=== PATIENT | female | born 1960 | race Caucasian/White ===

== ENCOUNTER 2017-12-04 10:17 | Outpatient (CLI) | payer OTHER, SELFPAY ==
[2017-12-04 11:52] LABS: ALT 18 U/L (12-78); AST 12 U/L (15-37); Albumin 3.6 g/dL (3.4-5.0); Alkaline Phosphatase 105 U/L (46-116); Anion Gap 4.7 mmol/L (3-11); BUN 9 mg/dL (7-18); Bilirubin, Total 0.3 mg/dL (0.2-1.0); CO2 34.3 mmol/L (21.0-32.0); CREATININE 0.69 mg/dL (0.55-1.02); Calcium 9.6 mg/dL (8.5-10.1); Chloride 101 mmol/L (98-107); Cholesterol 220 mg/dL (50-200); Glucose 85 mg/dL (70-100); HDL Cholesterol 53 mg/dL (40-60); LDL CHOLESTEROL 140 mg/dL (<100); Potassium 4.3 mmol/L (3.5-5.1); Sodium 140 mmol/L (136-145); Total Protein 7.1 g/dL (6.4-8.2); Triglyceride 212 mg/dL (30-150)
== END 2017-12-04 10:37 ==
PROVIDERS: PCP Family Medicine; Visit Provider Family Medicine
DX: E78.5 Hyperlipidemia, unspecified (principal)
CPT/HCPCS: 36415; 80053; 80061; 83721

== ENCOUNTER 2018-04-01 15:58 | Outpatient (CLI) | payer OTHER, SELFPAY ==
--- NOTE | 2018-04-01 15:00 | DI.RAD_ITS ---
SYMPTOMS/DIAGNOSIS: ACUTE MID BACK PAIN, H/O COMPRESSION FRACTURE, M54.9, DORSALGIA DORSAL SPINE: The patient is status post T7 vertebroplasty. There is a very mild old superior endplate compression of T10. There is no evidence of an acute abnormality. The vertebral bodies, posterior elements and paravertebral soft tissues are well maintained. As visualized, the neural canal appears patent throughout. SUMMARY: No evidence of an acute fracture or subluxation. A T7 vertebroplasty is identified and an old mild superior endplate compression fracture of T10 is evident with no interval change.
== END 2018-04-01 16:18 ==
PROVIDERS: PCP Family Medicine; Visit Provider Nurse Practitioner Family
DX: M54.6 Pain in thoracic spine (principal); Z98.890 Other specified postprocedural states
CPT/HCPCS: 72072

== ENCOUNTER 2018-04-19 00:18 | Outpatient (CLI) | payer OTHER, SELFPAY ==
--- NOTE | 2018-04-19 08:35 | DI.MAMMO_ITS ---
SYMPTOMS/DIAGNOSIS: SCREENING, Z12.31 MAMMOGRAM: Mammograms were interpreted according to the usual protocol including computer analysis with CAD system, tomosynthesis and C view imaging. Comparison is made with exams from 2010 through 2018. The breasts are composed of fatty density tissue, breast density Category A. No suspicious masses or suspicious microcalcifications are seen. There has been no significant change. IMPRESSION: Category I, negative mammogram. Yearly screening mammography is recommended. [facility] ASSESSMENT OF FINDINGS: Negative. Category 1. Patient will receive a letter notifying them of these results. BI-RAD category A. The breasts are almost entirely fatty.
== END 2018-04-19 00:38 ==
PROVIDERS: PCP Family Medicine; Visit Provider Family Medicine
DX: Z12.31 Encounter for screening mammogram for malignant neoplasm of breast (principal)
CPT/HCPCS: 77063; 77067

== ENCOUNTER 2018-12-13 14:23 | Outpatient (REF) | payer OTHER, SELFPAY ==
--- NOTE | 2018-12-13 12:00 | PAPFT_PTH ---
PATIENT: Monique Barahona LOC: [facility] U#:[id number] AGE/SX: 58/F ROOM: RE12/13/[address]: Nimisha Benson MD : 1960 BED: DIS: 12/13/2018 SPEC #: [id number] RECD: 12/13/18 18:24 STATUS: IZZY REBrandon #: [id number] JEVON: 12/13/18 12:[address]: Nimisha Benson DEPT: [facility] Cytology RECD BY: Mariola Layton Tissues: 1 - CX/ENDOCX FOR PAP SMEARS Procedures: PAP THIN PREP/UVM Screening HPV DNA PROBE Comments: [id number]
== END 2018-12-13 14:43 ==
LOC: LBN 14:23
PROVIDERS: PCP Family Medicine; Visit Provider Family Medicine
DX: Z12.4 Encounter for screening for malignant neoplasm of cervix (principal)
CPT/HCPCS: 88142; 87624

== ENCOUNTER 2018-12-15 02:30 | Outpatient (CLI) | payer OTHER, SELFPAY ==
[2018-12-15 11:32] LABS: ALT 20 U/L (14-59); AST 12 U/L (15-37); Albumin 3.6 g/dL (3.4-5.0); Alkaline Phosphatase 90 U/L (46-116); Anion Gap 8.4 mmol/L (3-11); BUN 10 mg/dL (7-18); Bilirubin, Total 0.3 mg/dL (0.2-1.0); CO2 30.6 mmol/L (21.0-32.0); CREATININE 0.69 mg/dL (0.55-1.02); Calcium 9.1 mg/dL (8.5-10.1); Calculated LDL 125 mg/dL; Chloride 105 mmol/L (98-107); Cholesterol 211 mg/dL (50-200); Glucose 80 mg/dL (70-100); HDL Cholesterol 51 mg/dL (40-60); Potassium 4.1 mmol/L (3.5-5.1); Sodium 144 mmol/L (136-145); Triglyceride 177 mg/dL (30-150)
== END 2018-12-15 02:50 ==
PROVIDERS: PCP Family Medicine; Visit Provider Family Medicine
DX: E83.42 Hypomagnesemia (principal); E78.5 Hyperlipidemia, unspecified
CPT/HCPCS: 36415; 80053; 80061; 83735

== ENCOUNTER 2019-12-20 09:08 | Emergency (ER) | payer OTHER, SELFPAY ==
[2019-12-20 09:14] VITALS: BP 164/80; PULSE 102; RESP 16; TEMP 36.5; O2SAT 98
--- NOTE | 2019-12-20 09:24 | ED.GENADUL_ITS ---
Discharge Plan Disposition Patient Disposition: HOME Condition: Improving Discharge Details Clinical Impression: Moderate left ankle sprain Primary Care Provider: Nimisha Benson ED Provider: Daniel Ramírez Home Meds and New Rx's Prescriptions: Continued ibandronate 150 mg tablet 150 mg PO monthly Qty: 12 RF: 0 Chantix Starting Month Box 0.5 mg (11)- 1 mg (42) tablets,dose pack See Rx Instructions PO PER PKG DIR Qty: 53 RF: 0 albuterol sulfate [ProAir HFA] 90 mcg/actuation HFA aerosol inhaler 1 - 2 puff IH QID PRN (Reason: shortness of breath or wheezing) Qty: 8.5 RF: 2 acetaminophen [Tylenol Extra Strength] 500 MG tablet 1,000 mg PO Q4HR PRN RF: 0 calcium phosphate-vitamin D3 1 EACH tablet,chewable 2 ea PO DAILY RF: 0 mometasone 17 GM spray,non-aerosol 2 spry NS DAILY Qty: 1 RF: 5 fexofenadine 180 mg tablet 180 mg PO DAILY Qty: 90 RF: 4 pravastatin 10 mg tablet 10 mg PO DAILY Qty: 90 RF: 4 omeprazole 40 mg capsule,delayed release(DR/EC) 40 mg PO DAILY Qty: 90 RF: 4 Discharge Instructions Instructions: Ankle Sprain (ED) Additional Instructions: May remove walking boot will at rest or lying in bed, and for bathing. Rest, ice, elevate above the level of the heart to reduce pain and swelling. Anticipate you will wear the walking boot approximately 5 to 7 days time until you can walk without pain, then may remove. If pain persist beyond 7 to 10 days, please follow-up with regular doctor for reevaluation. Return for any acute concerns. Medical Decision Making 59-year-old female who slipped and fell with wet boots on her kitchen floor. She felt her ankle deviate and crack. Now with anterior left ankle pain and swelling. Differential diagnosis includes bony versus soft tissue injury. Ice placed, patient declined analgesia, patient referred for x-ray. Radiograph showed evidence of bony fracture. Patient with some pain but able to weight-bear. Placed in a walking boot. She understands she may remove approxi- 1 week. She will follow up with pain persist beyond that time. HPI General Mode of arrival: ambulatory . Date/Time Provider Initiated Documentation: 12/20/19 09:09 . Limitations to Documentation: no limitations . Information obtained by: patient . History of Present Illness 59 year old F presents to the emergency department with the chief complaint of Left ankle pain after fall at home, described as moderate, Quality is described as dull, and is localized to the left and lower extremity. Patient reports no radiation. Patient started experiencing this minute(s) and it has been constant. Rest improves symptom(s), Movement worsens symptoms . Patient notes no other symptoms.; denies chest pain, headaches, shortness of breath and syncope. Patient did receive the following treatments prior to arrival, none Related Data Home Medications Medication Instructions Recorded Confirmed acetaminophen [Tylenol Extra 1,000 mg PO Q4HR PRN tab-cap 01/31/13 12/20/19 Strength] calcium phosphate-vitamin D3 2 ea PO DAILY tab.chew 10/02/16 12/20/19 mometasone 2 spry NS DAILY #1 bottle 03/16/17 12/20/19 albuterol sulfate 90 mcg/actuation 1 - 2 puff IH QID PRN #8.5 gm 06/07/18 12/20/19 aerosol inhaler ibandronate 150 mg tablet 150 mg PO monthly #12 tab-cap 12/13/18 12/20/19 varenicline 0.5 mg (11)-1 mg (42) See Rx Instructions PO PER PKG DIR 12/13/18 10/12/19 tablets in a dose pack #53 dose pk fexofenadine 180 mg tablet 180 mg PO DAILY #90 tab 12/21/18 12/20/19 pravastatin 10 mg tablet 10 mg PO DAILY #90 tab-cap 08/31/19 12/20/19 omeprazole 40 mg capsule,delayed 40 mg PO DAILY #90 tab-cap 12/01/19 12/20/19 release Previous Rx's Medication Instructions Recorded mometasone 2 spry NS DAILY #1 bottle 03/16/17 albuterol sulfate 90 mcg/actuation 1 - 2 puff IH QID PRN #8.5 gm 06/07/18 aerosol inhaler ibandronate 150 mg tablet 150 mg PO monthly #12 tab-cap 12/13/18 varenicline 0.5 mg (11)-1 mg (42) See Rx Instructions PO PER PKG DIR 12/13/18 tablets in a dose pack #53 dose pk fexofenadine 180 mg tablet 180 mg PO DAILY #90 tab 12/21/18 pravastatin 10 mg tablet 10 mg PO DAILY #90 tab-cap 08/31/19 omeprazole 40 mg capsule,delayed 40 mg PO DAILY #90 tab-cap 12/01/19 release Allergies Allergy/AdvReac Type Severity Reaction Status Date / Time No Known Allergies Allergy Verified 12/20/19 09:18 Dog dander Allergy Intermediate Uncoded 12/20/19 09:18 General Stated Complaint: Orthopedic FREDDY: 4 Review of Systems Narrative: Denies to me head/neck/back injury. Chronic back pain that is unchanged. No loss of consciousness. Sick systems reviewed and otherwise negative [facility] Medical History BPPV (benign paroxysmal positional vertigo) Surgical History Appendectomy Arthroscopy, Shoulder Cholecystectomy (~08/2010) Family History Mother , AGE 65 No problems noted. Father Prostate cancer Sister No problems noted. Son No problems noted. Son No problems noted. Maternal Grandfather , age 85 No problems noted. Paternal Grandfather , age 85 No problems noted. Maternal Grandmother , age 80 No problems noted. Paternal Grandmother , 104 No problems noted. 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 Pets and animals: Yes Pets and animals: dog(s) Sexually active: No What is your relationship status?: How often do you talk on the phone with friends or family?: three or more times per week How often do you get together with friends or relatives?: twice per week How often do you attend adventism or taoism services?: decline to answer Do you belong to any clubs or organized social groups?: no Panel score (0-1 are the most socially isolated patients): 1 What type of physical activity do you participate in: walking Duration: 30-45 minutes/day Frequency: 5-6 times per week Ara/Mandaen: [employer] Special ara needs: No Seatbelt use: always Helmet use: No Drive intox or ride w/intox catshovel driver: No Do you feel safe at home: Yes Do you feel safe in your relationship?: Yes Exam Narrative Exam Narrative: GEN: awake, alert, oriented 3. Pleasant, well groomed, interactive. HEAD: Normocephalic, atraumatic ENT: Mucous membranes moist, External ear exam unremarkable EYES: PERRL, EOMI NECK: Full ROM, no DORIS, no menigismus, nontender CHEST/RESP: Nontender, clear to auscultation bilateral, no wheeze/rhonchi/rales CARDIOVASCULAR: RRR, no murmur, rub cindy. 2+ Rad pulse bilateral ABDOMEN: Nontender, soft, nontender, no mass. +Bowel sounds. Back nontender without step-off or deformity. EXT: Full ROM, left anterior ankle with swelling and tenderness. 2+ DP bilaterally. Sensation intact throughout. Motor intact. Neuro: Grossly normal neurologic exam, conversant, interactive. Psych: Speech fluent, thoughts congruent, affect normal Course Vital Signs Vital signs: Vital Signs Temperature 36.5 C 12/20/19 09:14 Pulse 102 H 12/20/19 09:14 Respiratory Rate 16 12/20/19 09:14 Blood Pressure 164/80 H 12/20/19 09:14 Pulse Oximetry 98 12/20/19 09:14 Temperature 36.5 C 12/20/19 09:14 Temperature Source Skin 12/20/19 09:14 Pulse 102 H 12/20/19 09:14 Respiratory Rate 16 12/20/19 09:14 Respiratory Effort Non-Labored 12/20/19 09:17 Blood Pressure 164/80 H 12/20/19 09:14 Blood Pressure Position Sitting 12/20/19 09:14 Pulse Oximetry 98 12/20/19 09:14 Oxygen Delivery Method Room Air 12/20/19 09:14 Oxygen Flow Rate 0 12/20/19 09:14 Pain Level 7 12/20/19 09:14
--- NOTE | 2019-12-20 09:38 | DI.RAD_ITS ---
EXAM: XR ANKLE LT COMPLETE CLINICAL HISTORY: anterior anle swelling, pain p fall TECHNIQUE: 2D digital imaging was performed. COMPARISON: No exams were available for comparison FINDINGS: BONES: No acute fracture is present. No bony destructive lesion is seen. JOINTS:The ankle mortise is normally aligned. Joint effusion is present. SOFT TISSUE: Normal. IMPRESSION: No acute fracture or dislocation. Small joint effusion. DATA REPOSITORY: RADIATION DOSE DELIVERED:
== END 2019-12-20 10:10 | disposition home or self-care (01) ==
LOC: ER 10:04
PROVIDERS: Emergency Provider Emergency Medicine; PCP Family Medicine
DX: S93.492A Sprain of other ligament of left ankle, initial encounter (principal); W01.0XXA Fall on same level from slipping, tripping and stumbling without subsequent striking against object, initial encounter; X50.9XXA Other and unspecified overexertion or strenuous movements or postures, initial encounter
CPT/HCPCS: 29515; 99283; 73610; L4361

== ENCOUNTER 2019-12-23 04:23 | Outpatient (CLI) | payer OTHER, SELFPAY ==
--- NOTE | 2019-12-23 06:31 | DI.MAMMO_ITS ---
EXAM: MG MAMMO SCREENING CLINICAL HISTORY: screening,Z12.39 TECHNIQUE: Bilateral full field digital CC and MLO mammographic images were obtained with 3D tomosyn thesis and utilizing computer aided detection (CAD). COMPARISON: Available for comparison. FINDINGS: Masses/Architectural Distortion: None seen. Microcalcifications: No suspicious pleomorphic-type are seen. Skin Thickening/Nipple Retraction: None. IMPRESSION: 1. No significant interval change with no specific features of malignancy noted. 2. Unless there is more urgent need, screening mammography is recommended, as per [employer] guidelines. BI-RADS Category 1 - Negative Breast Density - Category A - Almost entirely fatty A negative radiographic report should not delay biopsy if a dominant or clinically suspicious mass is present. Up to ten percent of cancers are not identified on mammography. A negative report may reinforce clinical impression. Adenosis and dense breasts may obscure an underlying neoplasm. False positive reports average 6 to 10%. Patient will receive a letter notifying them of these results.
== END 2019-12-23 04:43 ==
PROVIDERS: PCP Family Medicine; Visit Provider Nurse Practitioner Family
DX: Z12.31 Encounter for screening mammogram for malignant neoplasm of breast (principal)
CPT/HCPCS: 77063; 77067

== ENCOUNTER 2020-01-17 01:02 | Outpatient (CLI) | payer OTHER, SELFPAY ==
--- NOTE | 2020-01-17 08:45 | DI.DEXA_ITS ---
EXAM: XR DEXA BONE DENSITY W/WO JAUN CLINICAL HISTORY: Reassess bone density, last dexa in 2017,OSTEOPOROSIS, M81.0 TECHNIQUE: [employer] C densitometer COMPARISON: CR THORACIC SPINE from 01/01/2015 CR LUMBAR SPINE COMPLETE from 01/11/2016 DX DEXA BONE DENSITY WITH JAUN from 03/25/2016 FINDINGS: JAUN image: High-density material in the T7 vertebral body related to vertebroplasty. Mild compressio n fracture T 10 appears stable. There is also mild compression fracture of T12. Lumbar spine: Bone mineral density measurements of the lumbar spine correspond to a total T-score of -2.1, consistent with osteopenia. This represents a 5.2 percent increase when compared with 2017. Left hip: The bone mineral density measurements of the left hip correspond to a total T-score of -3.1 and a femoral neck T-score of -2.2, consistent with osteoporosis. The overall bone mineral density of the left hip has decreased 20.4 percent when compared with 2017. Right forearm: The left forearm was analyzed on the previous exam. The total T-score is -1.6, in the osteopenic range. IMPRESSION: Prior history of thoracic compression fractures. Osteopenia of the lumbar spine. Osteoporosis of th e left hip with significant decrease when compared with 2017. Osteopenia of right forearm.
== END 2020-01-17 01:22 ==
PROVIDERS: PCP Family Medicine; Visit Provider Nurse Practitioner Family
DX: M85.88 Other specified disorders of bone density and structure, other site (principal); M16.12 Unilateral primary osteoarthritis, left hip
CPT/HCPCS: 77080

== ENCOUNTER → 2020-02-24 21:20 | Outpatient (REF) | payer OTHER, SELFPAY ==
[2020-02-24 21:52] LABS: Abs Immature Grans 0.01 10^3/uL (0.0-0.06); Absolute Basophil Count 0.03 10^3/uL (0.0-0.2); Absolute Eosinophil Count 0.09 10^3/uL (0.0-0.7); Absolute Monocyte Count 0.37 10^3/uL (0.1-0.8); Absolute Neutrophil Count 3.97 10^3/uL (1.2-6.7); Basophils % 0.5; Eosinophils % 1.6; HGB 14.5 g/dL (11.2-15.7); Immature Grans % 0.2; Lymphocytes % 18.3; MCH 32.7 pg (27.0-33.0); MCV 99.3 fL (80-95); MPV 10.3 fL (8.0-11.0); Monocytes % 6.8; Neutrophils % 72.6; Nucleated RBC 0 %; Platelet Count 257 10^3/uL (130-400); RBC 4.43 10^6/uL (3.93-5.22); RDW 12.4 % (11.7-14.6); RDW-SD 45.8 fL; WBC 5.47 10^3/uL (4.4-10.8)
[2020-02-24 22:07] LABS: Albumin 3.9 g/dL (3.4-5.0); Alkaline Phosphatase 257 U/L (46-116); Amylase 115 U/L (25-115); Anion Gap 7.3 mmol/L (3-11); BUN 10 mg/dL (7-18); Bilirubin, Total 1.7 mg/dL (0.2-1.0); CO2 30.7 mmol/L (21.0-32.0); CREATININE 0.78 mg/dL (0.55-1.02); Calcium 9.4 mg/dL (8.5-10.1); Chloride 103 mmol/L (98-107); Glucose 115 mg/dL (74-106); Lipase 395 U/L (73-393); Potassium 4.2 mmol/L (3.5-5.1); Sodium 141 mmol/L (136-145); Total Protein 7.2 g/dL (6.4-8.2)
[2020-02-24 22:39] LABS: ALT 1073 U/L (14-59); AST 1162 U/L (15-37)
== END ==
LOC: LBN 21:20
PROVIDERS: PCP Family Medicine; Visit Provider Nurse Practitioner Family
DX: R10.9 Unspecified abdominal pain (principal)
CPT/HCPCS: 80053; 83690; 82150; 85025

== ENCOUNTER 2020-02-25 07:17 | Inpatient (IN) | payer OTHER, SELFPAY ==
[2020-02-25] VITALS (54 sets, daily range): BP systolic 123–154; BP diastolic 50–83; PULSE 67–107; RESP 12–23; TEMP 36.4–37; O2SAT 83–97
--- NOTE | 2020-02-25 07:15 | DI.CT_ITS ---
EXAM: CT ABDOMEN PELVIS W CLINICAL HISTORY: abdominal pain with elevated LFT/lipase. TECHNIQUE: Imaging Protocol: Axial computed tomography images with coronal and sagittal reformatted images were created and reviewed CONTRAST MATERIAL: Intravenous: Omnipaque 350 Contrast volume: 100 Oral: no COMPARISON: No exams were available for comparison FINDINGS: ABDOMEN: Lung Bases: Normal where visualized. Liver: Normal density. No measurable mass. Gallbladder and biliary tract: Status post cholecystectomy. Pancreas: Mildly enlarged, edematous pancreatic head with some surrounding inflammation, consistent w ith pancreatitis. Spleen: Normal. Kidneys: Normal size, contour and axis. No radiodense stones or obstructive uropathy. No masses seen. Adrenal glands: No masses seen. Abdominal Aorta: Abdominal portion non-dilated. PELVIS: Bladder: Symmetric distention, no gross wall thickening. Bowel: No obstruction . Status post appendectomy. Mild inflammation of the duodenum, adjacent to the pancreatic head. Peritoneal cavity: No ascites, collection or mesenteric inflammatory response. Bones: Within normal limits. Reproductive organs: Within normal limits. Lymph nodes: Unremarkable. Impression: Findings consistent with pancreatitis involving the head and body. Adjacent secondary inflammation o f the duodenum. RADIATION DOSE DELIVERED: 993.45mGy.cm Total DLP DATA REPOSITORY: All CT scans at this facility are submitted to the National Radiology Data Registry (NRDR) Dose Index Registry (DIR) with the [employer] (ACR). RADIATION OPTIMIZATION: All CT scans at this facility use at least one of these dose optimization te chniques: automated exposure control; mA and/or kV adjustment per patient size (includes targeted exa ms where dose is matched to clinical indication); or iterative reconstruction.
--- NOTE | 2020-02-25 07:31 | ED.GENADUL_ITS ---
Discharge Plan Disposition Patient Disposition: [facility] INPATIENT Condition: Improving Discharge Details Clinical Impression: Acute pancreatitis Admit Date/Time: 02/25/20 12:15 Admit Provider: Maruice Finn Attending Provider: Maurice Finn Primary Care Provider: Nimisha Benson ED Provider: Daniel Ramírez Medical Decision Making <Rock Garcia MD - Last Filed: 02/25/20 07:40> Patient presenting with upper abdominal pain with associated nausea/vomiting and history of pancreatitis. Status post cholecystectomy remotely. She is not a drinker. Feels better after medications. Laboratory studies yesterday showed normal white count but markedly elevated AST/ALT in the 1000 range. Lipase slightly elevated though not markedly. IV in place. Will start fluids. Repeat laboratory studies and obtain CT scan of abdomen pelvis. Patient be signed over to oncoming physician, Dr. Ramírez. Medical Records Medical records reviewed: Yes I reviewed the patient's medical records. Lab Data Lab results reviewed: Yes I reviewed the patient's lab results. Lab results narrative: Yesterday labs with elevated LFTs <Daniel Ramírez MD - Last Filed: 02/25/20 14:00> I received signout on the patient from Dr. Garcia. Please see his note regarding details of initial presentation, exam, plan of care. Patient with evidence of pancreatitis with lipase greater than 15,000. Her w josé miguel count is 11, hematocrit 43, platelets 261. AST 19, ALT 1304, alk phos 337, total bili 3.8. CT obtained with evidence of pancreatitis, no evidence of ductal dilatation. Ultrasound obtained which shows a normal common bile duct and pancreatic duct of 3 mm without evidence of stones or obstruction. HPI <Rock Garcia MD - Last Filed: 02/25/20 07:40> General Mode of arrival: EMS . Date/Time Provider Initiated Documentation: 02/25/20 07:21 . Limitations to Documentation: no limitations . Information obtained by: patient, RN notes reviewed and old records reviewed . HPI Narrative: Patient presents to ED by ambulance with abdominal pain. Patient reports pain started 2 days ago and radiates into the back. Reminds her of when she had prio r pancreatitis. She had vomiting yesterday. Dry heaves only today. She was seen by primary care yesterday and had laboratory studies done. She reports that she was supposed to get a phone call from them in the afternoon with the results of the labs and whether CT scan would be ordered or not. Patient denies fever, cough, shortness of breath, chest pain. She is status post cholecystectomy and appendectomy. She points to the epigastric region as to where she has pain. She received fentanyl and Zofran in route and feels much better. Related Data Home Medications Medication Instructions Recorded Confirmed acetaminophen [Tylenol Extra 1,000 mg PO Q4HR PRN tab-cap 01/31/13 02/25/20 Strength] calcium phosphate-vitamin D3 2 ea PO DAILY tab.chew 10/02/16 02/25/20 mometasone 2 spry NS DAILY #1 bottle 03/16/17 02/25/20 albuterol sulfate 90 mcg/actuation 1 - 2 puff IH QID PRN #8.5 gm 06/07/18 02/25/20 aerosol inhaler varenicline 0.5 mg (11)-1 mg (42) See Rx Instructions PO PER PKG DIR 12/13/18 02/25/20 tablets in a dose pack #53 dose pk fexofenadine 180 mg tablet 180 mg PO DAILY #90 tab 12/21/18 02/25/20 pravastatin 10 mg tablet 10 mg PO DAILY #90 tab-cap 08/31/19 02/25/20 omeprazole 40 mg capsule,delayed 40 mg PO DAILY #90 tab-cap 12/01/19 02/25/20 release ibandronate 150 mg tablet 150 mg PO monthly #3 tab-cap 01/30/20 02/25/20 Previous Rx's Medication Instructions Recorded mometasone 2 spry NS DAILY #1 bottle 03/16/17 albuterol sulfate 90 mcg/actuation 1 - 2 puff IH QID PRN #8.5 gm 06/07/18 aerosol inhaler varenicline 0.5 mg (11)-1 mg (42) See Rx Instructions PO PER PKG DIR 12/13/18 tablets in a dose pack #53 dose pk fexofenadine 180 mg tablet 180 mg PO DAILY #90 tab 12/21/18 pravastatin 10 mg tablet 10 mg PO DAILY #90 tab-cap 08/31/19 omeprazole 40 mg capsule,delayed 40 mg PO DAILY #90 tab-cap 12/01/19 release ibandronate 150 mg tablet 150 mg PO monthly #3 tab-cap 01/30/20 Allergies Allergy/AdvReac Type Severity Reaction Status Date / Time Dog dander Allergy Intermediate Uncoded 02/25/20 07:37 General FREDDY: 4 Review of Systems <Rock Garcia MD - Last Filed: 02/25/20 07:40> Narrative: 11/29 Review of Systems completed and is negative except as stated above in HPI (Systems reviewed: Const, Eyes, ENT, Resp, CV, GI, , MSK, Skin, Neuro) PFSH <Rock Garcia MD - Last Filed: 02/25/20 07:40> Medical History BPPV (benign paroxysmal positional vertigo) GERD (gastroesophageal reflux disease) Guillain-Gruver syndrome Hyperlipidemia global risk of CAD: 9% (smoking and age) 2017/ [place] of [place]08/06/14[place] [facility] [place]frequency [place] of left renal mass/pt asymptomatic Osteoporosis (04/09/16) Dexa scan 2017 Pancreatitis (04/26/13) Surgical History Appendectomy Arthroscopy, Shoulder Cholecystectomy (~08/2010) Family History Mother , AGE 65 No problems noted. Father Prostate cancer Sister No problems noted. Son No problems noted. Son No problems noted. Maternal Grandfather , age 85 No problems noted. Paternal Grandfather , age 85 No problems noted. Maternal Grandmother , age 80 No problems noted. Paternal Grandmother , 104 No problems noted. 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 Pets and animals: Yes Pets and animals: dog(s) Sexually active: No What is your relationship status?: How often do you talk on the phone with friends or family?: three or more times per week How often do you get together with friends or relatives?: twice per week How often do you attend synagogue or cheondoism services?: decline to answer Do you belong to any clubs or organized social groups?: no Panel score (0-1 are the most socially isolated patients): 1 What type of physical activity do you participate in: walking Duration: 30-45 minutes/day Frequency: 5-6 times per week Ara/Mandaeism: Adventism Special ara needs: No Seatbelt use: always Helmet use: No Drive intox or ride w/intox driver/sales workers: No Do you feel safe at home: Yes Do you feel safe in your relationship?: Yes Exam <Rock Garcia MD - Last Filed: 02/25/20 07:40> Narrative Exam Narrative: Const: WDWN female in NAD. HEENT: NC/AT. Normal facial exam. Eyes: Normal conjunctiva and sclera. Neck: Supple. Trachea midline. Lungs: Normal respiratory effort. Cor: RRR. Good radial pulses. GI: Soft. NT/ND. No guarding or rebound. Neuro: A+O x 3. Normal speech, mentation. Cranial nerves II - XII grossly intact. No gross motor or sensory deficit. Ext: No C/C/E. Skin: Warm and dry. Sign Out <Rock Garcia MD - Last Filed: 02/25/20 07:40> Sign Out Data: Sign Out Comment: pending labs and CT scan Last updated by Rock Garcia MD at 02/25/20 07:40
[2020-02-25] MEDS: Lactated Ringers 1,000 ML 125 ML IV (07:40)
[2020-02-25 07:49] LABS: Abs Immature Grans 0.04 10^3/uL (0.0-0.06); Absolute Basophil Count 0.06 10^3/uL (0.0-0.2); Absolute Eosinophil Count 0.13 10^3/uL (0.0-0.7); Absolute Lymphocyte Count 1.21 10^3/uL (1.2-3.4); Absolute Neutrophil Count 9.09 10^3/uL (1.2-6.7); Basophils % 0.5; Eosinophils % 1.2; HGB 14.5 g/dL (11.2-15.7); Immature Grans % 0.4; MCH 33.3 pg (27.0-33.0); MCHC 33.7 % (32.0-36.0); MCV 98.9 fL (80-95); MPV 9.6 fL (8.0-11.0); Monocytes % 4.4; Neutrophils % 82.5; Nucleated RBC 0 %; Platelet Count 261 10^3/uL (130-400); RBC 4.35 10^6/uL (3.93-5.22); RDW 12.5 % (11.7-14.6); RDW-SD 45.8 fL; WBC 11.02 10^3/uL (4.4-10.8)
[2020-02-25 07:50] LABS: Absolute Monocyte Count 0.48 10^3/uL (0.1-0.8)
[2020-02-25 08:06] LABS: Albumin 3.6 g/dL (3.4-5.0); Alkaline Phosphatase 337 U/L (46-116); Anion Gap 11.4 mmol/L (3-11); BUN 11 mg/dL (7-18); Bilirubin, Total 3.8 mg/dL (0.2-1.0); CO2 27.6 mmol/L (21.0-32.0); CREATININE 0.88 mg/dL (0.55-1.02); Calcium 9.1 mg/dL (8.5-10.1); Chloride 101 mmol/L (98-107); Glucose 175 mg/dL (74-106); Potassium 3.5 mmol/L (3.5-5.1); Sodium 140 mmol/L (136-145); Total Protein 7.3 g/dL (6.4-8.2)
[2020-02-25 08:14] LABS: AST 910 U/L (15-37)
[2020-02-25 08:15] LABS: ALT 1304 U/L (14-59); Lipase > 15000 U/L (73-393)
[2020-02-25 08:27] LABS: Acetaminophen < 2 ug/mL (10-30)
[2020-02-25] MEDS: Omnipaque 350 MG/ML 100 ML BTL IJ (08:41)
[2020-02-25] MEDS: Normal Saline - Diluent 50 ML VIAL IV (08:42)
[2020-02-25] MEDS: Normal Saline Flush 10 ML SYR IVP (08:42)
--- NOTE | 2020-02-25 08:45 | DI.VRAD_ITS ---
PROCEDURE INFORMATION: Exam: CT Abdomen And Pelvis With Contrast Exam date and time: 02/25/2020 7:31 AM Age: 60 years old Clinical indication: Other: Abdominal pain with elevated lft/lipase; Prior surgery; Surgery date: 6+ months; Additional info: S/P pancreatitis, cholecystectomy, appendectomy and renal cell carcinoma in 2014 TECHNIQUE: Imaging protocol: Computed tomography of the abdomen and pelvis with intravenous contrast. Radiation optimization: All CT scans at this facility use at least one of these dose optimization techniques: automated exposure control; mA and/or kV adjustment per patient size (includes targeted exams where dose is matched to clinical indication); or iterative reconstruction. Contrast material: OMNIPAQUE 350; Contrast volume: 100 ml; Contrast route: INTRAVENOUS (IV); COMPARISON: CT UPPER ABD W/WO CONTRAST(P) 12/09/2013 9:04 AM FINDINGS: Liver: Normal. No mass. Gallbladder and bile ducts: Cholecystectomy Pancreas: Inflammatory changes around head and body of the pancreas. The pancreatic head is edematous. Findings consistent with pancreatitis. There may be secondary inflammation of the duodenum. . Spleen: Normal. No splenomegaly. Adrenal glands: Normal. No mass. Kidneys and ureters: Subcentimeter cyst lower pole left kidney No hydronephrosis. Stomach and bowel: Secondary inflammation of the duodenum from adjacent pancreatitis Appendix: Appendectomy Intraperitoneal space: Unremarkable. No free air. No significant fluid collection. Vasculature: Unremarkable. No abdominal aortic aneurysm. Lymph nodes: Unremarkable. No enlarged lymph nodes. Urinary bladder: Unremarkable as visualized. Reproductive: Unremarkable as visualized. Bones/joints: Unremarkable. No acute fracture. Soft tissues: Unremarkable. IMPRESSION: Inflammatory changes around head and body of the pancreas. The pancreatic head is edematous. Findings consistent with pancreatitis. There may be secondary inflammation of the duodenum. . Dictated and Authenticated by: Makayla Rivas MD. Ordering:RALPH Wilkerson MD
--- NOTE | 2020-02-25 09:00 | DI.US_ITS ---
EXAM: US ABDOMEN CLINICAL HISTORY: epigastric pain, pancreaitis, elev bili TECHNIQUE: Ultrasound abdomen performed using standard protocol. COMPARISON: CT CT ABDOMEN PELVIS W from 02/25/2020 FINDINGS: LIVER: Normal size, mildly increased echogenicity.. No focal liver lesions are seen.. GALLBLADDER: Status post cholecystectomy. BILIARY SYSTEM: Mild intrahepatic and extrahepatic biliary ductal dilation. No common duct stones ar e visible. KIDNEYS: Kidneys are symmetric in size. No evidence of renal calculi. No evidence of hydronephrosis. No renal mass or cyst identified. PANCREAS: Mildly prominent pancreatic head. Mild dilatation of the pancreatic duct to 3 millimeters. No stones are identified. SPLEEN: Not enlarged. ABDOMINAL AORTA AND IVC: Visualized portions normal caliber. ASCITES: None seen. IMPRESSION: Mildly prominent pancreatic head could indicate focal pancreatitis. There is mild dilatation of the pancreatic duct. No stones are visible.. DATA REPOSITORY:
[2020-02-25] MEDS: HYDROmorphone 2 MG/ML VIAL 0.5 MG IVP (09:42)
[2020-02-25] MEDS: Lactated Ringers 1,000 ML 200 ML IV ×3 (10:00→19:31)
[2020-02-25] MEDS: Ondansetron 4 MG/2 ML VIAL IVP (10:48)
--- NOTE | 2020-02-25 12:01 | DI.VRAD_ITS ---
PROCEDURE INFORMATION: Exam: US Abdomen Complete Exam date and time: 02/25/2020 9:01 AM Age: 60 years old Clinical indication: Other: Mid abdominal pain. ; Prior surgery; Surgery date: 6+ months; Surgery type: S/P cholecystectomy; Patient HX: Abdominal pain since after a fatty meal - PT has limited food intake since then due to her HX of pancreatitis. TECHNIQUE: Imaging protocol: Real-time ultrasound of the abdomen with image documentation. COMPARISON: CT ABDOMEN PELVIS W 02/25/2020 8:22 AM FINDINGS: Liver: Liver measures 14.8 cm. The liver is mildly echogenic. This may represent mild fatty infiltration Gallbladder: Cholecystectomy Common bile duct: Common bile duct measures 4.8 -5 mm Pancreas: Pancreatic duct 2 mm Prominent pancreatic head consistent with the CT findings pancreatitis. Right kidney: Right kidney measures 9.4 cm. No hydronephrosis. Left kidney: Left kidney measures 8.8 cm. No hydronephrosis Spleen: Spleen measures 9.7 cm Aorta: Proximal aorta 2.35 cm. Mid aorta 2 cm distal aorta 2 cm Inferior vena cava: Normal. Portal venous: Antegrade flow in the portal vein IMPRESSION: Prominent pancreatic head consistent with the CT findings pancreatitis. Dictated and Authenticated by: Makayla Rivas MD. Ordering:YONI Sanchez MD
[2020-02-25 12:46] LABS: Calculated LDL 142 mg/dL (<100); Cholesterol 223 mg/dL (<200); HDL Cholesterol 60 mg/dL (40-60); Triglyceride 109 mg/dL (<150)
--- NOTE | 2020-02-25 13:08 | HPE_ITS ---
Date of service: 02/25/20 Time of Service: 13:16 Assessment and Plan Assessment and plan (1) Acute pancreatitis: Start date: 02/25/20 Start time: 14:17 Status: Acute Assessment and plan: Lipase of 15,000, elevated Liver enzymes and Alk phos Found by imaging, cholsysectomy in 2010, denies alcohol use, changed diet to no- low carb recently with a burger night, there could be an increase in fat in diet contributing to pancreatitis. Though patient does not believe there is. Should follow up with GI referral at [facility] for recurrent pancreatitis with no known etiology on discharge Will give IVF aggressively Antiemetics Analgesics, at this time she states pain is a 2 NPO She would like to be discharged by Thursday. Will trial PO in am if pain is still low. Qualifiers: Acute pancreatitis complication: unspecified Pancreatitis type: idiopathic Qualified Code(s): K85.00 - Idiopathic acute pancreatitis without necrosis or infection (2) GERD (gastroesophageal reflux disease): Start date: 02/25/20 Start time: 14:41 Status: Chronic Assessment and plan: continue omeprazole Qualifiers: Esophagitis presence: esophagitis presence not specified Qualified Code(s): K21.9 - Gastro-esophageal reflux disease without esophagitis (3) Hyperlipidemia: Start date: 02/25/20 Start time: 14:42 Status: Chronic Assessment and plan: Continue pravastatin Triglyceride levels normal Qualifiers: Hyperlipidemia type: unspecified Qualified Code(s): E78.5 - Hyperlipid emia, unspecified (4) Asthma: Start date: 02/25/20 Start time: 14:43 Status: Chronic Assessment and plan: Current everyday smoker, not interested in cessation She does have a slight dry cough at this time, from smoking. Not exacerbated. 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 Finn who is in agreement. History of Present Illness History of Present Illness Chief Complaint: Pancreatitis Narrative: 60 y.o female with PMH of Tobacco abuse, malignant tumor of kideny, BPPV, asthma, HLD, GERD, osteoprosis, presents to [facility] ED after several days of abdominal pain from eating a burger night. She was seen by her PCP 02/23, labs were done, remarkable for elevated total bili, AST ALT Alk phos and lipase; she presented today for worsening pain and was found to have a bili level of 3.8, AST 910, ALT 1304, Alk phos 337, total cholesterol 223 LDL 142 with lipase greater than 15,000. Abd ultrasound Prominent pancreatic head consistent with the CT findings pancreatitis. CT in ED: IMPRESSION: Inflammatory changes around head and body of the pancreas. The pancreatic head is edematous. Findings consistent with pancreatitis. There may be secondary inflammation of the duodenum. She has been asked to be admitted for further management of her pancreatitis. Will hydrate with IVF, NPO, bowel rest, analgesics for pain, antiemetics and monitor. Review of Systems All systems reviewed & are unremarkable except as noted in HPI and below PFSH Medical History BPPV (benign paroxysmal positional vertigo) GERD (gastroesophageal reflux disease) Guillain-Maricao syndrome Hyperlipidemia global risk of CAD: 9% (smoking and age) 2017/ Malignant tumor of kidney (08/06/14) [facility] -2014: CT-guided radiofrequency ablation of left renal mass/pt asymptomatic Osteoporosis (04/09/16) Dexa scan 2017 Pancreatitis (04/26/13) Surgical History Appendectomy Arthroscopy, Shoulder Cholecystectomy (~08/2010) Family History Mother , AGE 65 No problems noted. Father Prostate cancer Sister No problems noted. Son No problems noted. Son No problems noted. Maternal Grandfather , age 85 No problems noted. Paternal Grandfather , age 85 No problems noted. Maternal Grandmother , age 80 No problems noted. Paternal Grandmother , 104 No problems noted. 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 Pets and animals: Yes Pets and animals: dog(s) Sexually active: No What is your relationship status?: How often do you talk on the phone with friends or family?: three or more times per week How often do you get together with friends or relatives?: twice per week How often do you attend latter-day or christianity services?: decline to answer Do you belong to any clubs or organized social groups?: no Panel score (0-1 are the most socially isolated patients): 1 What type of physical activity do you participate in: walking Duration: 30-45 minutes/day Frequency: 5-6 times per week Ara/Muslim: Confucianism Special ara needs: No Seatbelt use: always Helmet use: No Drive intox or ride w/intox truck driver 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: No Do you feel safe at home: Yes Do you feel safe in your relationship?: Yes Meds Home Medications and Allergies Home Medications Medication Instructions Recorded Confirmed Type acetaminophen [Tylenol Extra 1,000 mg PO Q4HR PRN tab-cap 01/31/13 02/25/20 History Strength] calcium phosphate-vitamin D3 2 ea PO DAILY tab.chew 10/02/16 02/25/20 History mometasone 2 spry NS DAILY #1 bottle 03/16/17 02/25/20 Rx albuterol sulfate 90 mcg/actuation 1 - 2 puff IH QID PRN #8.5 gm 06/07/18 02/25/20 Rx aerosol inhaler varenicline 0.5 mg (11)-1 mg (42) See Rx Instructions PO PER PKG DIR 12/13/18 02/25/20 Rx tablets in a dose pack #53 dose pk fexofenadine 180 mg tablet 180 mg PO DAILY #90 tab 12/21/18 02/25/20 Rx pravastatin 10 mg tablet 10 mg PO DAILY #90 tab-cap 08/31/19 02/25/20 Rx omeprazole 40 mg capsule,delayed 40 mg PO DAILY #90 tab-cap 12/01/19 02/25/20 Rx release ibandronate 150 mg tablet 150 mg PO monthly #3 tab-cap 01/30/20 02/25/20 Rx Allergies Allergy/AdvReac Type Severity Reaction Status Date / Time Dog dander Allergy Intermediate Uncoded 02/25/20 07:37 Exam Const General: cooperative, healthy appearing, comfortable, no acute distress and well groomed Nutritional Appearance: overweight Orientation: alert, awake and oriented x3 HENMT Head: normal to inspection, no palpable skull fracture, normocephalic and atraumatic Ears: hearing grossly normal bilaterally Mouth: oral mucosae normal Eyes General: appearance normal, both eyes and all related structures Cornea: corneas normal Pupils: PERRL EOM: EOM intact bilaterally Neck Neck: normal visual inspection, full ROM and no JVD Thyroid: thyroid normal Lymphatic: no lymphadenopathy noted Chest Chest: normal inspection of the chest Resp Effort & Inspection: normal respiratory effort and able to speak in complete sentences Auscultation: clear to auscultation bilaterally Cardio Jugular venous pressure: no JVD Rate: regular rate Rhythm: regular rhythm Heart Sounds: S1 normal and S2 normal GI Inspection: normal to inspection Palpation: soft and no hepatosplenomegaly Auscultation: normal bowel sounds Other: minimal pain to LUQ with palpation Skin General skin exam: no rashes or lesions noted Neuro General: patient alert, patient awake and patient oriented x3 Cognition: normal cognition Speech: speech normal Extrem General: normal to inspection, full ROM and no clubbing, cyanosis or edema Psych Appearance: grossly normal and well kempt Speech and Movement: speech and movement normal Results Labs Result diagrams: 02/25/20 07:30 02/25/20 07:30 Labs: Laboratory Results - last 24 hr 02/25/20 02/25/20 02/25/20 07:30 07:30 07:30 WBC 11.02 H D RBC 4.35 Hgb 14.5 Hct 43.0 MCV 98.9 H MCH 33.3 H MCHC 33.7 RDW 12.5 Plt Count 261 MPV 9.6 Immature Gran % 0.4 Neutrophils % 82.5 Lymphocytes % 11.0 Monocytes % 4.4 Eosinophils % 1.2 Basophils % 0.5 Nucleated RBC % 0 Absolute Neutrophils 9.09 H Absolute Lymphocytes 1.21 Absolute Monocytes 0.48 Absolute Eosinophils 0.13 Absolute Basophils 0.06 Sodium 140 Potassium 3.5 Chloride 101 Carbon Dioxide 27.6 Anion Gap 11.4 H BUN 11 Creatinine 0.88 Estimated GFR/1.73 m2 >= 60.00 Glucose 175 H Calcium 9.1 Total Bilirubin 3.8 H AST 910 H ALT 1304 H Alkaline Phosphatase 337 H Total Protein 7.3 Albumin 3.6 Triglycerides Total Cholesterol LDL Cholesterol, Calc HDL Cholesterol Lipase > 18528 H Acetaminophen < 2 02/25/20 07:30 WBC RBC Hgb Hct MCV MCH MCHC RDW Plt Count MPV Immature Gran % Neutrophils % Lymphocytes % Monocytes % Eosinophils % Basophils % Nucleated RBC % Absolute Neutrophils Absolute Lymphocytes Absolute Monocytes Absolute Eosinophils Absolute Basophils Sodium Potassium Chloride Carbon Dioxide Anion Gap BUN Creatinine Estimated GFR/1.73 m2 Glucose Calcium Total Bilirubin AST ALT Alkaline Phosphatase Total Protein Albumin Triglycerides 109 Total Cholesterol 223 H LDL Cholesterol, Calc 142 H HDL Cholesterol 60 Lipase Acetaminophen Last Vital Signs Temp 36.4 C L 02/25/20 08:30 Pulse 78 02/25/20 12:11 Resp 16 02/25/20 12:11 BP 134/72 02/25/20 12:11 Pulse Ox 95 02/25/20 12:11 COVID-19 Screening Have you, or household traveled for leisure in last 14 days?: No Had IN PERSON contact w/suspected or confirmed C-19 person: No
[2020-02-25] MEDS: Enoxaparin 40 MG/0.4 ML SYR SC (14:15)
--- NOTE | 2020-02-25 15:06 | PDOC.CMIN ---
- If Service Date Differs Date of service: 02/25/20 Time of Service: 15:10 Care Management Initial Assess REASON FOR HOSPITALIZATION:: Pancreatitis. PAST MEDICAL HISTORY/PAST SURGICAL HISTORY:: Medical History: BPPV (benign paroxysmal positional vertigo), GERD (gastroesophageal reflux disease), Guillain-Penryn syndrome, Hyperlipidemia - global risk of CAD: 9% (smoking and age) 2017,. Malignant tumor of kidney (08/06/14) - [facility] : CT-guided radiofrequency ablation of left renal mass/pt asymptomatic,. Osteoporosis (04/09/16) - Dexa scan 2017, and Pancreatitis (04/26/13). Surgical History: Appendectomy, Arthroscopy - Shoulder, and Cholecystectomy (~08/2010). PREVIOUS FUNCTIONAL STATUS/SOCIAL/FAMILY SUPPORTS:: Monique lives with her son Francsico in [place]. Her other son, Isrrael, lives in [place], [place]. Both of her sons are supportive. 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 Monique drives and is independent in the community. She reports she used to visit her son in [place] a couple of times a month, but with Covid she has become a homebody and no longer travels out of the area. CURRENT FUNCTIONAL STATUS:: Monique is sitting on the side of the bed when CM comes to meet with her. She is pleasant and interactive. Monique states she is feeling much better today and is looking forward to returning home. ADVANCE DIRECTIVES:: None on file; CM offered form and patient declined. Has patient been provided with info about the portal/API?: Yes Did the patient sign up for the portal?: No (Not interested) CODE STATUS:: Full Code INSURANCE COVERAGE / FINANCIAL ISSUES:: [employer] CURRENT HOME/COMMUNITY SERVICES/EQUIPMENT:: None. Monique is independent at baseline. PRIMARY CARE PHYSICIAN:: Nimisha Benson MD. POTENTIAL DISCHARGE NEEDS:: Follow up appointments with PCP and [facility] software technical lead. PATIENT/FAMILY EDUCATION NEEDS:: Discharge instructions, limitations, follow up plan of care, including Ask Me Three and self management. ANTICIPATED BARRIERS TO DISCHARGE:: None. TRANSPORTATION:: Via private vehicle with family. PLAN:: Anticipate Monique will be discharged home when medically cleared by provider. She will follow up with her PCP, [facility] software technical lead, and discharge plan of care as directed. She will be driven home by family via private vehicle when ready. CM will continue to follow.
[2020-02-25] MEDS: Pravastatin 20 MG TAB 10 MG PO (19:31)
[2020-02-26] MEDS: Lactated Ringers 1,000 ML 200 ML IV ×2 (00:24→10:39)
[2020-02-26 01:49] LABS: COVID-19 RT-PCR UVMMC Result Negative (Negative)
[2020-02-26 07:10] LABS: Abs Immature Grans 0.02 10^3/uL (0.0-0.06); Absolute Basophil Count 0.04 10^3/uL (0.0-0.2); Absolute Lymphocyte Count 1.29 10^3/uL (1.2-3.4); Absolute Monocyte Count 0.54 10^3/uL (0.1-0.8); Basophils % 0.5; Eosinophils % 1.2; HCT 37.5 % (36.0-46.0); HGB 12.1 g/dL (11.2-15.7); Immature Grans % 0.2; Lymphocytes % 15.9; MCH 32.4 pg (27.0-33.0); MCHC 32.3 % (32.0-36.0); MCV 100.5 fL (80-95); MPV 9.9 fL (8.0-11.0); Monocytes % 6.7; Neutrophils % 75.5; Nucleated RBC 0 %; Platelet Count 205 10^3/uL (130-400); RBC 3.73 10^6/uL (3.93-5.22); RDW-SD 48.6 fL; WBC 8.09 10^3/uL (4.4-10.8)
[2020-02-26 07:18] LABS: Bilirubin, Direct 0.46 mg/dL (0.00-0.20)
[2020-02-26 07:24] LABS: ALT 804 U/L (14-59); AST 332 U/L (15-37); Albumin 2.8 g/dL (3.4-5.0); Alkaline Phosphatase 333 U/L (46-116); BUN 6 mg/dL (7-18); Bilirubin, Total 1.1 mg/dL (0.2-1.0); CREATININE 0.58 mg/dL (0.55-1.02); Calcium 8.6 mg/dL (8.5-10.1); Chloride 106 mmol/L (98-107); Glucose 77 mg/dL (74-106); Magnesium 1.9 mg/dL (1.8-2.4); Potassium 3.6 mmol/L (3.5-5.1); Sodium 141 mmol/L (136-145); Total Protein 6.1 g/dL (6.4-8.2)
[2020-02-26 07:32] LABS: Lipase 1887 U/L (73-393)
[2020-02-26 07:38] VITALS: BP 160/78; PULSE 82; RESP 17; TEMP 37; O2SAT 96
[2020-02-26] MEDS: Omeprazole 20 MG CAPCR 40 MG PO (07:41)
[2020-02-26] MEDS: Enoxaparin 40 MG/0.4 ML SYR SC (13:32)
--- NOTE | 2020-02-26 13:34 | W.PM.DS.N ---
Date of service: 02/26/20 Time of Service: 13:35 DS: Diagnosis Discharge Diagnosis (1) Acute pancreatitis: Start date: 02/26/20 Start time: 13:35 Status: Acute Asessment and Plan: Improving symptoms. Unknown etiology, she did have a cheeseburger on , lipase on admission greater than 15,000 today lipase is 1887. She was able to tolerate soft non fat foods without pain today, she is adamant about going home she feels well therefore she is being discharged home with nucyenta, zofran, soft foods advance as tolerated. Referral to [facility] [place] [place] [facility] for further management of Idiopathic pancreatitis. (2) GERD (gastroesophageal reflux disease): Start date: 02/26/20 Start time: 14:35 Status: Chronic Asessment and Plan: continue omeprazole (3) Hyperlipidemia: Start date: 02/26/20 Start time: 14:36 Status: Chronic Asessment and Plan: continue pravastatin (4) Asthma: Start date: 02/26/20 Start time: 14:36 Status: Chronic Asessment and Plan: not exacerbated at this time. (5) Smoking addiction: Start date: 02/26/20 Start time: 14:36 Status: Chronic Asessment and Plan: She was not craving nicotine on admission above case discussed with Dr. Finn who is in agreement. Discharge Plan Disposition Patient Disposition: HOME Condition: Improving Discharge Details Reason For Visit: PANCREATITIS Admit Date/Time: 02/25/20 12:15 Admit Provider: Maurice Finn Attending Provider: Maurice Finn Primary Care Provider: [facility] Hospital Course: 60 y.o female with PMH of Tobacco abuse, malignant tumor of kideny, BPPV, asthma, HLD, GERD, osteoprosis, presents to [facility] ED after several days of abdominal pain from eating a burger night. She was seen by her PCP 02/23, labs were done, remarkable for elevated total bili, AST ALT Alk phos and lipase; she presented today for worsening pain and was found to have a bili level of 3.8, AST 910, ALT 1304, Alk phos 337, total cholesterol 223 LDL 142 with lipase greater than 15,000. Abd ultrasound Prominent pancreatic head consistent with the CT findings pancreatitis. CT in ED: IMPRESSION: Inflammatory changes around head and body of the pancreas. The pancreatic head is edematous. Findings consistent with pancreatitis. There may be secondary inflammation of the duodenum. She has been asked to be admitted for further management of her pancreatitis. She was hydrated with aggressive IVF overnight, lipase at 1887 today, she was able to tolerate a soft diet without pain or nausea and vomiting. She would like to be discharged home, she has to work in the morning. She is agreeable to a low fat soft diet. She denies CP, SOB, N/V/D. Total time discharging greater than 30 mins Home Meds and New Rx's Prescriptions: New Nucynta 50 mg tablet 50 mg PO Q6H PRNQty: 10 RF: 0 ondansetron HCl [Zofran] 4 mg tablet 4 mg PO Q8H PRNQty: 10 RF: 0 Continued Chantix Starting Month Box 0.5 mg (11)- 1 mg (42) tablets,dose pack See Rx Instructions PO PER PKG DIR Qty: 53 RF: 0 albuterol sulfate [ProAir HFA] 90 mcg/actuation HFA aerosol inhaler 1 - 2 puff IH QID PRN (Reason: shortness of breath or wheezing) Qty: 8.5 RF: 2 acetaminophen [Tylenol Extra Strength] 500 MG tablet 1,000 mg PO Q4HR PRN RF: 0 calcium phosphate-vitamin D3 1 EACH tablet,chewable 2 ea PO DAILY RF: 0 mometasone 17 GM spray,non-aerosol 2 spry NS DAILY Qty: 1 RF: 5 pravastatin 10 mg tablet 10 mg PO DAILY Qty: 90 RF: 4 omeprazole 40 mg capsule,delayed release(DR/EC) 40 mg PO DAILY Qty: 90 RF: 4 ibandronate 150 mg tablet 150 mg PO monthly Qty: 3 RF: 4 No Action fexofenadine 180 mg tablet 180 mg PO DAILY Qty: 90 RF: 4 Discharge Instructions Instructions: Pancreatitis (GEN) Additional Instructions: Follow low fat soft diet, drink plenty of fluids take pain medicine as needed and nausea medication as needed Follow up with [facility] [place] [place] [facility] we will send referral If low fat soft diet bothers you reduce diet to clears. Activity:: Activity as Tolerated Equipment/Supplies:: No Equipment Needed Diet:: As Tolerated Discharge Orders Discharge Orders: Discharge Order (Routine); Ordered 02/26/20 Ordered By: Velma Jones DS: Summary Status at Discharge Functional status at discharge: independent ambulation Overall status at discharge: patient is back to baseline Mental Status: mental status grossly normal Speech and Movement: speech and movement normal Mood: congruent mood Affect: normal affect Exam Const General: cooperative, healthy appearing, comfortable, no acute distress and well groomed Nutritional Appearance: overweight Orientation: alert, awake and oriented x3 HENMT Head: normal to inspection, no palpable skull fracture, normocephalic and atraumatic Ears: hearing grossly normal bilaterally Mouth: oral mucosae normal Eyes General: appearance normal, both eyes and all related structures Cornea: corneas normal Pupils: PERRL EOM: EOM intact bilaterally Neck Neck: normal visual inspection, full ROM and no JVD Thyroid: thyroid normal Lymphatic: no lymphadenopathy noted Chest Chest: normal inspection of the chest Resp Effort & Inspection: normal respiratory effort and able to speak in complete sentences Auscultation: clear to auscultation bilaterally Cardio Jugular venous pressure: no JVD Rate: regular rate Rhythm: regular rhythm Heart Sounds: S1 normal and S2 normal GI Inspection: normal to inspection Palpation: soft and no hepatosplenomegaly Auscultation: normal bowel sounds Skin General skin exam: no rashes or lesions noted Neuro General: patient alert, patient awake and patient oriented x3 Cognition: normal cognition Speech: speech normal Extrem General: normal to inspection, full ROM and no clubbing, cyanosis or edema Psych Appearance: grossly normal and well kempt Mental Status: mental status grossly normal Speech and Movement: speech and movement normal Mood: congruent mood Affect: normal affect DS: Data Vitals/I&O Vitals and I&O: Vital Signs Temperature 37.0 C 02/26/20 07:38 Temperature Source Temporal Artery Scan 02/26/20 07:38 Pulse 82 02/26/20 07:38 Pulse Rhythm Regular 02/26/20 09:15 Pulse Strength Normal 02/25/20 08:30 Pulse 70 02/25/20 13:01 Respiratory Rate 17 02/26/20 07:38 Respiratory Effort Non-Labored 02/26/20 09:15 Respiratory Depth Normal 02/26/20 09:15 Respiratory Pattern Normal 02/26/20 09:15 Blood Pressure 160/78 H 02/26/20 07:38 Blood Pressure Mean 73 02/25/20 13:01 Blood Pressure Position Supine 02/25/20 08:30 Pulse Oximetry 96 02/26/20 07:38 Oxygen Delivery Method Room Air 02/26/20 07:38 Oxygen Flow Rate 0 02/26/20 07:38 Pain Level 0 02/26/20 07:38 Comment 02/25/20 15:52 Intake & Output 02/25/20 02/26/20 02/26/20 23:59 11:59 23:59 Intake Total 2622.084 / 2903.334 Output Total 1050 / 1050 1850 / 2650 800 / 2650 Balance 1572.084 / 1853.334 126.667 / -673.333 -800 / -673.333 Weight 71.4 kg 73.4 kg Intake: IV 2622.084 / 2903.334 Output: Urine 1050 / 1050 1850 / 2650 800 / 2650 Other: Urine Color Yellow Straw Yellow Urine Appearance Clear Clear Clear Urine Odor Normal Normal Normal Voiding Methods Toilet Toilet Toilet Data Completed and Pending Completed studies during hospitalization [Text1]: EXAM: US ABDOMEN CLINICAL HISTORY: epigastric pain, pancreaitis, elev bili TECHNIQUE: Ultrasound abdomen performed using standard protocol. COMPARISON: CT CT ABDOMEN PELVIS W from 02/25/2020 FINDINGS: LIVER: Normal size, mildly increased echogenicity.. No focal liver lesions are seen.. GALLBLADDER: Status post cholecystectomy. BILIARY SYSTEM: Mild intrahepatic and extrahepatic biliary ductal dilation. No common duct stones are visible. KIDNEYS: Kidneys are symmetric in size. No evidence of renal calculi. No evidence of hydronephrosis. No renal mass or cyst identified. PANCREAS: Mildly prominent pancreatic head. Mild dilatation of the pancreatic duct to 3 millimeters. No stones are identified. SPLEEN: Not enlarged. ABDOMINAL AORTA AND IVC: Visualized portions normal caliber. ASCITES: None seen. IMPRESSION: Mildly prominent pancreatic head could indicate focal pancreatitis. There is mild dilatation of the pancreatic duct. No stones are visible.. Labs on day of discharge: Labs from last 24 hours 02/26/20 02/26/20 02/26/20 06:08 06:08 06:08 WBC 8.09 RBC 3.73 L Hgb 12.1 D Hct 37.5 MCV 100.5 H MCH 32.4 MCHC 32.3 RDW 13.0 Plt Count 205 MPV 9.9 Immature Gran % 0.2 Neutrophils % 75.5 Lymphocytes % 15.9 Monocytes % 6.7 Eosinophils % 1.2 Basophils % 0.5 Nucleated RBC % 0 Absolute Neutrophils 6.10 Absolute Lymphocytes 1.29 Absolute Monocytes 0.54 Absolute Eosinophils 0.10 Absolute Basophils 0.04 Sodium 141 Potassium 3.6 Chloride 106 Carbon Dioxide 30.0 Anion Gap 5.0 BUN 6 L Creatinine 0.58 D Estimated GFR/1.73 m2 >= 60.00 Glucose 77 D Calcium 8.6 Magnesium 1.9 Total Bilirubin 1.1 H Conjugated Bilirubin 0.46 H AST 332 H ALT 804 H Alkaline Phosphatase 333 H Total Protein 6.1 L Albumin 2.8 L Lipase 1887 H SARS-CoV-2 (PCR) Nasopharyn COVID-19 PCR Ref Test Perform Site 02/25/20 12:25 WBC RBC Hgb Hct MCV MCH MCHC RDW Plt Count MPV Immature Gran % Neutrophils % Lymphocytes % Monocytes % Eosinophils % Basophils % Nucleated RBC % Absolute Neutrophils Absolute Lymphocytes Absolute Monocytes Absolute Eosinophils Absolute Basophils Sodium Potassium Chloride Carbon Dioxide Anion Gap BUN Creatinine Estimated GFR/1.73 m2 Glucose Calcium Magnesium Total Bilirubin Conjugated Bilirubin AST ALT Alkaline Phosphatase Total Protein Albumin Lipase SARS-CoV-2 (PCR) Negative Nasopharyn COVID-19 PCR Not Applicable Ref Test Perform Site [facility] lab [facility] Medical History BPPV (benign paroxysmal positional vertigo) GERD (gastroesophageal reflux disease) Guillain-[place] syndrome Hyperlipidemia global risk of CAD: 9% (smoking and age) 2017/ Malignant tumor of kidney (08/06/14) [facility] [place] [place] -2014: CT-guided radiofrequency ablation of left renal mass/pt asymptomatic Osteoporosis (04/09/16) Dexa scan 2017 Pancreatitis (04/26/13) Surgical History Appendectomy Arthroscopy, Shoulder Cholecystectomy (~08/2010) Family History Mother , AGE 65 No problems noted. Father Prostate cancer Sister No problems noted. Son No problems noted. Son No problems noted. Maternal Grandfather , age 85 No problems noted. Paternal Grandfather , age 85 No problems noted. Maternal Grandmother , age 80 No problems noted. Paternal Grandmother , 104 No problems noted. 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 Pets and animals: Yes Pets and animals: dog(s) Sexually active: No What is your relationship status?: How often do you talk on the phone with friends or family?: three or more times per week How often do you get together with friends or relatives?: twice per week How often do you attend protestant or temple services?: decline to answer Do you belong to any clubs or organized social groups?: no Panel score (0-1 are the most socially isolated patients): 1 What type of physical activity do you participate in: walking Duration: 30-45 minutes/day Frequency: 5-6 times per week Ara/Sabianism: Baptist Special ara needs: No Seatbelt use: always Helmet use: No Drive intox or ride w/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
--- NOTE | 2020-02-26 15:04 | CMDISCH_ITS ---
- If Service Date Differs Date of service: 02/26/20 Time of Service: 15:04 LACE Index Scoring Tool - Questions: Length of Stay (in days): 1 Acuity (Admit via E.D.?): Yes Comorbidities: Any Tumor E.D. Visits: 2 - Answers: Total Score: 8 Risk of Readmission: Low Risk Care Management Discharge Reason for Hospitalization: Pancreatitis. Discharge Plan: Monique is discharged home with no new services. She will follow up with her PCP, [facility] dry primer powder blender, and discharge plan of care as directed. Her sister is driving her home via private vehicle. Patient/Family Education Needs: Discharge instructions, limitations, follow up plan of care including Ask Me Three and self management.
== END 2020-02-26 16:06 | disposition home or self-care (01) | DRG 440 ==
LOC: ER 12:56 → MS 13:23
PROVIDERS: Emergency Medicine; Admitting Provider Internal Medicine; Emergency Provider Emergency Medicine; PCP Family Medicine; Visit Provider Internal Medicine
DX: K85.00 Idiopathic acute pancreatitis without necrosis or infection (principal); K21.9 Gastro-esophageal reflux disease without esophagitis; E78.5 Hyperlipidemia, unspecified; J45.909 Unspecified asthma, uncomplicated; F17.210 Nicotine dependence, cigarettes, uncomplicated; M81.0 Age-related osteoporosis without current pathological fracture; H81.10 Benign paroxysmal vertigo, unspecified ear; Z85.528 Personal history of other malignant neoplasm of kidney
CPT/HCPCS: 36415; 80053; 80061; 83690; 96361; 96374; 96375; 99217; 99223; 99285; J1650; U0003; 74177; 76700; 80329; 82248; 83735; 85025; 99238; J2405; J3490

== ENCOUNTER → 2020-03-05 03:22 | Outpatient (CLI) | payer OTHER, SELFPAY ==
[2020-03-05 14:18] LABS: ALT 82 U/L (14-59); AST 20 U/L (15-37); Albumin 3.5 g/dL (3.4-5.0); Alkaline Phosphatase 138 U/L (46-116); BUN 10 mg/dL (7-18); Bilirubin, Total 0.3 mg/dL (0.2-1.0); CREATININE 0.71 mg/dL (0.55-1.02); Calcium 8.8 mg/dL (8.5-10.1); Chloride 102 mmol/L (98-107); Glucose 89 mg/dL (74-106); Lipase 512 U/L (73-393); Potassium 3.8 mmol/L (3.5-5.1); Sodium 141 mmol/L (136-145); Total Protein 6.7 g/dL (6.4-8.2)
== END ==
PROVIDERS: PCP Family Medicine; Visit Provider Family Medicine
DX: K85.00 Idiopathic acute pancreatitis without necrosis or infection (principal)
CPT/HCPCS: 36415; 80053; 83690

== ENCOUNTER 2020-04-24 03:28 | Outpatient (CLI) | payer OTHER, SELFPAY ==
[2020-04-24 15:50] LABS: HCT 40.5 % (36.0-46.0); HGB 13.4 g/dL (11.2-15.7); MCH 33.4 pg (27.0-33.0); MCHC 33.1 % (32.0-36.0); MPV 9.8 fL (8.0-11.0); Platelet Count 248 10^3/uL (130-400); RBC 4.01 10^6/uL (3.93-5.22); RDW 12.6 % (11.7-14.6); RDW-SD 47.6 fL; WBC 7.42 10^3/uL (4.4-10.8)
[2020-04-24 16:06] LABS: Bilirubin Negative (Negative); Blood Negative (Negative); Clarity Clear (Clear); Glucose Negative (Negative); Ketones Negative (Negative); Leukocyte Esterase Negative (Negative); Nitrite Negative (Negative); Specific Gravity >= 1.030 (1.005-1.025); Urobilinogen 0.2 EU/dL (Up TO 0.2)
[2020-04-24 16:58] LABS: ALT 23 U/L (14-59); AST 15 U/L (15-37); Albumin 3.6 g/dL (3.4-5.0); Alkaline Phosphatase 80 U/L (46-116); Anion Gap 6.8 mmol/L (3-11); BUN 13 mg/dL (7-18); Bilirubin, Total 0.3 mg/dL (0.2-1.0); CO2 31.2 mmol/L (21.0-32.0); CREATININE 0.9 mg/dL (0.55-1.02); Calcium 8.9 mg/dL (8.5-10.1); Chloride 103 mmol/L (98-107); Glucose 106 mg/dL (74-106); Lipase 113 U/L (73-393); Potassium 3.5 mmol/L (3.5-5.1); Sodium 141 mmol/L (136-145); Total Protein 6.9 g/dL (6.4-8.2)
[2020-04-25 09:25] LABS: ESR 19 mm/hr (<or=30)
== END 2020-04-24 03:29 | disposition home or self-care (01) ==
LOC: LBO 03:29
PROVIDERS: PCP Family Medicine; Visit Provider Family Medicine
DX: C64.9 Malignant neoplasm of unspecified kidney, except renal pelvis (principal); K85.90 Acute pancreatitis without necrosis or infection, unspecified
CPT/HCPCS: 36415; 80053; 83690; 85027; 85652; 81003

== ENCOUNTER 2020-08-06 03:04 | Outpatient (CLI) | payer OTHER, SELFPAY ==
[2020-08-06 12:58] LABS: Folate 4.3 ng/mL (8.6-20.0); Vitamin B12 312 pg/mL (193-986)
[2020-08-06 15:12] LABS: Calculated LDL 125 mg/dL (<100); Cholesterol 202 mg/dL (<200); HDL Cholesterol 54 mg/dL (40-60); Triglyceride 116 mg/dL (<150)
== END 2020-08-06 03:05 | disposition home or self-care (01) ==
LOC: LOS 03:05
PROVIDERS: Nurse Practitioner Family; PCP Family Medicine; Visit Provider Family Medicine
DX: E78.5 Hyperlipidemia, unspecified (principal); D75.89 Other specified diseases of blood and blood-forming organs
CPT/HCPCS: 36415; 80061; 82607; 82746

== ENCOUNTER 2020-11-20 04:02 | Outpatient (CLI) | payer OTHER, SELFPAY ==
[2020-11-20 11:50] LABS: Abs Immature Grans 0.03 10^3/uL (0.0-0.06); Absolute Basophil Count 0.08 10^3/uL (0.0-0.2); Absolute Eosinophil Count 0.35 10^3/uL (0.0-0.7); Absolute Lymphocyte Count 2.83 10^3/uL (1.2-3.4); Absolute Monocyte Count 0.48 10^3/uL (0.1-0.8); Absolute Neutrophil Count 4.01 10^3/uL (1.2-6.7); Eosinophils % 4.5; HCT 41.1 % (36.0-46.0); HGB 13.3 g/dL (11.2-15.7); Immature Grans % 0.4; Lymphocytes % 36.4; MCH 33.3 pg (27.0-33.0); MCHC 32.4 % (32.0-36.0); MPV 9.3 fL (8.0-11.0); Monocytes % 6.2; Neutrophils % 51.5; Nucleated RBC 0 %; Platelet Count 230 10^3/uL (130-400); RBC 3.99 10^6/uL (3.93-5.22); RDW 12.1 % (11.7-14.6); RDW-SD 45.8 fL; WBC 7.78 10^3/uL (4.4-10.8)
[2020-11-20 11:53] LABS: Bilirubin Negative (Negative); Blood Negative (Negative); Clarity Clear (Clear); Glucose Negative (Negative); Ketones Negative (Negative); Leukocyte Esterase Negative (Negative); Nitrite Negative (Negative); Urobilinogen 0.2 EU/dL (Up TO 0.2)
[2020-11-20 13:32] LABS: ALT 22 U/L (14-59); AST 14 U/L (15-37); Albumin 3.7 g/dL (3.4-5.0); Alkaline Phosphatase 80 U/L (46-116); Anion Gap 5.7 mmol/L (3-11); BUN 9 mg/dL (7-18); Bilirubin, Total 0.2 mg/dL (0.2-1.0); CO2 33.3 mmol/L (21.0-32.0); CREATININE 0.7 mg/dL (0.55-1.02); Chloride 103 mmol/L (98-107); Glucose 76 mg/dL (74-106); Potassium 3.5 mmol/L (3.5-5.1); Sodium 142 mmol/L (136-145); Total Protein 6.9 g/dL (6.4-8.2); Vitamin B12 319 pg/mL (193-986)
[2020-11-20 13:34] LABS: Folate > 20.0 ng/mL (8.6-20.0)
== END 2020-11-20 04:03 | disposition home or self-care (01) ==
LOC: LBO 04:04
PROVIDERS: PCP Family Medicine; Visit Provider Family Medicine
DX: E53.8 Deficiency of other specified B group vitamins; R63.4 Abnormal weight loss; Z85.528 Personal history of other malignant neoplasm of kidney
CPT/HCPCS: 36415; 80053; 81003; 82607; 82746; 85025

== ENCOUNTER 2020-12-24 00:08 | Outpatient (CLI) | payer OTHER, SELFPAY ==
--- NOTE | 2020-12-24 15:20 | DI.MAMMO_ITS ---
Exam(s) MAMMO SCREENING EXAM: MAMMO SCREENING CLINICAL HISTORY: screening,z12.39 TECHNIQUE: Bilateral full field digital CC and MLO mammographic images were obtained with 3D tomosyn thesis and utilizing computer aided detection (CAD). COMPARISON: Available for comparison. FINDINGS: Masses/Architectural Distortion: There is a nodule in the upper outer retroareolar region of the righ t breast which has shown slight interval increase in size. It currently measures 5 mm. Microcalcifications: No suspicious pleomorphic-type are seen. Skin Thickening/Nipple Retraction: None. IMPRESSION: 1. Interval increase in size of a retroareolar right breast nodule. 2. Additional views of the right breast and right breast ultrasound are recommended for further evalu ation. BI-RADS Category 0 - Assessment Incomplete: Need additional imaging evaluation Breast Density - Category A - Almost entirely fatty Breast density category C or D implies that the patient has dense breast tissue. Dense breast tissue is very common and is not abnormal but dense breast tissue can make it harder to find cancer on a ma mmogram. Also, dense breast tissue may increase their breast cancer risk. This information about the result of the mammogram report was provided to the patient to raise their awareness. Use this report when you speak with the patient about their risks for breast cancer, which includes their family hist ory. At that time, you may recommend for more screening tests (Ultrasound or MRI) as they might be us eful based on their risk. A negative radiographic report should not delay biopsy if a dominant or clinically suspicious mass is present. Up to ten percent of cancers are not identified on mammography. A negative report may reinforce clinical impression. Adenosis and dense breasts may obscure an underlying neoplasm. False positive reports average 6 to 10%. Patient will receive a letter notifying them of these results.
== END 2020-12-24 00:28 ==
PROVIDERS: PCP Family Medicine; Visit Provider Family Medicine
DX: Z12.31 Encounter for screening mammogram for malignant neoplasm of breast (principal); R92.8 Other abnormal and inconclusive findings on diagnostic imaging of breast
CPT/HCPCS: 77063; 77067

== ENCOUNTER 2020-12-28 01:03 | Outpatient (CLI) | payer OTHER, SELFPAY ==
--- NOTE | 2020-12-28 | DI.US_ITS ---
Exam(s) MG MAMMO SCREEN CALL BACK UNI US BREAST RT LIMITED EXAM: US BREAST RT LIMITED CLINICAL HISTORY: F/U MAMMO, INCREASE IN SIZE RT BREAST NODULE TECHNIQUE: Ultrasound performed using standard protocol. COMPARISON: US US ABDOMEN from 02/25/2020 FINDINGS: Additional mammographic views of the right breast and right breast ultrasound are interpreted in conj unction. These examinations were obtained to evaluate questionable increase in size of a small retro areolar nodule seen on prior mammograms. On today's examination, spot compression views confirm the nodule is well circumscribed with no suspicious features. Breast ultrasound shows a 5 x 3 x 6 millim eter in diameter septated cyst corresponding in location to the small retroareolar nodule in the uppe r outer quadrant of the breast. No solid mass identified. IMPRESSION: No specific evidence of malignancy at this time. I would suggest that a follow-up mammogram be obtai angelique in 12 months with routine screening of the contralateral breast performed at that time as well. BI-RADS Cat 2 - Benign Findings Breast Density - Category B - Scattered areas of fibroglandular density DATA REPOSITORY:
== END 2020-12-28 01:23 ==
PROVIDERS: PCP Family Medicine; Visit Provider Family Medicine
DX: R92.8 Other abnormal and inconclusive findings on diagnostic imaging of breast (principal)
CPT/HCPCS: 76642; 77063; 77067

== ENCOUNTER 2021-01-09 01:45 | Outpatient (CLI) | payer OTHER, SELFPAY ==
--- NOTE | 2021-01-09 07:45 | DI.CT_ITS ---
Exam(s) CT CHEST W EXAM: CT CHEST W CLINICAL HISTORY: weight loss in smoker/hx of renal cancer,r63.4 TECHNIQUE: CT examination of the chest was performed with intravenous infusion of 70 cc of Omnipaque 350. COMPARISON: No exams were available for comparison FINDINGS: The lungs are clear moderate changes centrilobular pulmonary emphysema. Calcified nodules are noted in the left lung. Findings are consistent with healed granulomatous disease. There is no evidence of pleural effusion. There is no evidence of pulmonary embolic disease. There is unremarkable appearance of the thoracic aorta and major branches with no evidence of aneurysm or dissection. Note is made of coronary artery calcification. There is no mediastinal or hilar adenopathy. Tracheobronchial tree appears intact. No axillary or supraclavicular adenopathy. Visualized portions of the liver, spleen, adrenals, and kidneys are unremarkable. No abnormality seen involving the bony thorax. IMPRESSION: No evidence of acute process. No evidence of metastatic disease.. RADIATION DOSE DELIVERED: 375.39mGy.cm Total DLP 375.39mGy.cm Total DLP 10.04mGy CTDIvol
[2021-01-09 13:34] LABS: CREATININE 0.6 mg/dL (0.55-1.02)
[2021-01-09] MEDS: Normal Saline Flush 10 ML SYR IVP (14:12)
[2021-01-09] MEDS: Omnipaque 350 MG/ML 100 ML BTL IJ (14:12)
== END 2021-01-09 02:05 ==
PROVIDERS: PCP Family Medicine; Visit Provider Family Medicine
DX: R63.4 Abnormal weight loss (principal)
CPT/HCPCS: 71260; 82565; J3490

== ENCOUNTER 2021-05-24 02:36 | Outpatient (CLI) | payer OTHER, SELFPAY ==
[2021-05-24 12:09] LABS: HCT 39.7 % (36.0-46.0); HGB 13.2 g/dL (11.2-15.7); MCH 33.2 pg (27.0-33.0); MCHC 33.2 % (32.0-36.0); MPV 9.1 fL (8.0-11.0); Platelet Count 237 10^3/uL (130-400); RBC 3.97 10^6/uL (3.93-5.22); RDW 11.7 % (11.7-14.6); RDW-SD 43.3 fL; WBC 7.77 10^3/uL (4.4-10.8)
[2021-05-24 13:20] LABS: ALT 19 U/L (14-59); AST 13 U/L (15-37); Albumin 3.7 g/dL (3.4-5.0); Alkaline Phosphatase 76 U/L (46-116); Anion Gap 7.9 mmol/L (3-11); BUN 14 mg/dL (7-18); Bilirubin, Total 0.3 mg/dL (0.2-1.0); CO2 31.1 mmol/L (21.0-32.0); CREATININE 0.6 mg/dL (0.55-1.02); Calculated LDL 106 mg/dL (<100); Chloride 105 mmol/L (98-107); Cholesterol 192 mg/dL (<200); Glucose 99 mg/dL (74-106); HDL Cholesterol 64 mg/dL (40-60); Sodium 144 mmol/L (136-145); Total Protein 6.7 g/dL (6.4-8.2); Triglyceride 111 mg/dL (<150)
[2021-05-24 13:27] LABS: Lipase 75 U/L (73-393)
== END 2021-05-24 02:37 | disposition home or self-care (01) ==
LOC: LBO 02:36
PROVIDERS: PCP Family Medicine; Visit Provider Family Medicine
DX: I10 Essential (primary) hypertension (principal); E78.5 Hyperlipidemia, unspecified; R63.4 Abnormal weight loss; K85.90 Acute pancreatitis without necrosis or infection, unspecified
CPT/HCPCS: 36415; 80053; 80061; 83690; 85027

== ENCOUNTER → 2022-01-21 02:22 | Outpatient (CLI) | payer OTHER, SELFPAY ==
--- NOTE | 2022-01-21 07:45 | DI.MAMMO_ITS ---
Exam(s) MAMMO SCREENING EXAM: MAMMO SCREENING CLINICAL HISTORY: screening,Z12.39 TECHNIQUE: Bilateral full field digital CC and MLO mammographic images were obtained with 3D tomosyn thesis and utilizing computer aided detection (CAD). COMPARISON: Available for comparison. FINDINGS: Masses/Architectural Distortion: None seen. Microcalcifications: No suspicious pleomorphic-type are seen. Skin Thickening/Nipple Retraction: None. IMPRESSION: 1. No significant interval change with no specific features of malignancy noted. 2. Unless there is more urgent need, screening mammography is recommended, as per [employer] guidelines. BI-RADS Category 1 - Negative Breast Density - Category B - Scattered areas of fibroglandular density Breast density category C or D implies that the patient has dense breast tissue. Dense breast tissue is very common and is not abnormal but dense breast tissue can make it harder to find cancer on a ma mmogram. Also, dense breast tissue may increase their breast cancer risk. This information about the result of the mammogram report was provided to the patient to raise their awareness. Use this report when you speak with the patient about their risks for breast cancer, which includes their family hist ory. At that time, you may recommend for more screening tests (Ultrasound or MRI) as they might be us eful based on their risk. A negative radiographic report should not delay biopsy if a dominant or clinically suspicious mass is present. Up to ten percent of cancers are not identified on mammography. A negative report may reinforce clinical impression. Adenosis and dense breasts may obscure an underlying neoplasm. False positive reports average 6 to 10%. Patient will receive a letter notifying them of these results.
== END ==
PROVIDERS: PCP Family Medicine; Visit Provider Family Medicine
DX: Z12.31 Encounter for screening mammogram for malignant neoplasm of breast (principal)
CPT/HCPCS: 77063; 77067

== ENCOUNTER 2022-03-03 12:53 | Outpatient (REF) | payer OTHER, SELFPAY ==
--- NOTE | 2022-03-03 12:30 | PAPNONF_PTH ---
PATIENT: Monique Barahona LOC: [facility] U#:[id number] AGE/SX: 62/F ROOM: RE03/03/[address]: Randolph Estrada MD : [id number] BED: DIS: 03/03/2022 SPEC #: [id number] RECD: 03/03/22 17:24 STATUS: IZZY REBrandon #: [id number] JEVON: 03/03/22 12:[address]: Randolph Estrada DEPT: [facility] Cytology RECD BY: Mariola Layton ENTERED: 03/03/22 17:25 SP TYPE: DONNA TEJADA DR: Modesta Cook MD, DC Tissues: 1 - BODY FLUID CYTO(NOT S/U/N/EM)[facility] Procedures: BODY FLUID CYTO(NOT SPU/UR/NIP/ENDOM)[facility] Comments: [id number] (REFRIGERATED)
== END 2022-03-03 12:54 | disposition home or self-care (01) ==
LOC: LBN 12:53
PROVIDERS: PCP Family Medicine; Visit Provider Otolaryngology
DX: L02.11 Cutaneous abscess of neck (principal)
CPT/HCPCS: 87070; 87205; 88104

== ENCOUNTER 2022-04-17 03:30 | Outpatient (CLI) | payer OTHER, SELFPAY ==
[2022-04-17 16:36] LABS: CREATININE 0.8 mg/dL (0.55-1.02); Estimated GFR 82.23 (mL/min/1.73m2)
== END 2022-04-17 03:31 | disposition home or self-care (01) ==
LOC: LBO 03:30
PROVIDERS: PCP Family Medicine; Visit Provider Physician Assistant
DX: R22.1 Localized swelling, mass and lump, neck (principal)
CPT/HCPCS: 36415; 82565

== ENCOUNTER 2022-07-31 01:32 | Outpatient (CLI) | payer OTHER, SELFPAY ==
[2022-07-31 13:42] LABS: ALT 21 U/L (14-59); AST 15 U/L (15-37); Albumin 3.6 g/dL (3.4-5.0); Alkaline Phosphatase 74 U/L (46-116); Anion Gap 6.1 mmol/L (3-11); BUN 9 mg/dL (7-18); Bilirubin, Total 0.3 mg/dL (0.2-1.0); CO2 31.9 mmol/L (21.0-32.0); CREATININE 0.7 mg/dL (0.55-1.02); Calcium 9.5 mg/dL (8.5-10.1); Chloride 104 mmol/L (98-107); Estimated GFR 96.52 (mL/min/1.73m2); Folate 4.8 ng/mL (8.6-20.0); Glucose 78 mg/dL (74-106); Potassium 3.7 mmol/L (3.5-5.1); Sodium 142 mmol/L (136-145); Total Protein 7.2 g/dL (6.4-8.2); Vitamin B12 281 pg/mL (193-986)
== END 2022-07-31 01:33 | disposition home or self-care (01) ==
LOC: LOS 01:32
PROVIDERS: PCP Family Medicine; Visit Provider Family Medicine
DX: K29.60 Other gastritis without bleeding (principal); D52.9 Folate deficiency anemia, unspecified
CPT/HCPCS: 36415; 80053; 82607; 82746

== ENCOUNTER 2022-12-04 04:47 | Outpatient (CLI) | payer OTHER, SELFPAY ==
[2022-12-04 12:53] LABS: Folate > 20.0 ng/mL (8.6-20.0)
== END 2022-12-04 04:48 | disposition home or self-care (01) ==
LOC: LOS 04:48
PROVIDERS: PCP Family Medicine; Visit Provider Family Medicine
DX: E53.8 Deficiency of other specified B group vitamins (principal)
CPT/HCPCS: 36415; 82746

== ENCOUNTER → 2023-01-27 00:50 | Outpatient (CLI) | payer OTHER, SELFPAY ==
--- NOTE | 2023-01-27 08:30 | DI.MAMMO_ITS ---
Exam(s) MAMMO SCREENING EXAM: MAMMO SCREENING CLINICAL HISTORY: screening,Z12.39 TECHNIQUE: Bilateral full field digital CC and MLO mammographic images were obtained with 3D tomosyn thesis and utilizing computer aided detection (CAD). COMPARISON: Available for comparison. FINDINGS: Masses/Architectural Distortion: There is a 5.1 mm retroareolar nodule seen on the MLO view of the le ft breast. There are no areas of architectural distortion. Microcalcifications: No suspicious pleomorphic-type are seen. Skin Thickening/Nipple Retraction: None. IMPRESSION: 1. New 5 mm retroareolar nodule in the left breast. 2. Spot compression views requested for further evaluation. Ultrasound may be indicated at that time . BI-RADS Category 0 - Assessment Incomplete: Need additional imaging evaluation Breast Density - Category B - Scattered areas of fibroglandular density Breast density category C or D implies that the patient has dense breast tissue. Dense breast tissue is very common and is not abnormal but dense breast tissue can make it harder to find cancer on a ma mmogram. Also, dense breast tissue may increase their breast cancer risk. This information about the result of the mammogram report was provided to the patient to raise their awareness. Use this report when you speak with the patient about their risks for breast cancer, which includes their family hist ory. At that time, you may recommend for more screening tests (Ultrasound or MRI) as they might be us eful based on their risk. A negative radiographic report should not delay biopsy if a dominant or clinically suspicious mass is present. Up to ten percent of cancers are not identified on mammography. A negative report may reinforce clinical impression. Adenosis and dense breasts may obscure an underlying neoplasm. False positive reports average 6 to 10%. Patient will receive a letter notifying them of these results.
== END ==
PROVIDERS: PCP Family Medicine; Visit Provider Family Medicine
DX: Z12.31 Encounter for screening mammogram for malignant neoplasm of breast (principal)
CPT/HCPCS: 77063; 77067

== ENCOUNTER → 2023-01-29 00:35 | Outpatient (CLI) | payer OTHER, SELFPAY ==
--- NOTE | 2023-01-29 | DI.MAMMO_ITS ---
Exam(s) MG MAMMO SCREEN CALL BACK UNI US BREAST LT LIMITED EXAM: MG MAMMO SCREEN CALL BACK UNI and U/S breast LT limited CLINICAL HISTORY: F/U MAMMO, NEW 5 MM RETROAREOLAR NODULE LT BREAST. TECHNIQUE: Craniocaudal and mediolateral oblique Full Field Digital Mammography views of the left br east with Computer Aided Diagnosis followed by Tomosynthesis and left breast ultrasound. COMPARISON: Comparison is made with prior examinations. FINDINGS: Mammography/Tomosynthesis: Masses/Architectural Distortion: The area of concern dissipates on the additional views. No suspicio us mass or areas of architectural distortion is identified. Microcalcifictions: No suspicious pleomorphic-type are seen. Skin Thickening/Nipple Retraction: None. Limited left breast US: Echotexture: Normal appearance of the glandular tissue. Shadowing: No suspicious foci. Cyst: None. Solid lesions: None seen. Ductal dilation: There are collection of ducts seen in the retroareolar region at the 11 o'clock posi tion. No suspicious masses are seen. IMPRESSION: 1. No evidence of malignancy is noted. 2. Unless there is more urgent need, follow-up screening mammography is recommended, as per [place] [employer] guidelines. 3. The findings were discussed with the patient on the date of the examination. BI-RADS Category 1 - Negative Breast Density - Category B - Scattered areas of fibroglandular density Breast density Category C or D implies that the patient has dense breast tissue. Dense breast tissue can make it harder to find cancer on a mammogram. Dense breast tissue is also associated with an incr eased risk of breast cancer. This information about the result of the mammogram report was provided to the patient to raise their awareness. Use this report when you speak with the patient about their risks for breast cancer, which includes their family history. At that time, you may recommend additional screening tests (Ultrasoun d or MRI) as these tests may add significant information. A negative radiographic report should not delay biopsy if a dominant or clinically suspicious mass is present. Up to ten percent of cancers are not identified on mammography. A negative report may reinforce clinical impression. Adenosis and dense breasts may obscure an underlying neoplasm. False positive reports average 6 to 10%. Patient will receive a letter notifying them of these results.
== END ==
PROVIDERS: PCP Family Medicine; Visit Provider Family Medicine
DX: Z12.31 Encounter for screening mammogram for malignant neoplasm of breast (principal); N63.22 Unspecified lump in the left breast, upper inner quadrant
CPT/HCPCS: 76642; 77063; 77067

== ENCOUNTER 2023-07-16 12:31 | Outpatient (REF) | payer OTHER, SELFPAY ==
--- NOTE | 2023-07-16 10:00 | PAPFT_PTH ---
PATIENT: Monique Barahona LOC: [facility]#:[id number] AGE/SX: 63/F ROOM: RE07/16/[address]: Modesta Cook MD, DC : 1960 BED: DIS: 07/16/2023 SPEC #: [id number] RECD: 07/16/23 12:59 STATUS: IZZY REQ #: [id number] JEVON: 07/16/23 10:[address]: Modesta Cook DEPT: [facility] Cytology RECD BY: Mariola Layton Tissues: 1 - CX/ENDOCX FOR PAP SMEARS Procedures: PAP THIN PREP/UVM Screening HPV DNA PROBE Comments: [id number]
== END 2023-07-16 12:32 | disposition home or self-care (01) ==
LOC: LBN 12:31
PROVIDERS: PCP Family Medicine; Visit Provider Family Medicine
DX: Z00.00 Encounter for general adult medical examination without abnormal findings (principal); K21.9 Gastro-esophageal reflux disease without esophagitis; C64.9 Malignant neoplasm of unspecified kidney, except renal pelvis; I10 Essential (primary) hypertension; Z12.11 Encounter for screening for malignant neoplasm of colon
CPT/HCPCS: 88142; 87624

== ENCOUNTER 2023-07-21 05:02 | Outpatient (CLI) | payer OTHER, SELFPAY ==
[2023-07-21 13:13] LABS: ALT 19 U/L (14-59); AST 13 U/L (15-37); Albumin 3.6 g/dL (3.4-5.0); Alkaline Phosphatase 69 U/L (46-116); BUN 11 mg/dL (7-18); Bilirubin, Total 0.4 mg/dL (0.2-1.0); CREATININE 0.9 mg/dL (0.55-1.02); Calcium 9.3 mg/dL (8.5-10.1); Calculated LDL 117 mg/dL (<100); Chloride 104 mmol/L (98-107); Cholesterol 213 mg/dL (<200); Estimated GFR 70.95 (mL/min/1.73m2); Glucose 83 mg/dL (74-106); HDL Cholesterol 70 mg/dL (40-60); Potassium 3.7 mmol/L (3.5-5.1); Sodium 144 mmol/L (136-145); Total Protein 7.2 g/dL (6.4-8.2); Triglyceride 132 mg/dL (<150); Vitamin B12 238 pg/mL (193-986)
== END 2023-07-21 05:03 | disposition home or self-care (01) ==
LOC: LOS 05:02
PROVIDERS: PCP Family Medicine; Visit Provider Family Medicine
DX: K21.9 Gastro-esophageal reflux disease without esophagitis (principal); C64.9 Malignant neoplasm of unspecified kidney, except renal pelvis; I10 Essential (primary) hypertension
CPT/HCPCS: 36415; 80053; 80061; 82607

== ENCOUNTER 2023-12-10 14:18 | Outpatient (REF) | payer OTHER, SELFPAY ==
[2023-12-10 21:31] LABS: HCT 39.7 % (36.0-46.0); HGB 13.1 g/dL (11.2-15.7); MCH 33.5 pg (27.0-33.0); MCV 102 fL (80-95); MPV 9.5 fL (8.0-11.0); Platelet Count 248 10^3/uL (130-400); RBC 3.91 10^6/uL (3.93-5.22); RDW 12.1 % (11.7-14.6)
[2023-12-10 21:33] LABS: ESR 21 mm/hr (0-30)
[2023-12-10 21:46] LABS: C-Reactive Protein < 0.50 mg/dL (<or=0.5)
== END 2023-12-10 14:19 | disposition home or self-care (01) ==
LOC: LBN 14:18
PROVIDERS: PCP Family Medicine; Visit Provider Nurse Practitioner Family
DX: Z23 Encounter for immunization; M25.559 Pain in unspecified hip
CPT/HCPCS: 85027; 85652; 86140

== ENCOUNTER 2023-12-14 15:41 | Outpatient (CLI) | payer OTHER, SELFPAY ==
--- NOTE | 2023-12-14 14:45 | DI.RAD_ITS ---
Exam(s) XR RIBS LT W PA LAT CHEST Exam: XR RIBS LT W PA LAT CHEST CLINICAL HISTORY: worsening lt rib pain over 1 week, R07.81; cough, R05.9; pleurodynia TECHNIQUE: 2D digital imaging was performed. PA and lateral chest. Four views left ribs. COMPARISON: CT CT CHEST LUNG CANCER SCREEN from 01/28/2022 FINDINGS: MEDIASTINUM: Normal. HEART: Normal. PULMONARY VASCULATURE: Normal. LUNGS: Clear. Suture material in lingula. PLEURAL SPACE: No pleural effusion or pneumothorax. SPINE:Dense material within T7 vertebral consistent with prior vertebroplasty. Mild T12 compression fracture LEFT RIBS: Normal. OTHER FINDINGS:Normal. IMPRESSION: 1. No acute pulmonary findings. 2. Unremarkable left ribs. DATA REPOSITORY: RADIATION DOSE DELIVERED:
--- OUTSIDE RECORDS SUMMARY | 2023-12-14 15:43 | XMS_ITS | Encounter Summary ---
[place] [address] Care Team Providers Care Oyster Shipper Name Role Phone Modesta Cook MD Primary Care Provider [phone] Encounter Details Date Type Department Care Team (Late st Contact Info) Description 09/14/[address] [place] [id number] Nicole Perez Social History Tobacco Use Types Packs/Day Years Used Date Smoking Tobacco: Every Day Cigarettes Smokeless Tobacco: Never Comments:eight cigs a day Alcohol Use Standard Drinks/Week Comments No 0 (1 standard drink = 0.6 oz pur e alcohol) [facility] Inpatient Questions Answer Date Recorded Does Anyone Try to Keep You From Having Contact with Others or Doing Things Outside Your Home? no 06/03/2022 Feels Threatened by Someone no 05/17 Feels Unsafe at Home or Work/School no 06/03/2022 Physical Signs of Abuse Present no 06/03/2022 Sex and Gender Information Value Date Recorded Sex Assigned at Not on file Gender Identity Not on file Sexual Orientation Not on file documented as of this encounter Plan of Treatment Not on file documented as of this encounter Visit Diagnoses Not on filedocumented in this encounter Care Teams Oyster Shipper Relationship Specialty Start Date End Date Modesta Cook MD [address] [place], [place] [id number] PCP - General Family Medicine 04/29/22 documented as of this encounter
--- OUTSIDE RECORDS SUMMARY | 2023-12-14 15:43 | XMS_ITS | Encounter Summary ---
Author Organization [facility] Address [facility] [place] [address] Care Team Providers Care Csr Name Role Phone Modesta Cook MD Primary Care Provider [phone] Encounter Details Date Type Department Care Team (Latest Contact Info) Description 11/02/2023 10:15 AM EDT - 11/02/2023 11:09 AM EDT Hospital Encounter XRay at [address] [place] [address] Fabrizio Crowley MD [facility] [place] [address] Renal cancer, unspecified laterality Discharge Disposition: Home Social History Tobacco Use Types Packs/Day Years Used Date Smoking Tobacco: Every Day Cigarettes Smokeless Tobacco: Never Comments:eight cigs a day Alcohol Use Standard Drinks/Week Comments No 0 (1 standard drink = 0.6 oz pur e alcohol) [facility] Inpatient Questions Answer Date Recorded Does Anyone [...] on file documented as of this encounter Medications at Time of Discharge Medication Sig Dispensed Refills Start Date End Date folic acid (Vitamin B9) 1 mg tablet Take 1,000 mcg by mouth 2 times daily. 08/01/2022 ergocalciferol, vitamin D2, (VITAMIN D ORAL) Take by mouth. calcium carbonate (CALCIUM 300 ORAL) Take by mouth. pravastatin (PRAVACHOL) 10 mg Tablet TAKE ONE TABLET BY MOUTH EVERY DAY 4 12/07/2018 omeprazole (PRILOSEC) 40 mg Capsule, Delayed Release(E.C.)Indicati ons:gastroesophageal reflux disease Take 40 mg by mouth daily. Indications: Gastroesophageal Reflux documented as of this encounter Plan of Treatment Not on file documented as of this encounter Procedures Procedure Name Priority Date/Time Associated Diagnosis Comments XR CHEST PA AND LATERAL Routine 11/02/2023 10:31 AM EDT Renal cancer, unspecified laterality documented in this encounter Results * XR Chest PA & Lateral (Generic) (11/02/2023 10:31 AM EDT) WORKSTATION ID [id number] RAD Anatomical Region Laterality Modality Chest N/A Digital Radiogra phy Impressions 11/02/2023 4:46 PM EDT No lung nodules given limits of radiographic technique I have personally reviewed the image(s) and the resident's interpretation and agree with the findings, Álvaro Craft MD at 11/02/2023 4:46 PM Thank you for letting us participate in the care of this patient. ??If you are a health care provider and have any questions regarding this report, please contact the number below. ??For patients who have questions please contact the health pet care worker that requested your imaging first. ? Narrative 11/02/2023 4:46 PM EDT EXAMINATION: XR CHEST PA AND LATERAL (GENERIC) CLINICAL HISTORY: Hx of renal cancer ? new lung nodules C64.9, Malignant neoplasm of unspecified kidney, except renal pelvis TECHNIQUE: PA and lateral radiographs of the chest COMPARISON: Chest radiographs 10/28/2021, 12/12/2019. CT chest 01/28/2022, 01/09/2021. FINDINGS: The cardiomediastinal silhouette is within normal limits. There is embolized vertebroplasty cement in the lingula. No pleural effusion or pneumothorax. Cholecystectomy. Stable appearance of T7 vertebroplasty. Procedure Note Álvaro Craft MD - 11/02/2023 EXAMINATION: XR CHEST PA AND LATERAL (GENERIC) CLINICAL HISTORY: Hx of renal cancer ? new lung nodules C64.9, Malignant neoplasm of unspecified kidney, except renal pelvis TECHNIQUE: PA and lateral radiographs of the chest COMPARISON: Chest radiographs 10/28/2021, 12/12/2019. CT chest 01/28/2022,01/09/2021. FINDINGS: The cardiomediastinal silhouette is within normal limits. There is embolized vertebroplasty cement in the lingula. No pleural effusion or pneumothorax. Cholecystectomy. Stable appearance of T7 vertebroplasty. IMPRESSION No lung nodules given limits of radiographic technique I have personally reviewed the image(s) and the resident's interpretationand agree with the findings, Álvaro Craft MD at 11/02/2023 4:46 PM Thank you for letting us participate in the care of this patient. If youare a health care provider and have any questions regarding this report,please contact the number below. For patients who have questions please contactthe health pet care worker that requested your imaging first. Fabrizio Crowley MD IMG DX ORDERABLES documented in this encounter Visit Diagnoses Diagnosis Renal cancer, unspecified laterality documented in this encounter Care Teams Csr Relationship Specialty Start Date End Date Modesta Cook MD [address] [place] [id number] PCP - General Family Medicine 04/29/22 documented as of this encounter
--- OUTSIDE RECORDS SUMMARY | 2023-12-14 15:43 | XMS_ITS | Encounter Summary ---
Author Organization [facility] Address [place] [id number] Care Team Providers Care Commercial Real Estate Broker Name Role Phone Modesta Cook MD Primary Care Provider [phone] Reason for Referral * Diagnostic Test (Routine) - Closed Specialty Diagnoses / Procedures Referred By Contac t Referred To Contact Radiology Diagnoses Renal cancer, unspecified laterality Procedures CT Abdomen wwo Contrast Fabrizio Crowley MD [facility] [place] [address] [facility] [place] [address] Referral ID Status Reason Start Date Expiration Date V isits Requested Visits Authorized [id number] Closed Specialty Service Requested 09/02/2023 03/04/2025 1 1 Reason for Visit * Diagnostic Test (Routine) - Closed Specialty Diagnoses / Procedures Referred By Contac t Referred To Contact Radiology Diagnoses Renal cancer, unspecified laterality Procedures CT Abdomen wwo Contrast Fabrizio Crowley MD [facility] [place] [address] [facility] [place] [address] Referral ID Status Reason Start Date Expiration Date V isits Requested Visits Authorized [id number] Closed Specialty Service Requested 09/02/2023 03/04/2025 1 1 Encounter Details Date Type Department Care Team (Latest Contact Info) Description 11/02/2023 11:10 AM EDT - 11/02/2023 11:59 PM EDT Hospital Encounter CT Scan at [facility] [place] [address] Fabrizio Crowley MD [facility] [place] [place] [address] Renal cancer, unspecified laterality Discharge Disposition: Home Social History Tobacco Use Types Packs/Day Years Used Date Smoking Tobacco: Every Day Cigarettes Smokeless Tobacco: Never Comments:eight cigs a day Alcohol Use Standard Drinks/Week Comments No 0 (1 standard drink = 0.6 oz pur e alcohol) [facility] Inpatient Questions Answer Date Recorded Does Anyone [...] Procedure Name Priority Date/Time Associated Diagnosis Comments CT ABDOMEN WWO CONTRAST Routine 11/02/2023 11:31 AM EDT Renal cancer, unspecified laterality documented in this encounter Results * CT Abdomen wwo Contrast (11/02/2023 11:31 AM EDT) WORKSTATION ID [id number] RAD Anatomical Region Laterality Modality Abdomen Computed Tomogra phy Impressions 11/04/2023 1:03 AM EDT No locally recurrent disease status post left lower pole renal ablation. No metastatic disease in the abdomen. Thank you for letting us participate in the care of this patient. ??If you are a health care provider and have any questions regarding this report, please contact the number below. ??For patients who have questions please contact the health urgent care physician assistant that requested your imaging first. ? Narrative 11/04/2023 1:03 AM EDT EXAMINATION: CT ABDOMEN WWO CONTRAST CLINICAL HISTORY: Renal cancer sp RFA ? local or systemic recurrence C64.9, Malignant neoplasm of unspecified kidney, except renal pelvis TECHNIQUE: Helical CT of the abdomen prior to and following the intravenous administration of contrast. Administered 75.0 ml of OMNIPAQUE 350.00 mg/ml. No oral contrast used. ??Multiplanar reformatted images were reviewed. COMPARISON: October 28, 2021 FINDINGS: Right Kidney: No nephrolithiasis. No collecting system dilation. No enhancing mass. No central collecting system filling defect. Left Kidney: Stable morphology status post ablation left lower pole. No new soft tissue or nodularity. No nephrolithiasis. No collecting system dilation. No enhancing mass. No central collecting system filling defect. Lower chest: No nodule Liver: Normal. Stable tiny hypodense left liver lobe lesion too small to further characterize unlikely to be clinically significant. Bile ducts: Nondilated. Gallbladder: Absent Pancreas: Normal attenuation without ductal dilatation. Spleen: Normal. Adrenals: Normal. Vasculature: Patent renal veins. Patent portal and hepatic veins. Lymph Nodes: No enlarged lymph nodes. Bowel: Nondilated, no wall thickening. ?? Peritoneum and retroperitoneum: No free fluid or loculated fluid collection. No pneumoperitoneum. No mesenteric inflammation. Abdominal wall: Normal. Osseous structures: Stable chronic T12 compression deformity without suspicious lesion Procedure Note Stella Davis MD - 11/04/2023 EXAMINATION: CT ABDOMEN WWO CONTRAST CLINICAL HISTORY: Renal cancer sp RFA ? local or systemic recurrence C64.9, Malignant neoplasm of unspecified kidney, except renal pelvis TECHNIQUE: Helical CT of the abdomen prior to and following theintravenous administration of contrast. Administered 75.0 ml of OMNIPAQUE 350.00mg/ml. No oral contrast used. Multiplanar reformatted images were reviewed. COMPARISON: October 28, 2021 FINDINGS: Right Kidney: No nephrolithiasis. No collecting system dilation. Noenhancing mass. No central collecting system filling defect. Left Kidney: Stable morphology status post ablation left lower pole. Nonew soft tissue or nodularity. No nephrolithiasis. No collecting system dilation.No enhancing mass. No central collecting system filling defect. Lower chest: No nodule Liver: Normal. Stable tiny hypodense left liver lobe lesion too small tofurther characterize unlikely to be clinically significant. Bile ducts: Nondilated. Gallbladder: Absent Pancreas: Normal attenuation without ductal dilatation. Spleen: Normal. Adrenals: Normal. Vasculature: Patent renal veins. Patent portal and hepatic veins. Lymph Nodes: No enlarged lymph nodes. Bowel: Nondilated, no wall thickening. Peritoneum and retroperitoneum: No free fluid or loculated fluidcollection. No pneumoperitoneum. No mesenteric inflammation. Abdominal wall: Normal. Osseous structures: Stable chronic T12 compression deformity withoutsuspicious lesion IMPRESSION No locally recurrent disease status post left lower pole renal ablation. No metastatic disease in the abdomen. Thank you for letting us participate in the care of this patient. If youare a health care provider and have any questions regarding this report,please contact the number below. For patients who have questions please contactthe health urgent care physician assistant that requested your imaging first. Fabrizio Crowley MD IMG CT ORDERABLES documented in this encounter Visit Diagnoses Diagnosis Renal cancer, unspecified laterality documented in this encounter Administered Medications Inactive Administered Medications - up to 3 most recent administrations Medication Order MAR Action Action Date Dose Rate Site iohexoL (Omnipaque) (350 mg/mL) solution 0-200 mL 0-200 mL, Intravenous, ONCE PRN, 1 dose, Starting on Thu11/02/23 at 1120, Until Thu11/02/23 at 1132, Per Protocol, Warning Vesicant/Irritant Medication , Radiology Contrast, Routine Given 11/02/2023 11:32 AM EDT 75 mLs documented in this encounter Care Teams Commercial Real Estate Broker Relationship Specialty Start Date End Date Modesta Cook MD [address] [facility] [address] [place] [address] PCP - General Family Medicine 04/29/22 documented as of this encounter
--- OUTSIDE RECORDS SUMMARY | 2023-12-14 15:43 | XMS_ITS | Encounter Summary ---
Author Organization [facility] [place] [address] Care Team Providers Care Energy Projects Lead Name Role Phone Modesta Cook MD Primary Care Provider [phone] Encounter Details Date Type Department Care Team (Latest Contact Info) Description 12/11/2023 9:20 AM EDT TH Visit (TeleHealth) [place] [address] Zhanna Crowley MD [facility] [place] [address] Renal cancer, right Social History Tobacco Use Types Packs/Day Years Used Date Smoking Tobacco: Every Day Cigarettes Smokeless Tobacco: Never Comments:eight cigs a day Alcohol Use Standard Drinks/Week Comments No 0 (1 standard drink = 0.6 oz pur e alcohol) [facility] Inpatient Questions Answer Date Recorded Does Anyone [...] on file documented as of this encounter Progress Notes * Zhanna Crowley MD - 12/11/2023 9:20 AM EDT Patient Name: Monique Barahona Date of Service: 12/11/2023 Primary Care Provider: Modesta Cook MD Reason for Visit: Monique Barahona is a 63 y.o. female here for follow up of a LEFT renal mass s/p RFA. History of Present Illness: The patient had a CT and was found to have an incidental right renal mass in 04/2013. She was on active surveillance. Biopsy 07/17/2014 [facility] Provider: ZHANNA CROWLEY Pt. Name: MONIQUE BARAHONA Acc #: [id number] Pt. Col Date: 07/17/2014 SURGICAL PATHOLOGY ---Pathologic Diagnosis--- A - Left renal mass, Minute fragment of renal cell carcinoma, clear cell type admixed with abundant normal renal parenchyma. Josué nuclear grade: 2 of 4 Note: The nuclear grade may vary within different areas of a renal cell carcinoma. The possibility that the needle aspirates/core biopsies are not operations support representative of the highest nuclear grade within the tumor cannot be excluded. 08/28/2014: image guided RFA. CT 11/214 showed: IMPRESSION: Low-attenuation posttreatment changes seen in lower pole left kidney. No evidence of complication. No evidence of local tumor recurrence. No change since last visit. She is doing well. No pain or hematuria. She has been dx of pancreatitis last year. She changed herdiet this year. Weight loss with changing diet s/p pancreatitis. She is drinking a lot of water andfatty foods. No issues with voiding. No hematuria. Still working on quitting smoking 12 cigs per day. Appetite good Past Medical History: Asthma Patient Active Problem List Diagnosis Code Left renal mass N28.89 Wedge compression fracture of T7 vertebra S22.060A Renal cancer C64.9 Past Surgical History: ~ 2011 Cholecystectomy ~ 2007 Appendectomy Family History:There is no family history of renal cancer. No diseases run in the family. 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 The patient is singles and lives with her 30 year old son. The patient drinks no ETOH Tobacco:Trying to quit, but has not quit yet. Systems review: She walks but no regular exercise. No significant limitations, she does normal activities despite her back Physical Exam: Vital signs are reviewed The the patient appears healthy and in no distress. Abd: deferred Musculoskeletal/neurologic: grossly normal Labs: 12/11/14: cre 0.66, LFTs normal except for ALT of 38 08/2015: cre 0.7, LFTs normal except alk phos of 108 (normal up to 104), GFR >60 02/2016: cre 0.71, LFTs normal other than alk phos of 136. GFR > 60 10/2016: cre 0.70, LFTs nl and GFR > 60 11/2017: cre 0.68. LFTs normal other than Alk Phos which was 106 11/2018: Cr 0.67, eGFR 96, LFT's normal 11/2019: cre 0.7, LFTs normal and GFR 94 10/2021: cre 0.61, GFR 100 and LFTs pending 11/02/2023 Cr 0.68, eGFR97, LFT's normal X-rays 08/2015: CXR: neg 08/2015: CT abd: report pending, imaging reviewed. No obvious recurrence. 02/2016: CXR neg per report: imaging appears not concerning. 02/2016: CT: RFA site noted, no other concerning masses per my review with Dr. Crowley today. Final CT report: Impression 1. Further retraction of the left renal inferior pole ablation site. No evidence of recurrent or local metastatic disease. 2. Compression deformity of the superior endplate of T12, new since 09/03/2015, possibly acute. 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 10/2016: CXR: negative 10/2016: CT appears negative, report pending 11/2017: CXR: negative for metastatic disease 11/2017: ct abd: RFA site appears smaller, no other concerns. 11/2018: CXR negative 11/2018: Ct abd No recurrence. 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
--- OUTSIDE RECORDS SUMMARY | 2023-12-14 15:43 | XMS_ITS | Encounter Summary ---
Author Organization [facility] Address [facility] [place] [address] Care Team Providers Care Production Machine Operator Name Role Phone Modesta Cook MD Primary Care Provider [phone] Encounter Details Date Type Department Care Team (Late st Contact Info) Description 11/02/2023 2:00 PM EDT [place] [address] Zhanna Crowley MD [facility] [place] [address] Renal cancer, left (Primary Dx) Social History Tobacco Use Types Packs/Day Years [...] on file documented as of this encounter Last Filed Vital Signs Vital Sign Reading Time Taken Comments Blood Pressure 138/77 11/02/2023 1:52 PM EDT Pulse 91 11/02/2023 1:52 PM EDT Temperature - - Respiratory Rate - - Oxygen Saturation - - Inhaled Oxygen Concentration - - Weight - - Height - - Body Mass Index - - documented in this encounter Progress Notes * Zhanna Crowley MD - 11/02/2023 2:00 PM EDT Patient Name: Monique Barahona Date of Service: 11/02/2023 Primary Care Provider: Modesta Cook MD Reason for Visit: Monique Barahona is a 63 y.o. female here for follow up of a LEFT renal mass s/p RFA. History of Present Illness: The patient had a CT and was found to have an incidental right renal mass in 04/2013. She was on active surveillance. Biopsy 07/17/2014 [facility] Provider: ZHANNA CROWLEY Pt. Name: MONIQUE BARAHONA Acc #: [id number] Pt. Col Date: 07/17/2014 SURGICAL PATHOLOGY ---Pathologic Diagnosis--- A - Left renal mass, Minute fragment of renal cell carcinoma, clear cell type admixed with abundant normal renal parenchyma. Josué nuclear grade: 2 of 4 Note: The nuclear grade may vary within different areas of a renal cell carcinoma. The possibility that the needle aspirates/core biopsies are not senior outside sales representative of the highest nuclear grade within the tumor cannot be excluded. 08/28/2014: image guided RFA. CT 11/214 showed: IMPRESSION: Low-attenuation posttreatment changes seen in lower pole left kidney. No evidence of complication. No evidence of local tumor recurrence. She is doing well. No pain or [...] the family. 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 in 08/2014 #2: normal LFTs now #3: Minimal Comorbidity Plan: Renal U/S now and in 2 years documented in this encounter Plan of Treatment Scheduled Orders Name Type Priority Associated Diagnoses Orde r Schedule US Retroperitoneal Complete Imaging Routine Renal cancer, left Expected: 11/02/2023, Expires: 05/03/2024 documented as of this encounter Visit Diagnoses Diagnosis Renal cancer, left- Primary documented in this encounter Care Teams Production Machine Operator Relationship Specialty Start Date End Date Modesta Cook MD [address] [place] [address] PCP - General Family Medicine 04/29/22 documented as of this encounter
--- OUTSIDE RECORDS SUMMARY | 2023-12-14 15:43 | XMS_ITS | Encounter Summary ---
[place] [address] Care Team Providers Care Tuber Machine Cutter Name Role Phone Modesta Cook MD Primary Care Provider [phone] Encounter Details Date Type Department Care Team (Latest Contact Info) Description 11/02/2023 10:00 AM EDT Laboratory Appointment Lab [address] [place] [id number] Renal cancer, unspecified laterality Social History Tobacco Use Types Packs/Day Years Used Date Smoking Tobacco: Every Day Cigarettes Smokeless Tobacco: Never Comments:eight cigs a day Alcohol Use Standard Drinks/Week Comments No 0 (1 standard drink = 0.6 oz pur e alcohol) [facility] In[facility] Questions Answer Date Recorded Does Anyone [...] Procedure Name Priority Date/Time Associated Diagnosis Comments COMPREHENSIVE METABOLIC PANEL STAT 11/02/2023 10:49 AM EDT Renal cancer, unspecified laterality documented in this encounter Results * (ABNORMAL) Comprehensive metabolic panel (non-fasting) (11/02/2023 10:49 AM EDT) Glucose 91 65 - 199 mg/dL 11/02/2023 11:35 AM [facility] Comment:Glucose Concentratio n >=200 mg/dL plus symptoms is consistent with Diabetes Mellitus. Blood Urea Nitrogen 8 8 - 18 mg/dL 11/02/2023 11:35 AM [facility] Creatinine 0.68(L) 0.70 - 1.20 mg/dL 11/02/2023 11:35 AM [facility] Sodium 143 135 - 145 mMol/L 11/02/2023 11:35 AM [facility] Potassium 4.0 3.5 - 5.0 mMol/L 11/02/2023 11:35 AM [facility] Chloride 103 98 - 107 mMol/L 11/02/2023 11:35 AM [facility] Carbon Dioxide 29 22 - 31 mMol/L 11/02/2023 11:35 AM [facility] Anion Gap 11 5 - 15 mMol/L 11/02/2023 11:35 AM [facility] Calcium 9.6 8.5 - 10.5 mg/dL 11/02/2023 11:35 AM [facility] Protein, Total 6.9 6.1 - 8.0 g/dL 11/02/2023 11:35 AM [facility] Albumin 4.3 3.2 - 5.2 g/dL 11/02/2023 11:35 AM [facility] Aspartate Aminotransferase 14 <=30 unit/L 11/02/2023 11:35 AM [facility] Alanine Aminotransferase 9 0 - 30 unit/L 11/02/2023 11:35 AM [facility] Alkaline Phosphatase 75 35 - 105 unit/L 11/02/2023 11:35 AM [facility] Bilirubin, Total <0.2 <=1.3 mg/dL 11/02/2023 11:35 AM [facility] Est Glomerular Filtration Rate - Female 97 mL/min/1. 73 m?? 11/02/2023 11:35 AM EDT [facility] Comment: This patient's estimated GFR was calculated using the 2020 CKD-EPI equation. The estimated GFR can vary from the measured GFR by up to 30% in the absence of rapidly changing kidney function. Assessment of the estimated GFR is not appropriate when creatinine concentrations are rapidly changing. For clinical situations in which a more precise estimate of GFR is necessary, consider alternative methods of GFR estimation such as a 24-hour urine creatinine clearance. Assignment of CKD stage 1 - 5 for patients with an eGFR near the transition point between stages may be based on clinical assessment of muscle mass and symptoms in addition to eGFR. Link: eGFR Calculator [employer] Fasting Status No 11/02/2023 11:35 AM EDT [facility] Blood VENOUS BLOOD SPECIMEN / Unknown Venipuncture / Unknown 11/02/2023 10:49 AM EDT 11/02/2023 10:49 AM EDT Fabrizio Crowley MD CHEMISTRY ORDERABLES [facility] [place] [id number] documented in this encounter Visit Diagnoses Diagnosis Renal cancer, unspecified laterality documented in this encounter Care Teams Tuber Machine Cutter Relationship Specialty Start Date End Date Modesta Cook MD [address] [place] [address] PCP - General Family Medicine 04/29/22 documented as of this encounter
--- OUTSIDE RECORDS SUMMARY | 2023-12-14 15:43 | XMS_ITS | Encounter Summary ---
Author Organization [facility] [place] [address] Care Team Providers Care Front End Software Engineer Name Role Phone Modesta Cook MD Primary Care Provider [phone] Encounter Details Date Type Department Care Team (Latest Contact Info) Description 11/02/2023 Travel Social History Tobacco Use Types Packs/Day Years Used Date Smoking Tobacco: Every Day Cigarettes Smokeless Tobacco: Never Comments:eight cigs a day Alcohol Use Standard Drinks/Week Comments No 0 (1 standard drink = 0.6 oz pur e alcohol) [facility] Inpatient Questions Answer Date Recorded Does [...] on filedocumented in this encounter Care Teams Front End Software Engineer Relationship Specialty Start Date End Date Modesta Cook MD [address] [place] [address] PCP - General Family Medicine 04/29/22 documented as of this encounter
--- OUTSIDE RECORDS SUMMARY | 2023-12-14 15:43 | XMS_ITS ---
[place] [address] Care Team Providers Care Spa Assistant Manager Name Role Phone Modesta Cook MD Primary Care Provider [phone] Active Problems Problem Noted Date Diagnosed Date Renal cancer 09/03/2015 Wedge compression fracture of T7 vertebra 2014 Left renal mass 06/15/2014 Current Oncology Plans No current plan information found. Past Plans No past plan information found. Radiation Treatments * No radiation treatments are documented for this patient in [facility]. Treatments may have been administered in another system. Lifetime Dose Tracking * Chemical Lifetime Dose Automatic Entry Manual Entr y DLP (Dose Length Product) 650 mGy-cm 650 mGy-cm 0 mGy-cm CTDI (CT Dose Index) Min 6.96 mGy 6.96 mGy 0 m Gy CTDI (CT Dose Index) Max 6.96 mGy 6.96 mGy 0 m Gy
--- OUTSIDE RECORDS SUMMARY | 2023-12-14 15:43 | XMS_ITS | Clinical Summary ---
Author Organization [facility] Address [facility] [place] [address] Care Team Providers Care Splunk Architect Name Role Phone Modesta Cook MD Primary Care Provider [phone] Allergies No known active allergies Medications Medication Sig Dispensed Refills Start Date End Date Status omeprazole (PRILOSEC) 40 mg Capsule, Delayed Release(E.C.)Teresa cations:gastroeso phageal reflux disease Take 40 mg by mouth daily. Indications: Gastroesophageal Reflux Acti ve pravastatin (PRAVACHOL) 10 mg Tablet TAKE ONE TABLET BY MOUTH EVERY DAY 4 12/07/2018 Active ergocalciferol, vitamin D2, (VITAMIN D ORAL) Take by mouth. Acti ve calcium carbonate (CALCIUM 300 ORAL) Take by mouth. Active folic acid (Vitamin B9) 1 mg tablet Take 1,000 mcg by mouth 2 times daily. 08/01/2022 Active Active Problems Problem Noted Date Diagnosed Date Renal cancer 09/03/2015 Wedge compression fracture of T7 vertebra 2014 Left renal mass 06/15/2014 Encounters Date Type Department Care Team Description 12/11/2023 9:20 AM EDT TH Visit (TeleHealth) [facility] [place] [phone] Fabrizio Crowley MD Renal cancer, right 11/30/2023 11:20 AM EDT Ancillary Procedure Radiology Library at [facility] [place] [phone] Modesta Cook MD 11/02/2023 2:00 PM EDT Office [place] [address] Fabrizio Crowley MD Renal cancer, left (Primary Dx) 11/02/2023 11:10 AM EDT - 11/02/2023 11:59 PM EDT Hospital Encounter [place] [address] Fabrizio Crowley MD Renal cancer, unspecified laterality Discharge Disposition: Home 11/02/2023 10:20 AM EDT Laboratory Appointment Lab [address] [address] 11/02/2023 10:15 AM EDT - 11/02/2023 11:09 AM EDT Hospital Encounter XRay at [address] [place] [address] Fabrizio Crowley MD Renal cancer, unspecified laterality Discharge Disposition: Home 11/02/2023 10:00 AM EDT Laboratory Appointment Lab [address] [address] Renal cancer, unspecified laterality 11/02/2023 Travel 09/14/[address] [place] [address] Nicole Perez from Last 3 Months Family History Medical History Relation Comments Amblyopia Son Glaucoma Neg Hx Macular Degeneration Neg Hx Retinal Detachment Neg Hx Relation Status Comments Son Social History Tobacco Use Types Packs/Day Years Used Date Smoking Tobacco: Every Day Cigarettes Smokeless Tobacco: Never Tobacco Cessation:Ready to Q uit: Yes Comments:eight cigs a day Alcohol Use Standard Drinks/Week Comments No 0 (1 standard drink = 0.6 oz pur e alcohol) [facility] Inpatient Questions Answer Date Recorded [...] on file Sexual Orientation Not on file Last Filed Vital Signs Vital Sign Reading Time Taken Comments Blood Pressure 138/77 11/02/2023 1:52 PM EDT Pulse 91 11/02/2023 1:52 PM EDT Temperature 36.7 ??C (98.1 ??F) 06/03/2022 6:00 PM ED T Respiratory Rate 16 06/03/2022 6:30 PM EDT Oxygen Saturation 95% 06/03/2022 6:30 PM EDT Inhaled Oxygen Concentration - - Weight 55.6 kg (122 lb 9.6 oz) 08/05/2022 4:25 P M EDT Height 161.3 cm (5' 3.5) 08/05/2022 4:25 PM EDT Body Mass Index 21.38 08/05/2022 4:25 PM EDT Plan of Treatment Health Maintenance Due Date Last Done Comments CT Colonography 1958 Colonoscopy 1958 Colorectal Cancer Screening 1958 FIT DNA 1958 FIT 1958 Sigmoidoscopy (10 year) with FIT yearly 1958 Sigmoidoscopy 1958 Pneumoccocal Vaccine: 65+ (1 of 2 - PCV) 01/05/1964 HIV screen 01/05/1976 Hepatitis C Screening 01/05/1976 Tetanus/Diphtheria/Pertussis Vaccines (1 - Tdap) 1977 HPV test 01/05/1988 PAP Smear 01/05/1988 Breast Cancer Share Decision Needed 1998 Breast Cancer screening 1998 Zoster vaccine (1 of 2) 01/05/2008 Advance Directive 2013 Bone Density Scan 2023 Covid-19 Vaccine (1 - 2022-2 4 season) 2023 Influenza (Flu) vaccine (1 o f 1 - Influenza standard series) 10/18/2023 Diabetes Screening (HgbA1C o r Glucose) Discontinued 11/02/2023, 12/12/2019, 11/26/2018, Additional history exists Procedures Procedure Name Priority Date/Time Associated Diagnosis Comments FILM LIBRARY STORAGE ONLY ULTRASOUND STUDY Routine 11/30/2023 11:18 AM EDT DIAGNOSTIC RADIOLOGY SCAN 11/30/2023 12:[address] ABDOMEN WWO CONTRAST Routine 11/02/2023 11:31 AM EDT Renal cancer, unspecified laterality COMPREHENSIVE METABOLIC PANEL STAT 11/02/2023 10:49 AM EDT Renal cancer, unspecified laterality XR CHEST PA AND LATERAL Routine 11/02/2023 10:31 AM EDT Renal cancer, unspecified laterality from Last 3 Months Results * Film Library- Storage Only Ultrasound Study (11/30/2023 11:18 AM EDT) Narrative [facility] - 11/30/2023 11:18 AM EDT This exam is auto-finalizing. It's purpose is for storage only. Modesta Cook MD IM FILM LIBRARY ORD ERABLES [place], [place] * Scan Doc: Diagnostic Radiology (11/30/2023 12:00 AM EDT) Anatomical Region Laterality Modality Other Narrative 11/30/2023 12:00 AM EDT Ordered by an unspecified provider. Scanning Provider MEDIA MGR SCAN EXT O RDR/RSLT * CT Abdomen wwo Contrast (11/02/2023 11:31 AM EDT) WORKSTATION ID [id number] [facility] Anatomical Region Laterality Modality Abdomen Computed Tomogra [...] who have questions please contact the health vp care management that requested your imaging first. ? Electronically signed by: Stella Davis MD, [facility] ([phone]), at 11/04/2023 1:03 AM Narrative 11/04/2023 1:03 AM EDT EXAMINATION: CT [...] patients who have questions please contactthe health vp care management that requested your imaging first. Electronically signed by: Stella Davis MD, [facility]([phone]), at 11/04/2023 1:03 AM Fabrizio Crowley MD [place] [facility] ORDERABLES * (ABNORMAL) Comprehensive metabolic panel (non-fasting) (11/02/2023 10:49 AM EDT) Glucose 91 65 - 199 mg/dL 11/02/2023 11:35 AM EDT [facility] Comment:Glucose Concentratio n >=200 mg/dL plus symptoms is consistent with Diabetes Mellitus. Blood Urea Nitrogen 8 8 - 18 mg/dL 11/02/2023 11:35 AM EDT [facility] Creatinine 0.68(L) 0.70 - 1.20 mg/dL 11/02/2023 11:35 AM EDT [facility] Sodium 143 135 - 145 mMol/L 11/02/2023 11:35 AM [facility] Potassium 4.0 3.5 - 5.0 mMol/L 11/02/2023 11:35 AM [facility] Chloride 103 98 - 107 mMol/L 11/02/2023 11:35 AM [facility] Carbon Dioxide 29 22 - 31 mMol/L 11/02/2023 11:35 AM [facility] Anion Gap 11 5 - 15 mMol/L 11/02/2023 11:35 AM [facility] Calcium 9.6 8.5 - 10.5 mg/dL 11/02/2023 11:35 AM [facility] Protein, Total 6.9 6.1 - 8.0 g/dL 11/02/2023 11:35 AM [facility] Albumin 4.3 3.2 - 5.2 g/dL 11/02/2023 11:35 AM [facility] Aspartate Aminotransferase 14 <=30 unit/L 11/02/2023 11:35 AM [facility] Alanine Aminotransferase 9 0 - 30 unit/L 11/02/2023 11:35 AM [facility] Alkaline Phosphatase 75 35 - 105 unit/L 11/02/2023 11:35 AM [facility] Bilirubin, Total <0.2 <=1.3 mg/dL 11/02/2023 11:35 AM [facility] Est Glomerular Filtration Rate - Female 97 mL/min/1. 73 m?? 11/02/2023 11:35 AM [facility] Comment: This patient's estimated GFR [...] Fasting Status No 11/02/2023 11:35 AM EDT [facility] Blood VENOUS BLOOD SPECIMEN / Unknown Venipuncture / Unknown 11/02/2023 10:49 AM EDT 11/02/2023 10:49 AM EDT Fabrizio Crowley MD CHEMISTRY ORDERABLES [facility] [place] [address] * XR Chest PA & Lateral (Generic) (11/02/2023 10:31 AM EDT) [employer] WORKSTATION ID [id number] [facility] RAD Anatomical Region Laterality Modality Chest N/A [...] who have questions please contact the health vp care management that requested your imaging first. ? Narrative [...] patients who have questions please contactthe health vp care management that requested your imaging first. Electronically signed by: Álvaro Craft MD, [facility]([phone]), at 11/02/2023 4:46 PM Fabrizio Crowley MD IMG DX ORDERABLES from Last 3 Months Advance Directives * Full Code (Latest Code Status on File) Date Activated Date Inactivated Comments 11/17/2014 11:05 AM 11/17/2014 1:18 PM Question Answer Comments Does patient have capacity to make decision: Yes * Full Code Date Activated Date Inactivated Comments 09/15/2014 10:42 AM 09/16/2014 11:57 AM Question Answer Comments Does patient have capacity to make decision: Yes * Full Code Date Activated Date Inactivated Comments 09/15/2014 10:00 AM 09/15/2014 10:42 AM Question Answer Comments Does patient have capacity to make decision: Yes Care Teams Splunk Architect Relationship Specialty Start Date End Date Modesta Cook MD [address] [place] [address] PCP - General Family Medicine 04/29/22
--- OUTSIDE RECORDS SUMMARY | 2023-12-14 15:43 | XMS_ITS | Encounter Summary ---
[place] [address] Care Team Providers Care Bowling Ball Mold Assembler Name Role Phone Modesta Cook MD Primary Care Provider [phone] Encounter Details Date Type Department Care Team (Late st Contact Info) Description 11/02/2023 10:20 AM EDT Laboratory Appointment Lab [address] [place] [address] Social History Tobacco Use Types Packs/Day Years [...] on filedocumented in this encounter Care Teams Bowling Ball Mold Assembler Relationship Specialty Start Date End Date Modesta Cook MD [address] [place] [address] PCP - General Family Medicine 04/29/22 documented as of this encounter
--- OUTSIDE RECORDS SUMMARY | 2023-12-14 15:43 | XMS_ITS | Encounter Summary ---
Author Organization [facility] [place] [facility] [place] [address] Care Team Providers Care Brake Repair Mechanic Name Role Phone Modesta Cook MD Primary Care Provider [phone] Encounter Details Date Type Department Care Team (Late st Contact Info) Description 11/30/2023 11:20 AM EDT Ancillary Procedure Radiology Library at [facility] [place] [address] Modesta Cook MD [address] [place], [place] [id number] Social History Tobacco Use Types Packs/Day Years [...] ULTRASOUND STUDY Routine 11/30/2023 11:18 AM EDT documented in this encounter Results * Film Library- Storage Only Ultrasound Study (11/30/2023 11:18 AM EDT) Narrative [facility] - 11/30/2023 11:18 AM EDT This exam is auto-finalizing. It's purpose is for storage only. Modesta Cook MD IMG FILM LIBRARY ORD ERABLES Performing Organization Address City/State/[facility] Co de Phone Number [place], [place] documented in this encounter Visit Diagnoses Not on filedocumented in this encounter Care Teams Brake Repair Mechanic Relationship Specialty Start Date End Date Modesta Cook MD [address] [facility] [address] [place] [address] PCP - General Family Medicine 04/29/22 documented as of this encounter
--- OUTSIDE RECORDS SUMMARY | 2023-12-14 15:44 | XMS_ITS | Encounter Summary ---
Author Organization [facility] [place] [id number] Care Team Providers Care Cover Remover Name Role Phone None Primary Care Provider Unavailabl e Reason for Referral * Diagnostic Test (Routine) - Closed Specialty Diagnoses / Procedures Referred By Contac t Referred To Contact Radiology Diagnoses Renal cancer, unspecified laterality Procedures CT Abdomen wwo Contrast CT Abdomen & Pelvis wo Contrast Fabrizio Crowley MD [facility] [place] [address] [facility] [place] [address] Referral ID Status Reason Start Date Expiration Date V isits Requested Visits Authorized [id number] Closed Specialty Service Requested 10/25/2021 04/23/2022 1 1 Reason for Visit * Diagnostic Test (Routine) - Closed Specialty Diagnoses / Procedures Referred By Contac t Referred To Contact Radiology Diagnoses Renal cancer, unspecified laterality Procedures CT Abdomen wwo Contrast CT Abdomen & Pelvis wo Contrast Fabrizio Crowley MD [facility] [place] [address] [facility] [place] [address] Referral ID Status Reason Start Date Expiration Date V isits Requested Visits Authorized [id number] Closed Specialty Service Requested 10/25/2021 04/23/2022 1 1 Encounter Details Date Type Department Care Team (Latest Contact Info) Description 10/28/2021 12:04 PM EDT - 10/28/2021 2:28 PM EDT Hospital Encounter CT Scan at [facility] [place] [address] Fabrizio Crowley MD [facility] [place] [address] Renal cancer, unspecified laterality Discharge Disposition: Home Social History Tobacco Use Types Packs/Day Years Used Date Smoking Tobacco: Every Day Cigarettes Smokeless Tobacco: Never Comments:eight cigs a day Alcohol Use Standard Drinks/Week Comments No 0 (1 standard drink = 0.6 oz pur e alcohol) Sex and Gender Information Value Date Recorded Sex Assigned at Not on file Gender Identity Not on file Sexual Orientation Not on file documented as of this encounter Medications at Time of Discharge Medication Sig Dispensed Refills Start Date End Date pravastatin (PRAVACHOL) 10 mg Tablet TAKE ONE TABLET BY MOUTH EVERY DAY 4 12/07/2018 omeprazole (PRILOSEC) 40 mg Capsule, Delayed Release(E.C.)Indicati ons:gastroesophageal reflux disease Take 40 mg by mouth daily. Indications: Gastroesophageal Reflux documented as of this encounter Plan of Treatment Not on file documented as of this encounter Procedures Procedure Name Priority Date/Time Associated Diagnosis Comments CT ABDOMEN WWO CONTRAST Routine 10/28/2021 12:57 PM EDT Renal cancer, unspecified laterality documented in this encounter Results * CT Abdomen wwo Contrast (10/28/2021 12:57 PM EDT) Anatomical Region Laterality Modality Abdomen Computed Tomogra phy 10/28/2021 1:11 PM EDT Impressions 10/28/2021 3:02 PM EDT 1. ??No local recurrence. 2. ??New left hepatic lobe 3 mm hypoattenuating lesion is indeterminant, however, possibly a tiny cyst. Attention on follow-up. I have personally reviewed the image(s) and the resident's interpretation and agree with the findings, Omid Santana MD at 10/28/2021 3:02 PM Thank you for letting us participate in the care of this patient. ??If you are a health care provider and have any questions regarding this report, please contact the number below. ??For patients who have questions please contact the health animal care provider that requested your imaging first. ? Electronically signed by: Omid Santana MD, [facility] ([phone]), at 10/28/2021 3:02 PM Narrative 10/28/2021 3:02 PM EDT EXAMINATION: CT ABDOMEN WWO CONTRAST CLINICAL HISTORY: Renal cell cancer, monitoring - Include more detail below renal mass TECHNIQUE: Helical CT of the abdomen was performed before and after the intravenous administration of contrast. Administered 90.0 ml of OMNIPAQUE 350.00 mg/ml. Oral contrast was not administered. COMPARISON: CT abdomen 12/12/2019. FINDINGS: Lower chest: Normal. Liver: Normal size and attenuation. New 3 mm hypodense left hepatic lobe lesion (series 6 image 143). Bile ducts: Nondilated. Gallbladder: Surgically absent. Pancreas: Normal attenuation without ductal dilatation. Spleen: Normal. Adrenal: Normal. Kidneys: Normal right kidney. Left lower pole renal mass status post ablation with unchanged appearance of the procedural. No enlargement or enhancing tissue. Collecting systems are not dilated. No filling defects. No renal calculi. Vasculature: No abdominal aortic aneurysm. The portal vein is patent. Patent left renal vein. Lymph nodes: No enlarged lymph nodes. Bowel: Nondilated, no wall thickening. Peritoneum and mesentery: No ascites, free air, or loculated fluid collection. No mesenteric inflammation. Abdominal wall: Metallic clip inferior to the umbilicus. Osseous structures: No suspicious lesions. Unchanged compression deformity of T12. Procedure Note Omid Santana MD - 10/28/2021 EXAMINATION: CT ABDOMEN WWO CONTRAST CLINICAL HISTORY: Renal cell cancer, monitoring - Include more detailbelow renal mass TECHNIQUE: Helical CT of the abdomen was performed before and after the intravenous administration of contrast. Administered 90.0 ml of ACLKHVTVU508.00 mg/ml. Oral contrast was not administered. COMPARISON: CT abdomen 12/12/2019. FINDINGS: Lower chest: Normal. Liver: Normal size and attenuation. New 3 mm hypodense left hepatic lobelesion (series 6 image 143). Bile ducts: Nondilated. Gallbladder: Surgically absent. Pancreas: Normal attenuation without ductal dilatation. Spleen: Normal. Adrenal: Normal. Kidneys: Normal right kidney. Left lower pole renal mass status postablation with unchanged appearance of the procedural. No enlargement or enhancingtissue. Collecting systems are not dilated. No filling defects. No renalcalculi. Vasculature: No abdominal aortic aneurysm. The portal vein is patent.Patent left renal vein. Lymph nodes: No enlarged lymph nodes. Bowel: Nondilated, no wall thickening. Peritoneum and mesentery: No ascites, free air, or loculated fluidcollection. No mesenteric inflammation. Abdominal wall: Metallic clip inferior to the umbilicus. Osseous structures: No suspicious lesions. Unchanged compression deformityof T12. IMPRESSION 1. No local recurrence. 2. New left hepatic lobe 3 mm hypoattenuating lesion is indeterminant,however, possibly a tiny cyst. Attention on follow-up. I have personally reviewed the image(s) and the resident's interpretationand agree with the findings, Omid Santana MD at 10/28/2021 3:02 PM Thank you for letting us participate in the care of this patient. If youare a health care provider and have any questions regarding this report,please contact the number below. For patients who have questions please contactthe health animal care provider that requested your imaging first. Electronically signed by: Omid Santana MD, [facility]([phone]), at 10/28/2021 3:02 PM Fabrizio Crowley MD [facility] CT ORDERABLES documented in this encounter Visit Diagnoses Diagnosis Renal cancer, unspecified laterality documented in this encounter Administered Medications Inactive Administered Medications - up to 3 most recent administrations Medication Order MAR Action Action Date Dose Rate Site iohexoL (Omnipaque) (350 mg/mL) solution 0-200 mL 0-200 mL, Intravenous, ONCE PRN, 1 dose, Starting on Thu10/28/21 at 1252, Until Thu10/28/21 at 1252, Per Protocol, Warning Vesicant/Irritant Medication , Radiology Contrast, Routine Given 10/28/2021 12:52 PM EDT 90 mLs documented in this encounter Care Teams Cover Remover Relationship Specialty Start Date End Date None None PCP - General 10/28/21 04/28/22 documented as of this encounter
--- OUTSIDE RECORDS SUMMARY | 2023-12-14 15:44 | XMS_ITS | Encounter Summary ---
Author Organization [facility] [place] [address] Care Team Providers Care Crate Opener Name Role Phone None Primary Care Provider Unavailabl e Encounter Details Date Type Department Care Team (Late st Contact Info) Description 10/25/2021 Telephone Urology at [facility] [place] [id number] Fabrizio Crowley MD [facility] [place] [address] Social History Tobacco Use Types Packs/Day Years [...] on file documented as of this encounter Miscellaneous Notes * Telephone Encounter - Ej Gunderson - 10/25/2021 9:58 AM EDT Rahel calling from CT, patient needs a CRE order put in for CT on Thursday. documented in this encounter Plan of Treatment Not on file documented as of this encounter Visit Diagnoses Not on filedocumented in this encounter Care Teams Crate Opener Relationship Specialty Start Date End Date None None PCP - General 10/28/21 04/28/22 documented as of this encounter
--- OUTSIDE RECORDS SUMMARY | 2023-12-14 15:44 | XMS_ITS | Encounter Summary ---
[place] [address] Care Team Providers Care Instructor Ground Services Name Role Phone None Primary Care Provider Unavailabl e Encounter Details Date Type Department Care Team (Latest Contact Info) Description 04/18/2022 Travel Social History Tobacco Use Types Packs/Day [...] on filedocumented in this encounter Care Teams Instructor Ground Services Relationship Specialty Start Date End Date None None PCP - General 10/28/21 04/28/22 documented as of this encounter
--- OUTSIDE RECORDS SUMMARY | 2023-12-14 15:44 | XMS_ITS | Encounter Summary ---
Author Organization [facility] Address [facility] [place] [address] Care Team Providers Care Social Research Assistant Name Role Phone Nimisha Benson MD Primary Care Provider [phone] Encounter Details Date Type Department Care Team (Latest Contact Info) Description 12/12/2019 10:51 AM EDT - 12/12/2019 12:26 PM EDT Hospital Encounter XRay at [address] [place] [address] Fabrizio Crowley MD [facility] [place] [address] Renal cancer, unspecified laterality Discharge Disposition: Home [...] 12/07/2018 omeprazole (PRILOSEC) 40 mg Capsule, Delayed Release(E.C.)Indicat ions:gastroesophagea l reflux disease Take 40 mg by mouth daily. Indications: Gastroesophageal Reflux ibandronate (BONIVA) 150 mg Tablet TAKE 1 TABLET BY MOUTH MONTHLY 0 12/14/2018 10/28/2021 CHANTIX STARTING MONTH BOX 0.5 mg (11)- 1 mg (42) Tablets, Dose Pack TAKE ORALLY DIRECTED ON PACKAGE 0 12/13/2018 10/28/2021 fexofenadine-pseudoe phedrine (MICHELLE-D 24 HOUR) 180-240 mg Tablet Sustained Release 24 hr Take 1 tablet by mouth daily. 10/28/2021 documented as of this encounter Plan of Treatment Not on file documented as of this encounter Procedures Procedure Name Priority Date/Time Associated Diagnosis Comments XR CHEST PA AND LATERAL Routine 12/12/2019 10:58 AM EDT Renal cancer, unspecified laterality documented in this encounter Results * XR Chest PA & Lateral (Generic) (12/12/2019 10:58 AM EDT) Anatomical Region Laterality Modality Chest N/A Digital Radiogra phy Impressions 12/12/2019 11:13 AM EDT No new nodule or focal concerning lesion. Height loss of multiple thoracic vertebrae unchanged from prior exam. Thank you for letting us participate in the care of this patient. For questions regarding this report, please contact the number below. ? Narrative 12/12/2019 11:13 AM EDT EXAMINATION: XR CHEST PA AND LATERAL (GENERIC) CLINICAL HISTORY: Hx of RFA ? New lung nodules TECHNIQUE: PA and lateral views of the chest COMPARISON: 11/26/2018 FINDINGS: Lungs are normally inflated without air space consolidation or focal lesion. No pleural effusion. No new focal nodule. Cardiac and mediastinal contours are normal. Normal pulmonary vasculature. Again seen is vertebroplasty radiodense material at T7. Mild height loss present at several other lower thoracic levels unchanged from the prior comparison study. No focal aggressive lesion. Procedure Note Yahir Rueda MD - 12/12/2019 EXAMINATION: XR CHEST PA AND LATERAL (GENERIC) CLINICAL HISTORY: Hx of RFA ? New lung nodules TECHNIQUE: PA and lateral views of the chest COMPARISON: 11/26/2018 FINDINGS: Lungs are normally inflated without air space consolidation or focallesion. No pleural effusion. No new focal nodule. Cardiac and mediastinal contours are normal. Normal pulmonaryvasculature. Again seen is vertebroplasty radiodense material at T7. Mild height losspresent at several other lower thoracic levels unchanged from the priorcomparison study. No focal aggressive lesion. IMPRESSION No new nodule or focal concerning lesion. Height loss of multiplethoracic vertebrae unchanged from prior exam. Thank you for letting us participate in the care of this patient. Forquestions regarding this report, please contact the number below. Fabrizio Crowley MD IMG DX ORDERABLES documented in this encounter Visit Diagnoses Diagnosis Renal cancer, unspecified laterality documented in this encounter Care Teams Social Research Assistant Relationship Specialty Start Date End Date Nimisha Benson MD [address] [place] [address] PCP - General 06/15/14 10/27/21 documented as of this encounter
--- OUTSIDE RECORDS SUMMARY | 2023-12-14 15:44 | XMS_ITS | Encounter Summary ---
Author Organization [facility] [place] [address] Care Team Providers Care Weekend Anchor Name Role Phone Modesta Cook MD Primary Care Provider [phone] Encounter Details Date Type Department Care Team (Latest Contact Info) Description 08/05/2022 Travel Social History Tobacco Use Types Packs/Day [...] on filedocumented in this encounter Care Teams Weekend Anchor Relationship Specialty Start Date End Date Modesta Cook MD [address] [place] [address] PCP - General Family Medicine 04/29/22 documented as of this encounter
--- OUTSIDE RECORDS SUMMARY | 2023-12-14 15:44 | XMS_ITS | Encounter Summary ---
[place] [address] Care Team Providers Care Facilities Maintenance Technician Name Role Phone Nimisha Benson MD Primary Care Provider [phone] Encounter Details Date Type Department Care Team (Latest Contact Info) Description 11/26/2018 11:20 AM EDT Laboratory Appointment Lab [address] [place] [phone] History of renal cell cancer Social History Tobacco Use Types Packs/Day Years [...] Procedure Name Priority Date/Time Associated Diagnosis Comments HC VENIPUNCTURE Routine 11/26/2018 11:00 AM EDT History of renal cell cancer documented in this encounter Results * (ABNORMAL) Comprehensive metabolic panel (non-fasting) (11/26/2018 11:00 AM EDT) Glucose 109 65 - 199 mg/dL [facility] Comment:Diabetes: >=200 mg/d L plus symptoms Blood Urea Nitrogen 11 8 - 18 mg/dL [facility] Creatinine 0.67(L) 0.70 - 1.20 mg/dL [facility] Sodium 143 135 - 145 mmol/L [facility] Potassium 3.9 3.5 - 5.0 mmol/L [facility] Comment: Please note: ??Patients with WBC >100,000 may have falsely elevated Potassium levels. ??For accurate Potassium quantification in these patients send serum separator tube (gold top) for subsequent determinations. ??Contact the Clinical Chemistry Laboratory if there are any questions. Chloride 101 98 - 107 mmol/L [facility] Carbon Dioxide 31 22 - 31 mmol/L [facility] Anion Gap 11 5 - 15 mmol/L [facility] Calcium 9.9 8.5 - 10.5 mg/dL [facility] Protein, Total 7.7 6.1 - 8.0 gm/dL [facility] Albumin 4.4 3.2 - 5.2 gm/dL [facility] Aspartate Aminotransferase 13 0 - 30 unit/L [facility] Alanine Aminotransferase 10 0 - 30 unit/L [facility] Alkaline Phosphatase 88 35 - 105 unit/L [facility] Bilirubin, Total 0.3 0.2 - 1.3 mg/dL [facility] Est Glomerular Filtration Rate 96 >=60 mL/min/1. 73 m?? [facility] Comment: The eGFR was calculated using the CKD-EPI equation. As with all creatinine based estimates of kidney function, eGFR values calculated with the CKD-EPI equation are not accurate in patients with acute kidney failure, extremes of body mass or the acutely ill. [email or web address] eGFR 111 >=60 mL/min/1. 73 m?? [facility] Comment: The eGFR was calculated using the CKD-EPI equation. As with all creatinine based estimates of kidney function, eGFR values calculated with the CKD-EPI equation are not accurate in patients with acute kidney failure, extremes of body mass or the acutely ill. [email or web address] Blood specimen (specimen) 11/26/2018 11:00 AM EDT 11/26/2018 11:18 AM EDT Narrative Resulting Agency Comment Spec In Lab Fabrizio Crowley MD CHEMISTRY ORDERABLES [facility] [place] [address] documented in this encounter Visit Diagnoses Diagnosis History of renal cell cancer documented in this encounter Care Teams Facilities Maintenance Technician Relationship Specialty Start Date End Date Nimisha Benson MD [address] [place] [address] PCP - General 06/15/14 10/27/21 documented as of this encounter
--- OUTSIDE RECORDS SUMMARY | 2023-12-14 15:44 | XMS_ITS | Encounter Summary ---
Author Organization [facility] Address [facility] [place] [address] Care Team Providers Care Railroad Police Name Role Phone Modesta Cook MD Primary Care Provider [phone] Reason for Referral * Diagnostic Test (Routine) - Closed Specialty Diagnoses / Procedures Referred By Contbrian t Referred To Contact Radiology Diagnoses Renal cancer, unspecified laterality Procedures CT Abdomen wwo Contrast Fabrizio Crowley MD [facility] [place] [address] [facility] [place] [address] Referral ID Status Reason Start Date Expiration Date V isits Requested Visits Authorized [id number] Closed Specialty Service Requested 09/02/2023 03/04/2025 1 1 Encounter Details Date Type Department Care Team (Late st Contact Info) Description 09/02/2023 Telephone [place] [address] Nereyda Barroso, RN Social History Tobacco Use Types Packs/Day Years Used Date Smoking Tobacco: Every Day Cigarettes Smokeless Tobacco: Never Comments:eight cigs a day Alcohol Use Standard Drinks/Week Comments No 0 (1 standard drink = 0.6 oz pur e alcohol) [facility] Inpatient Questions Answer Date Recorded Does [...] encounter Miscellaneous Notes * Telephone Encounter - Nereyda Barroso RN - 09/02/2023 11:50 AM EDT Last office visit: 10/28/21 Plan: CMP/CXR/CT abd in 24 months. We will also do renal US in 2 years. We will compare renal US to CT in2 years and if we can see the RFA site, we will follow her with renal US. If not, we will do MRI kidney. All pt questions answered to her apparent satisfaction. This was reviewed with Dr. Crowley and he recommended renal US with CT in 2 years. * Telephone Encounter - Nereyda Barroso RN - 09/02/2023 11:50 AM EDT Copied from [facility] #[id number]. Topic: Specialty Dept CRMs - Orders >> Sep 02, 2023 9:31 AM Zoltan William wrote: Orders Request Specialist: Carline Relationship (if other than patient-full name): self Type of Request: [x] Input orders Type/Name of Order: Imaging If Labs and Imaging list name of specific test(s): Cat Scan and KATELIN Date of Lab/Imaging/Testing Appt: Date of Provider Appt: to be scheduled Appt Type with Provider: Patient Requesting to Have Orders Sent to Facility Outside of [facility]: No documented in this encounter Plan of Treatment Scheduled Orders Name Type Priority Associated Diagnoses Orde r Schedule US Retroperitoneal Complete Imaging Routine Renal cancer, unspecified laterality Expected: 09/02/2023, Expires: 09/01/2024 documented as of this encounter Results * CT Abdomen wwo Contrast (11/02/2023 11:31 AM EDT) WORKSTATION ID [id number] RAD Anatomical Region Laterality Modality Abdomen Computed [...] who have questions please contact the health home care manager that requested your imaging first. ? Narrative [...] patients who have questions please contactthe health home care manager that requested your imaging first. Fabrizio Crowley MD [facility] CT ORDERABLES * (ABNORMAL) Comprehensive metabolic panel (non-fasting) (11/02/2023 10:49 AM EDT) Glucose 91 65 - 199 mg/dL 11/02/2023 11:35 AM [facility] Comment:Glucose Concentratio n >=200 mg/dL plus symptoms is consistent with Diabetes Mellitus. Blood Urea Nitrogen 8 8 - 18 mg/dL 11/02/2023 11:35 AM [facility] Creatinine 0.68(L) 0.70 - 1.20 mg/dL 11/02/2023 11:35 AM [facility] Sodium 143 135 - 145 mMol/L 11/02/2023 11:35 AM [facility] Potassium 4.0 3.5 - 5.0 mMol/L 11/02/2023 11:35 AM [facility] Chloride 103 98 - 107 mMol/L 11/02/2023 11:35 AM [facility] Carbon Dioxide 29 22 - 31 mMol/L 11/02/2023 11:35 AM [facility] Anion Gap 11 5 - 15 mMol/L 11/02/2023 11:35 AM [facility] Calcium 9.6 8.5 - 10.5 mg/dL 11/02/2023 11:35 AM [facility] Protein, Total 6.9 6.1 - 8.0 g/dL 11/02/2023 11:35 AM [facility] Albumin 4.3 3.2 - 5.2 g/dL 11/02/2023 11:35 AM [facility] Aspartate Aminotransferase 14 <=30 unit/L 11/02/2023 11:35 AM [facility] Alanine Aminotransferase 9 0 - 30 unit/L 11/02/2023 11:35 AM [facility] Alkaline Phosphatase 75 35 - 105 unit/L 11/02/2023 11:35 AM EDT [facility] Bilirubin, Total <0.2 <=1.3 mg/dL 11/02/2023 11:35 AM EDT [facility] Est Glomerular Filtration Rate - Female 97 mL/min/1. 73 m?? 11/02/2023 11:35 AM EDT [facility] Comment: This patient's estimated GFR [...] Fasting Status No 11/02/2023 11:35 AM EDT [facility] Blood VENOUS BLOOD SPECIMEN / Unknown Venipuncture / Unknown 11/02/2023 10:49 AM EDT 11/02/2023 10:49 AM EDT Fabrizio Crowley MD CHEMISTRY ORDERABLES [facility] [place] [address] * XR Chest PA & Lateral (Generic) (11/02/2023 10:31 AM EDT) WORKSTATION ID [id number] DH RAD Anatomical Region Laterality Modality Chest [...] who have questions please contact the health home care manager that requested your imaging first. ? Narrative [...] patients who have questions please contactthe health home care manager that requested your imaging first. Fabrizio Crowley MD IMG DX ORDERABLES documented in this encounter Visit Diagnoses Diagnosis Renal cancer, unspecified laterality Renal cancer, unspecified laterality Renal cancer, unspecified laterality documented in this encounter Care Teams Railroad Police Relationship Specialty Start Date End Date Modesta Cook MD [address] [place] [address] PCP - General Family Medicine 04/29/22 documented as of this encounter
--- OUTSIDE RECORDS SUMMARY | 2023-12-14 15:44 | XMS_ITS | Encounter Summary ---
Author Organization [facility] [place] [address] Care Team Providers Care Fusing Machine Tender Name Role Phone None Primary Care Provider Unavailabl e Encounter Details Date Type Department Care Team (Late st Contact Info) Description 10/28/2021 2:00 PM EDT [place] [address] [facility] [place] [address] Renal cancer, unspecified laterality Social History Tobacco [...] Sign Reading Time Taken Comments Blood Pressure 120/74 10/28/2021 1:55 PM EDT Pulse 90 10/28/2021 1:55 PM EDT Temperature - - Respiratory Rate - - Oxygen Saturation - - Inhaled Oxygen Concentration - - Weight - - Height - - Body Mass Index - - documented in this encounter Progress Notes * Janine Goldberg, MARCEL - 10/28/2021 2:00 PM EDT Patient Name: Monique Barahona Date of Service: 10/28/2021 Primary Care Provider: None Reason for Visit: Monique Barahona is a 61 y.o. female here for follow up of a LEFT renal mass s/p RFA. History of Present Illness: The patient had a CT and was found to have an incidental right renal mass in 04/2013. She was on active surveillance. Biopsy 07/17/2014 [facility] Provider: ZHANNA CROWLEY Pt. Name: MONIQUE BARAHONA Acc #: [id number] Pt. Col Date: 07/17/2014 SURGICAL PATHOLOGY ---Pathologic Diagnosis--- A - Left renal mass, Minute fragment of renal cell carcinoma, clear cell type admixed with abundant normal renal parenchyma. Josué nuclear grade: 2 of 4 Note: The nuclear grade may vary within different areas of a renal cell carcinoma. The possibility that the needle aspirates/core biopsies are not credit representative of the highest nuclear grade within [...] Asthma Patient Active Problem List Diagnosis Code ??? Left renal mass N28.89 ??? Wedge compression fracture of T7 vertebra S22.060A ??? Renal cancer C64.9 Past Surgical History: ~ 2011 Cholecystectomy ~ 2007 Appendectomy Family History:There is no family history of renal cancer. No diseases run in the family. 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 The patient is [...] cre 0.61, GFR 100 and LFTs pending X-rays 08/2015: CXR: neg 08/2015: CT abd: report pending, imaging reviewed. No obvious recurrence. 02/2016: CXR neg per report: imaging appears not concerning. 02/2016: CT: RFA site noted, no other concerning masses per my review with Dr. Crowley today. Final CT report: Impression 1. ??Further retraction of the left renal inferior pole ablation site. No evidence of recurrent or local metastatic disease. 2. ??Compression deformity of the superior endplate of T12, new since 09/03/2015, possibly acute. Nounderlying lesion is identified and this is thought to be an osteoporotic vertebral body compression fracture. 10/2016: CXR: negative 10/2016: CT appears negative, report pending 11/2017: CXR: negative for metastatic disease 11/2017: ct abd: RFA site appears smaller, no other concerns. 11/2018: CXR negative 11/2018: Ct abd No recurrence. 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 We [...] renal US with CT in 2 years. Janine Fallon APRN documented in this encounter Plan of Treatment Not on file documented as of this encounter Results * XR Chest PA & Lateral (Generic) (10/28/2021 2:38 PM EDT) Anatomical Region Laterality Modality Chest N/A Digital Radiogra phy Impressions 10/28/2021 5:11 PM EDT No pulmonary metastasis identified. I have personally reviewed the image(s) and the resident's interpretation and agree with the findings, Stella Davis MD at 10/28/2021 5:11 PM Thank you for letting us participate in the care of this patient. ??If you are a health care provider and have any questions regarding this report, please contact the number below. ??For patients who have questions please contact the health adult caregiver that requested your imaging first. ? Narrative 10/28/2021 5:11 PM EDT EXAMINATION: XR CHEST PA AND LATERAL (GENERIC) CLINICAL HISTORY: renal cancer TECHNIQUE: PA and lateral views of the chest, 2 images COMPARISON: Chest radiograph 12/12/2019 FINDINGS: The cardiac, mediastinal, and hilar contours are normal. No focal airspace opacities, mass, or pulmonary nodules. No pleural effusion. No pneumothorax. No displaced rib fractures. Redemonstration of T7 with vertebroplasty. Procedure Note Stella Davis MD - 10/28/2021 EXAMINATION: XR CHEST PA AND LATERAL (GENERIC) CLINICAL HISTORY: renal cancer TECHNIQUE: PA and lateral views of the chest, 2 images COMPARISON: Chest radiograph 12/12/2019 FINDINGS: The cardiac, mediastinal, and hilar contours are normal. No focalairspace opacities, mass, or pulmonary nodules. No pleural effusion. Nopneumothorax. No displaced rib fractures. Redemonstration of T7 with vertebroplasty. IMPRESSION No pulmonary metastasis identified. I have personally reviewed the image(s) and the resident's interpretationand agree with the findings, Stella Davis MD at 10/28/2021 5:11 PM Thank you for letting us participate in the care of this patient. If youare a health care provider and have any questions regarding this report,please contact the number below. For patients who have questions please contactthe health adult caregiver that requested your imaging first. Janine Fallon STITCHER FEEDER IMG DX ORDERABL ES documented in this encounter Visit Diagnoses Diagnosis Renal cancer, unspecified laterality Renal cancer, unspecified laterality documented in this encounter Care Teams Fusing Machine Tender Relationship Specialty Start Date End Date None None PCP - General 10/28/21 04/28/22 documented as of this encounter
--- OUTSIDE RECORDS SUMMARY | 2023-12-14 15:44 | XMS_ITS | Encounter Summary ---
Author Organization [facility] [place] [address] Care Team Providers Care Lithographic Platemaker Name Role Phone Nimisha Benson MD Primary Care Provider [phone] Encounter Details Date Type Department Care Team (Late st Contact Info) Description 10/25/2021 Orders Only Urology at [facility] [place] [id number] Fabrizio Crowley MD [facility] [place] [place] [address] Renal cancer, unspecified laterality Social History Tobacco [...] documented as of this encounter Results * (ABNORMAL) Creatinine (10/28/2021 10:56 AM EDT) Creatinine 0.61(L) 0.70 - 1.20 mg/dL [facility] Est Glomerular Filtration Rate 100 >=60 mL/min/1. 73 m?? [facility] Comment: This patient's estimated GFR [...] urine creatinine clearance. Assignment of CKD stage 1-5 for patients with an eGFR near the transition point between stages may be based on clinical assessment of muscle mass and symptoms in addition to eGFR. Blood 10/28/2021 10:5 6 AM EDT 10/28/2021 11:03 AM EDT Narrative Resulting Agency Comment Spec In Lab Fabrizio Crowley MD CHEMISTRY ORDERABLES [facility] [place] [address] documented in this encounter Visit Diagnoses Diagnosis Renal cancer, unspecified laterality documented in this encounter Care Teams Lithographic Platemaker Relationship Specialty Start Date End Date Nimisha Benson MD [address] [place] [address] [address] [facility] [address] [place] [address] PCP - General 06/15/14 10/27/21 documented as of this encounter
--- OUTSIDE RECORDS SUMMARY | 2023-12-14 15:44 | XMS_ITS | Encounter Summary ---
[place] [address] Care Team Providers Care Vertical Lathe Operator Name Role Phone None Primary Care Provider Unavailabl e Reason for Referral * Diagnostic Test (Routine) - Closed Specialty Diagnoses / Procedures Referred By Contac t Referred To Contact Radiology Diagnoses Neck mass Procedures CT Neck Soft Tissue w Contrast (Generic) Marvin Wells PA [facility] [place] [address] [facility] [place] [address] Referral ID Status Reason Start Date Expiration Date V isits Requested Visits Authorized [id number] Closed Specialty Service Requested 04/10/2022 10/07/2022 1 1 Reason for Visit * Diagnostic Test (Routine) - Closed Specialty Diagnoses / Procedures Referred By Contac t Referred To Contact Radiology Diagnoses Neck mass Procedures CT Neck Soft Tissue w Contrast (Generic) Marvin Wells PA [facility] [place] [address] [facility] [place] [address] Referral ID Status Reason Start Date Expiration Date V isits Requested Visits Authorized [id number] Closed Specialty Service Requested 04/10/2022 10/07/2022 1 1 Encounter Details Date Type Department Care Team (Latest Contact Info) Description 04/18/2022 10:10 AM EST - 04/18/2022 11:59 PM EST Hospital Encounter CT Scan at [facility] [place] [address] Armando Schmidt MD [facility] [place] [address] Neck mass Discharge Disposition: Home Social History Tobacco Use [...] Sig Dispensed Refills Start Date End Date ergocalciferol, vitamin D2, (VITAMIN D ORAL) Take [...] Name Priority Date/Time Associated Diagnosis Comments CT NECK SOFT TISSUE W CONTRAST Routine 04/18/2022 10:21 AM EST Neck mass documented in this encounter Results * CT Neck Soft Tissue w Contrast (Generic) (04/18/2022 10:21 AM EST) Anatomical Region Laterality Modality Neck, Head Computed Tomogra phy Impressions 04/18/2022 2:39 PM EST 1. ??The cystic lesion in the left neck is suspicious for a cystic metastatic lymph node, particularly in this age group, but a branchial cleft cyst is also possible. 2. ??No primary mass lesion. 3. ??No evidence of regional distant metastases. Thank you for letting us participate in the care of this patient. ??If you are a health care provider and have any questions regarding this report, please contact the number below. ??For patients who have questions please contact the health wound care center consultant that requested your imaging first. ? Electronically signed by: Gurpreet Landa MD, [facility] ([phone]), at 04/18/2022 2:39 PM Narrative 04/18/2022 2:39 PM EST EXAMINATION: CT NECK SOFT TISSUE W CONTRAST (GENERIC) CLINICAL HISTORY: Neck mass, nonpulsatile Left neck mass, FNA non-diagnositic. Please assess for possible malignancy. TECHNIQUE: CT neck performed after the intravenous administration of contrast. Administered 110.0 ml of OMNIPAQUE 350.00 mg/ml. COMPARISON: Ultrasound of the neck 02/26/22 FINDINGS: No primary mass lesion throughout the neck. There is a cystic mass with a thin rim of soft tissue with well-defined borders and no surrounding inflammatory changes. This measures up to 3.1 x 2.2 cm in the axial plane by 4.3 cm in craniocaudad length. Elsewhere there is no lymphadenopathy. No pulmonary nodules the visualized portions of the lungs. Mild emphysematous changes. No focal osseous lesions to suggest metastatic disease. The visualized portions of the brain show no abnormal enhancement. Procedure Note Gurpreet Landa MD - 04/18/2022 EXAMINATION: CT NECK SOFT TISSUE W CONTRAST (GENERIC) CLINICAL HISTORY: Neck mass, nonpulsatile Left neck mass, FNA non-diagnositic. Please assess for possiblemalignancy. TECHNIQUE: CT neck performed after the intravenous administration of contrast.Administered 110.0 ml of OMNIPAQUE 350.00 mg/ml. COMPARISON: Ultrasound of the neck 02/26/22 FINDINGS: No primary mass lesion throughout the neck. There is a cystic mass with a thin rim of soft tissue with well-definedborders and no surrounding inflammatory changes. This measures up to 3.1 x 2.2 cmin the axial plane by 4.3 cm in craniocaudad length. Elsewhere there is no lymphadenopathy. No pulmonary nodules the visualized portions of the lungs. Mildemphysematous changes. No focal osseous lesions to suggest metastatic disease. Thevisualized portions of the brain show no abnormal enhancement. IMPRESSION 1. The cystic lesion in the left neck is suspicious for a cysticmetastatic lymph node, particularly in this age group, but a branchial cleft cyst isalso possible. 2. No primary mass lesion. 3. No evidence of regional distant metastases. Thank you for letting us participate in the care of this patient. If youare a health care provider and have any questions regarding this report,please contact the number below. For patients who have questions please contactthe health wound care center consultant that requested your imaging first. Armando Schmidt MD IMG CT ORDERABLES documented in this encounter Visit Diagnoses Diagnosis Neck mass Swelling, mass, or lump in head and neck documented in this encounter Administered Medications Inactive Administered Medications - up to 3 most recent administrations Medication Order MAR Action Action Date Dose Rate Site iohexoL (Omnipaque) (350 mg/mL) solution 0-200 mL 0-200 mL, Intravenous, ONCE PRN, 1 dose, Starting on Thu04/18/22 at 1021, Until Thu04/18/22 at 1021, Per Protocol, Warning Vesicant/Irritant Medication , Radiology Contrast, Routine Given 04/18/2022 10:21 AM EST 110 mLs documented in this encounter Care Teams Vertical Lathe Operator Relationship Specialty Start Date End Date None None PCP - General 10/28/21 04/28/22 documented as of this encounter
--- OUTSIDE RECORDS SUMMARY | 2023-12-14 15:44 | XMS_ITS | Encounter Summary ---
Author Organization [facility] [place] [address] Care Team Providers Care Power Shovel Operator Name Role Phone None Primary Care Provider Unavailabl e Encounter Details Date Type Department Care Team (Latest Contact Info) Description 04/07/2022 2:01 PM EST - 04/07/2022 11:59 PM EST Hospital En[place] [id number] Discharge Disposition: Home Social History Tobacco Use [...] Procedure Name Priority Date/Time Associated Diagnosis Comments NON-INSPECTOR LINE FINAL REPORT Routine 04/07/2022 2:02 PM EST documented in this encounter Results * Non-Fold Skiver Final Report (04/07/2022 2:02 PM EST) Non-Fold Skiver Final Report [id number] ? Location: [facility] The signing pathologist has (i) examined the relevant preparation(s) for the specimen(s) and (ii) rendered or confirmed the diagnosis(es). . ? Non-Fold Skiver Final DIAGNOSIS See Discussion Electronically signed by: ?Silas ANGELO, Catracho Howe Verified: ??04/12/2022 20:14 ??Cytopathologis t Performed at: ??-[facility] Dept. of Pathology, [place] [address] Personal Banking Advisor: Ezio Larsen MD, AP, ??CLIA Certificate: [id number] DISCUSSION Neck: left side (FNA) - Bartholomew nucleated squamous cells and more numerous anucleate squamous cells are present. The differential diagnosis would include benign lesions such as an epidermoid or branchial cleft cyst. Lymphoid cells are not evident, but if the material was derived from a lymph node, metastatic squamous carcinoma would be a diagnostic consideration. Clinical/radiolo gic correlation is warranted. CLINICAL INFORMATION CONSULTATION CASE Neck: left side (FNA) Clinical History: ? Left neck abscess J-D node; smoker; no cats; no cows; h/o fractured tooth; h/o Covid booster around time of onset ?? . Received 1 slide(s) labeled [id number] Received 0 block(s). Specimen collection date: ? 03/03/2022. For the full text of the [facility] report(s), please refer to [facility] Tracking #: ? [id number] . Report to: [facility] Cytopathology [address] [place] [address] [facility] 04/07/2022 2:02 PM EST Jenny Villanueva MD PATHOLOGY/CYTOLOGY O RDERABLES [facility] [place] [address] documented in this encounter Visit Diagnoses Not on filedocumented in this encounter Care Teams Power Shovel Operator Relationship Specialty Start Date End Date None None PCP - General 10/28/21 04/28/22 documented as of this encounter
--- OUTSIDE RECORDS SUMMARY | 2023-12-14 15:44 | XMS_ITS | Encounter Summary ---
[place] [address] Care Team Providers Care Flag Signaler Name Role Phone Nimisha Benson MD Primary Care Provider [phone] Reason for Referral * Diagnostic Test (Routine) - Closed Specialty Diagnoses / Procedures Referred By Contac t Referred To Contact Radiology Diagnoses History of renal cell cancer Procedures CT Abdomen wwo Contrast CT Abdomen & Pelvis wwo Contrast (Generic) Fabrizio Crowley MD [facility] [place] [address] [facility] [place] [address] Referral ID Status Reason Start Date Expiration Date V isits Requested Visits Authorized [id number] Closed Specialty Service Requested 11/22/2018 01/06/2019 1 1 Reason for Visit * Diagnostic Test (Routine) - Closed Specialty Diagnoses / Procedures Referred By Contac t Referred To Contact Radiology Diagnoses History of renal cell cancer Procedures CT Abdomen wwo Contrast CT Abdomen & Pelvis wwo Contrast (Generic) Fabrizio Crowley MD [facility] [place] [address] [facility] [place] [address] Referral ID Status Reason Start Date Expiration Date V isits Requested Visits Authorized [id number] Closed Specialty Service Requested 11/22/2018 01/06/2019 1 1 Encounter Details Date Type Department Care Team (Latest Contact Info) Description 11/26/2018 11:55 AM EDT - 11/26/2018 11:59 PM EDT Hospital Encounter CT Scan [facility] [place] [address] Fabrizio Crowley MD [facility] [place] [address] History of renal cell cancer Discharge Disposition: Home Social History Tobacco Use [...] Sig Dispensed Refills Start Date End Date omeprazole (PRILOSEC) 40 mg Capsule, Delayed Release(E.C.)Indicat ions:gastroesophagea l reflux disease Take 40 mg by mouth daily. Indications: Gastroesophageal Reflux fexofenadine-pseudoe phedrine (MICHELLE-D 24 HOUR) 180-240 mg Tablet Sustained Release 24 hr Take 1 tablet by mouth daily. 10/28/2021 documented as of this encounter Plan of Treatment Not on file documented as of this encounter Procedures Procedure Name Priority Date/Time Associated Diagnosis Comments CT ABDOMEN WWO CONTRAST Routine 11/26/2018 1:47 PM EDT History of renal cell cancer documented in this encounter Results * CT Abdomen wwo Contrast (11/26/2018 1:47 PM EDT) Anatomical Region Laterality Modality Abdomen Computed Tomogra phy Impressions 11/26/2018 4:34 PM EDT Postprocedural changes status post left lower pole radiofrequency ablation in 2014. Expected appearance of the ablation cavity. No CT findings to indicate local recurrence or new lesions. No abdominal metastasis. I have personally reviewed the image(s) and the residents interpretation and agree with the findings, Omid Santana at 11/26/2018 4:34 PM Thank you for letting us participate in the care of this patient. For questions regarding this report, please contact the number below. ? Electronically signed by: Omid Santana [facility] ([phone]), at 11/26/2018 4:34 PM Narrative 11/26/2018 4:34 PM EDT EXAMINATION: ??CT ABDOMEN WWO CONTRAST CLINICAL HISTORY: ??LEFT renal mass. Per chart review status post RFA 09/15/2014. Please obtained delayed phase imaging TECHNIQUE: Helical CT of the abdomen was performed before and after the intravenous administration of contrast. 110 mL of Omnipaque 350.. Oral contrast was not administered. COMPARISON: Abdominal CT dated 12/11/2014, 02/25/2016, 11/10/2016, and 11/16/2017. FINDINGS: Lower chest: Calcified nodule in the left lower lobe (series 5 image 5) is unchanged compared to 02/25/2016. Liver: Normal size and attenuation without lesions. Bile ducts: Nondilated. Gallbladder: Status post cholecystectomy with surgical clips in the gallbladder fossa. Pancreas: Normal attenuation without ductal dilatation. Spleen: Normal. Adrenal: Subcentimeter thickening of the left adrenal gland is unchanged from 2015 and represents a benign process. The right adrenal gland is normal. Kidneys: Right kidney: Normal in size, morphology, and position. On nonenhanced exam there is no renal calculi. On postcontrast nephrographic phase there is prompt symmetric enhancement throughout the kidney with no complex cystic or solid enhancing renal lesions. On postcontrast urographic phase images the collecting system/proximal ureter is well-opacified without filling defect. Left kidney: Left kidney is normal in size, morphology, and position. On the nonenhancing phase imaging no renal or proximal ureteral calculi are present. On postcontrast images there is prompt symmetric enhancement throughout the kidney with no complex cystic or solid enhancing renal lesions. An area of focal cortical thinning and scarring is present along the lower pole corresponding to site of prior ablation, unchanged. No evidence of recurrent disease. On postcontrast urographic phase images the collecting system and proximal ureter are well-opacified without without filling defects. Vasculature: No aneurysm. Lymph nodes: No enlarged lymph nodes. Bowel: Nondilated, no wall thickening. Peritoneum and mesentery: No ascites, free air, or loculated fluid collection. No mesenteric inflammation. Abdominal wall: Normal. Osseous structures: Chronic right superior endplate compression fracture at T12, unchanged. No retropulsed fragment. No suspicious lytic or sclerotic osseous lesion. Procedure Note Omid Santana MD - 11/26/2018 EXAMINATION: CT ABDOMEN WWO CONTRAST CLINICAL HISTORY: LEFT renal mass. Per chart review status post RFA09/15/2014. Please obtained delayed phase imaging TECHNIQUE: Helical CT of the abdomen was performed before and after the intravenous administration of contrast. 110 mL of Omnipaque 350.. Oralcontrast was not administered. COMPARISON: Abdominal CT dated 12/11/2014, 02/25/2016, 11/10/2016, and11/16/2017. FINDINGS: Lower chest: Calcified nodule in the left lower lobe (series 5 image 5)is unchanged compared to 02/25/2016. Liver: Normal size and attenuation without lesions. Bile ducts: Nondilated. Gallbladder: Status post cholecystectomy with surgical clips in thegallbladder fossa. Pancreas: Normal attenuation without ductal dilatation. Spleen: Normal. Adrenal: Subcentimeter thickening of the left adrenal gland is unchangedfrom 2014 and represents a benign process. The right adrenal gland is normal. Kidneys: Right kidney: Normal in size, morphology, and position. On nonenhanced exam there is norenal calculi. On postcontrast nephrographic phase there is prompt symmetric enhancement throughout the kidney with no complex cystic or solidenhancing renal lesions. On postcontrast urographic phase images the collecting system/proximal ureter is well-opacified without filling defect. Left kidney: Left kidney is normal in size, morphology, and position. On thenonenhancing phase imaging no renal or proximal ureteral calculi are present. Onpostcontrast images there is prompt symmetric enhancement throughout the kidney withno complex cystic or solid enhancing renal lesions. An area of focalcortical thinning and scarring is present along the lower pole corresponding tosite of prior ablation, unchanged. No evidence of recurrent disease. Onpostcontrast urographic phase images the collecting system and proximal ureter are well-opacified without without filling defects. Vasculature: No aneurysm. Lymph nodes: No enlarged lymph nodes. Bowel: Nondilated, no wall thickening. Peritoneum and mesentery: No ascites, free air, or loculated fluidcollection. No mesenteric inflammation. Abdominal wall: Normal. Osseous structures: Chronic right superior endplate compression fractureat T12, unchanged. No retropulsed fragment. No suspicious lytic or scleroticosseous lesion. IMPRESSION Postprocedural changes status post left lower pole radiofrequency ablationin 2014. Expected appearance of the ablation cavity. No CT findings toindicate local recurrence or new lesions. No abdominal metastasis. I have personally reviewed the image(s) and the residents interpretationand agree with the findings, Omid Santana at 11/26/2018 4:34 PM Thank you for letting us participate in the care of this patient. Forquestions regarding this report, please contact the number below. Fabrizio Crowley MD IMG CT ORDERABLES documented in this encounter Visit Diagnoses Diagnosis History of renal cell cancer documented in this encounter Administered Medications Inactive Administered Medications - up to 3 most recent administrations Medication Order MAR Action Action Date Dose Rate Site iohexol (OMNIPAQUE) 350 mg/mL solution 0-200 mL 0-200 mL, Intravenous, ONCE PRN, 1 dose, Starting on Thu11/26/18 at 1316, Until Thu11/26/18 at 1316, Per Protocol, Warning Vesicant/Irritant Medication , Radiology Contrast, Routine Given 11/26/2018 1:16 PM EDT 110 mLs documented in this encounter Care Teams Flag Signaler Relationship Specialty Start Date End Date Nimisha Benson MD [address] [place] [address] [address] [place] [address] PCP - General 06/15/14 10/27/21 documented as of this encounter
--- OUTSIDE RECORDS SUMMARY | 2023-12-14 15:44 | XMS_ITS | Encounter Summary ---
Author Organization [facility] [place] [address] Care Team Providers Care Egg Gatherer Name Role Phone Modesta Cook MD Primary Care Provider [phone] Reason for Visit * Auth/Cert (Routine) Specialty Diagnoses / Procedures Referred By Kizzy t Referred To Contact Diagnoses left neck cyst Procedures PRO LARYNGOSCOPY DIRECT OPERATIVE W/BIOPSY PRO EXCISION BRANC CLFT CYST, DEEP LARYNGOSCOPY, DIRECT, OPERATIVE, WITH BIOPSY (WRVU 3.16) EXCISION BRANCHIAL CLEFT CYST, VESTIGE OR FISTULA, DEEP (WRVU 7.31) Jenny Villanueva MD [facility] [place] [address] [facility] Referral ID Status Reason Start Date Expiration Date Visits Re quested Visits Authorized [id number] 1 1 Encounter Details Date Type Department Care Team (Late st Contact Info) Description 06/03/2022 2:47 PM EDT - 06/03/2022 6:17 PM EDT Surgery [place] [id number] Jenny Villanueva MD [facility] [place] [address] LARYNGOSCOPY, DIRECT, OPERATIVE, WITH BIOPSY (WRVU 3.16) Social History Tobacco Use Types Packs/Day Years [...] Sign Reading Time Taken Comments Blood Pressure 139/70 06/03/2022 6:15 PM EDT Pulse 95 06/03/2022 6:15 PM EDT Temperature 36.7 ??C (98.1 ??F) 06/03/2022 6:00 PM ED T Respiratory Rate 18 06/03/2022 6:15 PM EDT Oxygen Saturation 94% 06/03/2022 6:15 PM EDT Inhaled Oxygen Concentration - - Weight 56.7 kg (125 lb) 06/03/2022 1:59 PM EDT Height 158.8 cm (5' 2.52) 06/03/2022 1:59 PM ED T Body Mass Index 22.48 06/03/2022 1:59 PM EDT documented in this encounter Discharge Instructions * Patient Instructions* Jennifer Linares MD - 06/03/2022 2:57 PM EDT Images from the original note were not included. Instructions for Patient at Discharge: What to expect: You will have soreness which will improve over the next several days. The area around the incision may be numb. This should recover over the next few months. Laryngoscopy After a laryngoscopy, you may experience sore throat, some painful swallowing, and brief change in voice. You can use pain medications for sore throat in addition to over the counter agents such as Chloraseptic, Menthol cough drops/lozenges, honey, tea, and warm or cool drinks as tolerated for easethe sore throat. Medications: Pain Control - use acetaminophen (Tylenol) and/or ibuprofen (Motrin, Advil) as needed. You can take 500 mg to 650 mg of Tylenol every 4-6 hours as needed. Do not exceed 4g acetaminophen per day and do not drink alcohol while taking tylenol. You can also take 400 to 600 mg of Ibuprofen (Motrin,Advil) every 6 hours as needed. Incision Care: Your incision was closed with sutures/jessica. These will need to be removed in about 7-14 days, which will usually occur at your follow up appointment. Use diluted peroxide to clean the incision andapply Aquaphor/Vaseline twice daily. Keep the incision dry for the next two days. After that you may get the area wet and pat dry (it is okay to shower). Do not submerge the incision for at least 2 weeks. Activity: A good rule of thumb is if it hurts don't do it. Keep your head elevated when lying flat. No heavy lifting or straining for the next week. No smoking, this is important for wound healing. Diet: Resume baseline diet You should call your doctor if you develop: -Drainage from your incision -Increasing pain and redness -Increasing drainage from the wound -Fever > 38.5Celsius or 101 Fahrenheit -Bleeding Contact: -You can reach the ENT clinic at [phone] for appointment questions. -The ENT triage nurse is available at [phone] -For urgent issues during evenings (5 PM - 7 AM) and weekends the ENT resident radiology interventional physician can be reached through the main hospital mechanical shovel operator at [phone] Follow Up: You will need to follow up with Dr. Villanueva. This appointment has been requested. You will be notified once it is scheduled, if you do not already see it below. If you do not hear from us in a timely manner, please call to receive your date and time. Currently Scheduled Appointments: Future Appointments and Orders Future Appointments and Orders Future Appointments Provider Department Dept Phone 06/16/2022 10:20 AM Jenny Villanueva MD Otolaryngology at [facility] Arrive at: Base Draw Operator Area 4F [phone] [facility] DRAIN CARE INSTRUCTIONS How do I care for the drains at home? Pin your drains to your clothing by using a safety pin through the plastic loop on the top of the bulb. If the drain is not attached to your clothing, it may pull out from under your skin. Also, a drain usually feels more comfortable when it???s attached. To care for the drain at home, you will have to empty the drain, change the dressing if applicable. See the following pages for instructions onhow to do this. What problems may I have with my drain? The bulb is not compressed- The bulb may not be squeezed tightly enough, the plug may not be closedsecurely, or the tube has slipped out a bit and is leaking. Follow the instructions on how to emptythe drain. If the bulb remains expanded, then notify your doctor or nurse during business hours. The tube accidentally falls out- If this happens, place a dry gauze dressing over the drain site and notify your doctor or nurse during business hours. Increased redness, swelling, or heat around the tube insertion site- This may be a sign of infection. Take your temperature: if it is higher than 101F or 38.8C, call your doctor or nurse immediately.Otherwise, notify your doctor or nurse during business hours and keep the dressing clean and dry. Drain Care This device collects fluid, under suction, from your procedure area. The drain promotes healing andrecovery, and reduces the chance of infection. The drain will be in place until the drainage slows enough for your body to reabsorb fluid on its own. While you are hospitalized the nursing staff willcare for the drain and teach you to continue to do so at home. How to Empty Your Bulb Drain Note: Wash your hands thoroughly before emptying your drain(s). Have the plastic measuring cup from the hospital ready to collect and measure the drainage. Please measure the output at the same two times every 24 hours and record the amount. Unpin the drain from your clothing. Open the top of the drain. Turn the drain upside down and squeeze the contents of the bulb into themeasuring cup. Be sure to empty the bulb as completely as possible. Flush the contents in the toilet. Use the drain output log chart to record the amount of drainage twice a day or any time the bulb isfull. Record the total for 24 hours for each drain you have. If you have more than one drain, remember to record the drainage from each drain separately. To prevent infection, do not let the stopper or top of the bottle touch the measuring cup or any other surface. Use one hand to squeeze all of the air from the drain. With the drain still squeezed, use your other hand to replace the top. This creates the suction necessary to remove the fluids from your body. Pin the drain back on your clothing to avoid pulling it out accidently. Wash your hands again. Remember to wash your hands before and after the procedure to reduce the risk of infection. Removal of the Tube The tube may be removed once the output lessens Please call your MD if the output becomes thicker or has a bad odor. Call the Otolaryngology office at [phone] with any questions or concerns Drainage Record NAME: Date of Surgery: Date: Time: If more than one drain, which one: Drainage Amount (per drain) Total Amount (per drain; in 24 hours) documented in this encounter Medications at Time of Discharge [...] Gastroesophageal Reflux documented as of this encounter Progress Notes * Lali Ag RN - 06/03/2022 7:16 PM EDT Pt discharged to home,extensive teaching done regarding AVS instructions. And drain management Patient teaching was done and teach back and demonstration of jacey management and drain emptying was done.Patient and sister verbalized understanding of instructions. Questions answered. Pt released to care of sister. Tolerated po up to bathroom ambulated prior to discharge. Denies sob or pain. documented in this encounter H&P Notes * Jennifer Linares MD - 06/03/2022 1:53 PM EDT OTOLARYNGOLOGY - HEAD & NECK SURGERY INTERVAL H&P NOTE Name: Monique Barahona Age/Sex: 62 y.o. female Attending: Jenny Villanueva MD Hospital Day: 1 Day of Surgery Interval History Please see clinic/scanned H&P dated 04/18/22. In brief, Monique Barahona presents today for direct laryngoscopy and excision of LEFT neck cystic lesion. There have been no changes to her history. Patient denies symptoms of COVID, exposure to COVID or any known COVID contacts. Physical Exam No data found. Gen: No acute distress, alert and answers questions appropriately CV: Regular rate Pulm: Unlabored breathing Abd: Abdomen soft and non-tender Ext: No peripheral edema ASSESSMENT & PLAN Plan for OR as above. Consent signed, dated, placed in chart. We reviewed the risks, benefits and alternatives to the procedure at length and the patient expressed understanding and agreed to proceed. Ok to proceed with scheduled operation. Jennifer Linares MD, PGY2 06/03/22 1:53 PM ENT Team Pager: [phone] documented in this encounter Miscellaneous Notes * Op Note - Jennifer Linares MD - 06/03/2022 3:07 PM EDT [facility] Operative Note Patient Name: Monique Barahona : [id number] MR#: [id number] Case Date: 06/03/2022 Preop Diagnosis: LEFT neck cystic mass Postop Diagnosis: Same Procedure: 1. Direct Microlaryngoscopy 2. Excision of LEFT neck cystic mass Surgeon: MD Jennifer Jerez MD Anesthesia: General via oral endotracheal tube Estimated Blood Loss: 10cc HPI/Surgical Indications: Monique Barahona is a 62 y.o. female who presents with PMH Tobacco use,kidney cancer, and LEFT neck cystic mass. 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 Findings: 1. Grade 2a view of the vocal cords with Evelyne 2. Benign appearing laryngeal anatomy without mucosal ulceration or any abnormal masses. Post cricoid region with benign appearing redundant mucosa. 3. LEFT level 2 cystic neck mass without significant adhesions to surrounding structures. Specimens removed during surgery: Order Name Source Comment Collection Info Order Time SPECIMEN TO PATHOLOGY LEFT cystic neck mass left neck cyst LEFT cystic neck mass excision 06/03/2022 3:50 PM Time specimen removed from patient: 3:49 PM Number of tissue samples (in container) 1 Procedure Description: Patient was brought to the operating room and identified. Time out was performed. General anesthesia was introduced and the patient was intubated and then turned 180 degrees. After protecting the upper gums/teeth, a Evelyne laryngoscope was introduced into the oral cavity, positioned to allow for visualization of the larynx, and placed in suspension. A 0 degree Asif scope was then passed through the laryngoscope and the oropharynx, hypopharynx, and larynx were explored andvisualized on the screen monitor and tower for documentation with findings noted above. The telescope with camera were then used along with tower to inspect the supraglottis, glottis and subglottis. Piriforms and valleculae normal as well as esophageal inlet. Scant bleeding was found in the vallecula but without mass or other mucosal abnormalities and was suspected to be secondary to intubation trauma. The base of tongue was inspected on removal of the evelyne. The Evelyne was fully removed and the oral cavity and base of tongue were additionally inspected and palpated without identification of any mass like lesion. The patient was then prepped and draped in the usual sterile fashion. A marking pen was used to tru an incision in the LEFT neck two finger breadths below the mandible overlying the mass. A skin incision was made using a 10-blade through to platysma. The platysma was incised and subplatysmal flapswere elevated. Dissection was carried around the SCM which was retracted posteriorly to expose the cystic mass in level 2. A blunt dissection was used to circumscribe the mass and hemostasis was achieved with electrocautery. The mass was easily dissected from surrounding structures. The site was thoroughly irrigated and hemostasis was confirmed on valsalva. A JACEY drain was placed and secured with prolene suture. Surgicel was used to pack the SCM gutter. Vicryl was used to approximate the platysma and 4-0 prolene was used to close the skin in running fashion. Patient was turned back to anesthesia. All counts were correct. The patient was awakened, extubatedand brought to the recovery room in satisfactory condition having tolerated the procedure well withminimal blood loss. Jennifer Linares MD, PGY2 06/03/2022 4:34 PM Pager #[phone] Associated attestation - Jenny Villanueva MD - 06/09/2022 10:02 AM EDT Attestation: Case Date: 06/03/2022 I was present and I participated during the entire procedure (does not need to include opening and closing). Jenny Villanueva MD 06/09/2022 documented in this encounter Plan of Treatment Not on file documented as of this encounter Procedures Procedure Name Priority Date/Time Associated Diagnosis Comments SURGICAL PATHOLOGY REPORT Routine 06/03/2022 3:50 PM EDT SPECIMEN TO PATHOLOGY Routine 06/03/2022 3:50 PM EDT Excision Branc Clft Cyst, Deep ([id number]) 06/03/2022 2:46 PM EDT Neck mass Laryngoscopy Direct Operative W/Biopsy ([id number]) 06/03/2022 2:46 PM EDT Neck mass EXCISION BRANCHIAL CLEFT CYST,VESTIGE OR FISTULA,DEEP Routine 06/03/2022 11:06 AM EDT Neck mass LARYNGOSCOPY, DIRECT, OPERATIVE, WITH BIOPSY Routine 06/03/2022 11:06 AM EDT Neck mass documented in this encounter Results * Surgical Pathology Report (06/03/2022 3:50 PM EDT) Final Diagnosis [id number] ? Location: [facility]; [facility]; A The signing pathologist has (i) examined the relevant preparation(s) for the specimen(s) and (ii) rendered or confirmed the diagnosis(es). . ?Surgical Pathology DIAGNOSIS Soft tissue, left cystic neck mass, excision - [place] squamous lined cyst, favor benign branchial cleft-type cyst, ? (see Discussion.) One adjacent benign node (0/1). Electronically signed by: ?Kalpesh BENJAMIN Yuliana WilsonYosi Verified: ??06/24/2022 15:01 ??Pathologist Performed at: ??-[facility] Dept. of Pathology, [place] [address] Anesthesiologists' Assistant: Ezio Larsen MD, FCAP, ??CLIA Certificate: [id number] DISCUSSION The cyst is lined by a layer of squamous epithelium with maturation towards the surface with keratin flakes in the center of the cyst. ??IHC highlights the basal cell layer of the epithelium. ??No atypia or overtly malignant features are seen. The surrounding lymphoid stroma shows germinal centers, which can be seen in branchial type-cysts. Although cystic metastasis can be very difficult to discern from a cyst, the features favor a benign process. ??With the clinical exclusion of a primary tumor, the favored diagnosis is benign branchial cleft-type cyst. Drs. Wiggins and Hortensia have reviewed the case and concur. ADDITIONAL STUDIES Immunohistochemistry Studies: Formalin-fixed, paraffin-embedded tissue sections are studied using the polymer technique with appropriate positive and negative controls. ?These IHC studies provide the pathologist with adjunctive diagnostic information. Antibody specificity has been verified by testing antibodies on a series of in-house tissues with known immunohistochemical performance characteristics. The clinical interpretation of any antibody positive staining or its absence is evaluated within the context of clinical presentation, morphology, histopathological criteria and other diagnostic tests. Block ? Antibody ?Result (Positive/Negative) A1 ?P40 ?Positive in basal cells of epithelium A1 ?Ki67 ? Positive in basal cells of ?epithelium A1 ?P16 ? Negative (weak and focal) SPECIMEN(S) SUBMITTED A - Soft tissue, left cystic neck mass, excision CLINICAL INFORMATION Left neck cyst SPECIMEN PROCESSING A - Labeled/Fixative: Left cystic neck mass, fresh. Quantity/Size: ??Single, 5.0 x 3.4 x 12.3 cm. Resection Specimen: Not oriented Tissue Description: Intact, pink garcia circumscribed cystic lesion Inking: The specimen is inked black. Sectioning: The specimen is sectioned perpendicular to the long axis. Cut Surface: Circumscribed cyst with pinkish yellow creamy-like materials, no necrosis. Sections/Processing: . SPECIMEN PROCESSING [employer]acher [employer] sections in 4 cassettes as follows: ?A1-A3: ??Bleacher [employer] cross sections of the cyst ?A4: ??Single lymph node candidate cross section and entirely submitted with the ? cyst ??WM 06/24/2022 3:01 PM EDT [facility] SPECIMEN FROM CYST / Unknown 06/03/2022 3:50 PM EDT 06/03/2022 3:50 PM EDT Jenny Villanueva MD PATHOLOGY/CYTOLOGY O ABHIJEET Performing Organization Address City/[facility]/ZIP Co de Phone Number [facility] [place] [address] [facility] [place] [address] * Specimen to Pathology (06/03/2022 3:50 PM EDT) AP Specimen 06/03/2022 3:50 PM EDT 06/03/2022 3:50 PM EDT Narrative [facility] - 06/03/2022 3:50 PM EDT Specimen requisition ordered. ??Separate Pathology report to follow Jenny Villanueva MD PATHOLOGY/CYTOLOGY O ABHIEJET Performing Organization Address [facility]/ZIP Co de Phone Number [facility] [place] [address] documented in this encounter Visit Diagnoses Diagnosis Neck mass Swelling, mass, or lump in head and neck Neck mass Swelling, mass, or lump in head and neck documented in this encounter Administered Medications Inactive Administered Medications - up to 3 most recent administrations Medication Order MAR Action Action Date Dose Rate Site lidocaine-EPINEPHrine (pf) (1% - 1:200,000) injection ONCE PRN, Starting on Thu06/03/22 at 1518, Until Thu06/03/22 at 6, Intra-Operative (Intra-Procedure), Routine Given 06/03/2022 3:18 PM EDT 10 mLs 19- Surgical Site oxyCODONE (Roxicodone) tablet 5 mg 5 mg, Oral, ONCE PRN, 1 dose, Starting on Thu06/03/22 at 1634, Until Thu06/03/22 at 2115, Pain, Routine pantothenic Ac-Min Oil-Pet,Hyd (Aquaphor) 41 % ointment ONCE PRN, Starting on Thu06/03/22 at 1627, Until Thu06/03/22 at 2115, Intra-Operative (Intra-Procedure) Given 06/03/2022 4:27 PM EDT 1 each 19- Surgical Site documented in this encounter Active and Recently Administered Medications Times are shown in EDT. PRN Medication Order 06/01/2022 06/02/2022 06/03/2022 lidocaine-EPINEPHrine (pf) (1% - 1:200,000) injection (CANCELED) ONCE PRN, Starting on Thu06/03/22 at 1518, Until Thu06/03/22 at 2115, Intra-Operative (Intra-Procedure), Routine 151 (Given - Provid er: Jennifer Linares MD - Comment: neck) oxyCODONE (Roxicodone) tablet 5 mg 5 mg, Oral, ONCE PRN, 1 dose, Starting on Thu06/03/22 at 1634, Until Thu06/03/22 at 2115, Pain, Routine pantothenic Ac-Min Oil-Pet,Hyd (Aquaphor) 41 % ointment (CANCELED) ONCE PRN, Starting on Thu06/03/22 at 1627, Until Thu06/03/22 at 2115, Intra-Operative (Intra-Procedure) 162 (Given - Provid er: Jennifer Linares MD) documented in this encounter Care Teams Egg Gatherer Relationship Specialty Start Date End Date Modesta Cook MD [address] [place] [address] [address] [place] [address] PCP - General Family Medicine 04/29/22 documented as of this encounter
--- OUTSIDE RECORDS SUMMARY | 2023-12-14 15:44 | XMS_ITS | Encounter Summary ---
Author Organization [facility] [place] [address] Care Team Providers Care Floral Assistant Name Role Phone None Primary Care Provider Unavailabl e Encounter Details Date Type Department Care Team (Late st Contact Info) Description 04/07/2022 External [place] [id number] Provider, Scanning Social History Tobacco Use Types Packs/Day Years [...] Procedure Name Priority Date/Time Associated Diagnosis Comments CYTOLOGY SCAN Routine 04/07/2022 documented in this encounter Results * Scan Doc: Cytology (04/07/2022) Jenny Villanueva MD MEDIA MGR SCAN EXT O RDR/RSLT documented in this encounter Visit Diagnoses Not on filedocumented in this encounter Care Teams Floral Assistant Relationship Specialty Start Date End Date None None PCP - General 10/28/21 04/28/22 documented as of this encounter
--- OUTSIDE RECORDS SUMMARY | 2023-12-14 15:44 | XMS_ITS | Encounter Summary ---
Author Organization [facility] [place] [address] Care Team Providers Care Career Placement Specialist Name Role Phone Modesta Cook MD Primary Care Provider [phone] Encounter Details Date Type Department Care Team (Late st Contact Info) Description 06/23/2022 Telephone [place] [id number] Velma Ibarra Social History Tobacco Use Types Packs/Day Years [...] encounter Miscellaneous Notes * Telephone Encounter - Velma Ibarra - 06/23/2022 5:13 PM EDT LVM for pt requesting a return call to schedule. Return in about 6 weeks (around 07/23/2022). Check out comments: 6 weeks f/u with . documented in this encounter Plan of Treatment Not on file documented as of this encounter Visit Diagnoses Not on filedocumented in this encounter Care Teams Career Placement Specialist Relationship Specialty Start Date End Date Modesta Cook MD [address] [place] [address] PCP - General Family Medicine 04/29/22 documented as of this encounter
--- OUTSIDE RECORDS SUMMARY | 2023-12-14 15:44 | XMS_ITS | Encounter Summary ---
Author Organization [facility] Address [facility] [place] [address] Care Team Providers Care Chief Medical Officer Name Role Phone Nimisha Benson MD Primary Care Provider [phone] Encounter Details Date Type Department Care Team (Latest Contact Info) Description 11/26/2018 11:01 AM EDT - 11/26/2018 11:54 AM EDT Hospital Encounter XRay at [address] [place] [address] Fabrizio Crowley MD [facility] [address] History of renal cell cancer Discharge Disposition: [...] Comments XR CHEST PA AND LATERAL Routine 11/26/2018 11:17 AM EDT History of renal cell cancer documented in this encounter Results * XR Chest PA & Lateral (Generic) (11/26/2018 11:17 AM EDT) Anatomical Region Laterality Modality Chest N/A Digital Radiogra phy Impressions 11/26/2018 11:44 AM EDT No evidence of metastatic disease. I have personally reviewed the image(s) and the residents interpretation and agree with the findings, Jabari Bee at 11/26/2018 11:44 AM Thank you for letting us participate in the care of this patient. For questions regarding this report, please contact the number below. ? Electronically signed by: Jabari Bee [facility] ([phone]), at 11/26/2018 11:44 AM Narrative 11/26/2018 11:44 AM EDT EXAMINATION: XR CHEST PA AND LATERAL (GENERIC) CLINICAL HISTORY: LEFT renal mass TECHNIQUE: Frontal and lateral views of the chest COMPARISON: 11/16/2017 FINDINGS: No focal opacities. No pneumothorax or pleural effusions. Mediastinal silhouette, feroz, pulmonary vascular markings are unchanged from prior. Vertebroplasty material is again seen in the T7 vertebra. No acute osseous abnormality. Procedure Note Jabari Bee MD - 11/26/2018 EXAMINATION: XR CHEST PA AND LATERAL (GENERIC) CLINICAL HISTORY: LEFT renal mass TECHNIQUE: Frontal and lateral views of the chest COMPARISON: 11/16/2017 FINDINGS: No focal opacities. No pneumothorax or pleural effusions. Mediastinal silhouette, feroz, pulmonary vascular markings are unchanged from prior. Vertebroplasty material is again seen in the T7 vertebra. No acuteosseous abnormality. IMPRESSION No evidence of metastatic disease. I have personally reviewed the image(s) and the residents interpretationand agree with the findings, Jabari Bee at 11/26/2018 11:44 AM Thank you for letting us participate in the care of this patient. Forquestions regarding this report, please contact the number below. Electronically signed by: Jabari Bee [facility]([phone]), at 11/26/2018 11:44 AM Fabrizio Crowley MD IMG DX ORDERABLES documented in this encounter Visit Diagnoses Diagnosis History of renal cell cancer documented in this encounter Care Teams Chief Medical Officer Relationship Specialty Start Date End Date Nimisha Benson MD [address] [place] [address] PCP - General 06/15/14 10/27/21 documented as of this encounter
--- OUTSIDE RECORDS SUMMARY | 2023-12-14 15:44 | XMS_ITS | Encounter Summary ---
Author Organization [facility] [place] [address] Care Team Providers Care Recording Artist Name Role Phone Nimisha Benson MD Primary Care Provider [phone] Encounter Details Date Type Department Care Team (Late st Contact Info) Description 01/09/2021 Ancillary Procedure Radiology Library at [facility] [place] [id number] Fabrizio Crowley MD [facility] [place] [address] Social History Tobacco Use Types Packs/Day Years [...] Associated Diagnosis Comments FILM LIBRARY STORAGE ONLY CT CHEST Routine 01/09/2021 12:00 AM EST documented in this encounter Results * Film Library- Storage Only CT Chest (01/09/2021 12:00 AM EST) Narrative [facility] - 04/02/2022 4:48 PM EST This exam is auto-finalizing. It's purpose is for storage only. Fabrizio Crowley MD [facility] FILM LIBRARY ORD ERABLES [facility] RAD [place], [place] documented in this encounter Visit Diagnoses Not on filedocumented in this encounter Care Teams Recording Artist Relationship Specialty Start Date End Date Nimisha Benson MD [address] [place] [address] PCP - General 06/15/14 10/27/21 documented as of this encounter
--- OUTSIDE RECORDS SUMMARY | 2023-12-14 15:44 | XMS_ITS | Encounter Summary ---
Author Organization [facility] Address [facility] [place] [address] Care Team Providers Care Furnace Attendant Name Role Phone None Primary Care Provider Unavailabl e Reason for Referral * Diagnostic Test (Routine) - Closed Specialty Diagnoses / Procedures Referred By Contac t Referred To Contact Radiology Diagnoses Neck mass Procedures CT Neck Soft Tissue w Contrast (Generic) Marvin Wells PA [facility] [place] [address] [facility] [place] [address] Referral ID Status Reason Start Date Expiration Date V isits Requested Visits Authorized [id number] Closed Specialty Service Requested 04/10/2022 10/07/2022 1 1 Encounter Details Date Type Department Care Team (Late st Contact Info) Description 04/03/2022 Orders [place] [address] Marvin Wells PA [facility] [place] [address] Neck mass Social History Tobacco Use Types Packs/Day Years [...] as of this encounter Results * CT Neck Soft [...] questions please contact the health home care consultant that requested your imaging first. ? Narrative 04/18/2022 2:39 PM EST EXAMINATION: CT [...] have questions please contactthe health home care consultant that requested your imaging first. Armando Schmidt MD IM CT ORDERABLES * (ABNORMAL) Creatinine (04/18/2022 10:04 AM EST) Creatinine 0.66(L) 0.70 - 1.20 mg/dL [facility] Est Glomerular Filtration Rate 98 >=60 mL/min/1. 73 m?? [facility] Comment: This patient's estimated GFR [...] and symptoms in addition to eGFR. Blood 04/18/2022 10:0 4 AM EST 04/18/2022 10:07 AM EST Narrative Resulting Agency Comment Spec In Lab Armando Schmidt [place] [address] documented in this encounter Visit Diagnoses Diagnosis Neck mass Swelling, mass, or lump in head and neck Neck mass Swelling, mass, or lump in head and neck documented in this encounter Care Teams Furnace Attendant Relationship Specialty Start Date End Date None None PCP - General 10/28/21 04/28/22 documented as of this encounter
--- OUTSIDE RECORDS SUMMARY | 2023-12-14 15:44 | XMS_ITS | Encounter Summary ---
Author Organization [facility] Address [facility] [place] [address] Care Team Providers Care Hot Stamp Operator Name Role Phone Nimisha Benson MD Primary Care Provider [phone] Reason for Visit * Reason Comments Blurred Vision Eye Problem * Consultation (Routine) - Closed Specialty Diagnoses / Procedures Referred By Kizzy pickering Referred To Contact Ophthalmology Diagnoses I Radha Sevilla, OD [address] [place] [address] Parrish Gallo MD [facility] [place] [address] Referral ID Status Reason Start Date Expiration Date V isits Requested Visits Authorized [id number] Closed Consult, Test & Treat 11/12/2018 11/12/2019 1 1 Encounter Details Date Type Department Care Team (Late st Contact Info) Description 01/18/2019 12:00 PM EST Office [place] [address] Parrish Gallo MD [facility] [place] [address] Anatomical narrow angle glaucoma, bilateral; Age-related nuclear cataract of both eyes Social History Tobacco Use Types Packs/Day Years [...] as of this encounter Progress Notes * Parrish Gallo MD - 01/18/2019 12:00 PM EST Anatomical narrow angle glaucoma OU: Sent by Dr Sevilla for LPI consultation Currently not using any glaucoma drops of meds Baseline OCT WNL OU and normal HVF (100% OU) Anterior segment OCT shows low risk of angle closure IOP doing well in the mid-teens Discussed glaucoma and glaucoma treatment options which include beginning eye drops/medications vs laser procedures vs cataract surgery. Would likely benefit from LPI OU in the near future Cataracts OU Mild, monitor. Plan: R/B/A discussed with Monique Rodriguez Jun and she would like to proceed with LPI OU in the spring. Discussed option of LPI OU if Monique can have a fuel truck driver to and from [facility] as she lives [place] distance. Return to clinic: Spring 2019 for MSO only, LPI OU documented in this encounter Plan of Treatment Not on file documented as of this encounter Procedures Procedure Name Priority Date/Time Associated Diagnosis Comments OCT ANTERIOR SEGMENT - OU - BOTH EYES Routine 01/18/2019 2:46 PM EST Anatomical narrow angle glaucoma, bilateral OCT OPTIC NERVE - OU - BOTH EYES Routine 01/18/2019 2:28 PM EST Anatomical narrow angle glaucoma, bilateral PACHYMETRY - OU - BOTH EYES Routine 01/18/2019 1:27 PM EST Anatomical narrow angle glaucoma, bilateral AUTOMATED VISUAL FIELD - EXTENDED - OU- BOTH EYES Routine 01/18/2019 1:27 PM EST Anatomical narrow angle glaucoma, bilateral documented in this encounter Results * OCT Anterior Segment - OU - Both Eyes (01/18/2019 2:46 PM EST) Anatomical Region Laterality Modality Other Narrative 01/18/2019 2:46 PM EST Right Eye Quality was good. Left Eye Quality was good. Notes Shallow, open in 3 quadrants, possibly occludable Parrish Gallo MD OPHTHALMOLOGY [employer] ES ORDERABLES * Oct Optic Nerve - OU - Both Eyes (01/18/2019 2:28 PM EST) Anatomical Region Laterality Modality Other Narrative 01/18/2019 2:28 PM EST Right Eye Quality was good. Left Eye Quality was good. Notes Optic nerve report G = 94 OD G = 94 OS within normal limits OU Interpretation: WNL baseline scan Parrish Gallo MD OPHTHALMOLOGY [facility] ES ORDERABLES * Pachymetry - OU - Both Eyes (01/18/2019 1:27 PM EST) Anatomical Region Laterality Modality Other Narrative 01/18/2019 1:27 PM EST OD: 590 OS: 580 Parrish Gallo MD OPHTHALMOLOGY [employer] ES ORDERABLES * Automated Visual Field - Extended - OU - Both Eyes (01/18/2019 1:27 PM EST) Anatomical Region Laterality Modality Other Narrative 01/18/2019 1:27 PM EST Right Eye Threshold was 24-2. Strategy was ELO. Reliability was good. Left Eye Threshold was 24-2. Strategy was ELO. Reliability was good. Notes Visual Field Results Type of VF: ??HVF 24-2 Indication: ??Narrow ??Angle OU Reliability: ??good Glaucoma Hemifield Test (GHT) OD: within normal limits OS: within normal limits Visual Function Index (VFI) OD: 100 % OS: 100 % MD OD: 0.89 dB ? PSD OD: 1.60 dB MD OS: 0.78 dB ??PSD OS: 1.16 dB Interpretation: normal test Parrish Gallo MD OPHTHALMOLOGY [facility] ORDERABLES documented in this encounter Visit Diagnoses Diagnosis Anatomical narrow angle glaucoma, bilateral Age-related nuclear cataract of both eyes Senile nuclear sclerosis documented in this encounter Care Teams Hot Stamp Operator Relationship Specialty Start Date End Date Nimisha Benson MD [address] [place] [address] PCP - General 06/15/14 10/27/21 documented as of this encounter
--- OUTSIDE RECORDS SUMMARY | 2023-12-14 15:44 | XMS_ITS | Encounter Summary ---
Author Organization [facility] [place] [address] Care Team Providers Care Evp Business Development Name Role Phone Nimisha Benson MD Primary Care Provider [phone] Encounter Details Date Type Department Care Team (Late st Contact Info) Description 12/12/2019 [place] [id number] Fabrizio Crowley MD [facility] [place] [address] Renal cancer, unspecified laterality Social History Tobacco [...] as of this encounter Results * (ABNORMAL) Comprehensive metabolic panel (non-fasting) (12/12/2019 10:46 AM EDT) Glucose 117 65 - 199 mg/dL [facility] Comment:Diabetes: >=200 mg/d L plus symptoms Blood Urea Nitrogen 7(L) 8 - 18 mg/dL [facility] Creatinine 0.70 0.70 - 1.20 mg/dL [facility] Sodium 140 135 - 145 mmol/L [facility] Potassium 3.9 3.5 - 5.0 mmol/L [facility] Comment: Please note: ??Patients with WBC >100,000 may have falsely elevated Potassium levels. ??For accurate Potassium quantification in these patients send serum separator tube (gold top) for subsequent determinations. ??Contact the Clinical Chemistry Laboratory if there are any questions. Chloride 102 98 - 107 mmol/L [facility] Carbon Dioxide 26 22 - 31 mmol/L [facility] Anion Gap 12 5 - 15 mmol/L [facility] Calcium 9.9 8.5 - 10.5 mg/dL [facility] Protein, Total 7.2 6.1 - 8.0 gm/dL [facility] Albumin 4.3 3.2 - 5.2 gm/dL [facility] Aspartate Aminotransferase 16 0 - 30 unit/L [facility] Alanine Aminotransferase 11 0 - 30 unit/L [facility] Alkaline Phosphatase 92 35 - 105 unit/L [facility] Bilirubin, Total 0.3 0.2 - 1.3 mg/dL [facility] Est Glomerular Filtration Rate 94 >=60 mL/min/1. 73 m?? [facility] Comment: The eGFR was calculated using the CKD-EPI equation. As with all creatinine based estimates of kidney function, eGFR values calculated with the CKD-EPI equation are not accurate in patients with acute kidney failure, extremes of body mass or the acutely ill. [email or web address] eGFR 108 >=60 mL/min/1. 73 m?? [facility] Comment: The eGFR was calculated using the CKD-EPI equation. As with all creatinine based estimates of kidney function, eGFR values calculated with the CKD-EPI equation are not accurate in patients with acute kidney failure, extremes of body mass or the acutely ill. [email or web address] Blood specimen (specimen) 12/12/2019 10:46 AM EDT 12/12/2019 10:49 AM EDT Narrative Resulting Agency Comment Spec In Lab Fabrizio Crowley MD CHEMISTRY ORDERABLES [facility] [place] [address] documented in this encounter Visit Diagnoses Diagnosis Renal cancer, unspecified laterality documented in this encounter Care Teams Evp Business Development Relationship Specialty Start Date End Date Nimisha Benson MD [address] [place] [address] [address] [place] [address] PCP - General 06/15/14 10/27/21 documented as of this encounter
--- OUTSIDE RECORDS SUMMARY | 2023-12-14 15:44 | XMS_ITS | Encounter Summary ---
[place] [address] Care Team Providers Care Civil Attorney Name Role Phone Nimisha Benson MD Primary Care Provider [phone] Reason for Referral * Diagnostic Test (Routine) - Closed Specialty Diagnoses / Procedures Referred By Contbrian t Referred To Contact Radiology Diagnoses Renal cancer, unspecified laterality Procedures CT Abdomen wwo Contrast Zhanna Crowley MD [facility] [place] [address] [facility] [place] [address] Referral ID Status Reason Start Date Expiration Date V isits Requested Visits Authorized [id number] Closed Specialty Service Requested 12/07/2019 06/06/2020 1 1 Encounter Details Date Type Department Care Team (Late st Contact Info) Description 11/26/2018 2:00 PM EDT [place] [address] Zhanna Crowley MD [facility] [place] [address] Renal cancer, unspecified laterality (Primary Dx) Social History Tobacco Use Types [...] Sign Reading Time Taken Comments Blood Pressure 136/81 11/26/2018 1:55 PM EDT Pulse 83 11/26/2018 1:55 PM EDT Temperature - - Respiratory Rate - - Oxygen Saturation - - Inhaled Oxygen Concentration - - Weight - - Height - - Body Mass Index - - documented in this encounter Progress Notes * Zhanna Crowley MD - 11/26/2018 2:00 PM EDT Patient Name: Monique Barahona Date of Service: 11/25/2018 Primary Care Provider: Nimisha Benson MD Reason for Visit: Monique Barahona is a 58 y.o. female here for follow up of a LEFT renal mass s/p RFA. History of Present Illness: The patient had a CT and was found to have an incidental right renal mass in 04/2013. She was on active surveillance. Biopsy 07/17/2014 [facility] Provider: ZHANNA CROWLEY Pt. Name: MONIQUE BARAHONA Acc #: [id number] Pt. Col Date: 07/17/2014 SURGICAL PATHOLOGY ---Pathologic Diagnosis--- A - Left renal mass, Minute fragment of renal cell carcinoma, clear cell type admixed with abundant normal renal parenchyma. Josué nuclear grade: 2 of 4 Note: The nuclear grade may vary within different areas of a renal cell carcinoma. The possibility that the needle aspirates/core biopsies are not training representative of the highest nuclear grade within the tumor cannot be excluded. She underwent image guided ablation (RFA) on 09/15/2014. CT 11/214 showed: IMPRESSION: Low-attenuation posttreatment changes seen in lower pole left kidney. No evidence of complication. No evidence of local tumor recurrence. She is doing well. She has some low back pain, but this is stable. She is on reclast or another medfor osteoporosis. She then started having jaw pain and has had meniscal pain in her jaw, she has a new mouth guard, with jaw PT. Doing better. No issues with voiding. No hematuria. Still working on smoking 12 cigs per day. Will see her PCP about this soon. Appetite good, weight stable. Past Medical History: Asthma Patient Active Problem List Diagnosis Code ??? Left renal mass N28.89 ??? Wedge compression fracture of T7 vertebra S22.060A ??? Renal cancer C64.9 Past Surgical History: ~ 2011 Cholecystectomy ~ 2007 Appendectomy Medications: Reviewed see attached Allergies: Reviewed see attached Family History:There is no family history of renal cancer. No diseases run in the family. 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 The patient is singles and lives with her 30 year old son. The patient drinks no ETOH Tobacco:Trying to quit, but has not quit yet. Systems review: She walks but no regular exercise. No significant limitations Physical Exam: Vital signs are reviewed The [...] 11/2018: Cr 0.67, eGFR 96, LFT's normal X-rays 08/2015: CXR: neg 08/2015: [...] CXR negative 11/2018: Ct abd No recurrence. Impression: #1:[id number] renal cancer clear cell grade 2/4 s/p RFA in 08/2014 #2: normal LFTs now #3: Minimal Comorbidity Plan: CMP/CXR/CT abd in 12 months. She is content with the plan, she feels well. All pt questions answered to her apparent satisfaction documented in this encounter Plan of Treatment Not on file documented as of this encounter Results * CT Abdomen wwo Contrast (12/12/2019 1:05 PM EDT) Anatomical Region Laterality Modality Abdomen Computed Tomogra phy Impressions 12/12/2019 1:58 PM EDT Status post left lower pole renal ablation with no evidence of recurrent or metastatic disease. I have personally reviewed the image(s) and the resident's interpretation and agree with the findings, Saravanan Stevens DO at 12/12/2019 1:58 PM Thank you for letting us participate in the care of this patient. For questions regarding this report, please contact the number below. ? Electronically signed by: Saravanan Stevens DO, [facility] ([phone]), at 12/12/2019 1:58 PM Narrative 12/12/2019 1:58 PM EDT EXAMINATION: CT ABDOMEN WWO CONTRAST CLINICAL HISTORY: History of left lower pole renal carcinoma status post radiofrequency ablation. ??Follow-up. ??Evaluation for recurrence. ??Restaging. TECHNIQUE: Helical CT of the abdomen was performed prior to and following the intravenous administration of contrast. 86 cc Omnipaque 350. No oral contrast used. ??Multiplanar reformatted images were reviewed. COMPARISON: Comparison is made to multiple prior CT of the abdomen examinations, the most recent which is dated November 26, 2018. FINDINGS: Maintenance Representative Images: Noncontributory. Right Kidney: Normal. Left Kidney: Unchanged size and appearance of the ringlike post ablation cavity at the caudal margin of the left lower pole (series 604, image 63). Remainder of the left kidney is normal in morphology and attenuation. No collecting system dilatation or renal calculi. ??No new renal mass. Lower chest: Unchanged calcified lingular nodule consistent with a calcified granuloma. Liver: Normal. Bile ducts: Normal. Gallbladder: The gallbladder is surgically absent with surgical clips within the gallbladder fossa. Pancreas: Normal. Spleen: Normal. Adrenals: Unchanged thickening of the left adrenal gland, stable from 2016 and consistent with a benign etiology such as adrenal hyperplasia. ??The right adrenal gland images normally. Vasculature: The aorta is normal in course and caliber. ??There is moderate confluent atherosclerotic calcification of the infrarenal abdominal aorta and its branch vessels. ??The origin of the mesenteric and renal arteries are within normal limits. ??The inferior vena cava is normal in course and caliber. ??The superior mesenteric, splenic, and portal veins are patent. ??The hepatic veins are patent. Lymph Nodes: No pathologically enlarged lymph nodes. Bowel: The distal esophagus is unremarkable. ??The stomach is partially distended and is otherwise unremarkable. ??The duodenum is normal in course and caliber. Visualized aspects of the small bowel are unremarkable. ??Visualized aspects of the large bowel are unremarkable. Peritoneum and mesentery: No ascites, free air, or loculated fluid collection. No mesenteric inflammation. Abdominal wall: Normal. Osseous structures: No suspicious lesions. Unchanged superior endplate compression deformity at T12. Procedure Note Saravanan Stevens, DO - 12/12/2019 EXAMINATION: CT ABDOMEN WWO CONTRAST CLINICAL HISTORY: History of left lower pole renal carcinoma status post radiofrequency ablation. Follow-up. Evaluation for recurrence.Restaging. TECHNIQUE: Helical CT of the abdomen was performed prior to and followingthe intravenous administration of contrast. 86 cc Omnipaque 350. No oralcontrast used. Multiplanar reformatted images were reviewed. COMPARISON: Comparison is made to multiple prior CT of the abdomenexaminations, the most recent which is dated November 26, 2018. FINDINGS: Maintenance Representative Images: Noncontributory. Right Kidney: Normal. Left Kidney: Unchanged size and appearance of the ringlike post ablationcavity at the caudal margin of the left lower pole (series 604, image 63).Remainder of the left kidney is normal in morphology and attenuation. No collectingsystem dilatation or renal calculi. No new renal mass. Lower chest: Unchanged calcified lingular nodule consistent with acalcified granuloma. Liver: Normal. Bile ducts: Normal. Gallbladder: The gallbladder is surgically absent with surgical clipswithin the gallbladder fossa. Pancreas: Normal. Spleen: Normal. Adrenals: Unchanged thickening of the left adrenal gland, stable from 2016and consistent with a benign etiology such as adrenal hyperplasia. Theright adrenal gland images normally. Vasculature: The aorta is normal in course and caliber. There ismoderate confluent atherosclerotic calcification of the infrarenal abdominal aortaand its branch vessels. The origin of the mesenteric and renal arteries arewithin normal limits. The inferior vena cava is normal in course and caliber.The superior mesenteric, splenic, and portal veins are patent. The hepaticveins are patent. Lymph Nodes: No pathologically enlarged lymph nodes. Bowel: The distal esophagus is unremarkable. The stomach is partiallydistended and is otherwise unremarkable. The duodenum is normal in course andcaliber. Visualized aspects of the small bowel are unremarkable. Visualizedaspects of the large bowel are unremarkable. Peritoneum and mesentery: No ascites, free air, or loculated fluidcollection. No mesenteric inflammation. Abdominal wall: Normal. Osseous structures: No suspicious lesions. Unchanged superior endplate compression deformity at T12. IMPRESSION Status post left lower pole renal ablation with no evidence of recurrentor metastatic disease. I have personally reviewed the image(s) and the resident's interpretationand agree with the findings, Saravanan Stevens DO at 12/12/2019 1:58 PM Thank you for letting us participate in the care of this patient. Forquestions regarding this report, please contact the number below. Electronically signed by: Saravanan Stevens DO, [facility]([phone]), at 12/12/2019 1:58 PM Zhanna Crowley MD IMG CT ORDERABLES * XR Chest PA & Lateral (Generic) [...] the number below. ? Electronically signed by: Yahir Rueda MD, [facility] ([phone]), at 12/12/2019 11:13 AM Narrative 12/12/2019 11:13 AM EDT EXAMINATION: XR [...] contact the number below. Electronically signed by: Yahir Rueda MD, [facility]([phone]), at 12/12/2019 11:13 AM Zhanna Crowley MD IMG DX ORDERABLES documented in this encounter Visit Diagnoses Diagnosis Renal cancer, unspecified laterality- Primary Renal cancer, unspecified laterality Renal cancer, unspecified laterality documented in this encounter Care Teams Civil Attorney Relationship Specialty Start Date End Date Nimisha Benson MD [address] [place] [address] PCP - General 06/15/14 10/27/21 documented as of this encounter
--- OUTSIDE RECORDS SUMMARY | 2023-12-14 15:44 | XMS_ITS | Encounter Summary ---
Author Organization [facility] [place] [address] Care Team Providers Care Cnc Machinist Name Role Phone None Primary Care Provider Unavailabl e Encounter Details Date Type Department Care Team (Late st Contact Info) Description 02/26/2022 Ancillary Procedure Radiology [facility] [place] [address] Fabrizio Crowley MD [facility] [place] [address] Social History Tobacco Use Types Packs/Day Years [...] FILM LIBRARY STORAGE ONLY ULTRASOUND STUDY Routine 02/26/2022 12:00 AM EST documented in this encounter Results * Film Library- Storage Only Ultrasound Study (02/26/2022 12:00 AM EST) Narrative [facility] - 04/02/2022 4:52 PM EST This exam is auto-finalizing. It's purpose is for storage only. Fabrizio Crowley MD [facility] FILM LIBRARY ORD ERABLES [facility] [place] documented in this encounter Visit Diagnoses Not on filedocumented in this encounter Care Teams Cnc Machinist Relationship Specialty Start Date End Date None None PCP - General 10/28/21 04/28/22 documented as of this encounter
--- OUTSIDE RECORDS SUMMARY | 2023-12-14 15:44 | XMS_ITS | Encounter Summary ---
[facility] [place] [address] Care Team Providers Care Cad Programmer Name Role Phone Nimisha Benson MD Primary Care Provider [phone] Encounter Details Date Type Department Care Team (Latest Contact Info) Description 01/18/2019 2:15 PM EST Procedure [place] [address] Parrish Gallo MD [facility] [place] [address] PATIENT NOT SEEN Social History Tobacco Use Types Packs/Day Years [...] Notes * Parrish Gallo MD - 01/18/2019 2:15 PM EST This patient was not seen in this encounter. Laser merlene not needed documented in this encounter Plan of Treatment Not on file documented as of this encounter Visit Diagnoses Diagnosis DH PATIENT NOT SEEN documented in this encounter Care Teams Cad Programmer Relationship Specialty Start Date End Date Nimisha Benson MD [facility] [address] [place] [address] PCP - General 06/15/14 10/27/21 documented as of this encounter
--- OUTSIDE RECORDS SUMMARY | 2023-12-14 15:44 | XMS_ITS | Encounter Summary ---
[facility] Organization [facility] [place] [address] Care Team Providers Care Operator Helper Name Role Phone Modesta Cook MD Primary Care Provider [phone] Encounter Details Date Type Department Care Team (Late st Contact Info) Description 05/08/2022 Telephone [place] [id number] Nhi Genao RN Social History Tobacco Use Types Packs/Day [...] encounter Miscellaneous Notes * Telephone Encounter - Nhi Genao RN - 05/08/2022 4:18 PM EDT Monique left a voicemail asking if she should contact her insurance company to see if her upcoming surgery on 06/03 is covered. Returned Monique's call, advised to call her insurance with her questions. Call back number given. documented in this encounter Plan of Treatment Not on file documented as of this encounter Visit Diagnoses Not on filedocumented in this encounter Care Teams Operator Helper Relationship Specialty Start Date End Date Modesta Cook MD [address] [place] [address] PCP - General Family Medicine 04/29/22 documented as of this encounter
--- OUTSIDE RECORDS SUMMARY | 2023-12-14 15:44 | XMS_ITS | Encounter Summary ---
[facility] [place] [address] Care Team Providers Care Fender Mechanic Name Role Phone Modesta Cook MD Primary Care Provider [phone] Reason for Visit * Auth/Cert (Routine) Specialty Diagnoses / Procedures Referred By Kizzy t Referred To Contact Diagnoses left neck cyst Procedures PRO LARYNGOSCOPY DIRECT OPERATIVE W/BIOPSY PRO EXCISION BRANC CLFT CYST, DEEP LARYNGOSCOPY, DIRECT, OPERATIVE, WITH BIOPSY (WRVU 3.16) EXCISION BRANCHIAL CLEFT CYST, VESTIGE OR FISTULA, DEEP (WRVU 7.31) Jenny Villanueva MD [facility] [place] [address] [facility] Referral ID Status Reason Start Date Expiration Date Visits Re quested Visits Authorized [id number] 1 1 Encounter Details Date Type Department Care Team (Late st Contact Info) Description 06/03/2022 2:47 PM EDT Anesthesia Event [place] [address] Megan Moya MD [facility] [place] [address] Armando Reyez Anesthesia Record Procedure Summary Procedure Name Responsible Anesthesiologist Anesthesia Start Time Anesthesia Stop Time LARYNGOSCOPY, DIRECT, OPERATIVE, WITH BIOPSY (WRVU 3.16) (Mouth) Megan Moya MD 06/03/22 1447 06/03/22 1630 Events Date Time Event Comment 06/03/2022 1417 1447 AN Verify 1447 Start 1447 An Start Data 1454 An Induction 1457 An Intubation 1501 Anesthesia Ready 1501 Quick Note Pt positioned 1 80 1508 Procedure Start 1523 Skin Incision 1540 Break/Relief In I assumed ca re for Break Relief before which we: 1. Identified the patient 2. Identified the responsible provider(s) 3. Reviewed the pertinent medical history 4. Discussed the surgical plan and course 5. Reviewed intra-op anesthesia management and issues during anesthesia 6. Set expectations for the relief (and/or post-procedure) period 7. Allowed opportunity for questions and acknowledgement of understanding Armando Reyez 1600 Handoff Intra-procedure anesthesia care was transferred after review of the patient's history, current anesthetic/surgical status and procedural plan, anticipated issues and expected post-operative course (including disposition.) Megan Moya MD 1620 Extubation/LMA Out 1626 an stop data 1630 Recovery or ICU Handoff Anusha ent care was transferred to the destination unit staff after review of the patient's medical history, current anesthetic/surgical status and plan, according to the Provider Handoff Checklist. 1630 Stop Meds Name Total fentaNYL 100 mcg IV Lidocaine 70 mg Propofol 120 mg Rocuronium 30 mg PHENYLephrine 160 mcg ePHEDrine 15 mg Ondansetron 4 mg Dexamethasone 8 mg Sugammadex 200 mg Ampicillin-Sulbactam 6 g Propofol INF 98.66 mg PHENYLephrine INF 2,500 mcg ketorolac (Toradol) (30 mg/mL) injection 15 mg Lactated Ringers 500 mL * Agents Name O2 * Blood No blood administrations on file. Lines, Drains, and Airways Type Details Placement Removal Incision 06/03/22; 1520; Left ; neck; transverse 06/03/22 1520 by Isi aWgner RN Closed/Suction Drain 06/03/22; 1559; Lef t; Neck; Bulb; 10 Montenegrin 06/03/22 1559 by Elsa Merino RN (RETIRED) Peripheral IV Line - Single Lumen 06/03/22; 1415; basilic vein (medial side of arm), left; hezc-gcd-otkyst catheter system; 20 gauge, 1 in length; distraction, intradermal injection; 06/03/22; 190706/03/22 1415 by Alix Calixto RN 06/03/221907 by Lali Ag RN ETT Mask Ventilation: Ea sy (1); ETT Type: Cuffed; ETT Size: 7 mm; Mac Blade: 3; Notes: Asleep, Pre-O2, Stylette, Cricoid Pressure; Attempts: 1; Laryngoscopy Grade: 2; ETT Placement Verified By: Capnometry, Visual; Secured at Teeth: 20 cm; Inserted by: ROSARIO; Removal Date: 06/03/22; Removal Time: 161906/03/22 1457 by Armando Reyez 06/03/22 162 by Armando Reyez documented in this encounter Social History Tobacco Use Types Packs/Day Years [...] on file documented as of this encounter OR Notes * Anesthesia Postprocedure Evaluation - Megan Moya MD - 06/03/2022 5:34 PM EDT Department of Anesthesiology Post-procedure Note Patient: Monique Barahona Procedure Summary Date: 06/03/22 Room / Location: [facility] MAIN OR Anesthesia Start: 1447 Anesthesia Stop: 1630 Procedures: LARYNGOSCOPY, DIRECT, OPERATIVE, WITH BIOPSY (WRVU 3.16) (Mouth) EXCISION BRANCHIAL CLEFT CYST, VESTIGE OR FISTULA, DEEP (WRVU 7.31) (Left: Neck) Diagnosis: Neck mass (left neck cyst) Surgeons: Jenny Villanueva MD Responsible Provider: Megan Moya MD Anesthesia Type: general ASA Status: 2 All Anesthesia Providers: Anesthesiologist: Megan Moya MD; Romeo Barton MD Student Nurse Music Engineer: Armando Reyez Vitals Value Taken Time BP 125/70 06/03/22 1730 Temp 36.2 ??C (97.2 ??F) 06/03/22 1628 Pulse 82 06/03/22 1733 Resp 15 06/03/22 1733 SpO2 92 % 06/03/22 1733 Pain Level 0 06/03/22 1628 Vitals shown include unvalidated device data. Patient Location: PACU/[facility] Level of Consciousness: Awake and Alert Pain Management: Satisfactory Analgesia PONV: None Cardiovascular Status: At Baseline and Hemodynamically Stable Respiratory Status: At Baseline and Room Air Postoperative Fluid Status: Intravascular EUvolemia Possible Anesthetic Complications: NONE apparent at time of evaluation Final Primary Anesthesia Type: General (The anesthetic type performed was the same as planned.) Comments: Megan Moya MD * Anesthesia Preprocedure Evaluation - Romeo Barton MD - 06/03/2022 1:21 PM EDT Pre-Anesthesia Evaluation for: Monique Rodriguez Jun a 62 y.o. female. Procedure(s): LARYNGOSCOPY, DIRECT, OPERATIVE, WITH BIOPSY (WRVU 3.16) EXCISION BRANCHIAL CLEFT CYST, VESTIGE OR FISTULA, DEEP (WRVU 7.31) Patient Active Problem List Diagnosis Date Noted ??? Renal cancer 09/03/2015 ??? Wedge compression fracture of T7 vertebra 10/18/2014 ??? Left renal mass 06/15/2014 Past Medical History: Diagnosis Date ??? Cancer ??? Cataract ??? Chronic kidney disease ??? GERD (gastroesophageal reflux disease) ??? Hyperlipidemia No past surgical history on file. Social History Tobacco Use ??? Smoking status: Every Day Packs/day: 0.50 Types: Cigarettes ??? Smokeless tobacco: Never ??? Tobacco comments: eight cigs a day Substance Use Topics ??? Alcohol use: No Social History Substance and Sexual Activity Drug Use No No Known Allergies Medications: MAR and/or home medications have been reviewed. Physical Exam: Preprocedure Vitals Current as of 06/03/22 1322 No BP, pulse, respiration, SpO2, or temperature recorded. Height: 158.8 cm (5' 2.5) (04/18/22) Weight: 55.8 kg (123 lb) (04/18/22) BMI: 22.14 IBW: 51.3 kg (113 lb 1.4 oz) Airway Assessment: Mallampati: II TM distance: <3 FB Neck ROM: full Small mouth opening Cardiovascular Assessment: system normal Pulmonary Assessment: unlabored breathing Dental Assessment: Misc Assessment: IV access: Peripheral line Last Filed Perioperative Cognitive Screening None Anesthesia Plan: ASA 2 general, with a(n) intravenous induction 62yo 55kg (BMI 22) F s/f direct laryngoscopy and excision of branchial cleft cyst PMH significant for well controlled GERD, hx of renal ca w/ minimal residual CKD (eGFR 98), compression fracture of T7. Tolerated GA in the past w/o issue, g1v w/ Mac 4. Plan: GETA, PIV access, standard ASA monitors The patient was informed of the risks, benefits and alternatives of anesthesia. These risks included, but were not limited to, post-operative nausea and/or vomiting, pain, sore throat, dental/lip trauma, and other rare but serious complications such as major organ damage, awareness, severe allergicreactions, position-related nerve injuries, and need blood transfusions. All questions sought and answered. Consent was signed and placed in chart. Romeo Barton MD Bilingual Medical Receptionist Region - Other Informed Consent: Anesthetic plan and risks discussed with patient. Plan discussed with RESTAURANT BARTENDER. Anesthesia Screening documented in this encounter Plan of Treatment Not on file documented as of this encounter Visit Diagnoses Not on filedocumented in this encounter Administered Medications Inactive Administered Medications - up to 3 most recent administrations Medication Order MAR Action Action Date Dose Rate Site ampicillin-sulbactam (Unasyn) injection Intravenous, PRN, Starting on Thu06/03/22 at 1504, Until Thu06/03/22 at 1635, Anesthesia Intra-op, Routine Given 06/03/2022 3:07 PM EDT 3 g Given 06/03/2022 3:04 PM EDT 3 g dexAMETHasone (Decadron) injection Intravenous, PRN, Starting on Thu06/03/22 at 1507, Until Thu06/03/22 at 1635, Anesthesia Intra-op, Routine Given 06/03/2022 3:07 PM EDT 8 mg ePHEDrine sulfate (5 mg/mL) multi-dose injection Intravenous, PRN, Starting on Thu06/03/22 at 1505, Until Tu06/03/22 at 1635, Anesthesia Intra-op, Routine Given 06/03/2022 3:19 PM EDT 5 mg Given 06/03/2022 3:05 PM EDT 10 mg fentaNYL (pf) (50 mcg/mL) multi-dose injection Intravenous, PRN, Starting on Thu06/03/22 at 1450, Until Thu06/03/22 at 1635, Anesthesia Intra-op, Routine Given 06/03/2022 4:01 PM EDT 25 mcg Given 06/03/2022 3:10 PM EDT 25 mcg Given 06/03/2022 2:54 PM EDT 25 mcg ketorolac (Toradol) (30 mg/mL) injection Intravenous, PRN, Starting on Thu06/03/22 at 1601, Until Thu06/03/22 at 1635, Anesthesia Intra-op, Routine Given 06/03/2022 4:01 PM EDT 15 mg lactated ringers infusion Intravenous, CONTINUOUS PRN, Starting on Thu06/03/22 at 1447, Until Thu06/03/22 at 1635, Anesthesia Intra-op New Bag 06/03/2022 2:47 PM EDT lidocaine (pf) (Xylocaine) (20 mg/mL) 2% injection syringe Intravenous, PRN, Starting on Thu06/03/22 at 1454, Until Thu06/03/22 at 1635, Anesthesia Intra-op, Routine Given 06/03/2022 2:54 PM EDT 70 mg ondansetron (pf) (Zofran) (2 mg/mL) injection Intravenous, PRN, Starting on Thu06/03/22 at 1601, Until Thu06/03/22 at 1635, Anesthesia Intra-op, Routine Given 06/03/2022 4:01 PM EDT 4 mg PHENYLephrine (Ray-Synephrine) (80 mcg/mL) in sodium chloride 0.9% 250 mL infusion Intravenous, CONTINUOUS PRN, Starting on 06/03/22 at 1459, Until 06/03/22 at 1635, Anesthesia Intra-op, Routine Rate/Dose Change 06/03/2022 3:44 PM EDT 20 mcg/min 15 mL/hr Rate/Dose Change 06/03/2022 3:22 PM EDT 40 mcg/min 30 mL/h r New Bag 06/03/2022 2:59 PM EDT 60 mcg/min 45 mL/hr PHENYLephrine in NS (PF) (RAY-SYNEPHRINE) 0.8 mg/10 mL (80 mcg/mL) multi-dose injection Syrg Intravenous, PRN, Starting on e 06/03/22 at 1505, Until Tu06/03/22 at 1635, Anesthesia Intra-op, Routine Given 06/03/2022 3:08 PM EDT 40 mcg Given 06/03/2022 3:05 PM EDT 40 mcg Given 06/03/2022 2:59 PM EDT 80 mcg propofoL (Diprivan) (10 mg/mL) infusion Intravenous, CONTINUOUS PRN, Starting on e 06/03/22 at 1458, Until 06/03/22 at 1635, Anesthesia Intra-op, Routine New Bag 06/03/2022 2:58 PM EDT 30 mcg/kg/min 10.206 mL/hr propofoL (Diprivan) 10 mg/mL bolus injection (Anesthesia) Intravenous, PRN, Starting on 06/03/22 at 1454, Until 06/03/22 at 1635, Anesthesia Intra-op Given 06/03/2022 2:54 PM EDT 120 mg rocuronium (Zemuron) (10 mg/mL) multi-dose injection Intravenous, PRN, Starting on 06/03/22 at 1455, Until 06/03/22 at 1635, Anesthesia Intra-op, Routine Given 06/03/2022 2:55 PM EDT 30 mg sugammadex (Bridion) 100 mg/mL injection Intravenous, PRN, Starting on 06/03/22 at 1601, Until 06/03/22 at 1635, Anesthesia Intra-op, Routine Given 06/03/2022 4:01 PM EDT 200 mg documented in this encounter Care Teams Fender Mechanic Relationship Specialty Start Date End Date Modesta Cook MD [address] [place] [address] PCP - General Family Medicine 04/29/22 documented as of this encounter
--- OUTSIDE RECORDS SUMMARY | 2023-12-14 15:44 | XMS_ITS | Encounter Summary ---
Author Organization [facility] [place] [address] Care Team Providers Care Tourist Escort Name Role Phone None Primary Care Provider Unavailabl e Encounter Details Date Type Department Care Team (Late st Contact Info) Description 01/28/2022 Ancillary Procedure Radiology Library at [facility] [place] [address] Fabrizio Crowley MD [facility] [place] [address] Social History Tobacco Use Types Packs/Day Years [...] FILM LIBRARY STORAGE ONLY CT CHEST Routine 01/28/2022 12:00 AM EST documented in this encounter Results * Film Library- Storage Only CT Chest (01/28/2022 12:00 AM EST) Narrative [facility] - 04/02/2022 4:49 PM EST This exam is auto-finalizing. It's purpose is for storage only. Fabrizio Crowley MD [facility] [place]M LIBRARY ORD ERABLES [facility] documented in this encounter Visit Diagnoses Not on filedocumented in this encounter Care Teams Tourist Escort Relationship Specialty Start Date End Date None None PCP - General 10/28/21 04/28/22 documented as of this encounter
--- OUTSIDE RECORDS SUMMARY | 2023-12-14 15:44 | XMS_ITS | Encounter Summary ---
Author Organization [facility] [place] [address] Care Team Providers Care Cream Hauler Name Role Phone Modesta Cook MD Primary Care Provider Encounter Details Date Type Department Care Team (Latest Contact Info) Description 06/11/2022 Travel Social History Tobacco Use Types Packs/Day [...] on filedocumented in this encounter Care Teams Cream Hauler Relationship Specialty Start Date End Date Modesta Cook MD [address] [place] [address] PCP - General Family Medicine 04/29/22 documented as of this encounter
--- OUTSIDE RECORDS SUMMARY | 2023-12-14 15:44 | XMS_ITS | Encounter Summary ---
[facility] [place] [address] Care Team Providers Care Goodwill Representative Name Role Phone Nimisha Benson MD Primary Care Provider [phone] Reason for Visit * Reason Onset Date Comments Appointment 01/18/2019 Encounter Details Date Type Department Care Team (Late st Contact Info) Description 01/18/2019 Telephone [place] [address] Parrish Gallo MD [facility] [place] [address] Appointment Social History Tobacco Use Types Packs/Day Years [...] encounter Miscellaneous Notes * Telephone Encounter - Suad Ashley - 01/27/2019 9:33 AM EST Patient scheduled * Telephone Encounter - Rhona Strong - 01/26/2019 4:58 PM EST Left message for pt to call back to schedule appointment - please schedule in next available laser spot with HCK 1-4 weeks after Return in about 3 months for MSO only - LPI OU (spring 2019). And HCK 1-4 weeks after laser * Telephone Encounter - Marium Lee - 01/18/2019 2:49 PM EST Pls contact pt @ her work # to CONG w EAS: 3 months (around 04/19/2019) for MSO only - LPI OU (spring 2019). documented in this encounter Plan of Treatment Not on file documented as of this encounter Visit Diagnoses Not on filedocumented in this encounter Care Teams Goodwill Representative Relationship Specialty Start Date End Date Nimisha Benson MD [address] [place] [address] PCP - General 06/15/14 10/27/21 documented as of this encounter
--- OUTSIDE RECORDS SUMMARY | 2023-12-14 15:44 | XMS_ITS | Encounter Summary ---
[place] [address] Care Team Providers Care Account Analyst Name Role Phone None Primary Care Provider Unavailabl e Encounter Details Date Type Department Care Team (Latest Contact Info) Description 10/28/2021 10:50 AM EDT Laboratory Appointment Lab [address] [place] [id number] Renal cancer, unspecified laterality Social History Tobacco [...] Date/Time Associated Diagnosis Comments HC VENIPUNCTURE Routine 10/28/2021 10:56 AM EDT Renal cancer, unspecified laterality HEPATIC FUNCTION PANEL Routine 10/28/2021 10:56 AM EDT documented in this encounter Results * Hepatic Function Panel (10/28/2021 10:56 AM EDT) Protein, Total 6.9 6.1 - 8.0 g/dL [facility] Albumin 4.2 3.2 - 5.2 g/dL [facility] Aspartate Aminotransferase 21 0 - 30 unit/L [facility] Alanine Aminotransferase 11 0 - 30 unit/L [facility] Alkaline Phosphatase 64 35 - 105 unit/L [facility] Bilirubin, Total 0.2 0.2 - 1.3 mg/dL [facility] Bilirubin, Direct 0.1 0.0 - 0.3 mg/dL [facility] Blood Venous Draw / Unknown 10/28/2021 10:56 AM EDT 10/28/2021 11:10 AM EDT Narrative Resulting Agency Comment Spec In Lab Janine Fallon APRN CHEMISTRY ORDER BAUDILIO Performing Organization Address [facility]/ZIP Co de Phone Number [facility] [place] [address] * (ABNORMAL) Creatinine (10/28/2021 10:56 AM EDT) Creatinine 0.61(L) 0.70 - 1.20 mg/dL [facility] Est Glomerular Filtration Rate 100 >=60 mL/min/1. 73 m?? [facility] Comment: This patient's estimated GFR was [...] In Lab Fabrizio Crowley MD CHEMISTRY ORDERABLES Performing Organization Address City/[facility]/ZIP Co de Phone Number [facility] [place] [address] documented in this encounter Visit Diagnoses Diagnosis Renal cancer, unspecified laterality documented in this encounter Care Teams Account Analyst Relationship Specialty Start Date End Date None None PCP - General 10/28/21 04/28/22 documented as of this encounter
--- OUTSIDE RECORDS SUMMARY | 2023-12-14 15:44 | XMS_ITS | Encounter Summary ---
Author Organization [facility] [place] [address] Care Team Providers Care Software Packager Name Role Phone Nimisha Benson MD Primary Care Provider [phone] Encounter Details Date Type Department Care Team (Late st Contact Info) Description 12/15/2019 [place] [phone] Janine Goldberg APRN [facility] [address] Social History Tobacco Use Types Packs/Day Years [...] encounter Miscellaneous Notes * Telephone Encounter - Jenny Rdz - 12/15/2019 5:26 PM EDT Sent result letter from janine documented in this encounter Plan of Treatment Not on file documented as of this encounter Visit Diagnoses Not on filedocumented in this encounter Care Teams Software Packager Relationship Specialty Start Date End Date Nimisha Benson MD [address] [place] [address] PCP - General 06/15/14 10/27/21 documented as of this encounter
--- OUTSIDE RECORDS SUMMARY | 2023-12-14 15:44 | XMS_ITS | Encounter Summary ---
[place] [address] Care Team Providers Care Supervisor Car And Yard Name Role Phone Nimisha Benson MD Primary Care Provider [phone] Encounter Details Date Type Department Care Team (Latest Contact Info) Description 12/12/2019 11:00 AM EDT Laboratory Appointment Lab [address] [place] [address] Renal cancer, unspecified laterality Social History Tobacco [...] Priority Date/Time Associated Diagnosis Comments HC VENIPUNCTURE STAT 12/12/2019 10:46 AM EDT Renal cancer, unspecified laterality documented in this encounter Results * (ABNORMAL) Comprehensive metabolic panel (non-fasting) (12/12/2019 10:46 AM EDT) Glucose 117 65 - 199 mg/dL [facility] Comment:Diabetes: >=200 mg/d L plus symptoms Blood Urea Nitrogen 7(L) 8 - 18 mg/dL [facility] Creatinine 0.70 0.70 - 1.20 mg/dL [facility] Sodium 140 135 - 145 mmol/L [facility] Potassium 3.9 3.5 - 5.0 mmol/L [facility] Comment: Please note: ??Patients with WBC >100,000 may have falsely elevated Potassium levels. ??For accurate Potassium quantification in these patients send serum separator tube (gold top) for subsequent determinations. ??Contact the Clinical Chemistry Laboratory if there are any questions. Chloride 102 98 - 107 mmol/L [facility] Carbon Dioxide 26 22 - 31 mmol/L [facility] Anion Gap 12 5 - 15 mmol/L [facility] Calcium 9.9 8.5 - 10.5 mg/dL [facility] Protein, Total 7.2 6.1 - 8.0 gm/dL [facility] Albumin 4.3 3.2 - 5.2 gm/dL [facility] Aspartate Aminotransferase 16 0 - 30 unit/L [facility] Alanine Aminotransferase 11 0 - 30 unit/L [facility] Alkaline Phosphatase 92 35 - 105 unit/L [facility] Bilirubin, Total 0.3 0.2 - 1.3 mg/dL [facility] Est Glomerular Filtration Rate 94 >=60 mL/min/1. 73 m?? [facility] Comment: The eGFR was calculated using the CKD-EPI equation. As with all creatinine based estimates of kidney function, eGFR values calculated with the CKD-EPI equation are not accurate in patients with acute kidney failure, extremes of body mass or the acutely ill. http://[employer]/[facility] TULSAnkf eGFR 108 >=60 mL/min/1. 73 m?? [facility] Comment: The eGFR was calculated using the CKD-EPI equation. As with all creatinine based estimates of kidney function, eGFR values calculated with the CKD-EPI equation are not accurate in patients with acute kidney failure, extremes of body mass or the acutely ill. http://[employer]/[facility]ULS[facility]kf Blood specimen (specimen) 12/12/2019 10:46 AM EDT 12/12/2019 10:49 AM EDT Narrative Resulting Agency Comment Spec In Lab Fabrizio Crowley MD CHEMISTRY ORDERABLES [facility] [place] [address] documented in this encounter Visit Diagnoses Diagnosis Renal cancer, unspecified laterality documented in this encounter Care Teams Supervisor Car And Yard Relationship Specialty Start Date End Date Nimisha Benson MD [address] [place] [address] PCP - General 06/15/14 10/27/21 documented as of this encounter
--- OUTSIDE RECORDS SUMMARY | 2023-12-14 15:44 | XMS_ITS | Encounter Summary ---
Author Organization [facility] [place] [address] Care Team Providers Care Director Furniture Name Role Phone Modesta Cook MD Primary Care Provider [phone] Reason for Visit * Auth/Cert (Routine) Specialty Diagnoses / Procedures Referred By Contbrian t Referred To Contact Diagnoses left neck cyst Procedures PRO LARYNGOSCOPY DIRECT OPERATIVE W/BIOPSY PRO EXCISION BRANC CLFT CYST, DEEP LARYNGOSCOPY, DIRECT, OPERATIVE, WITH BIOPSY (WRVU 3.16) EXCISION BRANCHIAL CLEFT CYST, VESTIGE OR FISTULA, DEEP (WRVU 7.31) Jenny Villanueva MD [facility] [place] [address] [facility] Referral ID Status Reason Start Date Expiration Date Visits Re quested Visits Authorized [id number] 1 1 Encounter Details Date Type Department Care Team (Latest Contact Info) Description 06/03/2022 1:14 PM EDT - 06/03/2022 7:16 PM EDT Hospital Encounter [place] [address] Jenny Villanueva MD [facility] [place] [address] Neck mass Discharge Disposition: Home Social History [...] Sign Reading Time Taken Comments Blood Pressure 126/71 06/03/2022 6:30 PM EDT Pulse 83 06/03/2022 6:30 PM EDT Temperature 36.7 ??C (98.1 ??F) [...] -You can reach the ENT clinic at [phone] for appointment questions. -The ENT triage nurse is available at [phone] -For urgent issues during evenings (5 PM - 7 AM) and weekends the ENT resident consumer education specialist can be reached through the main hospital digital production operator at [phone] Follow Up: You will need to follow [...] 10:20 AM Jenny Villanueva MD [place] [facility] [place]rive at: [employer] Area 4F [phone] [facility] DRAIN CARE INSTRUCTIONS How do I care [...] bad odor. Call the Otolaryngology office at [phone] with any questions or concerns Drainage Record [...] PGY2 06/03/22 1:53 PM ENT Team Pager: [phone] documented in this encounter Miscellaneous Notes * Op Note - Jennifer Linares MD - 06/03/2022 3:07 PM EDT [facility] Operative Note Patient Name: Monique Barahona : [id number] MR#: [id number] Case Date: 06/03/2022 Preop Diagnosis: LEFT neck [...] Linares MD, PGY2 06/03/2022 4:34 PM Pager #[phone] Associated attestation - Jenny Villanueva MD - [...] PM EDT Excision Branc Clft Cyst, Deep ([id number]) 06/03/2022 2:46 PM EDT Neck mass Laryngoscopy Direct Operative W/Biopsy ([id number]) 06/03/2022 2:46 PM EDT Neck mass EXCISION BRANCHIAL CLEFT CYST,VESTIGE OR FISTULA,DEEP Routine 06/03/2022 11:06 AM EDT Neck mass LARYNGOSCOPY, DIRECT, OPERATIVE, WITH BIOPSY Routine 06/03/2022 11:06 AM EDT Neck mass documented in this encounter Results * Surgical Pathology Report (06/03/2022 3:50 PM EDT) Final Diagnosis [id number] ? Location: [facility]; [facility]; A The signing pathologist has (i) examined the relevant preparation(s) for the specimen(s) and (ii) rendered or confirmed the diagnosis(es). . ?Surgical Pathology DIAGNOSIS Soft tissue, left cystic neck mass, excision - [place] squamous lined cyst, favor benign branchial cleft-type cyst, ? (see Discussion.) One adjacent benign node (0/1). Electronically signed by: ?Rafita Posey DOice Josefina Verified: ??06/24/2022 15:01 ??Pathologist Performed at: ??-[facility] Dept. of [place]ology, [place] [address] Child And Adolescent Psychologist: Ezio Larsen MD, FCAP, ??CLIA Certificate: [id number] DISCUSSION The cyst is lined by a [...] materials, no necrosis. Sections/Processing: . SPECIMEN PROCESSING Cleaning Supervisor sections in 4 cassettes as follows: ?A1-A3: ??Cleaning Supervisor cross sections of the cyst ?A4: ??Single lymph node candidate cross section and entirely submitted with the ? cyst ??WM 06/24/2022 3:01 PM EDT [facility] SPECIMEN FROM CYST / Unknown 06/03/2022 3:50 PM EDT 06/03/2022 3:50 PM EDT Jenny Villanueva MD PATHOLOGY/CYTOLOGY O ABHIJEET Performing Organization Address City/[facility] Co de Phone Number [facility] [place] [address] [facility] [place] [address] * Specimen to Pathology (06/03/2022 3:50 PM EDT) AP Specimen 06/03/2022 3:50 PM EDT 06/03/2022 3:50 PM EDT Narrative [facility] - 06/03/2022 3:50 PM EDT Specimen requisition ordered. ??Separate Pathology report to follow Jenny Villanueva MD PATHOLOGY/CYTOLOGY O ABHIJEET Performing Organization Address [facility] Co de Phone Number [facility] [place] [address] documented in this encounter Visit Diagnoses Diagnosis Neck mass Swelling, mass, or lump in head and neck documented in this encounter Administered Medications Inactive Administered Medications - up to 3 most recent administrations Medication Order MAR Action Action Date Dose Rate Site oxyCODONE (Roxicodone) tablet 5 mg 5 mg, Oral, ONCE PRN, 1 dose, Starting on Thu06/03/22 at 1634, Until Thu06/03/22 at 2116, Pain, Routine documented in this encounter Active and Recently Administered Medications Times are shown in EDT. PRN Medication Order 06/01/2022 06/02/2022 06/03/2022 lidocaine-EPINEPHrine (pf) (1% - 1:200,000) injection (CANCELED) ONCE PRN, Starting on Thu06/03/22 at 1518, Until Thu06/03/22 at 6, Intra-Operative (Intra-Procedure), Routine 1518 (Given - Provid er: Jennifer Linares MD - Comment: neck) oxyCODONE (Roxicodone) tablet 5 mg 5 mg, Oral, ONCE PRN, 1 dose, Starting on Thu06/03/22 at 1634, Until Thu06/03/22 at 2115, Pain, Routine pantothenic Ac-Min Oil-Pet,Hyd (Aquaphor) 41 % ointment (CANCELED) ONCE PRN, Starting on Thu06/03/22 at 1627, Until Thu06/03/22 at 2115, Intra-Operative (Intra-Procedure) 1627 (Given - Provid er: Jennifer Linares MD) documented in this encounter Care Teams Director Furniture Relationship Specialty Start Date End Date Modesta Cook MD [address] [place] [address] [address] [place] [address] PCP - General Family Medicine 04/29/22 documented as of this encounter
--- OUTSIDE RECORDS SUMMARY | 2023-12-14 15:44 | XMS_ITS | Encounter Summary ---
Author Organization [facility] [place] [address] Care Team Providers Care Head Filter Tank Tender Helper Name Role Phone Modesta Cook MD Primary Care Provider [phone] Reason for Visit * Consultation (Urgent) - Closed Specialty Diagnoses / Procedures Referred By Kizzy pickering Referred To Contact Otolaryngology Diagnoses Mass of neck Localized swelling, mass and lump, neck Randolph Estrada MD [address] [place] [address] [place] [address] [facility] Otolaryngology [address] [place] [id number] Referral ID Status Reason Start Date Expiration Date V isits Requested Visits Authorized [id number] Closed Consult, Test & Treat 04/02/2022 04/02/2023 1 1 Encounter Details Date Type Department Care Team (Late st Contact Info) Description 04/18/2022 1:00 PM EST Office [place] [address] Jenny Villanueva MD [facility] [place] [address] Neck mass Social History Tobacco [...] Sign Reading Time Taken Comments Blood Pressure - - Pulse - - Temperature - - Respiratory Rate - - Oxygen Saturation - - Inhaled Oxygen Concentration - - Weight 55.8 kg (123 lb) 04/18/2022 12:59 PM EST Height 158.8 cm (5' 2.5) 04/18/2022 12:59 PM ES T Body Mass Index 22.14 04/18/2022 12:59 PM EST documented in this encounter Progress Notes * Jenny Villanueva MD - 04/18/2022 1:00 PM EST [facility] Otolaryngology - Head and Neck Surgery Jenny Villanueva MD 04/18/22 1:26 PM [place] [address] Office Patient Name: Monique Barahona Date of : 1960 PCP: None Chief Complaint/ History of Present Illness: Monique Barahona is a 62 y.o. year old who was seen today at the request of Randolph Estrada in consultation for cystic left neck mass. History was obtained from the patient as well as information fromchart review. Patient noted tenderness and swelling over the left neck earlier in 2022. She has a prior smoking history, antibiotics were minimally helpful. She has had swelling in this location in the past, was advised then to use lemon drops for presumed salivary gland blockage, this was not effective for this episode. She had this evaluated by Dr. Estrada who performed an FNA with the results as discussed below. No pain, no voice changes, no dysphagia or odynophagia. No weight changes. She states when the FNA was done there was mucous-like drainage. Otherwise doing ok. 10 point Review of Systems was normal except for pertinent positives and negatives included in the History of Present Illness. Past Medical and Surgical History Patient Active Problem List Diagnosis Code ??? Left renal mass N28.89 ??? Wedge compression fracture of T7 vertebra S22.060A ??? Renal cancer C64.9 Current Outpatient Medications on File Prior to Visit Medication Sig Dispense Refill ??? ergocalciferol, vitamin D2, (VITAMIN D ORAL) Take by mouth. ??? calcium carbonate (CALCIUM 300 ORAL) Take by mouth. ??? pravastatin (PRAVACHOL) 10 mg Tablet TAKE ONE TABLET BY MOUTH EVERY DAY 4 ??? omeprazole (PRILOSEC) 40 mg Capsule, Delayed Release(E.C.) Take 40 mg by mouth daily. Indications: Gastroesophageal Reflux Current Facility-Administered Medications on File Prior to Visit Medication Dose Route Frequency Provider Last Rate Last Admin ??? [COMPLETED] iohexoL (Omnipaque) (350 mg/mL) solution 0-200 mL 0-200 mL Intravenous Once PRN Jhonathan Reid MD 110 mL at 04/18/22 1021 Allergies: Patient has no known allergies. Surgical History: No past surgical history on file. Family and Social History Family History: Family History Problem Relation Age of Onset ??? Amblyopia Son ??? Glaucoma Neg Hx ??? Macular Degeneration Neg Hx ??? Retinal Detachment Neg Hx Social History: Lives in [facility] [id number] Social History Socioeconomic History ??? Marital status: Spouse name: Not on file ??? Number of children: Not on file ??? Years of education: Not on file ??? Highest education level: Not on file Occupational History ??? Not on file Tobacco Use ??? Smoking status: Every Day Packs/day: 0.50 Types: Cigarettes ??? Smokeless tobacco: Never ??? Tobacco comments: eight cigs a day Vaping Use ??? Vaping Use: Never used Substance and Sexual Activity ??? Alcohol use: No ??? Drug use: No ??? Sexual activity: Not on file Other Topics Concern ??? Not on file Social History Narrative ??? Not on file Social Determinants of Health Financial Resource Strain: Not on file Food Insecurity: Not on file Transportation Needs: Not on file Physical Activity: Not on file Housing Stability: Not on file Physical Exam Temperature: Heart Rate: Blood Pressure: Respiratory Rate: SpO2: General: Awake, alert, and oriented to person, place and time. No acute distress. Head and Face: Head is normocephalic, atraumatic. Facial resting tone symmetric. Eyes: Conjugate gaze, ocular motility intact bilaterally. PERRL. Neurologic: Cranial Nerves II-XII grossly intact and symmetric. Ears: External ear and ear canal are without deformity. Hearing is grossly normal. Nose: External nose is midline without deformity or lesion. Anterior rhinoscopy reveals a straight septum, healthy mucosa, turbinates normal in size. Oral: There are no visible or palpable buccal, gingival, lingual, or palatal lesions. The floor of mouth is soft and flat. Oropharynx: Symmetric without tonsillar pathology. No other concerning lesions or masses Larynx: No stridor, no hoarseness. External laryngeal structures normal to palpation. Face and sinuses are non tender. Salivary glands are soft, non tender, without palpable masses. No temporomandibular joint grinding or locking. Neck: There is a soft, somewhat mobile mass in the left neck in level 2, this measures about 3x4cm in size. No overlying induration is noted. No scars, palpable masses, or crepitus. Midline trachea. Thyroid normal in size, non tender, no palpable mass. Lymphatic: no palpable cervical lymphadenopathy. Pulmonary: Breathing comfortably. Symmetric chest expansion without use of accessory muscles or retraction. Skin: Good skin turgor, no pallor, no icterus. Extremities: No gross deformities, no peripheral edema. Labs and Imaging Significant lab values are as follows: ??Non-Boiler Tenders Supervisor Final DIAGNOSIS See Discussion Electronically signed by: ?Silas ANGELO, Catracho Howe Verified: ??04/12/2022 20:14 ??Cytopathologist Performed at: ??-[facility] [place] [place] Dept. of Pathology, [place] [address] Professor Of Literacy: Ezio Larsen MD, AP, ??CLIA Certificate: [id number] DISCUSSION Neck: left side (FNA) - [place] nucleated squamous cells and more numerous anucleate squamous cells are ??present. The differential diagnosis would include benign lesions such as an ??epidermoid or branchial cleft cyst. Lymphoid cells are not evident, but if the ??material was derived from a lymph node, metastatic squamous carcinoma would be a ??diagnostic consideration. Clinical/radiologic correlation is warranted. CLINICAL INFORMATION CONSULTATION CASE Neck: left side (FNA) Clinical History: ? Left neck abscess J-D node; smoker; no cats; no cows; h/o ??fractured tooth; h/o Covid booster around time of onset ?? . Received 1 slide(s) labeled [id number] Received 0 block(s). Specimen collection date: ? 03/03/2022. For the full text of the [facility] report(s), please refer ??to [facility]. [facility] [place] [place] Tracking #: ? [id number] . I reviewed the following imaging studies: EXAMINATION: CT NECK SOFT TISSUE W CONTRAST (GENERIC) ?? CLINICAL HISTORY: Neck mass, nonpulsatile Left neck mass, FNA non-diagnositic. Please assess for possible malignancy. ?? TECHNIQUE: CT neck performed after the intravenous administration of contrast. Administered 110.0 ml of OMNIPAQUE 350.00 mg/ml. ?? COMPARISON: Ultrasound of the neck 02/26/22 ?? FINDINGS: No primary mass lesion throughout the neck. ?? There is a cystic mass with a thin rim of soft tissue with well-defined borders and no surrounding inflammatory changes. This measures up to 3.1 x 2.2 cm in the axial plane by 4.3 cm in craniocaudad length. Elsewhere there is no lymphadenopathy. ?? No pulmonary nodules the visualized portions of the lungs. Mild emphysematous changes. No focal osseous lesions to suggest metastatic disease. The visualized portions of the brain show no abnormal enhancement. ? IMPRESSION 1. The cystic lesion in the left neck is suspicious for a cystic metastatic lymph node, particularly in this age group, but a branchial cleft cyst is also possible. 2. No primary mass lesion. 3. No evidence of regional distant metastases. ?? Thank you for letting us participate in the care of this patient. If you are a health care provider and have any questions regarding this report, please contact the number below. For patients who have questions please contact the health healthcare advisory services manager that requested your imaging first. Procedures Flexible laryngoscopy was performed. The nose was sprayed with topical lidocaine and decongestant. Nasopharynx was normal without lesions or masses. Base of tongue wnl, pharyngeal gomez wnl. Epiglottis and false cords were wnl. Piriform sinuses clear. True vocal cords were fully mobile without concerning lesions or masses noted. ASSESSMENT & RECOMMENDATIONS Monique Barahona is a 62 y.o. with cystic mass in the left neck. Recommendations: 1. Findings were reviewed with the patient. We discussed the possibility of a branchial cleft cyst,but indeed given her history and age group a metastatic lymph node needs to be ruled out. For this reason we recommended a direct laryngoscopy with possible biopsy, and excision of left neck mass/branchial cleft cyst. Risks and benefits were reviewed in detail. She understands and would like to proceed. Consent obtained, we will schedule this soon. Jenny Villanueva MD Otolaryngology - Head and Neck Surgery 04/18/22 1:26 PM documented in this encounter Plan of Treatment Not on file documented as of this encounter Visit Diagnoses Diagnosis Neck mass Swelling, mass, or lump in head and neck documented in this encounter Care Teams Head Filter Tank Tender Helper Relationship Specialty Start Date End Date Modesta Cook MD [address] [place] [address] PCP - General Family Medicine 04/29/22 documented as of this encounter
--- OUTSIDE RECORDS SUMMARY | 2023-12-14 15:44 | XMS_ITS | Encounter Summary ---
[place] [address] Care Team Providers Care Risk Engineer Name Role Phone Nimisha Benson MD Primary Care Provider [phone] Reason for Referral * Diagnostic Test (Routine) - Closed Specialty Diagnoses / Procedures Referred By Contac t Referred To Contact Radiology Diagnoses Renal cancer, unspecified laterality Procedures CT Abdomen wwo Contrast CT Abdomen & Pelvis wo Contrast Fabrizio Crowley MD [facility] [place] [address] [facility] [place] [address] Referral ID Status Reason Start Date Expiration Date V isits Requested Visits Authorized [id number] Closed Specialty Service Requested 10/25/2021 04/23/2022 1 1 Encounter Details Date Type Department Care Team (Late st Contact Info) Description 08/22/2020 [place] [address] Fabrizio Crowley MD [facility] [place] [address] Renal cancer, unspecified laterality Social History Tobacco [...] who have questions please contact the health care asst that requested your imaging first. ? Electronically signed by: Omid Santana MD, [facility] ([phone]), at 10/28/2021 3:02 PM Narrative 10/28/2021 3:02 [...] administration of contrast. Administered 90.0 ml of NDCUHFINI445.00 mg/ml. Oral contrast was not administered. COMPARISON: [...] patients who have questions please contactthe health care asst that requested your imaging first. Electronically signed by: Omid Santana MD, [facility]([phone]), at 10/28/2021 3:02 PM Fabrizio Crowley MD IMG CT ORDERABLES documented in this encounter Visit Diagnoses Diagnosis Renal cancer, unspecified laterality Renal cancer, unspecified laterality documented in this encounter Care Teams Risk Engineer Relationship Specialty Start Date End Date Nimisha Benson MD [address] [place] [address] PCP - General 06/15/14 10/27/21 documented as of this encounter
--- OUTSIDE RECORDS SUMMARY | 2023-12-14 15:44 | XMS_ITS | Encounter Summary ---
[place] [address] Care Team Providers Care Evidence Technician Name Role Phone None Primary Care Provider Unavailabl e Encounter Details Date Type Department Care Team (Late st Contact Info) Description 04/18/2022 9:35 AM EST Laboratory Appointment Lab [address] [place] [id number] Neck mass Social History Tobacco Use Types [...] Procedure Name Priority Date/Time Associated Diagnosis Comments CREATININE STAT 04/18/2022 10:04 AM EST Neck mass documented in this encounter Results * (ABNORMAL) Creatinine (04/18/2022 10:04 AM EST) Creatinine 0.66(L) 0.70 - 1.20 mg/dL [facility] Est Glomerular Filtration Rate 98 >=60 mL/min/1. 73 m?? [facility] Comment: This patient's estimated GFR was [...] Lab Armando Schmidt MD CHEMISTRY ORDERABL ES [facility] [address] documented in this encounter Visit Diagnoses Diagnosis Neck mass Swelling, mass, or lump in head and neck documented in this encounter Care Teams Evidence Technician Relationship Specialty Start Date End Date None None PCP - General 10/28/21 04/28/22 documented as of this encounter
--- OUTSIDE RECORDS SUMMARY | 2023-12-14 15:44 | XMS_ITS | Encounter Summary ---
Author Organization [facility] Address [facility] [place] [address] Care Team Providers Care Paste Mixing Supervisor Name Role Phone Modesta Cook MD Primary Care Provider [phone] Reason for Visit * Reason Comments Follow-up Doing well Encounter Details Date Type Department Care Team (Late st Contact Info) Description 08/05/2022 4:40 PM EDT Office [place] [address] Jenny Villanueva MD [facility] [place] [address] Branchial cleft cyst Social History Tobacco Use Types Packs/Day Years Used Date Smoking Tobacco: Every Day Cigarettes Smokeless Tobacco: Never Comments:eight cigs a day Alcohol Use Standard Drinks/Week Comments No 0 (1 standard drink = 0.6 oz pur e alcohol) [facility] Inpatient Questions Answer Date Recorded Does [...] - Inhaled Oxygen Concentration - - Weight 55.6 kg (122 lb 9.6 oz) 08/05/2022 4:25 P M EDT Height 161.3 cm (5' 3.5) 08/05/2022 4:25 PM EDT Body Mass Index 21.38 08/05/2022 4:25 PM EDT documented in this encounter Progress Notes * Jenny Villanueva MD - 08/05/2022 4:40 PM EDT [facility] Otolaryngology - Head and Neck Surgery Jenny Villanueva MD 08/05/22 4:33 PM [place] [address] Office Patient Name: Monique Barahona Date of : 1960 PCP: Modesta Cook MD Chief Complaint/History of Present Illness: Monique Barahona is a 62 y.o. year old seen in follow up. History was obtained from the patient as well as through chart review. She is 6 weeks s/p left cystic neck mass excision, pathology demonstrated a branchial cleft cyst. Overall she is doing well. No swelling, no swallowing difficulty, no voice changes, otherwise doing ok. 10 point Review of Systems was normal except for pertinent positives and negatives included in the History of Present Illness. Past Medical and Surgical History Patient Active Problem List Diagnosis Code Left renal mass N28.89 Wedge compression fracture of T7 vertebra S22.060A Renal cancer C64.9 Current Outpatient Medications on File Prior to Visit Medication Sig Dispense Refill folic acid (Vitamin B9) 1 mg tablet Take 1,000 mcg by mouth 2 times daily. ergocalciferol, vitamin D2, (VITAMIN D ORAL) Take by mouth. calcium carbonate (CALCIUM 300 ORAL) Take by mouth. pravastatin (PRAVACHOL) 10 mg Tablet TAKE ONE TABLET BY MOUTH EVERY DAY 4 omeprazole (PRILOSEC) 40 mg Capsule, Delayed Release(E.C.) Take 40 mg by mouth daily. Indications: Gastroesophageal Reflux No current facility-administered medications on file prior to visit. Allergies: Patient has no known allergies. Surgical History: Past Surgical History: Procedure Laterality Date PRO EXCISION BRANC CLFT CYST, DEEP Left 06/03/2022 EXCISION BRANCHIAL CLEFT CYST, VESTIGE OR FISTULA, DEEP (WRVU 7.31) performed by Jenny Villanueva MD at [facility] MAIN OR PRO LARYNGOSCOPY DIRECT OPERATIVE W/BIOPSY N/A 06/03/2022 LARYNGOSCOPY, DIRECT, OPERATIVE, WITH BIOPSY (WRVU 3.16) performed by Jenny Villanueva MD at [facility] Family and Social History Family History: Family History Problem Relation Age of Onset Amblyopia Son Glaucoma Neg Hx Macular Degeneration Neg Hx Retinal Detachment Neg Hx Social History: Lives [place] [address] Social History Socioeconomic History Marital status: Spouse name: Not on file Number of children: Not on file Years of education: Not on file Highest education level: Not on file Occupational History Not on file Tobacco Use Smoking status: Every Day Packs/day: 0.50 Types: Cigarettes Smokeless tobacco: Never Tobacco comments: eight cigs a day Vaping Use Vaping Use: Never used Substance and Sexual Activity Alcohol use: No Drug use: No Sexual activity: Not on file Other Topics Concern Not on file Social History Narrative Not on file Social Determinants of Health Financial Resource Strain: Not on file Food Insecurity: Not on file Transportation Needs: Not on file Physical Activity: Not on file Housing Stability: Not on file Physical Exam Temperature: Heart Rate: Blood Pressure: Respiratory Rate: SpO2: General: Awake, alert, and oriented to person, place and time. No acute distress Head and Face: Head is normocephalic, atraumatic. [...] pathology. No other concerning lesions or masses Larynx:No hoarseness or stridor. External laryngeal structures normal to palpation. Face and sinuses are non tender. Salivary glands are soft, non tender, without palpable masses. No temporomandibular joint grinding or locking. Neck: left neck incision has healed well, no underlying erythema or fluid collections. Lymphatic: no palpable cervical lymphadenopathy. Pulmonary: Breathing comfortably. Symmetric chest expansion without use of accessory muscles or retraction. Skin: Good skin turgor, no pallor, no icterus. Extremities: No gross deformities, no peripheral edema. Labs and Imaging Significant lab values are as follows: Surgical Pathology DIAGNOSIS Soft tissue, left cystic neck mass, excision - Coffey squamous lined cyst, favor benign branchial cleft-type cyst, (see Discussion.) One adjacent benign node (0/1). Electronically signed by: Yuliana Posey DO Verified: 06/24/2022 15:01 Pathologist Performed at: -[facility] Dept. of Pathology, [place] [address] Humid System Operator: Ezio Larsen MD, FCAP, CLIA Certificate: [id number] DISCUSSION The cyst is lined by a layer of squamous epithelium with maturation towards the surface with keratin flakes in the center of the cyst. IHC highlights the basal cell layer of the epithelium. No atypia or overtly malignant features are seen. The surrounding lymphoid stroma shows germinal centers, which can be seen in branchial type-cysts. Although cystic metastasis can be very difficult to discern from a cyst, the features favor a benign process. With the clinical exclusion of a primary tumor, the favored diagnosis is benign branchial cleft-type cyst. Drs. Wiggins and Hortensia have reviewed the case and concur. I reviewed the following imaging studies: Procedures ASSESSMENT & RECOMMENDATIONS Monique Barahona is a 62 y.o. s/p excision left branchial cleft cyst, doing well. Recommendations: Pathology was reviewed with the patient. She will resume full activity. Local wound care was reviewed with the patient. F/u with otolaryngology prn. 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
--- OUTSIDE RECORDS SUMMARY | 2023-12-14 15:44 | XMS_ITS | Encounter Summary ---
Author Organization [facility] Address [facility] [place] [address] Care Team Providers Care Bar Gauger And Lubricator Tender Name Role Phone Modesta Cook MD Primary Care Provider [phone] Reason for Visit * Reason Comments Post Op Doing well, ready fo r drain to come out Encounter Details Date Type Department Care Team (Latest Contact Info) Description 06/11/2022 9:30 AM EDT Office [place] [address] Stephanie Alvarez APRN [facility] [place] [address] Postoperative examination Social History Tobacco Use Types Packs/Day Years Used Date Smoking Tobacco: Every Day Cigarettes Smokeless Tobacco: Never Comments:eight cigs a day Alcohol Use Standard Drinks/Week Comments No 0 (1 standard drink = 0.6 oz pur e alcohol) [facility] Inpatient Questions Answer Date Recorded Does Anyone [...] - Inhaled Oxygen Concentration - - Weight 55.5 kg (122 lb 6.4 oz) 06/11/2022 9:08 A M EDT Height 160 cm (5' 3) 06/11/2022 9:08 AM EDT Body Mass Index 21.68 06/11/2022 9:08 AM EDT documented in this encounter Progress Notes * AntonioStephanie Radu, REGISTERED SAFETY ENGINEER - 06/11/2022 9:30 AM EDT Otolaryngology Surgical Follow Up Date of Visit: 06/11/2022 Location of Visit: Otolaryngology Clinic, [facility] Patient: Monique Barahona ([id number] ; 1960 Primary Care Provider: Modesta Cook MD Reason for Visit: Monique is a 62 y.o. female with a hx of left neck cystic mass s/p excision of neck mass with direct microlaryngoscopy performed on 06/03/2022 with . . Surgery: Case Date: 06/03/2022 ?? Preop Diagnosis: LEFT neck cystic mass ?? Postop Diagnosis: Same ?? Procedure: 1. Direct Microlaryngoscopy 2. Excision of LEFT neck cystic mass ?? Surgeon: MD Jennifer Jerez MD ?? Anesthesia: General via oral endotracheal tube Estimated Blood Loss: 10cc ?? HPI/Surgical Indications: Monique Barahona is a 62 y.o. female who presents with H Tobacco use,kidney cancer, and LEFT neck cystic mass. 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 ?? Findings: 1. Grade 2a view of the vocal cords with Evelyne 2. Benign appearing laryngeal anatomy without mucosal ulceration or any abnormal masses. Post cricoid region with benign appearing redundant mucosa. 3. LEFT level 2 cystic neck mass without significant adhesions to surrounding structures. New issues since surgery: Monique presents here for a postoperative exam. She is doing well but not sleeping well with the drain in. She denies any fevers. Eating and drinking wnl. She is getting verylittle out of the drain. Past Medical History: Past Medical History: Diagnosis Date ??? Cancer ??? Cataract ??? Chronic kidney disease ??? GERD (gastroesophageal reflux disease) ??? Hyperlipidemia Past Surgical History: Past Surgical History: Procedure Laterality Date ??? PRO EXCISION BRANC CLFT CYST, DEEP Left 06/03/2022 EXCISION BRANCHIAL CLEFT CYST, VESTIGE OR FISTULA, DEEP (WRVU 7.31) performed by Jenny Villanueva MD at [facility] MAIN OR ??? PRO LARYNGOSCOPY DIRECT OPERATIVE W/BIOPSY N/A 06/03/2022 LARYNGOSCOPY, DIRECT, OPERATIVE, WITH BIOPSY (WRVU 3.16) performed by Jenny Villanueva MD at [facility] Medications: Current Outpatient Medications on File Prior to [...] visit. Allergies: Patient has no known allergies. Social History: Monique Barahona lives in [place] [address], Family History: Family History Problem Relation Age of Onset ??? Amblyopia Son ??? Glaucoma Neg Hx ??? Macular Degeneration Neg Hx ??? Retinal Detachment Neg Hx Review of Systems: Pertinent positive findings discussed above. No other findings on review of constitutional, visual, cardiovascular, respiratory, gastrointestinal, genitourinary, musculoskeletal, dermatologic, neurological, psychiatric, endocrine, hematologic or immunologic systems. Physical Examination: Vitals: There were no vitals taken for this visit. General: A pleasant 62 y.o. In no acute distress. Face: Full and symmetric facial movement. No dysmorphic facial features. Ears: Auricles symmetric without lesions. External auditory canals clear. Right tympanic membrane clear. right middle ear aerated Left tympanic membrane clear. left middle ear aerated. Nose: Patent anteriorly with adequate airflow, healthy pink mucosa. Septum is midline without significant deviation. Inferior turbinates wnl Mouth: Lips and gingiva pink, moist, without lesions. Tongue and floor of mouth soft without lesions or masses. Hard palate without lesions. Pharynx: Soft palate without lesions. Uvula is intact without evidence of submucus cleft palate. Oropharynx symmetric. Neck: Soft, supple, without significant lymphadenopathy. There is a JACEY drain in on the left. Sutures are in place. The drain and the sutures were removed today and pt tolerated this well. Incision isc/d/i. Mild edema along the left neck area Trachea midline without deviation. Neurologic: Cranial nerves II-XII intact and symmetric. Impression: hx of left neck cystic mass s/p excision of neck mass with direct microlaryngoscopy performed on 06/03/2022 with .; JACEY drain removed and sutures removed. Doing well . Recommendations: Doing well. She has an appt scheduled for Thursday with that will be cancelled. She will monitor for any evidence of infection. will call her with the pathology results. F/u in 6 weeks for a recheck. Stephanie [place], [place] [address] Office documented in this encounter Plan of Treatment Not on file documented as of this encounter Visit Diagnoses Diagnosis Postoperative examination Follow-up examination, following unspecified surgery documented in this encounter Care Teams Bar Gauger And Lubricator Tender Relationship Specialty Start Date End Date Modesta Cook MD [address] [place] [address] PCP - General Family Medicine 04/29/22 documented as of this encounter
--- OUTSIDE RECORDS SUMMARY | 2023-12-14 15:44 | XMS_ITS | Encounter Summary ---
Author Organization [facility] [place] [address] Care Team Providers Care Bow Tacker Name Role Phone Nimisha Benson MD Primary Care Provider [phone] Reason for Visit * Reason Comments Narrow Angles Encounter Details Date Type Department Care Team (Late st Contact Info) Description 04/11/2019 1:00 PM EST Office Visit [place] [address] [place] Gallo MD [facility] [place] [address] Anatomical narrow angle glaucoma, bilateral Social History Tobacco Use Types Packs/Day Years [...] on file documented as of this encounter Patient Instructions * Patient Instructions* [place] Gallo MD - 04/11/2019 1:00 PM EST BEGIN: Prednisolone in BOTH eyes, FOUR times daily for FIVE days, then STOP documented in this encounter Progress Notes * [place] Gallo MD - 04/11/2019 1:00 PM EST Anatomical narrow angle glaucoma OU: S/p LPI OU done on 04/05/2019 Currently not using any glaucoma drops of meds IOP doing well Mild low-grade HAs since last Thursday (no response from Tylenol), very minor inflammation noted botheyes, likely allergy related Cataracts OU Mild, monitor. Plan: Begin: Prednisolone OU QID for 5 days Artificial Tears PRN for dry eyes Return to clinic: [address] Sevilla ([facility]) Back to me with any concerns documented in this encounter Plan of Treatment Not on file documented as of this encounter Visit Diagnoses Diagnosis Anatomical narrow angle glaucoma, bilateral documented in this encounter Care Teams Bow Tacker Relationship Specialty Start Date End Date Nimisha Benson MD [address] [place] [address] PCP - General 06/15/14 10/27/21 documented as of this encounter
--- OUTSIDE RECORDS SUMMARY | 2023-12-14 15:44 | XMS_ITS | Encounter Summary ---
[place] [address] Care Team Providers Care Manager Heavy Equipment Name Role Phone Modesta Cook MD Primary Care Provider [phone] Encounter Details Date Type Department Care Team (Late st Contact Info) Description 04/29/2022 Telephone [place] [address] Larisa Darnell Social History Tobacco Use Types Packs/Day Years [...] encounter Miscellaneous Notes * Telephone Encounter - Larisa Darnell - 04/29/2022 2:10 PM EDT Shubhammoses, Patient is scheduled to have surgery on 06/03/2022 . Follow up appointment is as follows: F/u appt 1-2 weeks postop, thanks!. Thank you!! documented in this encounter Plan of Treatment Not on file documented as of this encounter Visit Diagnoses Not on filedocumented in this encounter Care Teams Manager Heavy Equipment Relationship Specialty Start Date End Date Modesta Cook MD [address] [place] [address] [address] [place] [address] PCP - General Family Medicine 04/29/22 documented as of this encounter
--- OUTSIDE RECORDS SUMMARY | 2023-12-14 15:44 | XMS_ITS | Encounter Summary ---
Author Organization [id number] Care Team Providers Care Mechanical Inspector Name Role Phone Nimisha Benson MD Primary Care Provider [phone] Reason for Referral * Diagnostic Test (Routine) - Closed Specialty Diagnoses / Procedures Referred By Contac t Referred To Contact Radiology Diagnoses Renal cancer, unspecified laterality Procedures CT Abdomen wwo Contrast Fabrizio Crowley MD [facility] [place] [address] [facility] [place] [address] Referral ID Status Reason Start Date Expiration Date V isits Requested Visits Authorized [id number] Closed Specialty Service Requested 12/07/2019 06/06/2020 1 1 Reason for Visit * Diagnostic Test (Routine) - Closed Specialty Diagnoses / Procedures Referred By Contac t Referred To Contact Radiology Diagnoses Renal cancer, unspecified laterality Procedures CT Abdomen wwo Contrast Fabrizio Crowley MD [facility] [place] [address] [facility] [place] [address] Referral ID Status Reason Start Date Expiration Date V isits Requested Visits Authorized [id number] Closed Specialty Service Requested 12/07/2019 06/06/2020 1 1 Encounter Details Date Type Department Care Team (Latest Contact Info) Description 12/12/2019 12:27 PM EDT - 12/12/2019 11:59 PM EDT Hospital Encounter CT Scan at [facility] [place] [address] Fabrizio Crowley MD [facility] [place] [address] Renal cancer, unspecified laterality Discharge Disposition: Home [...] Diagnosis Comments CT ABDOMEN WWO CONTRAST Routine 12/12/2019 1:05 PM EDT Renal cancer, unspecified laterality documented [...] signed by: Saravanan Stevens DO, [facility] ([phone]), at 12/12/2019 1:58 PM Narrative 12/12/2019 1:58 [...] which is dated November 26, 2018. FINDINGS: Security Operations Specialist Images: Noncontributory. Right Kidney: Normal. Left Kidney: [...] which is dated November 26, 2018. FINDINGS: Security Operations Specialist Images: Noncontributory. Right Kidney: Normal. Left Kidney: [...] signed by: Saravanan Stevens DO, [facility]([phone]), at 12/12/2019 1:58 PM Fabrizio Crowley MD IMG CT ORDERABLES documented in this encounter Visit Diagnoses Diagnosis Renal cancer, unspecified laterality documented in this encounter Administered Medications Inactive Administered Medications - up to 3 most recent administrations Medication Order MAR Action Action Date Dose Rate Site iohexoL (Omnipaque) 350 mg/mL solution 0-200 mL 0-200 mL, Intravenous, ONCE PRN, 1 dose, Starting on Thu12/12/19 at 1306, Until Thu12/12/19 at 1306, Per Protocol, Warning Vesicant/Irritant Medication , Radiology Contrast, Routine Given 12/12/2019 1:06 PM EDT 86 mLs documented in this encounter Care Teams Mechanical Inspector Relationship Specialty Start Date End Date Nimisha Benson MD [address] [place] [address] PCP - General 06/15/14 10/27/21 documented as of this encounter
--- OUTSIDE RECORDS SUMMARY | 2023-12-14 15:44 | XMS_ITS | Encounter Summary ---
Author Organization [facility] [place] [address] Care Team Providers Care Stubber Name Role Phone Nimisha Benson MD Primary Care Provider [phone] Encounter Details Date Type Department Care Team (Late st Contact Info) Description 12/12/2019 1:40 PM EDT [place] [address] Zhanna Crowley MD [facility] [place] [address] [address] Malignant neoplasm of left kidney Social History Tobacco Use Types Packs/Day Years [...] as of this encounter Progress Notes * Janine Goldberg APRN - 12/12/2019 1:40 PM EDT Patient Name: Monique Barahona Date of Service: 12/12/2019 Primary Care Provider: Nimisha Benson MD Reason for Visit: Monique Barahona is a 59 y.o. female here for follow up of a LEFT renal mass s/p RFA. History of Present Illness: The patient had a CT and was found to have an incidental right renal mass in 04/2013. She was on active surveillance. Biopsy 07/17/2014 [facility] Provider: ZHANNA CROWLEY Pt. Name: MONIQUE BARAHONA [facility] #: [id number] Pt. Col Date: 07/17/2014 SURGICAL PATHOLOGY ---Pathologic Diagnosis--- A - Left renal mass, Minute fragment of renal cell carcinoma, clear cell type admixed with abundant normal renal parenchyma. Josué nuclear grade: 2 of 4 Note: The nuclear grade may vary within different areas of a renal cell carcinoma. The possibility that the needle aspirates/core biopsies are not education courses sales representative of the highest nuclear grade within the tumor cannot be excluded. 08/28/2014: image guided RFA. CT 11/214 showed: IMPRESSION: Low-attenuation posttreatment changes seen in lower pole left kidney. No evidence of complication. No evidence of local tumor recurrence. She is doing well. She has some low back pain, but this is stable. T7 issues still, T10 and T 11. She is still active. No meds for osteoporosis now. She had hip and jaw pain with these. She has not tried Boniva yet. Will have a bone density scan and mammo soon. No issues with voiding. No hematuria. Still working on quitting smoking 12 cigs per day. Appetite good, weight stable. Past Medical History: Asthma Patient Active Problem List Diagnosis Code ??? Left renal mass N28.89 ??? Wedge compression fracture of T7 vertebra S22.060A ??? Renal cancer C64.9 Past Surgical History: ~ 2011 Cholecystectomy ~ 2007 Appendectomy Family History:There is no family history of renal cancer. No diseases run in the family. 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 The patient is [...] cre 0.7, LFTs normal and GFR 94 X-rays 08/2015: CXR: neg 08/2015: CT abd: [...] negative for metastatic disease 11/2019: CT abd: report pending, imaging reviewed. Appears negative. 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 She is content with the plan, she feels well. She is at 5 years. She will let me know if she does not hear from me about her final CT report All pt questions answered to her apparent satisfaction Janine Fallon APRN documented in this encounter Plan of Treatment Not on file documented as of this encounter Visit Diagnoses Diagnosis Malignant neoplasm of left kidney documented in this encounter Care Teams Stubber Relationship Specialty Start Date End Date Nimisha Benson MD [address] [place] [address] PCP - General 06/15/14 10/27/21 documented as of this encounter
--- OUTSIDE RECORDS SUMMARY | 2023-12-14 15:44 | XMS_ITS | Encounter Summary ---
Author Organization [facility] Address [facility] [place] [address] Care Team Providers Care Gas Stove Servicer Helper Name Role Phone None Primary Care Provider Unavailabl e Encounter Details Date Type Department Care Team (Latest Contact Info) Description 10/28/2021 2:29 PM EDT - 10/28/2021 11:59 PM EDT Hospital Encounter XRay at [address] [place] [address] Janine Goldberg APRN [facility] [place] [address] Renal cancer, unspecified laterality Discharge Disposition: Home [...] Comments XR CHEST PA AND LATERAL Routine 10/28/2021 2:38 PM EDT Renal cancer, unspecified laterality documented [...] who have questions please contact the health acute care certified nursing assistant that requested your imaging first. ? Electronically signed by: Stella Davis MD, [facility] ([phone]), at 10/28/2021 5:11 PM Narrative 10/28/2021 5:11 PM EDT EXAMINATION: XR [...] patients who have questions please contactthe health acute care certified nursing assistant that requested your imaging first. Electronically signed by: Stella Davis MD, [facility]([phone]), at 10/28/2021 5:11 PM Janine Fallon APRN IMG DX ORDERABL ES documented in this encounter Visit Diagnoses Diagnosis Renal cancer, unspecified laterality documented in this encounter Care Teams Gas Stove Servicer Helper Relationship Specialty Start Date End Date None None PCP - General 10/28/21 04/28/22 documented as of this encounter
--- OUTSIDE RECORDS SUMMARY | 2023-12-14 15:44 | XMS_ITS | Encounter Summary ---
[place] [address] Care Team Providers Care Ocular Care Aide Name Role Phone None Primary Care Provider Unavailabl e Reason for Referral * Consultation (Urgent) - Closed Specialty Diagnoses / Procedures Referred By Contrbian t Referred To Contact Otolaryngology Diagnoses Mass of neck Localized swelling, mass and lump, neck Randolph Estrada MD [address] [place] [address] [place] [address] [facility] [address] [place] [id number] Referral ID Status Reason Start Date Expiration Date V isits Requested Visits Authorized [id number] Closed Consult, Test & Treat 04/02/2022 04/02/2023 1 1 Encounter Details Date Type Department Care Team (Late st Contact Info) Description 04/02/2022 Transcribe Orders eDH Incoming Referrals [phone] Randolph Estrada MD [address] [place] [address] [place], [place] [id number] Mass of neck; Localized swelling, mass and lump, neck Social History Tobacco Use Types Packs/Day Years [...] as of this encounter Plan of Treatment Scheduled Referrals Name Type Priority Associated Diagnoses Orde r Schedule Referral to ENT Outpatient Referral Urgent Mass of neck Localized swelling, mass and lump, neck Ordered: 04/02/2022 documented as of this encounter Visit Diagnoses Diagnosis Mass of neck Swelling, mass, or lump in head and neck Localized swelling, mass and lump, neck Swelling, mass, or lump in head and neck documented in this encounter Care Teams Ocular Care Aide Relationship Specialty Start Date End Date None None PCP - General 10/28/21 04/28/22 documented as of this encounter
--- OUTSIDE RECORDS SUMMARY | 2023-12-14 15:44 | XMS_ITS | Encounter Summary ---
[facility] [place] [address] Care Team Providers Care Travel Sales Consultant Name Role Phone Nimisha Benson MD Primary Care Provider [phone] Reason for Visit * Reason Comments Procedure Encounter Details Date Type Department Care Team (Latest Contact Info) Description 04/05/2019 1:30 PM EST Procedure [place] [address] Parrish Gallo MD [facility] [place] [address] Anatomical narrow angle glaucoma, bilateral Social History [...] Progress Notes * Parrish Gallo MD - 04/05/2019 1:30 PM EST MSO only - LPI OU today documented in this encounter Plan of Treatment Not on file documented as of this encounter Procedures Procedure Name Priority Date/Time Associated Diagnosis Comments IRIDOTOMY/IRIDECTOM Y BY LASER - OU - BOTH EYES Routine 04/05/2019 1:49 PM EST Anatomical narrow angle glaucoma, bilateral documented in this encounter Results * Iridotomy/Iridectomy By Laser - OU - Both Eyes (04/05/2019 1:49 PM EST) Anatomical Region Laterality Modality Other Narrative 04/05/2019 1:49 PM EST Pre-Op Right Eye Patient understands the risks and benefits of the treatment as outlined on the consent. Anesthesia Right Eye Topical anesthesia was used. Anesthesia medications included Pilocarpine 1%, Iopidine 0.5%, Proparacaine. Left Eye Topical anesthesia was used. Anesthesia medications included Pilocarpine 1%, Proparacaine. Laser Information Right Eye Total spots was 3. The energy was 23.0 mj. Left Eye Total spots was 2. The energy was 15.0 mj. Post-op Right Eye The patient tolerated the procedure well. There were no complications. Left Eye The patient tolerated the procedure well. There were no complications. Notes Procedure: Peripheral iridotomy BOTH eyes Diagnosis: Narrow occludedable angle Location of procedure: [facility] eye clinic Surgeon: Parrish Gallo Preprocedure drops: 1 drop of each alcaine, 0.5% iopidine, pilocarpine 1% Indication: The patient presents to clinic with a narrow ocludable angle in the Both ??eyes. ??We discussed the risks, benefits and alternatives to this treatment, answered Monique's questions and she signed the consent form. Procedure: ?? Right Eye: The patient was taken to the laser room. ??A YAG iridotomy was performed on the right eye. ??A good opening was obtained and a molina of fluid was noted. The patient tolerated the procedure well and there were no problems observed during the procedure. Spot number: 3 Total energy:23 millijoules Left Eye: A YAG iridotomy was performed on the Left eye. ??A good opening was obtained and a molina of fluid was noted. ??The patient tolerated the procedure well and there were no problems observed during the procedure. Spot number: 2 Total energy: 15 millijoules Post operative instructions: ??Continue all current eye drops. They are scheduled for follow up within 2 to 3 weeks, but are to call in with any problems, particularly flashes, floaters, pain, decreased vision or photophobia. Caution with driving Upon Return to Eye Clinic: IOP OU Parrish Gallo MD OPHTHALMOLOGY SERVIC ES ORDERABLES documented in this encounter Visit Diagnoses Diagnosis Anatomical narrow angle glaucoma, bilateral documented in this encounter Care Teams Travel Sales Consultant Relationship Specialty Start Date End Date Nimisha Benson MD [address] [place] [address] PCP - General 06/15/14 10/27/21 documented as of this encounter
--- OUTSIDE RECORDS SUMMARY | 2023-12-14 15:45 | XMS_ITS | Encounter Summary ---
[place] [address] Care Team Providers Care Digital Marketing Intern Name Role Phone Nimisha Benson MD Primary Care Provider [phone] Encounter Details Date Type Department Care Team (Latest Contact Info) Description 09/03/2015 1:30 PM EDT Laboratory Appointment Lab [address] [place] [address] Left renal mass Social History Tobacco Use Types Packs/Day Years Used Date Smoking Tobacco: Every Day Cigarettes Comments:eight cigs a day Alcohol Use Standard [...] Date/Time Associated Diagnosis Comments COMPREHENSIVE METABOLIC PANEL Routine 09/03/2015 1:30 PM EDT Left renal mass documented in this encounter Results * (ABNORMAL) Comprehensive metabolic panel (non-fasting) (09/03/2015 1:30 PM EDT) Glucose 111 65 - 199 mg/dL [facility] Comment:Diabetes: >=200 mg/d L plus symptoms Blood Urea Nitrogen 9 8 - 18 mg/dL [facility] Creatinine 0.75 0.70 - 1.20 mg/dL [facility] Comment: Please note that the pediatric reference intervals supplied above were not validated at [facility]. Results from pediatric patients should be interpreted in conjunction to the patient's age, height and muscle mass. Sodium 143 135 - 145 mmol/L [facility] Potassium 3.9 3.5 - 5.0 mmol/L [facility] Comment: Please note: ??Patients with WBC >100,000 may have falsely elevated Potassium levels. ??For accurate Potassium quantification in these patients send serum separator tube (gold top) for subsequent determinations. ??Contact the Clinical Chemistry Laboratory if there are any questions. Chloride 101 98 - 107 mmol/L [facility] Carbon Dioxide 28 22 - 31 mmol/L [facility] Anion Gap 14 5 - 15 mmol/L [facility] Calcium 9.2 8.5 - 10.5 mg/dL [facility] Protein, Total 7.2 6.1 - 8.0 gm/dL [facility] Albumin 4.1 3.2 - 5.2 gm/dL [facility] Aspartate Aminotransferase 18 0 - 30 unit/L [facility] Alanine Aminotransferase 23 0 - 30 unit/L [facility] Alkaline Phosphatase 108(H) 40 - 104 unit/L [facility] Bilirubin, Total 0.2 0.2 - 1.3 mg/dL [facility] Bilirubin, Direct <0.1 0.0 - 0.3 mg/dL [facility] Est Glomerular Filtration Rate >60 >=60 [facility] Comment: This estimated GFR (eGFR) value was calculated using the MDRD equation which has been validated on patients between the ages of 18 and 70. The MDRD should not be used to assess kidney function in patients < 18 years of age or in patients with extremes of body mass, or in patients with acute kidney failure. This value should be multiplied by 1.2 for patients. For further information please copy and paste the following links into your internet browser. [email or web address]/DHnkdep [email or web address] Blood specimen (specimen) 09/03/2015 1:30 PM EDT 09/03/2015 1:41 PM EDT Narrative Resulting Agency Comment Spec In Lab Fabrizio Crowley MD CHEMISTRY ORDERABLES [facility] [place] [address] documented in this encounter Visit Diagnoses Diagnosis Left renal mass Unspecified disorder of kidney and ureter documented in this encounter Care Teams Digital Marketing Intern Relationship Specialty Start Date End Date Nimisha Benson MD [address] [place] [address] PCP - General 06/15/14 10/27/21 documented as of this encounter
--- OUTSIDE RECORDS SUMMARY | 2023-12-14 15:45 | XMS_ITS | Encounter Summary ---
[facility] [place] [id number] Care Team Providers Care Business Operations Consultant Name Role Phone Nimisha Benson MD Primary Care Provider [phone] Reason for Referral * Diagnostic Test (Routine) - Closed Specialty Diagnoses / Procedures Referred By Contac t Referred To Contact Radiology Diagnoses Renal cancer, unspecified laterality Procedures CT Abdomen With/Wo Contrast Janine Goldberg APRN [facility] [place] [address] [facility] [place] [address] Referral ID Status Reason Start Date Expiration Date V isits Requested Visits Authorized [id number] Closed Specialty Service Requested 02/22/2016 04/21/2016 1 1 Reason for Visit * Diagnostic Test (Routine) - Closed Specialty Diagnoses / Procedures Referred By Contac t Referred To Contact Radiology Diagnoses Renal cancer, unspecified laterality Procedures CT Abdomen With/Wo Contrast Janine Goldberg APRN [facility] [place] [address] [facility] [place] [address] Referral ID Status Reason Start Date Expiration Date V isits Requested Visits Authorized [id number] Closed Specialty Service Requested 02/22/2016 04/21/2016 1 1 Encounter Details Date Type Department Care Team (Latest Contact Info) Description 02/25/2016 11:54 AM EST - 02/25/2016 11:59 PM EST Hospital Encounter CT Scan at [facility] [place] [address] Fabrizio Crowley MD [facility] [place] [address] Renal cancer, unspecified laterality Discharge Disposition: Home [...] Date omeprazole (PRILOSEC) 40 mg Capsule, Delayed Release(E.C.)Indicati ons:gastroesophageal reflux disease Take 40 mg by mouth daily. Indications: Gastroesophageal Reflux documented as of this encounter Plan of Treatment Not on file documented as of this encounter Procedures Procedure Name Priority Date/Time Associated Diagnosis Comments CT ABDOMEN WWO CONTRAST Routine 02/25/2016 12:41 PM EST Renal cancer, unspecified laterality documented in this encounter Results * CT Abdomen With/Wo Contrast (02/25/2016 12:41 PM EST) Anatomical Region Laterality Modality Abdomen Computed Tomogra phy Impressions 02/25/2016 5:10 PM EST 1. ??Further retraction of the left renal inferior pole ablation site. No evidence of recurrent or local metastatic disease. 2. ??Compression deformity of the superior endplate of T12, new since 09/03/2015, possibly acute. 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 I have personally reviewed the image(s) and the residents interpretation and agree with the findings, Omid Santana at 02/25/2016 5:10 PM Narrative 02/25/2016 5:10 PM EST EXAMINATION: ??CT ABDOMEN WWO CONTRAST CLINICAL HISTORY: ??History of renal cancer s/p RFA-? recurrence, rule out mets or recurrence TECHNIQUE: Helical CT of the abdomen was performed prior to and following the intravenous administration of contrast. ??110 cc of Omnipaque 350 was given. COMPARISON: ??CT abdomen 09/03/15 FINDINGS: There has been further interval retraction of the ablation site of the left lower kidney. No significant enhancement of the ablation site, if any. Stable and perinephric fat stranding inferior to the kidney. The right kidney is unremarkable. Liver: ??Normal. Bile ducts: ??Nondilated. Gallbladder: ??Removed Pancreas: ??Normal. Spleen: ??Normal. Adrenals: ??Mild nodularity of the left adrenal gland, stable since the oldest prior CT dated 12/09/2013. The right adrenal gland is normal. Bowel: Nondilated, no inflammatory changes. Lymph nodes: ??No enlarged lymph nodes. Peritoneum: ??No ascites or free air, no fluid collection. Vasculature: Minor atherosclerotic disease. Osseous structures: Hyperdense, partially visualized T7 vertebral body. This fracture was noted on thoracic spine MRI 10/18/2014. There is new central depression of the superior endplate of T12 with a faint sclerotic band through the vertebral body. There is vacuum disc phenomenon of T11-T12. Mineralization is diffusely decreased. No suspicious lesions. Procedure Note Omid Santana MD - 02/25/2016 EXAMINATION: CT ABDOMEN WWO CONTRAST CLINICAL HISTORY: History of renal cancer s/p RFA-? recurrence, rule outmets or recurrence TECHNIQUE: Helical CT of the abdomen was performed prior to and followingthe intravenous administration of contrast. 110 cc of Omnipaque 350 wasgiven. COMPARISON: CT abdomen 09/03/15 FINDINGS: There has been further interval retraction of the ablation siteof the left lower kidney. No significant enhancement of the ablation site, ifany. Stable and perinephric fat stranding inferior to the kidney. The rightkidney is unremarkable. Liver: Normal. Bile ducts: Nondilated. Gallbladder: Removed Pancreas: Normal. Spleen: Normal. Adrenals: Mild nodularity of the left adrenal gland, stable since theoldest prior CT dated 12/09/2013. The right adrenal gland is normal. Bowel: Nondilated, no inflammatory changes. Lymph nodes: No enlarged lymph nodes. Peritoneum: No ascites or free air, no fluid collection. Vasculature: Minor atherosclerotic disease. Osseous structures: Hyperdense, partially visualized T7 vertebral body.This fracture was noted on thoracic spine MRI 10/18/2014. There is new central depression of the superior endplate of T12 with a faint sclerotic bandthrough the vertebral body. There is vacuum disc phenomenon of T11-T12.Mineralization is diffusely decreased. No suspicious lesions. IMPRESSION 1. Further retraction of the left renal inferior pole ablation site. No evidence of recurrent or local metastatic disease. 2. Compression deformity of the superior endplate of T12, new since09/03/2015, possibly acute. No underlying lesion is identified and this is thought jhoana an osteoporotic vertebral body compression fracture. I have personally reviewed the image(s) and the residents interpretationand agree with the findings, Omid Santana at 02/25/2016 5:10 PM Fabrizio Crowley MD IMG CT ORDERABLES documented in this encounter Visit Diagnoses Diagnosis Renal cancer, unspecified laterality documented in this encounter Administered Medications Inactive Administered Medications - up to 3 most recent administrations Medication Order MAR Action Action Date Dose Rate Site iohexol (OMNIPAQUE) 350 mg/mL solution 38,500 mg 38,500 mg (110 mL), Intravenous, ONCE PRN, 1 dose, Starting on Thu02/25/16 at 1242, Until Thu02/25/16 at 1243, Per Protocol, Warning Vesicant/Irritant Medication , Routine Given 02/25/2016 12:43 PM EST 38,500 mg documented in this encounter Care Teams Business Operations Consultant Relationship Specialty Start Date End Date Nimisha Benson MD [address] [place] [address] [address] [facility] [address] [place] [address] PCP - General 06/15/14 10/27/21 documented as of this encounter
--- OUTSIDE RECORDS SUMMARY | 2023-12-14 15:45 | XMS_ITS | Encounter Summary ---
[place] [address] Care Team Providers Care Psychiatric Therapist Name Role Phone Nimisha Benson MD Primary Care Provider [phone] Encounter Details Date Type Department Care Team (Latest Contact Info) Description 02/25/2016 11:45 AM EST Laboratory Appointment Lab [address] [place] [address] Renal cancer, unspecified laterality Social History Tobacco [...] Associated Diagnosis Comments COMPREHENSIVE METABOLIC PANEL STAT 02/25/2016 11:29 AM EST Renal cancer, unspecified laterality documented in this encounter Results * (ABNORMAL) Comprehensive metabolic panel (non-fasting) (02/25/2016 11:29 AM EST) Glucose 109 65 - 199 mg/dL [facility] Comment:Diabetes: >=200 mg/d L plus symptoms Blood Urea Nitrogen 6(L) 8 - 18 mg/dL [facility] Creatinine 0.71 0.70 - 1.20 mg/dL [facility] Comment: Please note that the pediatric reference intervals supplied above were not validated at [facility]. Results from pediatric patients should be interpreted in conjunction to the patient's age, height and muscle mass. Sodium 142 135 - 145 mmol/L [facility] Potassium 4.0 3.5 - 5.0 mmol/L [facility] Comment: Please note: ??Patients with WBC >100,000 may have falsely elevated Potassium levels. ??For accurate Potassium quantification in these patients send serum separator tube (gold top) for subsequent determinations. ??Contact the Clinical Chemistry Laboratory if there are any questions. Chloride 99 98 - 107 mmol/L [facility] Carbon Dioxide 28 22 - 31 mmol/L [facility] Anion Gap 15 5 - 15 mmol/L [facility] Calcium 9.4 8.5 - 10.5 mg/dL [facility] Protein, Total 7.3 6.1 - 8.0 gm/dL [facility] Albumin 4.2 3.2 - 5.2 gm/dL [facility] Aspartate Aminotransferase 13 0 - 30 unit/L [facility] Alanine Aminotransferase 15 0 - 30 unit/L [facility] Alkaline Phosphatase 136(H) 40 - 104 unit/L [facility] Bilirubin, Total 0.2 0.2 - 1.3 mg/dL [facility] Bilirubin, Direct <0.1 0.0 - 0.3 mg/dL [facility] Est Glomerular Filtration Rate >60 >=60 [facility] Comment: This estimated GFR (eGFR) value [...] the following links into your internet browser. [email or web address] [email or web address] Blood specimen (specimen) 02/25/2016 11:29 AM EST 02/25/2016 11:35 AM EST Narrative Resulting Agency Comment Spec In Lab Fabrizio Crowley MD CHEMISTRY ORDERABLES [facility] [place] [address] documented in this encounter Visit Diagnoses Diagnosis Renal cancer, unspecified laterality documented in this encounter Care Teams Psychiatric Therapist Relationship Specialty Start Date End Date Nimisha Benson MD [address] [place] [address] PCP - General 06/15/14 10/27/21 documented as of this encounter
--- OUTSIDE RECORDS SUMMARY | 2023-12-14 15:45 | XMS_ITS | Encounter Summary ---
[place] [address] Care Team Providers Care Cage Clerk Name Role Phone Nimisha Benson MD Primary Care Provider [phone] Reason for Referral * Diagnostic Test (Routine) - Closed Specialty Diagnoses / Procedures Referred By Contac t Referred To Contact Radiology Diagnoses Left renal mass Procedures CT Abdomen wwo Contrast CT Abdomen & Pelvis wwo Contrast (Generic) Fabrizio Crowley MD [facility] [place] [address] [facility] [place] [address] Referral ID Status Reason Start Date Expiration Date V isits Requested Visits Authorized [id number] Closed Specialty Service Requested 08/11/2017 08/11/2018 1 1 Reason for Visit * Diagnostic Test (Routine) - Closed Specialty Diagnoses / Procedures Referred By Contac t Referred To Contact Radiology Diagnoses Left renal mass Procedures CT Abdomen wwo Contrast CT Abdomen & Pelvis wwo Contrast (Generic) Fabrizio Crowley MD [facility] [place] [address] [facility] [place] [address] Referral ID Status Reason Start Date Expiration Date V isits Requested Visits Authorized [id number] Closed Specialty Service Requested 08/11/2017 08/11/2018 1 1 Encounter Details Date Type Department Care Team (Latest Contact Info) Description 11/16/2017 2:22 PM EDT - 11/16/2017 11:59 PM EDT Hospital Encounter CT Scan at [facility] [place] [address] Fabrizio Crowley MD [facility] [place] [address] Left renal mass Discharge Disposition: Home Social History Tobacco [...] Diagnosis Comments CT ABDOMEN WWO CONTRAST Routine 11/16/2017 3:59 PM EDT Left renal mass documented in this encounter Results * CT Abdomen wwo Contrast (11/16/2017 3:59 PM EDT) Anatomical Region Laterality Modality Abdomen Computed Tomogra phy Impressions 11/16/2017 4:32 PM EDT Post renal ablation with no evidence of local recurrence or regional metastases. Narrative 11/16/2017 4:32 PM EDT EXAMINATION: CT ABDOMEN WWO CONTRAST CLINICAL HISTORY: left renal mass, status post CT-guided percutaneous radio frequency ablation of a LEFT lower pole renal mass on 09/15/2017 TECHNIQUE: Helical CT of the abdomen was performed prior to and following the IV administration of 79cc of Omnipaque 350. No oral contrast used. ??Multiplanar reformatted images were reviewed. COMPARISON: Most recently CT abdomen on 11/10/2016 with additional priors as reported. FINDINGS: Right Kidney: The RIGHT kidney is normal in size, morphology, and position. On the nonenhanced exam, there are no renal or proximal ureteral calculi present. On the postcontrast nephrographic phase image there is prompt symmetric enhancement throughout the kidney with no complex cystic or solid enhancing renal lesions are present. On postcontrast urographic phase images, the collecting system/proximal ureter are well opacified with contrast without filling defect. Left Kidney: LEFT kidney is normal in size, morphology, and position. On the nonenhanced phase imaging, no renal or proximal ureteral calculi are present. On the postcontrast images, there is prompt symmetric enhancement throughout the kidney with no complex cystic or solid enhancing renal lesions present. An area of focal cortical thinning and scarring are present along the lower pole corresponding to the site of prior no enhancing nodules or other evidence of recurrent or present at the site. No new renal lesions are present. On postcontrast urographic phase images, the collecting system and proximal ureter are well opacified with contrast and exhibit no intraluminal filling defects or abnormal wall thickening. Lower chest: A calcified nodule in the LEFT lower lobe (series 5 image 1) is stable compared to the 02/25/2016 CT. No new pulmonary nodules are present in the visualized lung bases. Liver: None Bile ducts: Nondilated. Gallbladder: Post cholecystectomy. Pancreas: Normal attenuation without ductal dilatation. Spleen: Normal. Adrenals: Normal. Vasculature: A subcentimeter Brandee artery in the central portion of the LEFT adrenal gland is stable dating back to a 2015 CT. The RIGHT adrenal gland is normal. Lymph Nodes: No enlarged lymph nodes. Bowel: Nondilated, no wall thickening. ?? Peritoneum and mesentery: No ascites, free air, or loculated fluid collection. No mesenteric inflammation. Abdominal wall: Normal. Osseous structures: Wedge compression deformity of the L1 vertebral body with less than 25% anterior vertebral body height loss is stable compared to the th 05/07/2016 CT but new compared to a 2015 CT. Procedure Note Rock Oliver MD - 11/16/2017 EXAMINATION: CT ABDOMEN WWO CONTRAST CLINICAL HISTORY: left renal mass, status post CT-guided percutaneousradio frequency ablation of a LEFT lower pole renal mass on 09/15/2017 TECHNIQUE: Helical CT of the abdomen was performed prior to and followingthe IV administration of 79cc of Omnipaque 350. No oral contrast used.Multiplanar reformatted images were reviewed. COMPARISON: Most recently CT abdomen on 11/10/2016 with additional priorsas reported. FINDINGS: Right Kidney: The RIGHT kidney is normal in size, morphology, andposition. On the nonenhanced exam, there are no renal or proximal ureteral calculipresent. On the postcontrast nephrographic phase image there is prompt symmetric enhancement throughout the kidney with no complex cystic or solidenhancing renal lesions are present. On postcontrast urographic phase images, the collecting system/proximal ureter are well opacified with contrastwithout filling defect. Left Kidney: LEFT kidney is normal in size, morphology, and position. Onthe nonenhanced phase imaging, no renal or proximal ureteral calculi arepresent. On the postcontrast images, there is prompt symmetric enhancement throughoutthe kidney with no complex cystic or solid enhancing renal lesions present. Anarea of focal cortical thinning and scarring are present along the lower pole corresponding to the site of prior no enhancing nodules or other evidenceof recurrent or present at the site. No new renal lesions are present. On postcontrast urographic phase images, the collecting system and proximalureter are well opacified with contrast and exhibit no intraluminal fillingdefects or abnormal wall thickening. Lower chest: A calcified nodule in the LEFT lower lobe (series 5 image 1)is stable compared to the 02/25/2016 CT. No new pulmonary nodules are presentin the visualized lung bases. Liver: None Bile ducts: Nondilated. Gallbladder: Post cholecystectomy. Pancreas: Normal attenuation without ductal dilatation. Spleen: Normal. Adrenals: Normal. Vasculature: A subcentimeter Brandee artery in the central portion of theLEFT adrenal gland is stable dating back to a 2014 CT. The RIGHT adrenal glandis normal. Lymph Nodes: No enlarged lymph nodes. Bowel: Nondilated, no wall thickening. Peritoneum and mesentery: No ascites, free air, or loculated fluidcollection. No mesenteric inflammation. Abdominal wall: Normal. Osseous structures: Wedge compression deformity of the L1 vertebral bodywith less than 25% anterior vertebral body height loss is stable compared tothe ninth 05/07/2016 CT but new compared to a 2015 CT. IMPRESSION Post renal ablation with no evidence of local recurrence or regionalmetastases. 4:32 PM Fabrizio Crowley MD IMG CT ORDERABLES documented in this encounter Visit Diagnoses Diagnosis Left renal mass Unspecified disorder of kidney and ureter documented in this encounter Administered Medications Inactive Administered Medications - up to 3 most recent administrations Medication Order MAR Action Action Date Dose Rate Site iohexol (OMNIPAQUE) 350 mg/mL solution 0-200 mL 0-200 mL, Intravenous, ONCE PRN, 1 dose, Starting on Thu11/16/17 at 1600, Until Thu11/16/17 at 1600, Per Protocol, Warning Vesicant/Irritant Medication , Radiology Contrast, Routine Given 11/16/2017 4:00 PM EDT 79 mLs documented in this encounter Care Teams Cage Clerk Relationship Specialty Start Date End Date Nimisha Benson MD [address] [place] [address] PCP - General 06/15/14 10/27/21 documented as of this encounter
--- OUTSIDE RECORDS SUMMARY | 2023-12-14 15:45 | XMS_ITS | Encounter Summary ---
Author Organization [facility] Address [facility] [place] [address] Care Team Providers Care Public Address System Installer Name Role Phone Nimisha Benson MD Primary Care Provider [phone] Encounter Details Date Type Department Care Team (Late st Contact Info) Description 11/10/2016 2:00 PM EDT [place] [address] Zhanna Crowley MD [facility] [place] [address] Renal cancer, unspecified laterality Social History Tobacco [...] Sign Reading Time Taken Comments Blood Pressure 122/84 11/10/2016 1:45 PM EDT Pulse 87 11/10/2016 1:45 PM EDT Temperature 36.7 ??C (98 ??F) 11/10/2016 1:45 PM EDT Respiratory Rate - - Oxygen Saturation 100% 11/10/2016 1:45 PM EDT Inhaled Oxygen Concentration - - Weight - - Height - - Body Mass Index - - documented in this encounter Progress Notes * Janine Goldberg, MARCEL - 11/10/2016 2:00 PM EDT Patient Name: Monique aBrahona Date of Service: 11/10/2016 Primary Care Provider: Nimisha Benson MD Reason for Visit: Monique Barahona is a 56 y.o. female here for follow up of a LEFT renal mass s/p RFA. History of Present Illness: The patient had a CT and was found to have an incidental right renal mass in 04/2013. She was on active surveillance. Biopsy on 07/17/2014 [facility] Provider: ZHANNA CROWLEY Pt. Name: MONIQUE BARAHONA Acc #: [id number] Pt. Col Date: 07/17/2014 SURGICAL PATHOLOGY ---Pathologic Diagnosis--- A - Left renal mass, Minute fragment of renal cell carcinoma, clear cell type admixed with abundant normal renal parenchyma. Josué nuclear grade: 2 of 4 Note: The nuclear grade may vary within different areas of a renal cell carcinoma. The possibility that the needle aspirates/core biopsies are not vendor representatives of the highest nuclear grade within the [...] is on reclast or another medfor osteoporosis. Considering quitting smoking. Working on losing weight and has lost 12 lbs! She is very excited. The patient remains asymptomatic. Specifically denies a history of flank pain, hematuria, dysuria or urgency. Urine flow is good and with nocturia x 0-1 times 3/7 nights. The patient empties the bladder completely. At times she double voids. She drinks a lot of fluids. Appetite good, Past Medical History: Asthma Patient Active Problem [...] the family. 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 The patient is singles and lives with her 30 year old son. The patient drinks no ETOH Tobacco:Trying to quit, but has not quit yet. Systems review: She walks but no regular exercise. No significant limitations Physical Exam: Vital signs are reviewed The the patient appears healthy and in no distress. Abdomen soft, nontender, no masses or CVA tenderness Musculoskeletal/neurologic: grossly normal Labs: 12/11/14: cre 0.66, LFTs normal except for ALT of 38 08/2015: cre 0.7, LFTs normal except alk phos of 108 (normal up to 104), GFR >60 02/2016: cre 0.71, LFTs normal other than alk phos of 136. 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 CMP/CXR/CT abd in 12 months. She is content with the plan, she feels well. All pt questions answered to her apparent satisfaction Addendum: no recurrence on CT, I will write pt IMPRESSION Postprocedural changes status post left lower pole radiofrequency ablation. Expected appearance of the ablation cavity. No CT findings to indicate local recurrence or new lesions. No metastases Janine Fallon aPRN documented in this encounter Plan of Treatment Not on file documented as of this encounter Visit Diagnoses Diagnosis Renal cancer, unspecified laterality documented in this encounter Care Teams Public Address System Installer Relationship Specialty Start Date End Date Nimisha Benson MD [address] [place] [address] PCP - General 06/15/14 10/27/21 documented as of this encounter
--- OUTSIDE RECORDS SUMMARY | 2023-12-14 15:45 | XMS_ITS | Encounter Summary ---
Author Organization [facility] Address [facility] [place] [address] Care Team Providers Care Security Professionals Name Role Phone Nimisha Benson MD Primary Care Provider [phone] Encounter Details Date Type Department Care Team (Late st Contact Info) Description 09/18/2014 Notes [place] [id number] Fabrizio Adam MD [facility] [place] [address] Social History Tobacco Use Types Packs/Day Years Used Date Smoking Tobacco: Every Day Comments:eight cigs a day Alcohol Use Standard Drinks/Week Comments No 0 (1 standard drink = 0.6 oz pur e alcohol) Sex and Gender Information Value Date Recorded Sex Assigned at Not on file Gender Identity Not on file Sexual Orientation Not on file documented as of this encounter Progress Notes * Fabrizio Adam MD - 09/18/2014 12:52 PM EDT Vascular and Interventional Radiology Phone Note Monique Barahona [phone] [facility] [address] : 1960 Age: 54 y.o. 09/18/2014 Chief Complaint: Back pain, left leg heaviness and left foot tingling. History of Present Illness: 54 yo who had renal ablation last week. Complained at the time of back pain which started 08/05/14. I called and spoke to Ms. Barahona. She had a bout of pancreatitis in April 2013 with pain similar to what she has now. Pain is mostly in her back but wraps around. Was seen by her PCP with labs but no evidence of pancreatitis. Reflux thought be a possibility and Barium swallow obtained August 23. Ms. Barahona understood the barium swallow did not show much and saw a Chiropractor, which did not help. Later found that the images obtained during the ba swallow showed aT7 compression fracture new from a CXR of 04/26/13. The back pain is worse with standing, particularly lifting. She obtains some relief with bending forward. After her renal ablation procedure she noted the sole of her left foot felt odd, prickly, when she walks. Patient Active Problem List Diagnosis Code ??? Left renal mass 593.9 Current Outpatient Prescriptions on File Prior to Visit Medication Sig Dispense Refill ??? oxyCODONE 10 mg Tablet Take 1 tablet by mouth every 4 hours as needed for Pain (Moderate pain (4-6)). 15 tablet 0 ??? omeprazole (PRILOSEC) 40 mg Capsule, Delayed Release(E.C.) Take 40 mg by mouth daily. Indications: Gastroesophageal Reflux No current facility-administered medications on file prior to visit. No Known Allergies Imaging Studies: Barium swallow from [facility] mild compression fracture of T7 which appears new. ...mild compression fracture of the superior end plate of T10...unchanged. Comparison was to a CXR of 04/26/13. Assessment/Discussion: I described to Ms. Barahona needle placement into vertebra with injection of bone cement. I noted the risk of nerve injury during placement of the needles. I also discussed the potential for cement extravasation either into veins or into the spinal canal. I noted that if she were to have extravasation posteriorly into the spinal canal she might have cord compression causing paralysis which would require emergent decompressive surgery. I told her that approximately 75% ofpeople derive benefit from Vertebroplasty, that being a benefit and not cure. I pointed out that com pression fractures do heal and allowing them to do so has less risk than vertebroplasty. Vertebroplasty is meant for those who cannot tolerate the time needed for healing. The left leg and foot sensations suggest she may have something such as a disc pressing on a nerve already. That would increase risk of nerve compression with cement injection if at same level. An MRmay be helpful. Partly to see if she has edema at the level that appears to be a new compression fracture and partly to look for an explanation of the left foot and leg symptoms. (Edema being a good p redictor of success) Another possibility for the left leg and foot symptoms would be nerve irritation due to positioning for the ablation. Plan: Ms. Barahona will try to contact Dr. Benson re next step but will contact me if not able to reach Dr. Benson. documented in this encounter Plan of Treatment Not on file documented as of this encounter Visit Diagnoses Not on filedocumented in this encounter Care Teams Security Professionals Relationship Specialty Start Date End Date Nimisha Benson MD [address] [place] [address] PCP - General 06/15/14 10/27/21 documented as of this encounter
--- OUTSIDE RECORDS SUMMARY | 2023-12-14 15:45 | XMS_ITS | Encounter Summary ---
Author Organization [facility] Address [facility] [place] [address] Care Team Providers Care Head Usher Name Role Phone Nimisha Benson MD Primary Care Provider [phone] Encounter Details Date Type Department Care Team (Late st Contact Info) Description 12/11/2014 1:30 PM EDT Office Visit [place] [phone] Richie Perdomo MD [facility] [place] [address] Renal cancer, left Social History Tobacco Use Types Packs/Day Years [...] Taken Comments Blood Pressure - - Pulse 95 12/11/2014 1:38 PM EDT regul ar Temperature - - Respiratory Rate - - Oxygen Saturation 99% 12/11/2014 1:38 PM EDT room air Inhaled Oxygen Concentration - - Weight 68.9 kg (152 lb) 12/11/2014 1:38 PM EDT Height 162.6 cm (5' 4) 12/11/2014 1:38 PM EDT Body Mass Index 26.09 12/11/2014 1:38 PM EDT documented in this encounter Progress Notes * Richie Perdomo MD - 12/11/2014 12:49 PM EDT Interventional Radiology Clinic Visit Referring MD: Fabrizio Crowley [place] Indication for visit: Follow-up left renal ablation HPI: 54 yr old F patient with an incidentally discovered left renal mass, first detected in 2013. CT guided biopsy in July 2014 revealed RCCa (clear cell histology, II/IV). She underwent image guidedablation (RFA) on 09/15/2014. She was discharged on PPD #1 after an uneventful night. Post-ablation,she did exteremly well. She experienced no flank pain or fevers. Of note during the process of evaluation and treatment of her renal mass, she was diagnosed with a thoracic vertebral compression fracture; this was further evaluated with MR on 10/18 and treated by percutaneous vertebroplasty on 11/17. She has experienced some pain relief following the procedure stating she has more better hours than bad during the day and is sleeping better at night. Her CT scan today demonstrated no areas of abnormal enhancement to suggest residual tumor. Past medical/surgical history: Left renal mass Asthma Lower thoracic vertebral body compression fx -s/p vertebroplasty on 11/17 Allergies: No Known Allergies Medications: oxyCODONE 10 mg Tablet; omeprazole (PRILOSEC) 40 mg Capsule, Delayed Release(E.C.) Imaging: CECT scan of the abdomen as above Lab Results Component Value Date CREATININE 0.66* 12/11/2014 CREATININE 0.66* 12/11/2014 Assessment: Ms. Barahona tolerated her image guided left renal ablation (RFA) well and baseline CTscan today shows no abnormal enhancement to suggest residual tumor. Plan: Follow-up with Dr. Crowley in 6 months Office visit duration: 15 minutes - 5 minutes (review of medical records, images) - -0 minutes (discussion with other physicians) - 10 minutes (direct counseling/education of the patient) documented in this encounter Plan of Treatment Not on file documented as of this encounter Visit Diagnoses Diagnosis Renal cancer, left documented in this encounter Care Teams Head Usher Relationship Specialty Start Date End Date Nimisha Benson MD [address] [place], [place] [id number] PCP - General 06/15/14 10/27/21 documented as of this encounter
--- OUTSIDE RECORDS SUMMARY | 2023-12-14 15:45 | XMS_ITS | Encounter Summary ---
[place] [address] Care Team Providers Care Cake Puller Name Role Phone Nimisha Benson MD Primary Care Provider [phone] Encounter Details Date Type Department Care Team (Latest Contact Info) Description 11/16/2017 2:00 PM EDT Laboratory Appointment Lab [address] [place] [address] Left renal mass; History of renal cell cancer Social History [...] Associated Diagnosis Comments COMPREHENSIVE METABOLIC PANEL Routine 11/16/2017 1:10 PM EDT Left renal mass documented in this encounter Results * (ABNORMAL) Comprehensive metabolic panel (non-fasting) (11/16/2017 1:10 PM EDT) Glucose 107 65 - 199 mg/dL [facility] Comment:Diabetes: >=200 mg/d L plus symptoms Blood Urea Nitrogen 6(L) 8 - 18 mg/dL [facility] Creatinine 0.68(L) 0.70 - 1.20 mg/dL [facility] Sodium 143 135 - 145 mmol/L [facility] Potassium 4.0 3.5 - 5.0 mmol/L [facility] Comment: Please note: ??Patients with WBC >100,000 may have falsely elevated Potassium levels. ??For accurate Potassium quantification in these patients send serum separator tube (gold top) for subsequent determinations. ??Contact the Clinical Chemistry Laboratory if there are any questions. Chloride 101 98 - 107 mmol/L [facility] Carbon Dioxide 29 22 - 31 mmol/L [facility] Anion Gap 13 5 - 15 mmol/L [facility] Calcium 9.5 8.5 - 10.5 mg/dL [facility] Protein, Total 7.5 6.1 - 8.0 gm/dL [facility] Albumin 4.1 3.2 - 5.2 gm/dL [facility] Aspartate Aminotransferase 12 0 - 30 unit/L [facility] Alanine Aminotransferase 11 0 - 30 unit/L [facility] Alkaline Phosphatase 106(H) 40 - 104 unit/L [facility] Bilirubin, Total <0.2(L) 0.2 - 1.3 mg/dL [facility] Est Glomerular Filtration Rate 96 >=60 mL/min/1. 73 m?? [facility] Comment: The eGFR was calculated using the CKD-EPI equation. As with all creatinine based estimates of kidney function, eGFR values calculated with the CKD-EPI equation are not accurate in patients with acute kidney failure, extremes of body mass or the acutely ill. http://[employer]/[facility] eGFR 111 >=60 mL/min/1. 73 m?? [facility] Comment: The eGFR was calculated using the CKD-EPI equation. As with all creatinine based estimates of kidney function, eGFR values calculated with the CKD-EPI equation are not accurate in patients with acute kidney failure, extremes of body mass or the acutely ill. http://[employer]/[facility] Blood specimen (specimen) 11/16/2017 1:10 PM EDT 11/16/2017 1:26 PM EDT Narrative Resulting Agency Comment Spec In Lab Fabrizio Crowley MD CHEMISTRY ORDERABLES [facility] [place] [address] documented in this encounter Visit Diagnoses Diagnosis Left renal mass Unspecified disorder of kidney and ureter History of renal cell cancer documented in this encounter Care Teams Cake Puller Relationship Specialty Start Date End Date Nimisha Benson MD [address] [place] [address] PCP - General 06/15/14 10/27/21 documented as of this encounter
--- OUTSIDE RECORDS SUMMARY | 2023-12-14 15:45 | XMS_ITS | Encounter Summary ---
Author Organization [facility] [place] [address] [place] [address] Care Team Providers Care Services Tech Name Role Phone Nimisha Benson MD Primary Care Provider +1- [phone] Encounter Details Date Type Department Care Team (Late st Contact Info) Description 06/11/2015 Orders [place] [address] Fabrizio Crowley MD [facility] [address] Social History Tobacco Use Types Packs/Day Years [...] on filedocumented in this encounter Care Teams Services Tech Relationship Specialty Start Date End Date Nimisha Benson MD [address] [place] [address] PCP - General 06/15/14 10/27/21 documented as of this encounter
--- OUTSIDE RECORDS SUMMARY | 2023-12-14 15:45 | XMS_ITS | Encounter Summary ---
Author Organization [facility] [address] Care Team Providers Care Yard Jockey Name Role Phone Nimisha Benson MD Primary Care Provider [phone]- [phone] Encounter Details Date Type Department Care Team (Late st Contact Info) Description 02/26/2016 [place] [id number] Janine Goldberg APRN [facility] [place] [address] Social History Tobacco Use Types Packs/Day Years [...] encounter Miscellaneous Notes * Telephone Encounter - Janine Goldberg APRN - 02/26/2016 8:37 AM EST Called Monique with her CT results: ?? Impression ? 1. ??Further retraction of the left renal inferior pole ablation site. No evidence of recurrent or local metastatic disease. 2. ??Compression deformity of the superior endplate of T12, new since 09/03/2015, possibly acute. 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 She is aware of the renal findings. I will cc to PCP regarding spinal findings. She had had back pain, like we discussed yesterday, andnow buttock pain. She will call Dr. Benson' office to address her compression fracture. I will cc afull copy of the report to her PCP. documented in this encounter Plan of Treatment Not on file documented as of this encounter Visit Diagnoses Not on filedocumented in this encounter Care Teams Yard Jockey Relationship Specialty Start Date End Date Nimisha Benson MD [address] [place] [address] PCP - General 06/15/14 10/27/21 documented as of this encounter
--- OUTSIDE RECORDS SUMMARY | 2023-12-14 15:45 | XMS_ITS | Encounter Summary ---
[place] [address] Care Team Providers Care Process Supervisor Name Role Phone Nimisha Benson MD Primary Care Provider [phone] Reason for Referral * Diagnostic Test (Routine) - Closed Specialty Diagnoses / Procedures Referred By Contbrian t Referred To Contact Radiology Diagnoses Renal cancer, unspecified laterality Procedures CT Abdomen wwo Contrast Janine Goldberg APRN [facility] [place] [address] [facility] [place] [address] Referral ID Status Reason Start Date Expiration Date V isits Requested Visits Authorized [id number] Closed Specialty Service Requested 02/25/2016 02/24/2017 1 1 Encounter Details Date Type Department Care Team (Late st Contact Info) Description 02/25/2016 2:00 PM EST Office [place] [address] Zhanna Crowley MD [facility] [place] [address] Renal cancer, unspecified laterality (Primary [...] Sign Reading Time Taken Comments Blood Pressure 139/79 02/25/2016 1:22 PM EST Pulse 88 02/25/2016 1:22 PM EST Temperature 36.7 ??C (98.1 ??F) 02/25/2016 1:22 PM ES T Respiratory Rate - - Oxygen Saturation 96% 02/25/2016 1:22 PM EST Inhaled Oxygen Concentration - - Weight - - Height - - Body Mass Index - - documented in this encounter Progress Notes * Janine Goldberg, DIGITAL MEASUREMENT ADVISOR - 02/25/2016 2:00 PM EST Patient Name: Monique Barahona Date of Service: 02/25/2016 Primary Care Provider: Nimisha Benson MD Reason for Visit: Monique Barahona is a 56 y.o. female here for follow up of a LEFT renal mass. History of Present Illness: The patient had a CT and was found to have an incidental right renal mass in 04/2013. She was on active surveillance. Biopsy on 07/17/2014 [facility] Provider: ZHANNA CROWLEY Pt. Name: MONIQUE BARAHONA Acc #: [id number] Pt. Col Date: 07/17/2014 SURGICAL PATHOLOGY ---Pathologic Diagnosis--- A - Left renal mass, Minute fragment of renal cell carcinoma, clear cell type admixed with abundant normal renal parenchyma. Josué nuclear grade: 2 of 4 Note: The nuclear grade may vary within different areas of a renal cell carcinoma. The possibility that the needle aspirates/core biopsies are not civil rights representative of the highest nuclear grade within the tumor cannot be excluded. She underwent image guided ablation (RFA) on 09/15/2014. CT 11/214 showed: IMPRESSION: Low-attenuation posttreatment changes seen in lower pole left kidney. No evidence of complication. No evidence of local tumor recurrence. She presents for follow up today. She has been having some low back pain, was given a muscle relaxant in the ED, then symptoms resolved somewhat. Wonders now if she has sciatica. Working to walk, managing with tylenol. pcp not aware,she will go to PT soon. 8-9 cigs per day, she has a referral locally for quitting. Has nicorette gum. Working on losing weight. The patient remains asymptomatic. Specifically denies a history of flank pain, hematuria, dysuria or urgency. Urine flow is good and with nocturia x 0-1 times 3/7 nights. The patient empties the bladder completely. At times she double voids. She drinks a lot of fluids. Mild MARITA, with coughing, tolerable. Appetite is good. She has back pain given compression fracture in 07/2014. She had vertebroplasty in11/[address] Adam. Her pain recently was very low back, now in buttock. Past Medical History: Asthma Patient Active Problem [...] the family. 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 The patient is [...] alk phos of 136. GFR > 60 X-rays 08/2015: CXR: neg 08/2015: CT abd: report pending, imaging reviewed. No obvious recurrence. 02/2016: CXR neg per report: imaging appears not concerning. 02/2016: CT: RFA site noted, no other concerning masses per my review with Dr. Crowley today. Final CT report pending Impression: #1:[id number] renal cancer clear cell grade 2/4 s/p RFA in 08/2014 #2: elevated alk phos and sciatic pain #3: Minimal Comorbidity Plan: Quit smoking Follow up with PCP and elevated Alk phos She will contact me if she does not hear from me about her final CT abd report today. CMP/CXR/CT abd in 6 months. She is content with the plan, she feels well. All pt questions answered to her apparent satisfaction Janine Fallon aPRN * Tesha Partida - 02/25/2016 2:00 PM EST Reminder entered documented in this encounter Plan of Treatment Not on file documented as of this encounter Results * CT Abdomen wwo Contrast (11/10/2016 1:37 PM EDT) Anatomical Region Laterality Modality Abdomen Computed Tomogra phy Impressions 11/10/2016 1:53 PM EDT Postprocedural changes status post left lower pole radiofrequency ablation. Expected appearance of the ablation cavity. No CT findings to indicate local recurrence or new lesions. No metastases. Narrative 11/10/2016 1:53 PM EDT EXAMINATION: ??CT ABDOMEN WWO CONTRAST CLINICAL HISTORY: ??hx renal cancer s/p RFA in 08/2014. ? recurrence. smoker TECHNIQUE: Helical CT of the abdomen was performed prior to and following the intravenous administration of contrast. ??79 cc of Omnipaque 350 was given. Oral contrast was not administered. COMPARISON: ??02/25/2016, 09/03/2015 FINDINGS: Kidneys: There has been progressive retraction of the ring like fatty RFA cavity extending from the caudal aspect of the left lower pole (best evaluated on coronal images) from 3 cm in 2016 to 1.3 cm currently. The margin of the ablation cavity with the kidney is well demarcated. Normal renal enhancement. No focal lesions. Morphologically normal appearance of the left renal collecting system. There is no urolithiasis. Neither collecting system is dilated. No right renal lesion or collecting system abnormality. Lower chest: A calcified ovoid lingular nodule Is stable since the most recent prior; this portion of the lung was not included in the [id number] of on earlier studies. No basilar pleural or pericardial effusion. Liver: Normal size and attenuation without lesions. Bile ducts: Nondilated. Gallbladder: Surgically absent Pancreas: Normal attenuation without ductal dilatation. Spleen: Normal. Adrenal: Nodularity in the central portion of the left adrenal gland has been stable since 07/17/2014 and is therefore of doubtful significance. Right adrenal gland normal. Vasculature: Moderate calcified atherosclerotic changes of the aortoiliac vasculature. No aneurysm. Lymph nodes: No enlarged lymph nodes. Bowel: No dilated small or large bowel or bowel wall thickening. Peritoneum and mesentery: No ascites, free air, or loculated fluid collection. No mesenteric inflammation. Abdominal wall: Normal. Osseous structures: A superior endplate compression fracture at T12 is unchanged. No retropulsed fragment. No suspicious lytic or sclerotic osseous lesion. Procedure Note Corazon Fraga MD - 11/10/2016 EXAMINATION: CT ABDOMEN WWO CONTRAST CLINICAL HISTORY: hx renal cancer s/p RFA in 08/2014. ? recurrence.smoker TECHNIQUE: Helical CT of the abdomen was performed prior to and followingthe intravenous administration of contrast. 79 cc of Omnipaque 350 was given.Oral contrast was not administered. COMPARISON: 02/25/2016, 09/03/2015 FINDINGS: Kidneys: There has been progressive retraction of the ring like fatty RFAcavity extending from the caudal aspect of the left lower pole (best evaluatedon coronal images) from 3 cm in 2016 to 1.3 cm currently. The margin of the ablation cavity with the kidney is well demarcated. Normal renalenhancement. No focal lesions. Morphologically normal appearance of the left renalcollecting system. There is no urolithiasis. Neither collecting system is dilated. Noright renal lesion or collecting system abnormality. Lower chest: A calcified ovoid lingular nodule Is stable since the mostrecent prior; this portion of the lung was not included in the qmuoj-he-saln ofon earlier studies. No basilar pleural or pericardial effusion. Liver: Normal size and attenuation without lesions. Bile ducts: Nondilated. Gallbladder: Surgically absent Pancreas: Normal attenuation without ductal dilatation. Spleen: Normal. Adrenal: Nodularity in the central portion of the left adrenal gland hasbeen stable since 07/17/2014 and is therefore of doubtful significance. Rightadrenal gland normal. Vasculature: Moderate calcified atherosclerotic changes of theaortoiliac vasculature. No aneurysm. Lymph nodes: No enlarged lymph nodes. Bowel: No dilated small or large bowel or bowel wall thickening. Peritoneum and mesentery: No ascites, free air, or loculated fluidcollection. No mesenteric inflammation. Abdominal wall: Normal. Osseous structures: A superior endplate compression fracture at T12 is unchanged. No retropulsed fragment. No suspicious lytic or scleroticosseous lesion. IMPRESSION Postprocedural changes status post left lower pole radiofrequencyablation. Expected appearance of the ablation cavity. No CT findings to indicatelocal recurrence or new lesions. No metastases. Zhanna Crowley MD IMG CT ORDERABLES * Comprehensive metabolic panel (non-fasting) (11/10/2016 11:13 AM EDT) Glucose 128 65 - 199 mg/dL [facility] Comment:Diabetes: >=200 mg/d L plus symptoms Blood Urea Nitrogen 8 8 - 18 mg/dL [facility] Creatinine 0.70 0.70 - 1.20 mg/dL [facility] Comment: Please note that the pediatric reference intervals supplied above were not validated at [facility]. Results from pediatric patients should be interpreted in conjunction to the patient's age, height and muscle mass. Sodium 142 135 - 145 mmol/L [facility] Potassium 3.9 3.5 - 5.0 mmol/L [facility] Comment: Please note: ??Patients with WBC >100,000 may have falsely elevated Potassium levels. ??For accurate Potassium quantification in these patients send serum separator tube (gold top) for subsequent determinations. ??Contact the Clinical Chemistry Laboratory if there are any questions. Chloride 101 98 - 107 mmol/L [facility] Carbon Dioxide 31 22 - 31 mmol/L [facility] Anion Gap 10 5 - 15 mmol/L [facility] Calcium 9.7 8.5 - 10.5 mg/dL [facility] Protein, Total 7.4 6.1 - 8.0 gm/dL [facility] Albumin 4.1 3.2 - 5.2 gm/dL [facility] Aspartate Aminotransferase 15 0 - 30 unit/L [facility] Alanine Aminotransferase 14 0 - 30 unit/L [facility] Alkaline Phosphatase 80 40 - 104 unit/L [facility] Bilirubin, Total 0.3 0.2 - 1.3 mg/dL [facility] Est Glomerular Filtration Rate >60 >=60 [facility] Comment: This estimated GFR (eGFR) [...] the following links into your internet browser. [email or web address] Blood specimen (specimen) 11/10/2016 11:13 AM EDT 11/10/2016 11:27 AM EDT Narrative Resulting Agency Comment Spec In Lab Zhanna Crowley MD CHEMISTRY ORDERABLES [facility] [place] [address] * XR Chest PA & Lateral (Generic) (11/10/2016 10:50 AM EDT) Anatomical Region Laterality Modality Chest N/A Digital Radiogra phy Impressions 11/10/2016 11:55 AM EDT No evidence of pulmonary metastasis. I have personally reviewed the image(s) and the residents interpretation and agree with the findings, Jerilyn Sanchez at 11/10/2016 11:55 AM Narrative 11/10/2016 11:55 AM EDT EXAMINATION: XR CHEST PA AND LATERAL (GENERIC) CLINICAL HISTORY: hx renal cancer s/p RFA-? mets TECHNIQUE: Standing PA and lateral chest radiograph COMPARISON: Chest radiograph 02/25/2016 FINDINGS: The lungs are clear. The cardiomediastinal silhouette, feroz, and pulmonary vascular markings are within normal limits. No pneumothorax or pleural effusion. Unchanged appearance from vertebroplasty of a midthoracic vertebral body. Procedure Note Jerilyn Muniz MD - 11/10/2016 EXAMINATION: XR CHEST PA AND LATERAL (GENERIC) CLINICAL HISTORY: hx renal cancer s/p RFA-? mets TECHNIQUE: Standing PA and lateral chest radiograph COMPARISON: Chest radiograph 02/25/2016 FINDINGS: The lungs are clear. The cardiomediastinal silhouette, feroz, andpulmonary vascular markings are within normal limits. No pneumothorax or pleuraleffusion. Unchanged appearance from vertebroplasty of a midthoracic vertebralbody. IMPRESSION No evidence of pulmonary metastasis. I have personally reviewed the image(s) and the residents interpretationand agree with the findings, Jerilyn Sanchez at 11/10/2016 11:55AM Zhanna Crowley MD IMG DX ORDERABLES documented in this encounter Visit Diagnoses Diagnosis Renal cancer, unspecified laterality- Primary Renal cancer, unspecified laterality Renal cancer, unspecified laterality Renal cancer, unspecified laterality documented in this encounter Care Teams Process Supervisor Relationship Specialty Start Date End Date Nimisha Benson MD [address] [place] [address] PCP - General 06/15/14 10/27/21 documented as of this encounter
--- OUTSIDE RECORDS SUMMARY | 2023-12-14 15:45 | XMS_ITS | Encounter Summary ---
Author Organization [facility] [place] [address] Care Team Providers Care Finisher Hand Name Role Phone Nimisha Benson MD Primary Care Provider [phone] [phone] Encounter Details Date Type Department Care Team (Late st Contact Info) Description 09/18/2014 Orders Only Vascular [place] [id number] Kacey Marcos APRN [facility] [place] [address] Renal cancer, left Social History Tobacco Use [...] of this encounter Results * (ABNORMAL) Creatinine (12/11/2014 11:50 AM EDT) Creatinine 0.66(L) 0.70 - 1.20 mg/dL [facility] Comment: Please note that the pediatric reference intervals supplied above were not validated at [facility]. Results from pediatric patients should be interpreted in conjunction to the patient's age, height and muscle mass. Est Glomerular Filtration Rate >60 >=60 [facility] Comment: This estimated GFR (eGFR) value was [...] the following links into your internet browser. [email or web address] Blood specimen (specimen) 12/11/2014 11:50 AM EDT 12/11/2014 12:15 PM EDT Narrative Resulting Agency Comment Spec In Lab Richie Perdomo MD CHEMISTRY ORDERABLES Performing Organization Address City/State/[facility] [place] Phone Number [facility] documented in this encounter Visit Diagnoses Diagnosis Renal cancer, left documented in this encounter Care Teams Finisher Hand Relationship Specialty Start Date End Date Nimisha Benson MD [address] [place] [address] [address] [facility] [address] [place] [address] PCP - General 06/15/14 10/27/21 documented as of this encounter
--- OUTSIDE RECORDS SUMMARY | 2023-12-14 15:45 | XMS_ITS | Encounter Summary ---
[place] [address] Care Team Providers Care Automobile Service Station Attendant Name Role Phone Nimisha Benson MD Primary Care Provider [phone] Reason for Visit * Reason Onset Date Comments Follow-up 09/18/2014 Encounter Details Date Type Department Care Team (Late st Contact Info) Description 09/18/2014 Telephone Vascular [place] [address] Kacey Marcos APRN [facility] [place] [address] Follow-up Social History Tobacco Use Types Packs/Day Years [...] encounter Miscellaneous Notes * Telephone Encounter - Kacey Marcos APRN - 09/18/2014 10:44 AM EDT Monique is a 54 yo woman with LEFT RCC who underwent RFA of lesion on 09/15/14. Her admission was uneventful and she was discharged home on PPD#1. Monique happily denies any flank pain, hematuria, clots, dysuria, urgency, frequency, nausea, vomiting, fevers, chills. She is eating well, and in fact is at work this morning. Of note, she has a newly diagnosed (end of August) T7 compression fracture, which occurred during heavy lifting in July. The pain locale has not changed, and remains quite manageable (no meds) but she now reports her left leg feeling heavy with associated tingling on the bottom of her foot. She noticed this over the weekend before leaving the hospital but thought it was related to her hospital slipper and did not report it. Monique feels like her leg strength is entirely normal and she has no difficulty walking. The symptoms have not changed in character, severity or locale. Monique was positioned prone for the procedure, and thus there may be exacerbation of fracture (edema) and/or new site of nerve impingement from a bulging disc. We have consulted Dr. Fabrizio Adam for discussion of possible vertebroplasty. He will contact her in the next day or two to discuss the proce dure and obtain an MRI. I cautioned Monique to call us immediately for any change in her leg symptoms. Followup for her RCC will occur in 2-3 months when she returns to see Drs. Crowley and Conor withwily CT scan. Monique is happy with our plan. documented in this encounter Plan of Treatment Not on file documented as of this encounter Visit Diagnoses Not on filedocumented in this encounter Care Teams Automobile Service Station Attendant Relationship Specialty Start Date End Date Nimisha Benson MD [address] [place] [address] PCP - General 06/15/14 10/27/21 documented as of this encounter
--- OUTSIDE RECORDS SUMMARY | 2023-12-14 15:45 | XMS_ITS | Encounter Summary ---
Author Organization [facility] [place] [address] Care Team Providers Care School Psychology Professor Name Role Phone Nimisha Benson MD Primary Care Provider [phone]- [phone] Encounter Details Date Type Department Care Team (Late st Contact Info) Description 10/15/2017 [place] [address] Fabrizio Crowley MD [facility] [place] [place] [address] History of renal cell cancer Social History [...] as of this encounter Visit Diagnoses Diagnosis History of renal cell cancer documented in this encounter Care Teams School Psychology Professor Relationship Specialty Start Date End Date Nimisha Benson MD [address] [place] [address] PCP - General 06/15/14 10/27/21 documented as of this encounter
--- OUTSIDE RECORDS SUMMARY | 2023-12-14 15:45 | XMS_ITS | Encounter Summary ---
Author Organization [facility] [place] [address] Care Team Providers Care Finance Analyst Name Role Phone Nimisha Benson MD Primary Care Provider [phone]- [phone] Encounter Details Date Type Department Care Team (Late st Contact Info) Description 06/14/2015 [place] [address] Fabrizio Crowley MD [facility] [place] [address] Renal mass Social History Tobacco Use Types Packs/Day [...] of this encounter Visit Diagnoses Diagnosis Renal mass Unspecified disorder of kidney and ureter documented in this encounter Care Teams Finance Analyst Relationship Specialty Start Date End Date Nimisha Benson MD [address] [place] [address] PCP - General 06/15/14 10/27/21 documented as of this encounter
--- OUTSIDE RECORDS SUMMARY | 2023-12-14 15:45 | XMS_ITS | Encounter Summary ---
Author Organization [facility] Address [facility] [place] [address] Care Team Providers Care Cork Cutter Name Role Phone Nimisha Benson MD Primary Care Provider [phone] Encounter Details Date Type Department Care Team (Latest Contact Info) Description 11/10/2016 10:41 AM EDT - 11/10/2016 11:24 AM EDT Hospital Encounter XRay at [address] [place] [address] Renal cancer, unspecified laterality Discharge Disposition: Home [...] Comments XR CHEST PA AND LATERAL Routine 11/10/2016 10:50 AM EDT Renal cancer, unspecified laterality documented [...] the findings, Jerilyn Sanchez at 11/10/2016 11:55AM Fabrizio Crowley MD IMG DX ORDERABLES documented in this encounter Visit Diagnoses Diagnosis Renal cancer, unspecified laterality Renal cancer, unspecified laterality documented in this encounter Care Teams Cork Cutter Relationship Specialty Start Date End Date Nimisha Benson MD [address] [place] [address] PCP - General 06/15/14 10/27/21 documented as of this encounter
--- OUTSIDE RECORDS SUMMARY | 2023-12-14 15:45 | XMS_ITS | Encounter Summary ---
[place] [address] Care Team Providers Care Air Conditioning Installer Supervisor Name Role Phone Nimisha Benson MD Primary Care Provider [phone] Reason for Referral * Diagnostic Test (Routine) - Closed Specialty Diagnoses / Procedures Referred By Contac t Referred To Contact Radiology Diagnoses Left renal mass Procedures CT Abdomen With/Wo Contrast Fabrizio Crowley MD [facility] [place] [address] [facility] [place] [address] Referral ID Status Reason Start Date Expiration Date V isits Requested Visits Authorized [id number] Closed Specialty Service Requested 08/30/2015 10/28/2015 1 1 Reason for Visit * Diagnostic Test (Routine) - Closed Specialty Diagnoses / Procedures Referred By Contac t Referred To Contact Radiology Diagnoses Left renal mass Procedures CT Abdomen With/Wo Contrast Fabrizio Crowley MD [facility] [place] [address] [facility] [place] [address] Referral ID Status Reason Start Date Expiration Date V isits Requested Visits Authorized [id number] Closed Specialty Service Requested 08/30/2015 10/28/2015 1 1 Encounter Details Date Type Department Care Team (Latest Contact Info) Description 09/03/2015 2:16 PM EDT - 09/03/2015 11:59 PM EDT Hospital Encounter CT Scan [place] [facility] [id number] Fabrizio Crowley MD [facility] [place] [address] Left renal mass Discharge Disposition: Home Social [...] Diagnosis Comments CT ABDOMEN WWO CONTRAST Routine 09/03/2015 3:21 PM EDT Left renal mass documented in this encounter Results * CT Abdomen With/Wo Contrast (09/03/2015 3:21 PM EDT) Anatomical Region Laterality Modality Abdomen Computed Tomogra phy Impressions 09/03/2015 4:08 PM EDT No evidence of left renal neoplasm recurrence. Decreased prominence of previously noted post treatment changes in the lower pole of the left kidney Narrative 09/03/2015 4:08 PM EDT EXAMINATION: ??CT ABDOMEN WITH/WO CONTRAST CLINICAL HISTORY: ??left renal mass TECHNIQUE: Helical CT of the abdomen was performed prior to and following the intravenous administration of contrast. ??110 cc of Omnipaque 350 was given. Oral contrast was administered. COMPARISON: ??December 11, 2014 FINDINGS: Liver: ??Normal, as visualized. Bile ducts: ??Nondilated. Gallbladder: ??Post cholecystectomy Pancreas: ??Normal. Spleen: ??Normal. Adrenal: ??Normal. Kidneys: ??No evidence of neoplasm recurrence. Decreased prominence of previously noted post treatment changes in the lower pole of the left kidney. The right kidney is normal. Bowel: Nondilated, no inflammatory changes, as visualized. Lymph nodes: ??No enlarged lymph nodes. Peritoneum: ??No ascites or free air, no fluid collection. Osseous structures: No suspicious lesions. Procedure Note Omid Santana MD - 09/03/2015 EXAMINATION: CT ABDOMEN WITH/WO CONTRAST CLINICAL HISTORY: left renal mass TECHNIQUE: Helical CT of the abdomen was performed prior to and followingthe intravenous administration of contrast. 110 cc of Omnipaque 350 wasgiven. Oral contrast was administered. COMPARISON: December 11, 2014 FINDINGS: Liver: Normal, as visualized. Bile ducts: Nondilated. Gallbladder: Post cholecystectomy Pancreas: Normal. Spleen: Normal. Adrenal: Normal. Kidneys: No evidence of neoplasm recurrence. Decreased prominence ofpreviously noted post treatment changes in the lower pole of the left kidney. Theright kidney is normal. Bowel: Nondilated, no inflammatory changes, as visualized. Lymph nodes: No enlarged lymph nodes. Peritoneum: No ascites or free air, no fluid collection. Osseous structures: No suspicious lesions. IMPRESSION No evidence of left renal neoplasm recurrence. Decreased prominence of previously noted post treatment changes in the lower pole of the leftkidney Fabrizio Crowley MD [facility] CT ORDERABLES documented in this encounter Visit Diagnoses Diagnosis Left renal mass Unspecified disorder of kidney and ureter documented in this encounter Administered Medications Inactive Administered Medications - up to 3 most recent administrations Medication Order MAR Action Action Date Dose Rate Site iohexol (OMNIPAQUE) 350 mg/mL solution 38,500 mg 38,500 mg (110 mL), Intravenous, ONCE PRN, 1 dose, Starting on 09/03/15 at 1523, Until Thu09/03/15 at 1525, Per Protocol, Warning Vesicant/Irritant Medication , Routine Given 09/03/2015 3:25 PM EDT 38,500 mg documented in this encounter Care Teams Air Conditioning Installer Supervisor Relationship Specialty Start Date End Date Nimisha Benson MD [address] [place] [address] [address] [facility] [address] [place] [address] PCP - General 06/15/14 10/27/21 documented as of this encounter
--- OUTSIDE RECORDS SUMMARY | 2023-12-14 15:45 | XMS_ITS | Encounter Summary ---
[place] [address] Care Team Providers Care Labor Relations Manager Name Role Phone Nimisha Benson MD Primary Care Provider [phone] Reason for Referral * Diagnostic Test (Routine) - Closed Specialty Diagnoses / Procedures Referred By Contbrian t Referred To Contact Radiology Diagnoses Left renal mass Procedures CT Abdomen wwo Contrast CT Abdomen & Pelvis wwo Contrast (Generic) Fabrizio Crowley MD [facility] [place] [address] [facility] [place] [address] Referral ID Status Reason Start Date Expiration Date V isits Requested Visits Authorized [id number] Closed Specialty Service Requested 08/11/2017 08/11/2018 1 1 Encounter Details Date Type Department Care Team (Late st Contact Info) Description 08/11/2017 [place] [address] Fabrizio Crowley MD [facility] [place] [address] Left renal mass Social History Tobacco Use [...] to a 2015 CT. The RIGHT adrenal glandis normal. Lymph [...] or regionalmetastases. 4:[address] PM [address]ley [address] [facility] CT ORDERABLES * XR Chest PA & Lateral (Generic) (11/16/2017 1:51 PM EDT) Anatomical Region Laterality Modality Chest N/A Digital Radiogra phy Impressions 11/16/2017 2:15 PM EDT No evidence of metastatic disease. Narrative 11/16/2017 2:15 PM EDT EXAMINATION: XR CHEST PA AND LATERAL (GENERIC) CLINICAL HISTORY: left renal mass TECHNIQUE: PA and lateral chest x-rays, 11/16/2017 COMPARISON: PA and lateral chest x-rays, 11/10/2016 FINDINGS: The cardiomediastinal slight is normal as is the pulmonary vascularity. The lungs are clear and the costophrenic angles are sharp. Vertebroplasty material is again seen in one is previously been designated as the T7 vertebra. Stable mild anterior wedging of the T10 and T12 vertebrae. No pneumothorax. Procedure Note Landa, Rihan N, MD - 11/16/2017 EXAMINATION: XR CHEST PA AND LATERAL (GENERIC) CLINICAL HISTORY: left renal mass TECHNIQUE: PA and lateral chest x-rays, 11/16/2017 COMPARISON: PA and lateral chest x-rays, 11/10/2016 FINDINGS: The cardiomediastinal slight is normal as is the pulmonary vascularity.The lungs are clear and the costophrenic angles are sharp. Vertebroplastymaterial is again seen in one is previously been designated as the T7 vertebra.Stable mild anterior wedging of the T10 and T12 vertebrae. No pneumothorax. IMPRESSION No evidence of metastatic disease. Fabrizio Crowley MD IMG DX ORDERABLES * (ABNORMAL) Comprehensive metabolic panel (non-fasting) (11/16/2017 1:10 PM EDT) Glucose 107 65 - 199 mg/dL [facility] Comment:Diabetes: >=200 mg/d L plus symptoms Blood Urea Nitrogen 6(L) 8 - 18 mg/dL [facility] Creatinine 0.68(L) 0.70 - 1.20 mg/dL [facility] Sodium 143 135 - 145 mmol/L [facility] Potassium 4.0 3.5 - 5.0 mmol/L [facility] Comment: Please note: ??Patients with WBC >100,000 may have falsely elevated Potassium levels. ??For accurate Potassium quantification in these patients send serum separator tube (gold top) for subsequent determinations. ??Contact the Clinical Chemistry Laboratory if there are any questions. Chloride 101 98 - 107 mmol/L [facility] Carbon Dioxide 29 22 - 31 mmol/L [facility] Anion Gap 13 5 - 15 mmol/L [facility] Calcium 9.5 8.5 - 10.5 mg/dL [facility] Protein, Total 7.5 6.1 - 8.0 gm/dL [facility] Albumin 4.1 3.2 - 5.2 gm/dL [facility] Aspartate Aminotransferase 12 0 - 30 unit/L [facility] Alanine Aminotransferase 11 0 - 30 unit/L [facility] Alkaline Phosphatase 106(H) 40 - 104 unit/L [facility] Bilirubin, Total <0.2(L) 0.2 - 1.3 mg/dL [facility] Est Glomerular Filtration Rate 96 >=60 mL/min/1. 73 m?? [facility] Comment: The eGFR was calculated using the CKD-EPI equation. As with all creatinine based estimates of kidney function, eGFR values calculated with the CKD-EPI equation are not accurate in patients with acute kidney failure, extremes of body mass or the acutely ill. [email or web address]/[facility] AD[facility]kf eGFR 111 >=60 mL/min/1. 73 m?? [facility] Comment: The eGFR was calculated using the CKD-EPI equation. As with all creatinine based estimates of kidney function, eGFR values calculated with the CKD-EPI equation are not accurate in patients with acute kidney failure, extremes of body mass or the acutely ill. [email or web address] Blood specimen (specimen) 11/16/2017 1:10 PM EDT 11/16/2017 1:26 PM EDT Narrative Resulting Agency Comment Spec In Lab Fabrizio Crowley MD CHEMISTRY ORDERABLES Performing Organization Address City/State/[facility] Co de Phone Number [facility] [place] [address] documented in this encounter Visit Diagnoses Diagnosis Left renal mass Unspecified disorder of kidney and ureter Left renal mass Unspecified disorder of kidney and ureter Left renal mass Unspecified disorder of kidney and ureter documented in this encounter Care Teams Labor Relations Manager Relationship Specialty Start Date End Date Nimisha Benson MD [address] [place] [address] PCP - General 06/15/14 10/27/21 documented as of this encounter
--- OUTSIDE RECORDS SUMMARY | 2023-12-14 15:45 | XMS_ITS | Encounter Summary ---
Author Organization [facility] [place] [address] Care Team Providers Care Tax Specialist Name Role Phone Nimisha Benson MD Primary Care Provider [phone] Reason for Referral * Diagnostic Test (Routine) - Closed Specialty Diagnoses / Procedures Referred By Kizzy pickering Referred To Contact Radiology Diagnoses Left renal mass Procedures CT Abdomen With/Wo Contrast Fabrizio Crowley MD [facility] [place] [address] [facility] [place] [address] Referral ID Status Reason Start Date Expiration Date V isits Requested Visits Authorized [id number] Closed Specialty Service Requested 08/30/2015 10/28/2015 1 1 Encounter Details Date Type Department Care Team (Late st Contact Info) Description 07/03/2015 [place] [address] Fabrizio Crowley MD [facility] [place] [address] Left renal mass Social History [...] of this encounter Results * CT Abdomen With/Wo [...] pole of the leftkidney Fabrizio Crowley MD IMG CT ORDERABLES * (ABNORMAL) Comprehensive metabolic panel (non-fasting) (09/03/2015 1:30 PM EDT) Glucose 111 65 - 199 mg/dL [facility] Comment:Diabetes: >=200 mg/d L plus symptoms Blood Urea Nitrogen 9 8 - 18 mg/dL [facility] Creatinine 0.75 0.70 - 1.20 mg/dL [facility] Comment: Please note that the pediatric reference intervals supplied above were not validated at [facility]. Results from pediatric patients should be interpreted in conjunction to the patient's age, height and muscle mass. Sodium 143 135 - 145 mmol/L [facility] [...] mmol/L [facility] Carbon Dioxide 28 22 - 31 mmol/L [facility] Anion Gap 14 5 - 15 mmol/L [facility] Calcium 9.2 8.5 - 10.5 mg/dL [facility] Protein, Total 7.2 6.1 - 8.0 gm/dL [facility] Albumin 4.1 3.2 - 5.2 gm/dL [facility] Aspartate Aminotransferase 18 0 - 30 unit/L [facility] Alanine Aminotransferase 23 0 - 30 unit/L [facility] Alkaline Phosphatase 108(H) 40 - 104 unit/L [facility] Bilirubin, Total 0.2 0.2 - 1.3 mg/dL [facility] Bilirubin, Direct <0.1 0.0 - 0.3 mg/dL [facility] Est Glomerular Filtration Rate >60 >=60 [facility] Comment: This estimated GFR (eGFR) [...] the following links into your internet browser. [email or web address] [email or web address]DHMCnkf Blood specimen (specimen) 09/03/2015 1:30 PM EDT 09/03/2015 1:41 PM EDT Narrative Resulting Agency Comment Spec In Lab Fabrizio Crowley MD CHEMISTRY ORDERABLES Performing Organization Address City/State/[facility] Co de Phone Number [facility] [place] [address] * XR Chest PA & Lateral (Generic) (09/03/2015 1:21 PM EDT) Anatomical Region Laterality Modality Chest N/A Digital Radiogra phy Impressions 09/03/2015 1:53 PM EDT No evidence of metastatic disease or other significant interval change. Narrative 09/03/2015 1:53 PM EDT EXAMINATION: XR CHEST ROUTINE PA AND LATERAL CLINICAL HISTORY: left renal mass TECHNIQUE: Hand and AP and lateral chest COMPARISON: 07/25/2014 FINDINGS: There are new vertebroplasty changes in T7. There is no other interval change. The lungs remain clear. Cardial mediastinal silhouette and feroz appear normal. No pleural effusion is seen. Procedure Note Rolando Posey MD - 09/03/2015 EXAMINATION: XR CHEST ROUTINE PA AND LATERAL CLINICAL HISTORY: left renal mass TECHNIQUE: Hand and AP and lateral chest COMPARISON: 07/25/2014 FINDINGS: There are new vertebroplasty changes in T7. There is no other intervalchange. The lungs remain clear. Cardial mediastinal silhouette and feroz appearnormal. No pleural effusion is seen. IMPRESSION No evidence of metastatic disease or other significant interval change. Fabrizio Crowley MD IMG DX ORDERABLES documented in this encounter Visit Diagnoses Diagnosis Left renal mass Unspecified disorder of kidney and ureter Left renal mass Unspecified disorder of kidney and ureter Left renal mass Unspecified disorder of kidney and ureter documented in this encounter Care Teams Tax Specialist Relationship Specialty Start Date End Date Nimisha Benson MD [address] [place] [address] [address] PCP - General 06/15/14 10/27/21 documented as of this encounter
--- OUTSIDE RECORDS SUMMARY | 2023-12-14 15:45 | XMS_ITS | Encounter Summary ---
Author Organization [facility] [place] [address] Care Team Providers Care Universal Winding Machine Operator Name Role Phone Nimisha Benson MD Primary Care Provider [phone] Encounter Details Date Type Department Care Team (Late st Contact Info) Description 07/16/2016 Orders [place] [address] Fabrizio Crowley MD [facility] [place] [address] Social History Tobacco Use Types Packs/Day Years [...] on filedocumented in this encounter Care Teams Universal Winding Machine Operator Relationship Specialty Start Date End Date Nimisha Benson MD [address] [place] [address] PCP - General 06/15/14 10/27/21 documented as of this encounter
--- OUTSIDE RECORDS SUMMARY | 2023-12-14 15:45 | XMS_ITS | Encounter Summary ---
Author Organization [facility] Address [facility] [place] [address] Care Team Providers Care Movie Editor Name Role Phone Nimisha Benson MD Primary Care Provider [phone] Encounter Details Date Type Department Care Team (Late st Contact Info) Description 10/18/2014 3:00 PM EDT Office Visit [place] [address] Fabrizio Adam MD [facility] [place] [address] Compression fracture Discharge Disposition: Home Social History Tobacco Use [...] Sign Reading Time Taken Comments Blood Pressure 124/76 10/18/2014 2:48 PM EDT Pulse 99 10/18/2014 2:48 PM EDT Temperature - - Respiratory Rate - - Oxygen Saturation 96% 10/18/2014 2:48 PM EDT Inhaled Oxygen Concentration - - Weight - - Height - - Body Mass Index - - documented in this encounter Progress Notes * Fabrizio Adam MD - 10/18/2014 4:54 PM EDT Vascular and Interventional Radiology Clinic Note Monique Barahona [id number] [facility] [address] : 1960 Age: 54 y.o. 10/18/2014 Chief Complaint: Back pain. History of Present Illness: I spoke to Ms. Barahona on the phone 09/18/14, 54 yo who had renal ablation last week. Complained at the time of back pain which started 08/05/14....She had a bout of pancreatitis in April 2013 with pain similar to what she has now. Pain is mostly in her back but wraps around. Was seen by her PCP with labs but no evidence of pancreatitis. Reflux thought be a possibility and Barium swallow obtained August 23. Ms. Barahona understood the bariumswallow did not show much and saw a Chiropractor, which did not help. Later found that the images obtained during the ba swallow showed a T7 compression fracture new from a CXR of 04/26/13. The back pain is worse with standing, particularly lifting. She obtains some relief with bending forward. After her renal ablation procedure she noted the sole of her left foot felt odd, prickly, when she walks. We discussed vertebroplasty with plan to obtain an MR and see if she had edema at T7. MR obtained today. Pain unchanged, cannot do her usual activities due to the pain. The prickly sensation in her foot has faded. Current Outpatient Prescriptions on File Prior to Visit Medication Sig Dispense Refill ??? omeprazole (PRILOSEC) 40 mg Capsule, Delayed Release(E.C.) Take 40 mg by mouth daily. Indications: Gastroesophageal Reflux ??? oxyCODONE 10 mg Tablet Take 1 tablet by mouth every 4 hours as needed for Pain (Moderate pain (4-6)). 15 tablet 0 Current Facility-Administered Medications on File Prior to Visit Medication Dose Route Frequency Provider Last Rate Last Dose ??? [COMPLETED] gadobutrol (GADAVIST) 1 mMol/mL injection 6 mL 6 mL Intravenous Once PRN Yahir Anna MD 6 mL at 10/18/14 1344 No Known Allergies Imaging Studies: 10/18/14 IMPRESSION: 1. Approximately 50% compression deformity involving the T7 vertebral body with mild associated superior endplate edema, reflecting an unhealed fracture. 2. Superior endplate deformity of T10. 3. No abnormal focus of enhancement. Assessment/Discussion: New T7 vertebral compression fracture with some edema. Pain does prevent herfrom doing her usual activities. Not able to tolerate pain medication. We went over vertebroplasty again, particularly the risks. I deb Ms. Barahona a rough sketch and described bipedicular needle placement to illustrate the risk of nerve injury during placement of the needles. I also discussed the potential for cement extravasation either into veins or into the spinal canal. I again noted that if she were to have extravasation posteriorly into the spinal canal she might have cord compression causing paralysis which would require emergent decompressive surgery. 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 She has some edema at T7. She may benefit from vertebroplasty but I am not sure how much. I noted that I caution patients that they should expect to wait several days before determining whether or not the procedure has in fact been helpful. The needle placements do cause some discomfort. Activity post procedure is limited only by discomfort, there not being any healing process or a post procedureinterval with limited activity. The cement would have hardened before she would have left the procedure table so her activity after would not change the location of the cement and it would be permanent. Ms. Barahona felt she understood the risks and uncertainty of outcome but would like to proceed with T7 vertebroplasty. Plan: T7 vertebroplasty 20 minutes of this 30 minute visit was spent in counseling and coordination of care. documented in this encounter Plan of Treatment Not on file documented as of this encounter Results * IR vertebroplasty (11/17/2014 1:29 PM EDT) Anatomical Region Laterality Modality Spine X-Ray Angiograph y Narrative 11/17/2014 4:24 PM EDT VIR PROCEDURE NOTE Procedure: T8 vertebroplasty Indication for Procedure: New T7 vertebral compression fracture with some edema on MR. Pain does prevent her from doing her usual activities. Not able to tolerate pain medication. Procedure events and findings: Following a discussion of the risks and benefits, informed written consent was obtained. The mid back was prepped and draped, maximum sterile barrier technique was used throughout. Due to the painful nature of the procedure, patient received split doses of intravenous fentanyl and versed from the IR nurse while pulse, pressure, and oxygen saturation were continuously monitored. Fluoro in AP and lateral projections showed the compressed thoracic vertebra to be T7 if counting from the last rib bearing vertebra but T8 if counting from sacrum. The left pedicle of T8 was localized with fluoroscopy. A small skin incision was made and 1% lidocaine was used for local anesthesia. Under fluoroscopic guidance, a 13-gauge needle was advanced across the pedicle into the anterior third of the vertebral body. This procedure was repeated on the right, placing a second 13-gauge needle into the vertebral body. Then during fluoroscopy, bone cement (PMMA) with barium was injected via the left needle. There was filling of the lower portion of the vertebral body ad then cement extended into a vein and injection was halted. After a minute wait, injection was resumed and the vein did not fill further. Injection was then switched to the right needle. After cement filled most of the vertebral body both ant-post and med-lateral, injection stopped. After allowing time for bone cement to stiffen, both needles were removed and post-procedure images obtained. Medications: Fentanyl 150 mcg IV, Versed 2mg IV, 1% Lidocaine <10ccs subcutaneous. Est Blood Loss: <5cc. Complications: No immediate Impression: 1. Fluoro in AP and lateral projections showed the compressed thoracic vertebra to be T7 if counting from the last rib bearing vertebra but T8 if counting from sacrum. (Has been identified as T7 on MR). 2. T8 vertebroplasty. Resident/Fellow: None. Attending: Dr. Kia Gavin performed this procedure. Fabrizio Adam MD [facility] ORDERABLES documented in this encounter Visit Diagnoses Diagnosis Compression fracture Closed fracture of unspecified bone Compression fracture Closed fracture of unspecified bone documented in this encounter Care Teams Movie Editor Relationship Specialty Start Date End Date Nimisha Benson MD [address] [place] [address] PCP - General 06/15/14 10/27/21 documented as of this encounter
--- OUTSIDE RECORDS SUMMARY | 2023-12-14 15:45 | XMS_ITS | Encounter Summary ---
[place] [address] Care Team Providers Care Salesperson Corsets Name Role Phone Nimisha Benson MD Primary Care Provider +1 [phone] Encounter Details Date Type Department Care Team (Latest Contact Info) Description 10/18/2014 12:23 PM EDT - 10/18/2014 11:59 PM EDT Hospital [place] [address] CLIN[address], DR YEUNG Compression fracture Social History Tobacco Use Types Packs/Day Years [...] Date omeprazole (PRILOSEC) 40 mg Capsule, Delayed Release(E.C.)Indica tions:gastroesophag eal reflux disease Take 40 mg by mouth daily. Indications: Gastroesophageal Reflux oxyCODONE 10 mg Tablet Take 1 tablet by mouth every 4 hours as needed for Pain (Moderate pain (4-6)). 15 tablet 0 09/16/2014 12/11/2014 documented as of this encounter Plan of Treatment Not on file documented as of this encounter Procedures Procedure Name Priority Date/Time Associated Diagnosis Comments MRI THORACIC SPINE WITH/WO CONTRAST Routine 10/18/2014 2:01 PM EDT Compression fracture documented in this encounter Results * MRI thoracic spine with/WO contrast (10/18/2014 2:01 PM EDT) Anatomical Region Laterality Modality T-spine Magnetic Resonan ce 10/18/2014 2:01 PM EDT Impressions 10/18/2014 6:20 PM EDT IMPRESSION: 1. ??Approximately 50% compression deformity involving the T7 vertebral body with mild associated superior endplate edema, reflecting an unhealed fracture. 2. ??Superior endplate deformity of T10. 3. ??No abnormal focus of enhancement. This report was reviewed by Fanny Miles at 10/18/2014 6:15 PM Film and interpretation reviewed by the attending Narrative 10/18/2014 6:20 PM EDT EXAMINATION: MR Thoracic Spine W/WO Navi CLINICAL HISTORY: per outside report, new T7 compression fx, old T10. ??Having left foot tingling after renal RFA. ??Possible vertebroplasty candidate, unclear why left foot sxs following renal ablation. TECHNIQUE: MRI of the thoracic spine without and with intravenous contrast. 6 cc of gadolinium was administered. COMPARISON: CT abdomen exam 09/14/2014, chest radiograph 07/25/2014 FINDINGS: Motion artifact limits the examination. There is approximately 50% compression deformity involving the T7 vertebral body with mild superior endplate edema. Superior endplate deformity of T10 with minimal edema. Remainder of thoracic vertebral bodies appear preserved in height with mildly exaggerated thoracic kyphosis. The bone marrow is otherwise normal in signal intensity. ??Review of post gadolinium sequences demonstrates no abnormal focus of enhancement. Procedure Note Fanny Miles MD - 10/18/2014 EXAMINATION: MR Thoracic Spine W/WO Navi CLINICAL HISTORY: per outside report, new T7 compression fx, old T10.Having left foot tingling after renal RFA. Possible vertebroplasty candidate,unclear why left foot sxs following renal ablation. TECHNIQUE: MRI of the thoracic spine without and with intravenouscontrast. 6 cc of gadolinium was administered. COMPARISON: CT abdomen exam 09/14/2014, chest radiograph 07/25/2014 FINDINGS: Motion artifact limits the examination. There is approximately 50% compression deformity involving the O2vthfbmdli body with mild superior endplate edema. Superior endplate deformity of O88mwqr minimal edema. Remainder of thoracic vertebral bodies appear preserved inheight with mildly exaggerated thoracic kyphosis. The bone marrow is otherwisenormal in signal intensity. Review of post gadolinium sequences demonstratesno abnormal focus of enhancement. IMPRESSION IMPRESSION: 1. Approximately 50% compression deformity involving the T7 vertebralbody with mild associated superior endplate edema, reflecting an unhealedfracture. 2. Superior endplate deformity of T10. 3. No abnormal focus of enhancement. This report was reviewed by Fanny Miles at 10/18/2014 6:15 PM Film and interpretation reviewed by the attending Fabrizio Adam MD IMG MRI ORDERABLES documented in this encounter Visit Diagnoses Diagnosis Compression fracture Closed fracture of unspecified bone documented in this encounter Administered Medications Inactive Administered Medications - up to 3 most recent administrations Medication Order MAR Action Action Date Dose Rate Site gadobutrol (GADAVIST) 1 mMol/mL injection 6 mL 6 mL, Intravenous, ONCE PRN, 1 dose, Starting on Thu10/18/14 at 1343, Until Thu10/18/14 at 1344, Per Protocol, Routine Given 10/18/2014 1:44 PM EDT 6 mLs Left Arm documented in this encounter Care Teams Salesperson Corsets Relationship Specialty Start Date End Date Nimisha Benson MD [address] [place] [address] [address] [facility] 1 [place] [address] PCP - General 06/15/14 10/27/21 documented as of this encounter
--- OUTSIDE RECORDS SUMMARY | 2023-12-14 15:45 | XMS_ITS | Encounter Summary ---
Author Organization [facility] Address [facility] [place] [address] Care Team Providers Care Production Painter Name Role Phone Nimisha Benson MD Primary Care Provider [phone]- [phone] Encounter Details Date Type Department Care Team (Latest Contact Info) Description 11/16/2017 1:11 PM EDT - 11/16/2017 2:21 PM EDT Hospital Encounter XRay at [address] [place] [address] Left renal mass Discharge Disposition: Home Social [...] Comments XR CHEST PA AND LATERAL Routine 11/16/2017 1:51 PM EDT Left renal mass documented in this encounter Results * XR [...] and T12 vertebrae. No pneumothorax. Procedure Note Gurpreet Landa MD - 11/16/2017 EXAMINATION: XR CHEST PA [...] disease. Fabrizio Crowley MD IMG DX ORDERABLES documented in this encounter Visit Diagnoses Diagnosis Left renal mass Unspecified disorder of kidney and ureter documented in this encounter Care Teams Production Painter Relationship Specialty Start Date End Date Nimisha Benson MD [address] [place] [address] [address] [place] [address] PCP - General 06/15/14 10/27/21 documented as of this encounter
--- OUTSIDE RECORDS SUMMARY | 2023-12-14 15:45 | XMS_ITS | Encounter Summary ---
Author Organization [facility] [place] [address] Care Team Providers Care Electrolysist Name Role Phone Nimisha Benson MD Primary Care Provider [phone]- [phone] Encounter Details Date Type Department Care Team (Late st Contact Info) Description 09/20/2014 [place] [id number] Fabrizio Adam MD [facility] [place] [address] Social History Tobacco Use Types Packs/Day Years [...] on filedocumented in this encounter Care Teams Electrolysist Relationship Specialty Start Date End Date Nimisha Benson MD [address] [place] [address] PCP - General 06/15/14 10/27/21 documented as of this encounter
--- OUTSIDE RECORDS SUMMARY | 2023-12-14 15:45 | XMS_ITS | Encounter Summary ---
[place] [address] Care Team Providers Care Salad Chef Name Role Phone Nimisha Benson MD Primary Care Provider [phone] [phone] Encounter Details Date Type Department Care Team (Latest Contact Info) Description 11/10/2016 11:30 AM EDT Laboratory Appointment Lab [address] [place] [address] Renal cancer, unspecified laterality Social History Tobacco [...] Associated Diagnosis Comments COMPREHENSIVE METABOLIC PANEL STAT 11/10/2016 11:13 AM EDT Renal cancer, unspecified laterality XR CHEST PA AND LATERAL Routine 11/10/2016 10:50 AM EDT Renal cancer, unspecified laterality documented in this encounter Results * Comprehensive metabolic panel (non-fasting) (11/10/2016 11:13 AM EDT) Glucose 128 65 - 199 mg/dL [facility] Comment:Diabetes: >=200 mg/d L plus symptoms Blood Urea Nitrogen 8 8 - 18 mg/dL [facility] Creatinine 0.70 0.70 - 1.20 mg/dL [facility] Comment: Please note that the pediatric reference intervals supplied above were not validated at [facility]. Results from pediatric patients should be interpreted in conjunction to the patient's age, height and muscle mass. Sodium 142 135 - 145 mmol/L [facility] Potassium 3.9 3.5 - 5.0 mmol/L [facility] Comment: Please note: ??Patients with WBC >100,000 may have falsely elevated Potassium levels. ??For accurate Potassium quantification in these patients send serum separator tube ([facility] top) for subsequent determinations. ??Contact the Clinical Chemistry Laboratory if there are any questions. Chloride 101 98 - 107 mmol/L [facility] Carbon Dioxide 31 22 - 31 mmol/L [facility] Anion Gap 10 5 - 15 mmol/L [facility] Calcium 9.7 8.5 - 10.5 mg/dL [facility] Protein, Total 7.4 6.1 - 8.0 gm/dL [facility] Albumin 4.1 3.2 - 5.2 gm/dL [facility] Aspartate Aminotransferase 15 0 - 30 unit/L [facility] Alanine Aminotransferase 14 0 - 30 unit/L [facility] Alkaline Phosphatase 80 40 - 104 unit/L [facility] Bilirubin, Total 0.3 0.2 - 1.3 mg/dL [facility] Est Glomerular Filtration Rate >60 >=60 [facility] Comment: This estimated GFR (eGFR) [...] the following links into your internet browser. [email or web address] Blood specimen (specimen) 11/10/2016 11:13 AM EDT 11/10/2016 11:27 AM EDT Narrative Resulting Agency Comment Spec In Lab Fabrizio Crowley MD CHEMISTRY ORDERABLES [facility] [place] [address] documented in this encounter Visit Diagnoses Diagnosis Renal cancer, unspecified laterality documented in this encounter Care Teams Salad Chef Relationship Specialty Start Date End Date Nimisha Benson MD [address] [place] [address] PCP - General 06/15/14 10/27/21 documented as of this encounter
--- OUTSIDE RECORDS SUMMARY | 2023-12-14 15:45 | XMS_ITS | Encounter Summary ---
Author Organization [facility] [place] [address] Care Team Providers Care Coagulating Bath Operator Name Role Phone Nimisha Benson MD Primary Care Provider [phone] [phone] Encounter Details Date Type Department Care Team (Late st Contact Info) Description 08/24/2018 [place] [address] Fabrizio Crowley MD [facility] [place] [address] Social History Tobacco Use Types Packs/Day Years [...] on filedocumented in this encounter Care Teams Coagulating Bath Operator Relationship Specialty Start Date End Date Nimisha Benson MD [address] [place] [address] PCP - General 06/15/14 10/27/21 documented as of this encounter
--- OUTSIDE RECORDS SUMMARY | 2023-12-14 15:45 | XMS_ITS | Encounter Summary ---
Author Organization [facility] [place] [address] Care Team Providers Care Air And Missile Defense Crewmember Name Role Phone Nimisha Benson MD Primary Care Provider [phone] [phone] Encounter Details Date Type Department Care Team (Late st Contact Info) Description 11/16/2017 4:00 PM EDT [place] [address] Zhanna Crowley MD [facility] [place] [address] Malignant neoplasm of kidney, unspecified laterality Social History Tobacco Use Types [...] Sign Reading Time Taken Comments Blood Pressure 128/78 11/16/2017 4:12 PM EDT Pulse 64 11/16/2017 4:12 PM EDT Temperature - - Respiratory Rate - - Oxygen Saturation 98% 11/16/2017 4:12 PM EDT Inhaled Oxygen Concentration - - Weight - - Height - - Body Mass Index - - documented in this encounter Progress Notes * Janine Goldberg, MARCEL - 11/16/2017 4:00 PM EDT Patient Name: Monique Barahona Date of Service: 11/16/2017 Primary Care Provider: Nimisha Benson MD Reason for Visit: Monique Barahona is a 57 y.o. female here for follow up of a LEFT renal mass s/p RFA. History of Present Illness: The patient had a CT and was found to have an incidental right renal mass in 04/2013. She was on active surveillance. Biopsy 07/17/2014 [facility] Provider: ZHANNA CROWLEY Pt. Name: MONIQUE BARAHONA Acc #: [id number] Pt. Col Date: 07/17/2014 SURGICAL PATHOLOGY ---Pathologic Diagnosis--- A - Left renal mass, Minute fragment of renal cell carcinoma, clear cell type admixed with abundant normal renal parenchyma. Josué nuclear grade: 2 of 4 Note: The nuclear grade may vary within different areas of a renal cell carcinoma. The possibility that the needle aspirates/core biopsies are not contracts representative of the highest nuclear grade within [...] the family. 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 The patient is [...] other than Alk Phos which was 106 X-rays 08/2015: CXR: neg 08/2015: CT abd: [...] RFA site appears smaller, no other concerns. 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 CMP/CXR/CT abd in 12 months. She is content with the plan, she feels well. All pt questions answered to her apparent satisfaction Janine Fallon aPRN documented in this encounter Plan of Treatment Not on file documented as of this encounter Visit Diagnoses Diagnosis Malignant neoplasm of kidney, unspecified laterality documented in this encounter Care Teams Air And Missile Defense Crewmember Relationship Specialty Start Date End Date Nimisha Benson MD [address] [facility] [address] [facility] 1 [place] [address] PCP - General 06/15/14 10/27/21 documented as of this encounter
--- OUTSIDE RECORDS SUMMARY | 2023-12-14 15:45 | XMS_ITS | Encounter Summary ---
Author Organization [place] [id number] Care Team Providers Care Sonography Technologist Name Role Phone Nimisha Benson MD Primary Care Provider [phone] Reason for Referral * Diagnostic Test (Routine) - Closed Specialty Diagnoses / Procedures Referred By Contac t Referred To Contact Radiology Diagnoses Renal cancer, unspecified laterality Procedures CT Abdomen wwo Contrast Janine Goldberg TRAFFIC REPORTER [facility] [place] [address] [facility] [place] [address] Referral ID Status Reason Start Date Expiration Date V isits Requested Visits Authorized [id number] Closed Specialty Service Requested 02/25/2016 02/24/2017 1 1 Reason for Visit * Diagnostic Test (Routine) - Closed Specialty Diagnoses / Procedures Referred By Contac t Referred To Contact Radiology Diagnoses Renal cancer, unspecified laterality Procedures CT Abdomen wwo Contrast Janine Goldberg APRN [facility] [place] [address] [facility] [place] [address] Referral ID Status Reason Start Date Expiration Date V isits Requested Visits Authorized [id number] Closed Specialty Service Requested 02/25/2016 02/24/2017 1 1 Encounter Details Date Type Department Care Team (Latest Contact Info) Description 11/10/2016 11:25 AM EDT - 11/10/2016 11:59 PM EDT Hospital Encounter CT Scan at [facility] [place] [address] Fabrizio Crowley MD [facility] [place] [address] Renal cancer, unspecified laterality Discharge Disposition: Home [...] Diagnosis Comments CT ABDOMEN WWO CONTRAST Routine 11/10/2016 1:37 PM EDT Renal cancer, unspecified laterality documented [...] the lung was not included in the [id number] of on earlier studies. No basilar pleural [...] the lung was not included in the [id number] ofon earlier studies. No basilar pleural or [...] indicatelocal recurrence or new lesions. No metastases. Fabrizio Crowley MD IMG CT ORDERABLES documented in this encounter Visit Diagnoses Diagnosis Renal cancer, unspecified laterality documented in this encounter Administered Medications Inactive Administered Medications - up to 3 most recent administrations Medication Order MAR Action Action Date Dose Rate Site iohexol (OMNIPAQUE) 350 mg/mL solution 79 mL 79 mL, Intravenous, ONCE PRN, 1 dose, Starting on Thu11/10/16 at 1336, Until Thu11/10/16 at 1337, Per Protocol, Warning Vesicant/Irritant Medication , Routine Given 11/10/2016 1:37 PM EDT 79 mLs documented in this encounter Care Teams Sonography Technologist Relationship Specialty Start Date End Date Nimisha Benson MD [address] [place] [address] PCP - General 06/15/14 10/27/21 documented as of this encounter
--- OUTSIDE RECORDS SUMMARY | 2023-12-14 15:45 | XMS_ITS | Encounter Summary ---
Author Organization [facility] [place] [address] Care Team Providers Care Tire Balancer Name Role Phone Nimisha Benson MD Primary Care Provider [phone]- [phone] Encounter Details Date Type Department Care Team (Late st Contact Info) Description 07/19/2015 [place] [address] Fabrizio Crowley MD [facility] [address] Social History Tobacco Use Types Packs/Day Years [...] on filedocumented in this encounter Care Teams Tire Balancer Relationship Specialty Start Date End Date Nimisha Benson MD [address] [place] [address] PCP - General 06/15/14 10/27/21 documented as of this encounter
--- OUTSIDE RECORDS SUMMARY | 2023-12-14 15:45 | XMS_ITS | Encounter Summary ---
Author Organization [facility] [place] [address] Care Team Providers Care Nozzle Tender Name Role Phone Nimisha Benson MD Primary Care Provider [phone] [phone] Reason for Visit * MRI/CAT Scan (Routine) - Closed Specialty Diagnoses / Procedures Referred By Kizzy t Referred To Contact Radiology Diagnoses Left renal mass Procedures CT ABDOMEN WITH/WO CONTRAST Richie Perdomo MD [facility] DI[place]NOST[place] [address] [facility] [place] [address] Referral ID Status Reason Start Date Expiration Date Visits Re quested Visits Authorized [id number] Closed 11/01/2014 12/30/2014 1 1 Encounter Details Date Type Department Care Team (Latest Contact Info) Description 12/11/2014 11:54 AM EDT - 12/11/2014 11:59 PM EDT Hospital [place] [address] Richie Perdomo MD [facility] [place]ST[place] [address] Left renal mass Discharge Disposition: Home Social [...] Diagnosis Comments CT ABDOMEN WWO CONTRAST Routine 12/11/2014 1:27 PM EDT Left renal mass documented in this encounter Results * CT Abdomen With/Wo Contrast (12/11/2014 1:27 PM EDT) Anatomical Region Laterality Modality Abdomen Computed Tomogra phy Impressions 12/11/2014 1:34 PM EDT IMPRESSION: Low-attenuation posttreatment changes seen in lower pole left kidney. No evidence of complication. No evidence of local tumor recurrence. Narrative 12/11/2014 1:34 PM EDT EXAMINATION: ??CT ABDOMEN WITH/WO CONTRAST CLINICAL HISTORY: ??S/P RFA OF LEFT RENAL MASS (RCC) 09/15/14, ? EVALUATION OF TREATED REGION, ?NEW LESION TECHNIQUE: Helical CT of the abdomen was performed prior to and following the intravenous administration of contrast. ??110 cc of Omnipaque 350 was given. Oral contrast was administered. 90 second and 5 minute postcontrast delayed images obtained. COMPARISON: ??Preablation CT from December 09, 2013 FINDINGS: Precontrast CT: No pleural effusions. No free fluid. No free air. No adenopathy. No perinephric fluid. Postcontrast CT abdomen: Liver: ??Normal. Bile ducts: ??Nondilated. Gallbladder: ??Surgically absent Pancreas: ??Normal. Spleen: ??Normal. Adrenal: ??Normal. Kidneys: ??Post treatment low-attenuation changes are seen in the lower pole of the left kidney. No evidence of complication. No evidence of local tumor recurrence. Bowel: Nondilated, no inflammatory changes. Lymph nodes: ??No enlarged lymph nodes. Peritoneum: ??No ascites or free air, no fluid collection. Vasculature: Minor atherosclerotic disease. Osseous structures: No suspicious lesions. Procedure Note Omid Santana MD - 12/11/2014 EXAMINATION: CT ABDOMEN WITH/WO CONTRAST CLINICAL HISTORY: S/P RFA OF LEFT RENAL MASS (RCC) 09/15/14, ? EVALUATIONOF TREATED REGION, ?NEW [place]ESION TECHNIQUE: Helical CT of the abdomen was performed prior to and followingthe intravenous administration of contrast. 110 cc of Omnipaque 350 wasgiven. Oral contrast was administered. 90 second and 5 minute postcontrast delayedimages obtained. COMPARISON: Preablation CT from December 09, 2013 FINDINGS: Precontrast CT: No pleural effusions. No free fluid. No free air. No adenopathy. Noperinephric fluid. Postcontrast CT abdomen: Liver: Normal. Bile ducts: Nondilated. Gallbladder: Surgically absent Pancreas: Normal. Spleen: Normal. Adrenal: Normal. Kidneys: Post treatment low-attenuation changes are seen in the lowerpole of the left kidney. No evidence of complication. No evidence of local tumor recurrence. Bowel: Nondilated, no inflammatory changes. Lymph nodes: No enlarged lymph nodes. Peritoneum: No ascites or free air, no fluid collection. Vasculature: Minor atherosclerotic disease. Osseous structures: No suspicious lesions. IMPRESSION IMPRESSION: Low-attenuation posttreatment changes seen in lower pole left kidney. No evidence of complication. No evidence of local tumor recurrence. Richie Perdomo MD IMG CT ORDERABLES documented in this encounter Visit Diagnoses Diagnosis Left renal mass Unspecified disorder of kidney and ureter documented in this encounter Administered Medications Inactive Administered Medications - up to 3 most recent administrations Medication Order MAR Action Action Date Dose Rate Site iohexol (OMNIPAQUE) 350 mg/mL solution 38,500 mg 38,500 mg (110 mL), Intravenous, ONCE PRN, 1 dose, Starting on Thu12/11/14 at 1322, Until Thu12/11/14 at 1322, Per Protocol, Routine Given 12/11/2014 1:22 PM EDT 38,500 mg documented in this encounter Care Teams Nozzle Tender Relationship Specialty Start Date End Date Nimisha Benson MD [address] [place] [address] PCP - General 06/15/14 10/27/21 documented as of this encounter
--- OUTSIDE RECORDS SUMMARY | 2023-12-14 15:45 | XMS_ITS | Encounter Summary ---
[place] [address] Care Team Providers Care Carton Marker Machine Name Role Phone Nimisha Benson MD Primary Care Provider [phone] [phone] Encounter Details Date Type Department Care Team (Late st Contact Info) Description 09/19/[address] [place] [id number] Beverly Page Compression fracture Social History Tobacco Use Types [...] documented as of this encounter Results * MRI thoracic spine [...] is approximately 50% compression deformity involving the U5moryizvjn body with mild superior endplate edema. Superior endplate deformity of [id number] minimal edema. Remainder of thoracic vertebral bodies [...] reviewed by the attending Fabrizio Adam MD [facility] MRI ORDERABLES documented in this encounter Visit Diagnoses Diagnosis Compression fracture Closed fracture of unspecified bone Compression fracture Closed fracture of unspecified bone documented in this encounter Care Teams Carton Marker Machine Relationship Specialty Start Date End Date Nimisha Benson MD [address] [place] [address] PCP - General 06/15/14 10/27/21 documented as of this encounter
--- OUTSIDE RECORDS SUMMARY | 2023-12-14 15:45 | XMS_ITS | Encounter Summary ---
[facility] Organization [facility] [place] [address] Care Team Providers Care Handhole Machine Operator Name Role Phone Rodney Benson MD Primary Care Provider [phone] Reason for Referral * Diagnostic Test (Routine) - Closed Specialty Diagnoses / Procedures Referred By Contac t Referred To Contact Radiology Diagnoses Renal cancer, unspecified laterality Procedures CT Abdomen With/Wo Contrast Janine Goldberg APRN [facility] [place] [address] [facility] [place] [address] Referral ID Status Reason Start Date Expiration Date V isits Requested Visits Authorized [id number] Closed Specialty Service Requested 02/22/2016 04/21/2016 1 1 Encounter Details Date Type Department Care Team (Late st Contact Info) Description 09/03/2015 3:40 PM EDT [place] [address] Zhanna Crowley MD [facility] [address] Renal cancer, unspecified laterality Social [...] Sign Reading Time Taken Comments Blood Pressure 136/82 09/03/2015 4:02 PM EDT Pulse 103 09/03/2015 4:02 PM EDT Temperature 37.1 ??C (98.7 ??F) 09/03/2015 4:02 PM ED T Respiratory Rate - - Oxygen Saturation 100% 09/03/2015 4:02 PM EDT Inhaled Oxygen Concentration - - Weight - - Height - - Body Mass Index - - documented in this encounter Progress Notes * Janine Goldberg, ACCOUNTS EXECUTIVE - 09/03/2015 3:40 PM EDT Patient Name: Monique Barahona Date of Service: 09/03/2015 Primary Care Provider: RODNEY BENSON MD Reason for Visit: Monique Barahona is a 55 y.o. female here for follow up of a LEFT renal mass. History of Present Illness: The patient had a CT and was found to have an incidental right renal mass in 04/2013. She was on active surveillance. Biopsy on 07/17/2014 [facility] Provider: ZHANNA CROWLEY Pt. Name: MONIQUE BARAHONA Acc #: [id number] Pt. Col Date: 07/17/2014 SURGICAL PATHOLOGY ---Pathologic Diagnosis--- A - Left renal mass, Minute fragment of renal cell carcinoma, clear cell type admixed with abundant normal renal parenchyma. Josué nuclear grade: 2 of 4 Note: The nuclear grade may vary within different areas of a renal cell carcinoma. The possibility that the needle aspirates/core biopsies are not manufacturing sales representative of the highest nuclear grade within the tumor cannot be excluded. She underwent image guided ablation (RFA) on 09/15/2014. CT 11/214 showed: IMPRESSION: Low-attenuation posttreatment changes seen in lower pole left kidney. No evidence of complication. No evidence of local tumor recurrence. She presents for follow up today. The patient remains asymptomatic. Specifically denies a history of flank pain, hematuria, dysuria or urgency. Urine flow is good and with nocturia x 0-1 times 3/7 nights. The patient empties the bladder completely. At times she double voids. She drinks a lot of fluids. Appetite is good. Weight up a bit. She has back pain given compression fracture in 07/2014. She had vertebroplasty in 11/[address] Adam., but she still has pain with this. Past Medical History: Asthma Patient Active Problem List Diagnosis Code ??? Left renal mass N28.89 ??? Wedge compression fracture of T7 vertebra S22.060A Past Surgical History: ~ 2011 Cholecystectomy ~ 2007 Appendectomy Medications: Reviewed see attached Allergies: Reviewed see attached Family History:There is no family history of renal cancer. No diseases run in the family. 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 The patient is [...] 108 (normal up to 104), GFR >60 X-rays 08/2015: CXR: neg 08/2015: CT abd: report pending, imaging reviewed. No obvious recurrence. Impression: #1:[id number] renal cancer clear cell grade 2/4 s/p RFA in 08/2014 #2: Minimal Comorbidity Plan: She will contact me if she does not hear from me about her final CT abd report today. CMP/CXR/CT abd in 6 months. She is content with the plan, she feels well. Repeat LFTs with PCP in about a month given Alk Phos, I will cc to PCP. All pt questions answered to her apparent satisfaction Janine Fallon aPRN * Tesha Partida - 09/03/2015 3:40 PM EDT Pt is scheduled for 02/25/16 documented in this encounter Plan of Treatment [...] findings, Omid Santana at 02/25/2016 5:10 PM Zhanna Crowley MD IMG CT ORDERABLES * XR Chest PA & Lateral (Generic) (02/25/2016 11:45 AM EST) Anatomical Region Laterality Modality Chest N/A Digital Radiogra phy Impressions 02/25/2016 11:53 AM EST No evidence of metastatic disease or other interval change. Narrative 02/25/2016 11:53 AM EST EXAMINATION: XR CHEST PA AND LATERAL (GENERIC) CLINICAL HISTORY: hx renal cancer s/p RFA-? recurrence TECHNIQUE: Standing PA and lateral chest COMPARISON: 09/03/2015 FINDINGS: There is no interval change. Particular, the lungs remain clear. The cardial mediastinal silhouette and feroz appear normal. No pleural effusion is seen. Again noted are vertebroplasty changes in the midthoracic spine. Otherwise, the bones are unremarkable. Procedure Note Rolando Posey MD - 02/25/2016 EXAMINATION: XR CHEST PA AND LATERAL (GENERIC) CLINICAL HISTORY: hx renal cancer s/p RFA-? recurrence TECHNIQUE: Standing PA and lateral chest COMPARISON: 09/03/2015 FINDINGS: There is no interval change. Particular, the lungs remain clear. Thecardial mediastinal silhouette and feroz appear normal. No pleural effusion isseen. Again noted are vertebroplasty changes in the midthoracic spine.Otherwise, the bones are unremarkable. IMPRESSION No evidence of metastatic disease or other interval change. Zhanna Crowley MD IMG DX ORDERABLES * (ABNORMAL) Comprehensive metabolic panel (non-fasting) (02/25/2016 11:29 AM EST) Glucose 109 65 - 199 mg/dL [facility] Comment:Diabetes: >=200 mg/d L plus symptoms Blood Urea Nitrogen 6(L) 8 - 18 mg/dL [facility] Creatinine 0.71 0.70 - 1.20 mg/dL [facility] Comment: Please note that the pediatric reference intervals supplied above were not validated at [facility]. Results from pediatric patients should be interpreted in conjunction to the patient's age, height and muscle mass. Sodium 142 135 - 145 mmol/L [facility] Potassium 4.0 3.5 - 5.0 mmol/L [facility] Comment: Please note: ??Patients with WBC >100,000 may have falsely elevated Potassium levels. ??For accurate Potassium quantification in these patients send serum separator tube (gold top) for subsequent determinations. ??Contact the Clinical Chemistry Laboratory if there are any questions. Chloride 99 98 - 107 mmol/L [facility] Carbon Dioxide 28 22 - 31 mmol/L [facility] Anion Gap 15 5 - 15 mmol/L [facility] Calcium 9.4 8.5 - 10.5 mg/dL [facility] Protein, Total 7.3 6.1 - 8.0 gm/dL [facility] Albumin 4.2 3.2 - 5.2 gm/dL [facility] Aspartate Aminotransferase 13 0 - 30 unit/L [facility] Alanine Aminotransferase 15 0 - 30 unit/L [facility] Alkaline Phosphatase 136(H) 40 - 104 unit/L [facility] Bilirubin, Total 0.2 0.2 - 1.3 mg/dL [facility] Bilirubin, Direct <0.1 0.0 - 0.3 mg/dL [facility] Est Glomerular Filtration Rate >60 >=60 [facility] Comment: This estimated GFR [...] the following links into your internet browser. [email or web address] Blood specimen (specimen) 02/25/2016 11:29 AM EST 02/25/2016 11:35 AM EST Narrative Resulting Agency Comment Spec In Lab Zhanna Crowley MD CHEMISTRY ORDERABLES [facility] [place] [place] [address] documented in this encounter Visit Diagnoses Diagnosis Renal cancer, unspecified laterality Renal cancer, unspecified laterality Renal cancer, unspecified laterality documented in this encounter Care Teams Handhole Machine Operator Relationship Specialty Start Date End Date Rodney Benson MD [address] [facility] [address] [place] [address] PCP - General 06/15/14 10/27/21 documented as of this encounter
--- OUTSIDE RECORDS SUMMARY | 2023-12-14 15:45 | XMS_ITS | Encounter Summary ---
[facility] [place] [address] Care Team Providers Care Manager Technical Name Role Phone Nimisha Benson MD Primary Care Provider [phone] Reason for Referral * Diagnostic Test (Routine) - Closed Specialty Diagnoses / Procedures Referred By Contac t Referred To Contact Radiology Diagnoses History of renal cell cancer Procedures CT Abdomen wwo Contrast CT Abdomen & Pelvis wwo Contrast (Generic) Fabrizio Crowley MD [facility] [place] [address] [facility] [place] [address] Referral ID Status Reason Start Date Expiration Date V isits Requested Visits Authorized [id number] Closed Specialty Service Requested 11/22/2018 01/06/2019 1 1 Encounter Details Date Type Department Care Team (Late st Contact Info) Description 08/25/2018 [place] [address] Keith Pizano LPN History of renal cell cancer Social History [...] please contact the number below. ? Narrative 11/26/2018 4:34 PM EDT EXAMINATION: ??CT [...] of the left adrenal gland is unchangedfrom 2015 and represents a benign process. The [...] contact the number below. Fabrizio Crowley MD [facility] CT ORDERABLES * XR Chest PA & [...] please contact the number below. ? Narrative 11/26/2018 11:44 AM EDT EXAMINATION: XR [...] contact the number below. Electronically signed by: TAMI Nix [facility]([phone]), at 11/26/2018 11:44 AM Fabrizio Crowley MD IM DX ORDERABLES * (ABNORMAL) Comprehensive metabolic panel (non-fasting) (11/26/2018 [...] of body mass or the acutely ill. [email or web address] eGFR 111 >=60 mL/min/1. 73 m?? [facility] Comment: The eGFR was calculated using the CKD-EPI equation. As with all creatinine based estimates of kidney function, eGFR values calculated with the CKD-EPI equation are not accurate in patients with acute kidney failure, extremes of body mass or the acutely ill. [email or web address] Blood specimen (specimen) 11/26/2018 11:00 AM EDT 11/26/2018 11:18 AM EDT Narrative Resulting Agency Comment Spec In Lab Fabrizio Crowley MD CHEMISTRY ORDERABLES [facility] [place] [address] documented in this encounter Visit Diagnoses Diagnosis History of renal cell cancer History of renal cell cancer History of renal cell cancer documented in this encounter Care Teams Manager Technical Relationship Specialty Start Date End Date Nimisha Benson MD [address] [place] [address] PCP - General 06/15/14 10/27/21 documented as of this encounter
--- OUTSIDE RECORDS SUMMARY | 2023-12-14 15:45 | XMS_ITS | Encounter Summary ---
Author Organization [facility] [place] [address] Care Team Providers Care Arabic Professor Name Role Phone Nimisha Benson MD Primary Care Provider [phone]- [phone] Encounter Details Date Type Department Care Team (Late st Contact Info) Description 09/03/2015 [place] [address] Fabrizio Crowley MD [facility] [place] [address] Social History Tobacco Use Types Packs/Day Years [...] on filedocumented in this encounter Care Teams Arabic Professor Relationship Specialty Start Date End Date Nimisha Benson MD [address] [place] [address] PCP - General 06/15/14 10/27/21 documented as of this encounter
--- OUTSIDE RECORDS SUMMARY | 2023-12-14 15:45 | XMS_ITS | Encounter Summary ---
Author Organization [facility] Address [facility] [place] [address] Care Team Providers Care Clutch Operator Name Role Phone Nimisha Benson MD Primary Care Provider [phone]- [phone] Encounter Details Date Type Department Care Team (Latest Contact Info) Description 09/03/2015 1:11 PM EDT - 09/03/2015 2:15 PM EDT Hospital Encounter XRay at [address] [place] [address] Fabrizio Crowley MD [facility] [place] [address] Left renal mass Discharge Disposition: Home Social [...] Comments XR CHEST PA AND LATERAL Routine 09/03/2015 1:21 PM EDT Left renal mass documented in [...] ureter documented in this encounter Care Teams Clutch Operator Relationship Specialty Start Date End Date Nimisha Benson MD [address] [facility] [address] [place] [address] PCP - General 06/15/14 10/27/21 documented as of this encounter
--- OUTSIDE RECORDS SUMMARY | 2023-12-14 15:45 | XMS_ITS | Encounter Summary ---
Author Organization [facility] [place] [address] Care Team Providers Care Fabrics And Material Cutter Name Role Phone Nimisha Benson MD Primary Care Provider [phone]- [phone] Encounter Details Date Type Department Care Team (Late st Contact Info) Description 06/14/2015 [place] [address] Fabrizio Crowley MD [facility] [place] [address] Renal mass Social History Tobacco Use Types [...] ureter documented in this encounter Care Teams Fabrics And Material Cutter Relationship Specialty Start Date End Date Nimisha Benson MD [address] [place] [address] PCP - General 06/15/14 10/27/21 documented as of this encounter
--- OUTSIDE RECORDS SUMMARY | 2023-12-14 15:45 | XMS_ITS | Encounter Summary ---
Author Organization [facility] Address [facility] [place] [address] Care Team Providers Care Dining Room Attendant Name Role Phone Nimisha Benson MD Primary Care Provider [phone]- [phone] Encounter Details Date Type Department Care Team (Latest Contact Info) Description 11/17/2014 9:29 AM EDT - 11/17/2014 11:59 PM EDT Hospital [place] [address] Fabrizio Adam MD [facility] [place] [address] Compression fracture Discharge Disposition: Home Social History [...] Sign Reading Time Taken Comments Blood Pressure 110/50 11/17/2014 2:00 PM EDT Pulse 76 11/17/2014 1:45 PM EDT Temperature 36.6 ??C (97.8 ??F) 11/17/2014 1:38 PM ED T Respiratory Rate 16 11/17/2014 2:00 PM EDT Oxygen Saturation 96% 11/17/2014 2:00 PM EDT Inhaled Oxygen Concentration - - Weight - - Height - - Body Mass Index - - documented in this encounter Discharge Instructions * Discharge Instructions* Stella Quezada RN - 11/17/2014 1:57 PM EDT [facility] Discharge Instructions for Vertebroplasty Your vertebroplasty was performed at T7 Level(s), left and right. Activity Level: Rest for the remainder of the day today. Although the cement used for the procedurehas nearly reached it's full hardness, there is a risk of fracture at other levels. Do not lift anything heavier than a gallon of milk for at least three days, then gradually increase your activity as tolerated. Bandage: A small bandage is present at the puncture site on your back and should remain in place for 48 hours, then can be removed. You may shower while the dressing is in place. No swimming, tub baths or whirlpools for one week. When to call your healthcare provider: If you see any redness, swelling or drainage around or from the puncture sites If you develop shaking chills If you develop a fever equal to or greater than 101 degrees fahrenheit If you develop pain at the insertion site(s) If your original back pain worsens, if you develop back pain in a new area or if you develop weakness or numbness in one or both legs When to call the Interventional Radiology Department: Please call with any questions or concerns. If it is during regular office hours, please call [phone]. If it is after regular office hours, or on weekends or holidays, please call [phone] and ask to speak to the Laundry Operator Finishing leasing sales consultant for Interventional Radiology. XXX You have received medication during your procedure to help lesson anxiety and keep you comfortable. We recommend that you do not drive, operate equipment, sign any important documents, or smoke unattended for 24 hours following your procedure. You may have received medication before and/or during your procedure, which affects judgement and reaction time. Be careful on stairs, as you may be unsteady on your feet. You may eat a regular diet as tolerated IV site -- slight redness, or tenderness is normal, you can use a warm compress. If tenderness and redness increases or foul drainage occurs, please contact your M. D. We will call you in a couple of weeks to check on your progress. 02/28/11 documented in this encounter Medications at Time [...] 09/16/2014 12/11/2014 documented as of this encounter Progress Notes * Kacey Marcos APRN - 11/17/2014 11:02 AM EDT Images from the original note were not included. Pre-Sedation Assessment: Planned procedure: T7 compression fracture Assessment: GEN: NAD CV: RRR No R/G/M PULM; Few fine crackles bilaterally ASA 3 MALLAMPATI 3 H&P reviewed:YES Current medications reviewed: YES Allergies reviewed: YES Sedation Plan: MODERATE SEDATION The sedation plan, its benefits and risks, and alternatives were discussed with the PATIENT. The planned procedure, its benefits and risks, and alternatives were discussed with the PATIENT. The patient consented to the procedure. * Lala Paul RN - 11/16/2014 3:45 PM EDT ANGIO/VIR NURSING DATABASE Name: MONIQUE BARAHONA Date of : 1960 AGE 54 y.o. [address]: [address] [place] [phone] (home) Mobile: No relevant phone numbers on file. Referring Provider: Fabrizio Adam PROCEDURE: T7 vertebroplasty-compression fx No Known Allergies Pertinent PMH: Patient Active Problem List Diagnosis Code ??? Left renal mass N28.89 ??? Wedge compression fracture of T7 vertebra S22.060A Pertinent PSH: Past Surgical History Procedure Laterality Date ??? N/A 09/15/2014 RADIOFREQUENCY ABLATION-RENAL performed by Richie Perdomo MD at [facility] Date/Procedure Med's given/comments 07/17/14 CT Left renal Bx Fentanyl 100 mcg IV, Versed 2 mg IV 11/17/14 T7 Vertebroplasty Fentanyl 150 mcg IV, versed 2 mg IV Laboratory Results: Lab Results Component Value Date INR 0.9 09/15/2014 No components found for: PT/PTT Lab Results Component Value Date CREATININE 0.54* 09/15/2014 Lab Results Component Value Date K 3.7 09/15/2014 Lab Results Component Value Date PLATELET 195 09/16/2014 Medications: Prior to Admission medications Medication Sig Start Date End Date Taking? Authorizing Provider oxyCODONE 10 mg Tablet Take 1 tablet by mouth every 4 hours as needed for Pain (Moderate pain (4-6)). 09/16/14 Efrain Soler MD omeprazole (PRILOSEC) 40 mg Capsule, Delayed Release(E.C.) Take 40 mg by mouth daily. Indications: Gastroesophageal Reflux PROVIDER, HISTORICAL ++++ FOR OUTPATIENT SCAN'S: I have informed this patient that they require a delivery truck driver to be present and in the building to drive them home after this procedure. In the absence of a delivery truck driver, IR will not be able to perform this procedure and will need to reschedule. Pt verbalized understanding of these i nstructions during the pre-procedure education via phone. (initials) documented in this encounter Procedure Notes * Fabrizio Adam MD - 11/17/2014 2:09 PM EDT VIR PROCEDURE NOTE Procedure: T8 [...] and draped, maximum sterile barrier technique was usedthroughout. Due to the painful nature of the procedure, patient received split doses of intravenousfentanyl and versed from the IR nurse while [...] on the right, placing a second 13-gauge needleinto the vertebral body. Then during fluoroscopy, bone cement (PMMA) with barium was injected via the left needle. There was filling of the lower portion of the vertebral body ad then cement extendedinto a vein and injection was halted. After a minute wait, injection was resumed and the vein did not fill further. Injection was then switched to the right needle. After cement filled most of the vertebral body both ant-post and med-lateral, injection stopped. After allowing time for bone cement to stiffen, both needles were removed and post-procedure imagesobtained. Medications: Fentanyl 150 mcg IV, Versed 2mg IV, 1% Lidocaine <10ccs subcutaneous. Est Blood Loss: <5cc. Complications: No immediate Impression: 1. Fluoro in AP and lateral projections showed the compressed thoracic vertebra to be T7 if counting from the last rib bearing vertebra but T8 if counting from sacrum. Has been identified as T7 on MR. 2. T8 vertebroplasty. Resident/Fellow: None. Attending: Dr. Kia Gavin performed this procedure. documented in this encounter Plan of Treatment Not on file documented as of this encounter Procedures Procedure Name Priority Date/Time Associated Diagnosis Comments IR VERTEBROPLASTY Routine 11/17/2014 1:2 9 PM EDT Compression fracture documented in this encounter Results * IR vertebroplasty (11/17/2014 [...] Gavin performed this procedure. Fabrizio Adam MD [facility] ORDERABLES documented in this encounter Visit Diagnoses Diagnosis Compression fracture Closed fracture of unspecified bone documented in this encounter Administered Medications Inactive Administered Medications - up to 3 most recent administrations Medication Order MAR Action Action Date Dose Rate Site ceFAZolin (ANCEF) 2g in dextrose 5% 50 mL 2 g, Intravenous, ONCE, 1 dose, On Thu11/17/14 at 1115, Administer over 30 Minutes, Redose every 3 hours if CrCl is greater than 20. Redose every 8 hours if CrCl is less than 20., Day of Surgery (Day of Procedure), Indication for (Active or Suspected): Prophylaxis Given 11/17/2014 11:33 AM EDT 2 g 100 mL/hr fentaNYL 50 mcg/mL multi-dose injection 25-50 mcg, Intravenous, EVERY 5 MIN PRN, Starting on Thu11/17/14 at 1057, Until Thu11/17/14 at 1318, Pain, per unit protocol, For use in Interventional Radiology (IR) only for procedural sedation with direct provider supervision and verbal order., Angio/IR (Intra-Procedure), Routine Given 11/17/2014 12:58 PM EDT 25 mcg Given 11/17/2014 12:55 PM EDT 25 mcg Given 11/17/2014 12:32 PM EDT 25 mcg midazolam (PF) (VERSED) 1 mg/mL multi-dose injection 0.5-1 mg 0.5-1 mg, Intravenous, EVERY 5 MIN PRN, Starting on Thu11/17/14 at 1057, Until Thu11/17/14 at 1318, Anxiety, per unit protocol, For use in Interventional Radiology (IR) only for procedural sedation with direct provider supervision and verbal order., Angio/IR (Intra-Procedure), Routine Given 11/17/2014 12:32 PM EDT 0.5 mg Given 11/17/2014 12:15 PM EDT 0.5 mg Given 11/17/2014 12:10 PM EDT 0.5 mg sodium chloride 0.9% infusion 1,000 mL, at 100 mL/hr, Intravenous, CONTINUOUS, Starting on Thu11/17/14 at 1115, Until Thu11/17/14 at 1318, Day of Surgery (Day of Procedure) New Bag 11/17/2014 10:31 AM EDT 1,000 mLs 100 mL/hr documented in this encounter Care Teams Dining Room Attendant Relationship Specialty Start Date End Date Nimisha Benson MD [address] [place] [address] PCP - General 06/15/14 10/27/21 documented as of this encounter
--- OUTSIDE RECORDS SUMMARY | 2023-12-14 15:45 | XMS_ITS | Encounter Summary ---
Author Organization [facility] Address [facility] [place] [address] Care Team Providers Care A Operator Name Role Phone Nimisha Benson MD Primary Care Provider [phone] Reason for Visit * Reason Onset Date Comments Appointment 11/15/2018 Encounter Details Date Type Department Care Team (Late st Contact Info) Description 11/15/2018 Tele[place] [address] Parrish Gallo MD [facility] [place] [address] Appointment Social History Tobacco Use Types Packs/Day [...] encounter Miscellaneous Notes * Telephone Encounter - Rhona Strong - 11/15/2018 10:08 AM EDT Vm not set up - unable to leave message- letter sent LPI documented in this encounter Plan of Treatment Not on file documented as of this encounter Visit Diagnoses Not on filedocumented in this encounter Care Teams A Operator Relationship Specialty Start Date End Date Nimisha Benson MD [address] [place] [address] PCP - General 06/15/14 10/27/21 documented as of this encounter
--- OUTSIDE RECORDS SUMMARY | 2023-12-14 15:45 | XMS_ITS | Encounter Summary ---
Author Organization [facility] Address [facility] [place] [address] Care Team Providers Care Sanipractic Physician Name Role Phone Nimisha Benson MD Primary Care Provider [phone] Encounter Details Date Type Department Care Team (Latest Contact Info) Description 02/25/2016 11:31 AM EST - 02/25/2016 11:53 AM [facility] Hospital Encounter XRay at [address] [place] [address] Fabrizio Crowley MD [facility] [place] [address] Renal cancer, unspecified laterality Discharge Disposition: Home [...] Comments XR CHEST PA AND LATERAL Routine 02/25/2016 11:45 AM EST Renal cancer, unspecified laterality documented [...] of metastatic disease or other interval change. Fabrizio Crowley MD IMG DX ORDERABLES documented in this encounter Visit Diagnoses Diagnosis Renal cancer, unspecified laterality documented in this encounter Care Teams Sanipractic Physician Relationship Specialty Start Date End Date Nimisha Benson MD [address] [facility] [place] [address] PCP - General 06/15/14 10/27/21 documented as of this encounter
--- OUTSIDE RECORDS SUMMARY | 2023-12-14 15:45 | XMS_ITS | Encounter Summary ---
Author Organization [facility] [place] [address] Care Team Providers Care Buffing Wheel Former Automatic Name Role Phone Rodney Benson MD Primary Care Provider [phone] Encounter Details Date Type Department Care Team (Late st Contact Info) Description 12/11/2014 3:30 PM EDT Office [place] [address] Zhanna Crowley MD [facility] [place] [address] Left renal mass Social History Tobacco Use [...] Sign Reading Time Taken Comments Blood Pressure 128/74 12/11/2014 4:09 PM EDT Pulse 97 12/11/2014 4:09 PM EDT Temperature - - Respiratory Rate - - Oxygen Saturation 98% 12/11/2014 4:09 PM EDT Inhaled Oxygen Concentration - - Weight 68.9 kg (152 lb) 12/11/2014 4:09 PM EDT Height - - Body Mass Index 26.09 12/11/2014 1:38 PM EDT documented in this encounter Progress Notes * Janine Goldberg, MARCEL - 12/11/2014 4:11 PM EDT Patient Name: Monique Barahona Date of Service: 12/11/2014 Primary Care Provider: RODNEY BENSON MD (General) Reason for Visit: Monique Barahona is a 54 y.o. female referred by for evaluation of a LEFT renalmass. History of Present Illness: The patient had a CT and was found to have an incidental right renal mass in 04/2013. She was on active surveillance. Biopsy on 07/17/2014 [facility] Provider: ZHANNA CROWLEY Pt. Name: MONIQUE BARAHONA Acc #: [id number] Pt. Col Date: 07/17/2014 /Sex: 1960,(54 years),Female Rec Date: 07/17/2014 LOC: [facility] SURGICAL PATHOLOGY ---Pathologic Diagnosis--- A - Left renal mass, Minute fragment of renal cell carcinoma, clear cell type admixed with abundant normal renal parenchyma. Josué nuclear grade: 2 of 4 Note: The nuclear grade may vary within different areas of a renal cell carcinoma. The possibility that the needle aspirates/core biopsies are not installation service representative of the highest nuclear grade within the tumor cannot be excluded. 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 CT 11/214 showed: IMPRESSION: Low-attenuation posttreatment changes seen in lower pole left kidney. No evidence of complication. No evidence of local tumor recurrence. She saw Dr. Perdomo already today. The patient remains asymptomatic. Specifically denies a history of flank pain, hematuria, dysuria or urgency. Urine flow is good and with nocturia x 0-1. The patient empties the bladder completely. Appetite is good. Weight is down 60lbs (trying). She has back pain given compression fracture in 07/2014. She had vertebroplasty in 11/2014. Past Medical History: Asthma Past Surgical History: ~ 2011 Cholecystectomy ~ 2007 Appendectomy Medications: Reviewed see attached Allergies: Reviewed see attached Family History: There is no family history of renal cancer. No diseases run in the family. 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 The patient is singles and lives with her 30 year old son.The patient drinks no ETOH Tobacco: Trying to quit 8 per day Systems review: She walks but no regular exercise. No significant limitations Physical Exam: Vital signs are reviewed The the patient appears healthy and in no distress. Abdomen soft, nontender, no masses or CVA tenderness Labs: 12/11/14: cre 0.66, LFTs normal except for ALT of 38 X-rays are reviewed and are as noted in the history. 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 Perdomo already today. Repeat LFTs with PCP in about a month, I will cc to PCP. All pt questions answered to her apparent satisfaction Janine Fallon aPRN documented in this encounter Plan of Treatment Not on file documented as of this encounter Visit Diagnoses Diagnosis Left renal mass Unspecified disorder of kidney and ureter documented in this encounter Care Teams Buffing Wheel Former Automatic Relationship Specialty Start Date End Date Rodney Benson MD [address] [place] [address] PCP - General 06/15/14 10/27/21 documented as of this encounter
--- OUTSIDE RECORDS SUMMARY | 2023-12-14 15:46 | XMS_ITS | Encounter Summary ---
Author Organization [facility] Address [address] [place] [address] Care Team Providers Care It Trainee Name Role Phone Modesta Cook MD Primary Care Provider [phone] Encounter Details Date Type Department Care Team ([facility] st Contact Info) Description 03/04/2022 Lab Requisition [facility] Pathology & Laboratory Medicine - [facility] [address] [place] [address] Randolph Estrada MD [address] [place] [id number] Cutaneous abscess of neck Social History Tobacco Use Types Packs/Day Years Used Date Smoking Tobacco: Never Assessed Sex and Gender Information Value Date Recorded Sex Assigned at Not on file Gender Identity Not on file Sexual Orientation Not on file documented as of this encounter Plan of Treatment Not on file documented as of this encounter Procedures Procedure Name Priority Date/Time Associated Diagnosis Comments NON NEON SIGN WORKER/FNA CYTOLOGY Today 03/03/2022 12:30 EST Cutaneous abscess of neck documented in this encounter Results * NON NEON SIGN WORKER/FNA CYTOLOGY (03/03/2022 12:30 EST) Note to Patient The following pathology results have been interpreted by your pathologist and may be available to you before your health provider has had the opportunity to review them. Please allow time for your provider to receive these results and explore management options, if applicable. 03/04/2022 13:50 EST [facility] Final Diagnosis NECK, LEFT SIDE, FINE NEEDLE ASPIRATION: - Benign appearing squamous cells and anucleate squamous cells. 03/04/2022 13:50 [facility] Diagnosis Comment The findings may represent a benign squamous-lined lesion such as an epidermoid or branchial cleft cyst, but a squamous neoplastic lesion involving a lymph node (although lymphoid cells are not present on this aspirate) cannot be entirely excluded and correlation with clinical findings is essential. 03/04/2022 13:50 [facility] Attestation By the signature below, the attending physician certifies that they have personally conducted a gross and/or microscopic examination of the described specimens and rendered or confirmed the above diagnosis. 03/04/2022 13:50 [facility] at 1350 Clinical History Left neck abscess J-D node; smoker; no cats; no cows; H/O fractured tooth; H/O Covid booster around time of onset 03/04/2022 13:50 [facility] Gross Description A. One vial of CytoLyt was received and processed by selective cellular enhancement technique. 03/04/2022 13:50 [facility] Performing Lab [facility] 03/04/2022 13:50 [facility] Scanned Images 03/04/2022 13:50 [facility] Fine Needle Aspirate SOFT TISSUE / Unknown 03/03/2022 12:30 EST 03/04/2022 6:44 EST Randolph Estrada MD PATHOLOGY ORDERABLES [facility] [address] [place] [address] documented in this encounter Visit Diagnoses Diagnosis Cutaneous abscess of neck Cellulitis and abscess of neck documented in this encounter Care Teams It Trainee Relationship Specialty Start Date End Date Modesta Cook MD [address] [place] [address] PCP - General 02/16/22 documented as of this encounter
--- OUTSIDE RECORDS SUMMARY | 2023-12-14 15:46 | XMS_ITS | Encounter Summary ---
Author Organization [facility] Address [facility] [place] [address] Care Team Providers Care Contractor Buyer Name Role Phone Elmer Phillips MD, Fabrizio Primary Care Provider [phone] Encounter Details Date Type Department Care Team (Late st Contact Info) Description 05/12/2013 [place] [address] Fabrizio Crowley MD [facility] [place] [address] Social History Tobacco Use Types Packs/Day Years [...] Associated Diagnosis Comments FILM LIBRARY STORAGE ONLY MR ABDOMEN Routine 05/12/2013 11:52 AM EDT documented in this encounter Results * Film Library- Storage only MR Abdomen (05/12/2013 11:52 AM EDT) Anatomical Region Laterality Modality Other 05/12/2013 11:5 2 AM EDT Narrative 05/18/2014 11:53 AM EDT This is a Non-reportable exam Procedure Note GAMALIEL, UNSIGNED REPORT - 05/18/2014 This is a Non-reportable exam Fabrizio Crowley MD [facility] FILM LIBRARY ORD ERABLES documented in this encounter Visit Diagnoses Not on filedocumented in this encounter Care Teams Contractor Buyer Relationship Specialty Start Date End Date Fabrizio Payne MD [address] [place] [address] PCP - General 01/08/10 06/14/14 documented as of this encounter
--- OUTSIDE RECORDS SUMMARY | 2023-12-14 15:46 | XMS_ITS | Encounter Summary ---
Author Organization [facility] Address [address] [place] [address] Care Team Providers Care Steel Fitter Name Role Phone Modesta Cook MD Primary Care Provider [phone] Encounter Details Date Type Department Care Team ([facility] st Contact Info) Description 07/17/2023 Lab Requisition [facility] Pathology & Laboratory Medicine - [facility] [address] [place] [address] Modesta Cook MD [address] [place] [address] [address] [place] [id number] Encounter for other general examination Social History Tobacco Use Types Packs/Day Years Used Date Smoking Tobacco: Never Assessed Sex and Gender Information Value Date Recorded Sex Assigned at Not on file Gender Identity Not on file Sexual Orientation Not on file documented as of this encounter Plan of Treatment Not on file documented as of this encounter Procedures Procedure Name Priority Date/Time Associated Diagnosis Comments PAP TEST Today 07/16/2023 10:00 EDT Encounter for other general examination HPV DNA DETECTION WITH GENOTYPING, PCR Today 07/16/2023 10:00 EDT Encounter for other general examination documented in this encounter Results * HUMAN PAPILLOMAVIRUS (HPV) DETECTION-HIGH RISK TYPES (07/16/2023 10:00 EDT) HPV other High Risk types, PCR Negative Negative 07/24/2023 16:41 EDT [facility] Comment:No E6 or E7 mRNA is detected from HPV types 16,18,31,33,35,39,45,51,52,56,58,59,66, and 68 by hotel service supervisor mediated amplification. Pap Test CERVIX UTERI STRUCTURE / Unknown 07/16/2023 10:00 EDT 07/23/2023 13:02 EDT oMdesta Cook MD MICROBIOLOGY - GENE RAL ORDERABLES [facility] [address] [place], [place] [id number] * PAP TEST (07/16/2023 10:00 EDT) Specimens A. Cervix and/or Endocervix , ThinPrep Imaging System with Manual Evaluation 07/24/2023 16:41 T [facility] Specimen Adequacy Satisfactory for Evaluation - transformation zone component present 07/24/2023 16:41 [facility] General Categorization Negative for intraepithelial lesion or malignancy 07/24/2023 16:41 T [facility] Attestation . 07/24/2023 16:41 [facility] at 1641 Clinical History SEE BELOW 07/24/19 24 16:41 [facility] HPV The result for the Human Papillomavirus (HPV) Detection-High Risk Types is Negative. No E6 or E7 mRNA is detected from HPV types 16,18,31,33,35,39 ,45,51,52,56,58,5 9,66, and 68 by hotel service supervisor mediated amplification.Sravani ting was performed on specimen [id number] and was resulted on 07/24/2023 1641 EDT by GAMALIEL, LAB INSTRUMENT RESULTS IN 07/24/2023 16:41 T [facility] Performing Lab [facility] 07/24/2023 16:41 T [facility] Scanned Images 07/24/2023 16:41 T [facility] Pap Test CERVIX UTERI STRUCTURE / Unknown 07/16/2023 10:00 EDT 07/17/2023 14:57 EDT Modesta Cook MD PATHOLOGY ORDERABLE S [facility] [address] [place], [place] [id number] documented in this encounter Visit Diagnoses Diagnosis Encounter for other general examination documented in this encounter Care Teams Steel Fitter Relationship Specialty Start Date End Date Modesta Cook MD [address] [place] [id number] PCP - General 02/16/22 documented as of this encounter
--- OUTSIDE RECORDS SUMMARY | 2023-12-14 15:46 | XMS_ITS | Encounter Summary ---
Author Organization [facility] Address [address] [place] [address] Care Team Providers Care Cocoa Mill Operator Name Role Phone Modesta Cook MD Primary Care Provider [phone] Reason for Visit * Reason Onset Date Comments Eye Problem 08/09/2023 Encounter Details Date Type Department Care Team ([facility] st Contact Info) Description 08/09/2023 Telephone [facility] Ophthalmology - [address] [address] Shawn Fernandes MD [address] [facility] [place] [address] Eye Problem Social History Tobacco Use Types Packs/Day Years Used Date Smoking Tobacco: Never Assessed Sex and Gender Information Value Date Recorded Sex Assigned at Not on file Gender Identity Not on file Sexual Orientation Not on file documented as of this encounter Miscellaneous Notes * Telephone Encounter - Shawn Fernandes MD - 08/09/2023 1652 EDT Error, not all patient details match what I was given, so I cannot be sure this is the correct patient. documented in this encounter Plan of Treatment Not on file documented as of this encounter Visit Diagnoses Not on filedocumented in this encounter Care Teams Cocoa Mill Operator Relationship Specialty Start Date End Date Modesta Cook MD [address] [place] [address] [address] [place] [address] PCP - General 02/16/22 documented as of this encounter
--- OUTSIDE RECORDS SUMMARY | 2023-12-14 15:46 | XMS_ITS | Encounter Summary ---
Author Organization [facility] [place] [address] Care Team Providers Care Sheet Rock Installation Helper Name Role Phone Nimisha Benson MD Primary Care Provider [phone] Encounter Details Date Type Department Care Team (Late st Contact Info) Description 08/07/2014 Notes [place] [id number] Richie Perdomo MD [facility] [place] [address] Social History Tobacco Use Types Packs/Day Years Used Date Smoking Tobacco: Every Day Comments:eight cigs a day Sex and Gender Information Value Date Recorded Sex Assigned at Not on file Gender Identity Not on file Sexual Orientation Not on file documented as of this encounter Progress Notes * Richie Perdomo MD - 08/07/2014 11:23 AM EDT Images from the original note were not included. PRE-PROCEDURE VIR NOTE: Referring Physician: Fabrizio Crowley MD ([facility] Planned Procedure: CT guided LEFT renal RFA Procedure Indication: T1a renal cell carcinoma Presenting Diagnosis/ Complaint: 54 yr old F patient with an incidentally discovered left renal mass, first detected on a CT scan in April 2013. She has been on active surveillance since that time. She is without flank salter or hematuria. CT guided biopsy on 07/17/2014 revealed: ---Pathologic Diagnosis--- A - Left renal mass, Minute fragment of renal cell carcinoma, clear cell type admixed with abundant normal renal parenchyma. Josué nuclear grade: [address] scans are available in e[facility] for review, showing an approximately 12 mm enhancing lesion in the lower pole of the left kidney. She presents for image guided ablation. Past Medical/Surgical History Patient Active Problem List Diagnosis Code ??? Left renal mass 593.9 Asthma S/p cholecystectomy- 2011 S/p appendectomy- 2007 Medications: Current outpatient prescriptions:UNABLE TO FIND, Med Name: Omni eight loss drops, Disp: , Rfl: ; ranitidine (ZANTAC) 75 mg Tablet, Take 75 mg by mouth as needed for Heartburn., Disp: , Rfl: Allergies: Review of patient's allergies indicates no known allergies. Social History and Habits: History Social History ??? Marital Status: Spouse Name: N/A Number of Children: N/A ??? Years of Education: N/A Occupational History ??? Not on file. Social History Main Topics ??? Smoking status: Current Every Day Smoker ??? Smokeless tobacco: Not on file Comment: eight cigs a day ??? Alcohol Use: Not on file ??? Drug Use: Not on file ??? Sexual Activity: Not on file Other Topics Concern ??? Not on file Social History Narrative Labs: Lab Results Component Value Date PLATELET 219 07/17/2014 BUN 9 07/25/2014 CREATININE 0.66* 07/25/2014 ALKPHOS 81 07/25/2014 AST 14 07/25/2014 ALBUMIN 4.3 07/25/2014 BILIDIR 0.1 07/25/2014 BILITOT 0.4 07/25/2014 ALT 12 07/25/2014 PROT 7.4 07/25/2014 Prior relevant imaging: Assessment/Plan: CT guided left renal radiofrequency ablation Patient Position: Prone with left side elevated approximately 60 degrees Biopsy/drain access site: LEFT flank Medications to discontinue (and days): [none] Labs: None new needed General anesthesia required: [no] documented in this encounter Plan of Treatment Not on file documented as of this encounter Visit Diagnoses Not on filedocumented in this encounter Care Teams Sheet Rock Installation Helper Relationship Specialty Start Date End Date Nimisha Benson MD [address] [place] [address] [address] [place] [address] PCP - General 06/15/14 10/27/21 documented as of this encounter
--- OUTSIDE RECORDS SUMMARY | 2023-12-14 15:46 | XMS_ITS | Encounter Summary ---
Author Organization [facility] Address [address] [place] [address] Care Team Providers Care Product Marketing Executive Name Role Phone Unavailable Primary Care Provider Unavailabl e Encounter Details Date Type Department Care Team ([facility] Contact Info) Description 02/18/2002 Results Only [facility] [address] [place] [address] Omari Howe MD [address] [place] [address] Social History Tobacco Use Types Packs/Day Years Used Date Smoking Tobacco: Never Assessed Sex and Gender Information Value Date Recorded Sex Assigned at Not on file Gender Identity Not on file Sexual Orientation Not on file documented as of this encounter Plan of Treatment Not on file documented as of this encounter Procedures Procedure Name Priority Date/Time Associated Diagnosis Comments SURGICAL PATHOLOGY Routine 02/18/2002 0:00 EST documented in this encounter Results * SURGICAL PATHOLOGY (02/18/2002 0:00 EST) Pathology Report: SURGICAL PATHOLOGY REPORT Reports generated via electronic interface contain original data; however they are lacking the format of the original report. Caution should be taken when reading/interpretin g unformatted reports. Name: ? MONIQUE CLAYTON ? Accession #: ? [id number] ? : ? 1960 (Age: 42) ??F ? Collect Date: ? 02/18/2002 ? Location: ? [facility] ? Receive Date: ? 02/21/2002 ? Provider: OMARI HOWE MD Copy to: DORITA MAE NP ? Final Pathologic Diagnosis: ? Appendix, resection: - ??Acute gangrenous appendicitis and periappendicitis with perforation. Document reviewed and electronically signed by: Charo Stover MD Report ??Date: 02/23/2002 15:22 By the signature above, the attending physician certifies that he/she has personally conducted a gross and/or microscopic examination of the described specimens and rendered or confirmed the above diagnosis. Specimen(s) Received: ? Appendix Clinical History: ? RLQ pain Gross Description: ? Received in formalin labelled Degreenia and appendix is a vermiform appendix which measures 4.0 cm in length x 0.7 cm in diameter. ??There is a moderate amount of attached mesoappendix. ??The serosal surface of the appendix is garcia-house to focally white. ??There is a round perforation site which measures 0.2 cm in diameter, and the remaining surface contains a fibrinopurulent exudate. The resection margin is black inked. ??Serial sections reveal a lumen that is dilated to 0.4 cm and contains a fecalith distally. The remaining cut surface is garcia-pink to brown and grossly unremarkable. ??The longitudinally bisected distal end of the appendix along with two junior sales representative cross sections of the appendix are submitted in one cassette. ?? (Dr. Martin)/[facility] End of Report [facility] 02/18/2002 02/21/2002 15: 11 EST Omari Howe MD PATHOLOGY ORDERABLE S [facility] [address] [place] [address] documented in this encounter Visit Diagnoses Not on filedocumented in this encounter
--- OUTSIDE RECORDS SUMMARY | 2023-12-14 15:46 | XMS_ITS | Encounter Summary ---
Author Organization [facility] Address [facility] [place] [address] Care Team Providers Care Adjunct Lecturer Name Role Phone Rodney Benson MD Primary Care Provider [phone] Reason for Visit * Reason Comments Follow-up Encounter Details Date Type Department Care Team ([facility] Contact Info) Description 07/25/2014 8:40 AM EDT [place] [address] Zhanna Baldwin MD [facility] [place] [address] Renal cancer, left Discharge Disposition: Home Social History Tobacco Use Types Packs/Day Years Used Date Smoking Tobacco: Every Day Comments:eight cigs a day Sex and Gender Information Value Date Recorded Sex Assigned at Not on file Gender Identity Not on file Sexual Orientation Not on file documented as of this encounter Last Filed Vital Signs Vital Sign Reading Time Taken Comments Blood Pressure 126/77 07/25/2014 9:03 AM EDT Pulse 90 07/25/2014 9:03 AM EDT Temperature - - Respiratory Rate 16 07/25/2014 9:03 AM EDT Oxygen Saturation 96% 07/25/2014 9:03 AM EDT Inhaled Oxygen Concentration - - Weight 64.9 kg (143 lb) 07/25/2014 9:03 AM EDT Height 162.6 cm (5' 4) 07/25/2014 9:03 AM EDT Body Mass Index 24.55 07/25/2014 9:03 AM EDT documented in this encounter Progress Notes * Zhanna Baldwin MD - 07/25/2014 9:37 AM EDT Images from the original note were not included. Patient Name: Monique Clayton Date of Service: 07/25/2014 Primary Care Provider: RODNEY BENSON MD Reason for Visit: Monique Clayton is a 54 y.o. female referred by for evaluation of a LEFT renalmass. History of Present Illness: The patient had a CT and was found to have an incidental right renal mass in 04/2013. She has been on active surveillance. Biopsy on 07/17/2014 [facility] Provider: ZHANNA BALDWIN Pt. Name: MONIQUE CLAYTON Acc #: [id number] Pt. Col Date: 07/17/2014 /Sex: 1960,(54 years),Female Rec Date: 07/17/2014 LOC: [facility] SUR[facility]ICAL [facility] ---Pathologic Diagnosis--- A - Left renal mass, Minute fragment of renal cell carcinoma, clear cell type admixed with abundant normal renal parenchyma. Josué nuclear grade: 2 of 4 Note: The nuclear grade may vary within different areas of a renal cell carcinoma. The possibility that the needle aspirates/core biopsies are not customer service representative teller of the highest nuclear grade within the tumor cannot be excluded. CR-0 07/18/14 PNEUMATIC SYSTEMS OPERATOR 07/18/14 Verified by: MATEO ANGELO, SERVANDO Pathologist (Electronic Signature) The patient remains asymptomatic. Specifically denies a history of flank pain, hematuria, dysuria or urgency. Urine flow is good and with nocturia x 0-1. The patient empties the bladder completely. Appetite is good. Weight is down 60lbs (trying). There is no bone pain. A metastatic work up is pending An Abd/Pelvic CT Scan dated 04/2013 and 11/2013 shows ~ stable 1 cm enhancing peripheral enhancing mass in the posterior aspect of the lower pole of the left kidney. There is no fat on the no con study. There is no evidence of lymphadenopathy. The renal vein and IVC are normal. The adrenals are normal. There is no other metastatic disease. The right kidney is of normal size and excretes contrast. Renal Mass Location RENAL SCORE Radius Exophytic Nearness to sinus Anterior/posterior Location Polar Line Total <4cm 4-7 >7 >50% <50% Endo >7mm 4-7 <4 A P None 1 Both X X X X X 5P Past Medical History: Asthma Past Surgical History: ~ 2011 Cholecystectomy ~ 2007 Appendectomy Medications: Reviewed see attached Allergies: Reviewed see attached Family History: There is no family history of renal cancer. No diseases run in the family. 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 The patient is singles and lives with her 30 year old son.The patient drinks no ETOH Tobacco: Trying to quit 8 per day Systems review: She walks but no regular exercise. No significant limitations Physical Exam: Vital signs are reviewed The the patient appears healthy and in no distress. Not examined today Lab values X-rays are reviewed and are as noted in the history. 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 Relatively stable on Active surveillance #2: Minimal Comorbidity Plan: #1: CMP/CXR #2: Left renal Bx + discussion Dr Perdomo re needle ablation #3: Appt with me 1 week after Bx for final disposition I discussed the fact that this was a malignant renal tumor. I again discussed the treatment optionsfor the renal mass including radical nephrectomy, partial nephrectomy either in an open or laparoscopic fashion, minimally invasive approaches such as radio frequency ablation and cryo surgery. In addition observation with serial imaging is an option for small renal masses in patients with significant comorbidity. In her case if this is a malignant tumor given her age and minimal comorbidity I would favour treatment. The mass size and location make it almost ideal for a needle ablative approach. I discussed the pros and cons of needle ablation vs robot assisted lap nephrectomy. I will see the patient with the results of the biopsy for final disposition John. Ghanshyam Baldwin documented in this encounter Miscellaneous Notes * Addendum Note - Cheryle Negro - 07/25/2014 10:22 AM EDTAddended by: CHERYLE NEGRO on: 07/25/2014 10:22 AM Modules accepted: Orders documented in this encounter Plan of Treatment Not on file documented as of this encounter Procedures Procedure Name Priority Date/Time Associated Diagnosis Comments COMPREHENSIVE METABOLIC PANEL STAT 07/25/2014 10:27 AM EDT Renal cancer, left documented in this encounter Results * CT Ablation RFA-Renal (09/15/2014 10:46 AM EDT) Anatomical Region Laterality Modality Computed Tomogra phy 09/15/2014 10:4 6 AM EDT Impressions 09/18/2014 10:32 AM EDT Impression: Left renal mass CT guided RF ablation. No immediate complications. Plan: The patient was transferred to PACU for recovery. She will be admitted overnight to the IR service for monitoring of potential bleeding/hematuria. Follow-up imaging and clinic visit in 2 months. Fellow: Efrain Soler MD (pager #[phone]) Attending: Juan Perdomo MD (I was present and scrubbed for the entire procedure) Film and interpretation reviewed by the attending Narrative 09/18/2014 10:32 AM EDT VIR PROCEDURE NOTE Procedure: Left Renal Mass CT guided Thermal (RFA) Ablation A [id number] Indication for Procedure: 54 yr old F patient with an incidentally discovered left renal mass, first detected on a CT scan in April 2013. She has been on active surveillance since that time. She is without flank salter or hematuria. CT guided biopsy on 07/17/2014 revealed: Left renal mass, Minute fragment of renal cell carcinoma, clear cell type admixed with abundant normal renal parenchyma. Josué nuclear grade: 2 of 4 She presents for image guided ablation. Procedure events and findings: After obtaining informed consent, the patient was sedated/intubated by the Anesthesia Service. She was positioned prone and unenhanced and enhanced(Omni 350-110cc's) axial CT images were obtained. An appropriate level was selected and the skin marked. The left flank was then prepped and draped in a sterile fashion. A 16 ga coaxial needle was advanced under CT fluoroscopy to the superficial aspect of the lesion. A 3 cm [employer] RF probe was selected and inserted through the coaxial needle. The tines were deployed and position confirmed with further axial CT images. The lesion was then ablated according to civil engineering assistant's protocol. A second, overlapping ablation was performed after slight repositioning of the probe. The probe was removed (low power track ablation performed). Post RFA images show no significant perirenal hematoma or pneumothorax. The patient was then transferred to PACU for recovery. She will be admitted overnight for monitoring of potential bleeding/hematuria. Medications: cefazolin 1 gm; GETA by the Anesthesia Service Contrast: 110 cc. Omni 350. Est Blood Loss: <5cc. Complications: None immediate Procedure Note ForRichie graves MD - 09/18/2014 VIR PROCEDURE NOTE Procedure: Left Renal Mass CT guided Thermal (RFA) Ablation A [id number] Indication for Procedure: 54 yr old F patient with an incidentallydiscovered left renal mass, first detected on a CT scan in April 2013. She has beenon active surveillance since that time. She is without flank salter orhematuria. CT guided biopsy on 07/17/2014 revealed: Left renal mass, Minute fragment ofrenal cell carcinoma, clear cell type admixed with abundant normal renalparenchyma. Josué nuclear grade: 2 of 4 She presents for image guided ablation. Procedure events and findings: After obtaining informed consent, thepatient was sedated/intubated by the Anesthesia Service. She was positioned proneand unenhanced and enhanced(Omni 350-110cc's) axial CT images were obtained.An appropriate level was selected and the skin marked. The left flank wasthen prepped and draped in a sterile fashion. A 16 ga coaxial needle wasadvanced under CT fluoroscopy to the superficial aspect of the lesion. A 3 cm [employer] RF probe was selected and inserted throughthe coaxial needle. The tines were deployed and position confirmed withfurther axial CT images. The lesion was then ablated according to civil engineering assistant's protocol. A second, overlapping ablation was performed after slight repositioning of the probe. The probe was removed (low power trackablation performed). Post RFA images show no significant perirenal hematoma or pneumothorax. The patient was then transferred to PACU for recovery. She will beadmitted overnight for monitoring of potential bleeding/hematuria. Medications: cefazolin 1 gm; GETA by the Anesthesia Service Contrast: 110 cc. Omni 350. Est Blood Loss: <5cc. Complications: None immediate IMPRESSION Impression: Left renal mass CT guided RF ablation. No immediatecomplications. Plan: The patient was transferred to PACU for recovery. She will beadmitted overnight to the IR service for monitoring of potentialbleeding/hematuria. Follow-up imaging and clinic visit in 2 months. Fellow: Efrain Soler MD (pager #[phone]) Attending: Juan Perdomo MD (I was present and scrubbed for the entire procedure) Film and interpretation reviewed by the attending Zhanna Baldwin MD IMG CT ORDERABLES * (ABNORMAL) Comprehensive metabolic panel (non-fasting) (07/25/2014 10:27 AM EDT) Glucose 92 65 - 199 mg/dL CERNER MILLENNIUM Comment:Diabetes: >=200 mg/d L plus symptoms Blood Urea Nitrogen 9 8 - 18 mg/dL CERNER MILLENNIUM Creatinine 0.66(L) 0.70 - 1.20 mg/dL CERNER MILLENNIUM Comment: Please note that the pediatric reference intervals supplied above were not validated at [facility]. Results from pediatric patients should be interpreted in conjunction to the patient's age, height and muscle mass. Sodium 144 135 - 145 mmol/L CERNER MILLENNIUM Potassium 4.0 3.5 - 5.0 mmol/L CERNER MILLENNIUM Comment: Please note: ??Patients with WBC >100,000 may have falsely elevated Potassium levels. ??For accurate Potassium quantification in these patients send serum separator tube (gold top) for subsequent determinations. ??Contact the Clinical Chemistry Laboratory if there are any questions. Chloride 101 98 - 107 mmol/L CERNER MILLENNIUM Carbon Dioxide 30 22 - 31 mmol/L CERNER MILLENNIUM Anion Gap 13 5 - 15 mmol/L CERNER MILLENNIUM Calcium 9.9 8.5 - 10.5 mg/dL CERNER MILLENNIUM Protein, Total 7.4 6.1 - 8.0 gm/dL CERNER MILLENNIUM Albumin 4.3 3.2 - 5.2 gm/dL CERNER MILLENNIUM Aspartate Aminotransferase 14 0 - 30 unit/L CERNER MILLENNIUM Alanine Aminotransferase 12 0 - 30 unit/L CERNER MILLENNIUM Alkaline Phosphatase 81 40 - 104 unit/L CERNER MILLENNIUM Bilirubin, Total 0.4 0.2 - 1.3 mg/dL CERNER MILLENNIUM Bilirubin, Direct 0.1 0.0 - 0.3 mg/dL CERNER MILLENNIUM Est Glomerular Filtration Rate >60 >=60 CERNER MILLENNIUM Comment: This estimated GFR (eGFR) value was [...] the following links into your internet browser. [email or web address] Blood specimen (specimen) 07/25/2014 10:27 AM EDT 07/25/2014 10:33 AM EDT Narrative Resulting Agency Comment Spec In Lab Zhanna Baldwin MD CHEMISTRY ORDERABLES RAFA PACHECO * XR chest routine PA & lateral (07/25/2014 10:06 AM EDT) Anatomical Region Laterality Modality Chest N/A Radiographic Lani ging 07/25/2014 10:0 6 AM EDT Impressions 07/25/2014 10:21 AM EDT IMPRESSION: No pulmonary metastases identified. Narrative 07/25/2014 10:21 AM EDT EXAMINATION: CHEST ROUTINE PA+LAT CLINICAL HISTORY: Renal cancer ? lung nodules TECHNIQUE: PA and lateral views of the chest. ? COMPARISON: None. FINDINGS: The lungs appear clear. The cardiomediastinal silhouette, feroz, pulmonary vessels, and pleura are within normal limits. No significant osseous findings are seen. Procedure Note Beth Rhodes MD - 07/25/2014 EXAMINATION: CHEST ROUTINE PA+LAT CLINICAL HISTORY: Renal cancer ? lung nodules TECHNIQUE: PA and lateral views of the chest. COMPARISON: None. FINDINGS: The lungs appear clear. The cardiomediastinal silhouette,feroz, pulmonary vessels, and pleura are within normal limits. No significantosseous findings are seen. IMPRESSION IMPRESSION: No pulmonary metastases identified. Zhanna Baldwin MD IMG DX ORDERABLES documented in this encounter Visit Diagnoses Diagnosis Renal cancer, left Renal cancer, left Renal cancer, left documented in this encounter Care Teams Adjunct Lecturer Relationship Specialty Start Date End Date Rodney Benson MD [address] [place] [address] PCP - General 06/15/14 10/27/21 documented as of this encounter
--- OUTSIDE RECORDS SUMMARY | 2023-12-14 15:46 | XMS_ITS | Encounter Summary ---
Author Organization [facility] [place] [address] Care Team Providers Care Service Now Developer Name Role Phone Nimisha Benson MD Primary Care Provider [phone] Encounter Details Date Type Department Care Team (Latest Contact Info) Description 07/17/2014 9:30 AM EDT - 07/17/2014 11:59 PM EDT Hospital En[place] [address] [facility] [place] [address] Discharge Disposition: Home Social History Tobacco Use Types Packs/Day Years Used Date Smoking Tobacco: Every Day Comments:eight cigs a day Sex and Gender Information Value Date Recorded Sex Assigned at Not on file Gender Identity Not on file Sexual Orientation Not on file documented as of this encounter Medications at Time of Discharge Medication Sig Dispensed Refills Start Date End Date ranitidine (ZANTAC) 75 mg Tablet Take 75 mg by mouth as needed for Heartburn. 09/11/2014 documented as of this encounter Plan of Treatment Not on file documented as of this encounter Visit Diagnoses Not on filedocumented in this encounter Care Teams Service Now Developer Relationship Specialty Start Date End Date Nimisha Benson MD [address] [place] [id number] PCP - General 06/15/14 10/27/21 documented as of this encounter
--- OUTSIDE RECORDS SUMMARY | 2023-12-14 15:46 | XMS_ITS | Encounter Summary ---
Author Organization Formerly [facility], [facility] Address [facility] [place] [address] Care Team Providers Care Macadam Raker Name Role Phone Rodney Benson MD Primary Care Provider [phone] Reason for Visit * Reason Comments Renal Mass Encounter Details Date Type Department Care Team (Late st Contact Info) Description 06/15/2014 9:15 AM EDT Office Visit [place]ology [place] [address] Fabrizio Crowley MD [facility] [place] [address] Left renal mass Discharge Disposition: Home Social History Tobacco Use Types Packs/Day Years Used Date Smoking Tobacco: Every Day Comments:eight cigs a day Sex and Gender Information Value Date Recorded Sex Assigned at Not on file Gender Identity Not on file Sexual Orientation Not on file documented as of this encounter Last Filed Vital Signs Vital Sign Reading Time Taken Comments Blood Pressure 134/66 06/15/2014 9:18 AM EDT Pulse 95 06/15/2014 9:18 AM EDT Temperature 36.9 ??C (98.4 ??F) 06/15/2014 9:18 AM ED T Respiratory Rate 18 06/15/2014 9:18 AM EDT Oxygen Saturation 97% 06/15/2014 9:18 AM EDT Inhaled Oxygen Concentration - - Weight 63.3 kg (139 lb 8.8 oz) 06/15/2014 9:18 A M EDT Height 160.9 cm (5' 3.35) 06/15/2014 9:18 AM ED T Body Mass Index 24.45 06/15/2014 9:18 AM EDT documented in this encounter Progress Notes * Fabrizio Crowley MD - 06/15/2014 9:36 AM EDT Images from the original note were not included. Patient Name: Monique Barahona Date of Service: 06/15/2014 Primary Care Provider: RODNEY BENSON MD Reason for Visit: oMnique Barahona is a 54 y.o. female referred by for evaluation of a LEFT renalmass. History of Present Illness: The patient had a CT and was found to have an incidental right renal mass in 04/2013. She has been on active surveillance. The patient is asymptomatic. Specifically denies a history of flank [...] family. 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 The patient is singles and lives with her 30 year old son.The patient drinks no ETOH Tobacco: Trying to quit 8 per day Systems review: She walks but no regular exercise. No significant limitations HEENT: Denies problems with vision, hearing, runny nose, epistaxis, sore throat, hoarseness Cardiovascular: Denies Chest pain, palpitations, shortness of breath, ankle swelling, claudication Respiratory: Denies cough, phlegm, hemoptysis,wheeze, Gastrointestinal: Denies nausea, difficulty swallowing, vomiting, hematemesis, constipation, diarrhea, blood per rectum Neurological: Denies dizziness, double vision, headache, weakness of one side of the body or the other,sudden loss of vision in one eye, Bones and muscles: Denies bone pain, radiating pain, muscle weakness or sore ness. All other systems negative. Physical Exam: Vital signs are reviewed The the patient appears healthy and in no distress. Examination of the hands, head neck, eyes ears nose and throat is normal. The skin is normal. Thereis no lymphadenopathy or thyroidomegaly The chest is clear to percussion and auscultation. Heart sounds I and II are normal without murmurs or added sounds. Peripheral pulses are full without bruits The abdomen is benign. There are no masses or organomegaly. External genitalia is normal a rectal and vaginal exam are not performed. Examination of the extremities and neurological examination is grossly normal. Lab values are not available for review X-rays are reviewed and are as noted in the history. Impression: #1: Small Left renal mass suspicious for a [id number] renal cancer. Relatively stable on Active surveillance #2: Minimal Comorbidity Plan: #1: CMP/CXR/Repeat CT abd #2: Left renal Bx + discussion Dr Perdomo re needle ablation #3: Appt with me 1 week after Bx for final disposition I discussed the fact that there was a 60-80% chance that this was a malignant renal tumor. I discussed the role of biopsy which I would recommend in this patient as I think it has the potential to change the management of this mass. I discussed the treatment options for the renal mass including radical nephrectomy, partial [...] the biopsy for final disposition John. Ghanshyam Crowley documented in this encounter Plan of Treatment Not on file documented as of this encounter Results * (ABNORMAL) Comprehensive metabolic panel (non-fasting) (12/11/2014 11:50 AM EDT) Glucose 93 65 - 199 mg/dL CERNER MILLENNIUM Comment:Diabetes: >=200 mg/d L plus symptoms Blood Urea Nitrogen 11 8 - 18 mg/dL CERNER MILLENNIUM Creatinine 0.66(L) 0.70 - 1.20 mg/dL CERNER MILLENNIUM Comment: Please note that the pediatric reference intervals supplied above were not validated at [facility]. Results from pediatric patients should be interpreted in conjunction to the patient's age, height and muscle mass. Sodium 142 135 - 145 mmol/L CERNER MILLENNIUM Potassium 4.2 3.5 - 5.0 mmol/L CERNER MILLENNIUM Comment: Please note: ??Patients with WBC >100,000 may have falsely elevated Potassium levels. ??For accurate Potassium quantification in these patients send serum separator tube (gold top) for subsequent determinations. ??Contact the Clinical Chemistry Laboratory if there are any questions. Chloride 99 98 - 107 mmol/L CERNER MILLENNIUM Carbon Dioxide 29 22 - 31 mmol/L CERNER MILLENNIUM Anion Gap 14 5 - 15 mmol/L CERNER MILLENNIUM Calcium 9.7 8.5 - 10.5 mg/dL CERNER MILLENNIUM Protein, Total 7.6 6.1 - 8.0 gm/dL CERNER MILLENNIUM Albumin 4.5 3.2 - 5.2 gm/dL CERNER MILLENNIUM Aspartate Aminotransferase 24 0 - 30 unit/L CERNER MILLENNIUM Alanine Aminotransferase 38(H) 0 - 30 unit/L CERNER MILLENNIUM Alkaline Phosphatase 95 40 - 104 unit/L CERNER MILLENNIUM Bilirubin, [...] the following links into your internet browser. [email or web address] Blood specimen (specimen) 12/11/2014 11:50 AM EDT 12/11/2014 12:15 PM EDT Narrative Resulting Agency Comment Spec In Lab Fabrizio Crowley MD CHEMISTRY ORDERABLES RAFA Nusirt * CT Biopsy-Renal (07/17/2014 12:05 PM EDT) Anatomical Region Laterality Modality Abdomen Computed Tomogra phy 07/17/2014 12:0 5 PM EDT Impressions 07/17/2014 3:55 PM EDT Impression: CT guided biopsy of a left renal mass. Resident: isaura Gavin, Dr. Santana performed the procedure. Narrative 07/17/2014 3:55 PM EDT VIR PROCEDURE NOTE : Procedure: CT-guided left renal mass biopsy Indication: left renal mass Technique: After discussing risks (including infection, hemorrhage,bowel perforation,) and benefits, patient consented to the procedure. Due to the painful nature of the procedure, split doses of fentanyl and versed were administered by the IR nurse during continuous monitoring of pulse, blood pressure and oxygen saturation. Lesion was localized with CT. After sterile preparation of the overlying skin, 1% lidocaine SQ was administered for anesthesia, and a 19/20G coaxial needle system was advanced under CT guidance into the left renal mass. 4 core samples were obtained. Patient tolerated the procedure well. There were no immediate complications. Post-procedure images were acquired. Findings: 1) 4 core samples were obtained under CT guidance. 2) Post-procedure images demonstrate no complication. Meds: Fentanyl 100 mcg IV, Versed 2 mg IV, 1% Lidocaine 10ml Complications: no immediate Procedure Note Omid Santana MD - 07/17/2014 VIR PROCEDURE NOTE : Procedure: CT-guided left renal mass biopsy Indication: left renal mass Technique: After discussing risks (including infection, hemorrhage,bowel perforation,) and benefits, patient consented to the procedure. Due to the painful nature of the procedure, split doses of fentanyl andversed were administered by the IR nurse during continuous monitoring of pulse,blood pressure and oxygen saturation. Lesion was localized with CT. After sterile preparation of the overlyingskin, 1% lidocaine SQ was administered for anesthesia, and a 19/20G coaxialneedle system was advanced under CT guidance into the left renal mass. 4 coresamples were obtained. Patient tolerated the procedure well. There were noimmediate complications. Post-procedure images were acquired. Findings: 1) 4 core samples were obtained under CT guidance. 2) Post-procedure images demonstrate no complication. Meds: Fentanyl 100 mcg IV, Versed 2 mg IV, 1% Lidocaine 10ml Complications: no immediate IMPRESSION Impression: CT guided biopsy of a left renal mass. Resident: none I, Dr. Santana performed the procedure. Fabrizio Crowley MD IMG CT ORDERABLES documented in this encounter Visit Diagnoses Diagnosis Left renal mass Unspecified disorder of kidney and ureter Left renal mass Unspecified disorder of kidney and ureter documented in this encounter Care Teams Macadam Raker Relationship Specialty Start Date End Date Rodney Benson MD [address] [place] [address] PCP - General 06/15/14 10/27/21 documented as of this encounter
--- OUTSIDE RECORDS SUMMARY | 2023-12-14 15:46 | XMS_ITS | Encounter Summary ---
Author Organization [facility] Address [facility] [place] [address] Care Team Providers Care City Engineer Name Role Phone Nimisha Benson MD Primary Care Provider [phone] Encounter Details Date Type Department Care Team (Late st Contact Info) Description 09/15/2014 8:36 [place] [address] Abbie Kebede MD [facility] [place] [address] [facility] [place] [address] Anesthesia Record Procedure Summary Procedure Name Responsible Anesthesiologist Anesthesia Start Time Anesthesia Stop Time RADIOFREQUENCY ABLATION-RENAL Abbie Kebede MD 09/15/14 0836 09/15/14 1051 Events Date Time Event Comment 09/15/2014 0754 0836 AN Verify 0836 Start 0836 An Start Data 0843 An Induction 0844 An Intubation 0849 Anesthesia Ready 0855 Quick Note Pt placed prone with 5 staff. VSS, ETT unchanged, + Bilat BS, + ETCO2. Eyes, nose and mouth free of pressure. 0959 Break/Relief In ABBIE SANCHEZ MD 1016 Break/Relief Out 1038 Extubation/LMA Out To Delete (skip) the Extubation event, click the X below. 1042 an stop data 1051 Stop Meds Name Total Midazolam 2 mg fentaNYL 100 mcg IV Lidocaine 50 mg Propofol 150 mg Rocuronium 60 mg Ondansetron 4 mg Dexamethasone 4 mg Neostigmine 3 mg Glycopyrrolate 0.4 mg ceFAZolin (ANCEF) 1g in dextrose 5% 50mL 1 g lactated ringers infusion 1,000 mL 700 m L * Agents Name O2 Air Desflurane (et) * Blood No blood administrations on file. Lines, Drains, and Airways Type Details Placement Removal (RETIRED) Peripheral IV Line - Single Lumen 09/15/14; 0751; metacarpal vein right (top of hand); [id number] catheter system; 18 gauge, 1 in length; Gypsy Syed RN; distraction, intradermal injection; 09/16/14; 0809/15/14 0751 by Ermelinda Syed RN 09/16/14 0829 by Pao Stinson RN ETT Mask Ventilation: Ea sy (1); ETT Type: Cuffed, Oral; ETT Size: 7 mm; Mac Blade: 4; Notes: Asleep, Pre-O2, Cricoid Pressure; Attempts: 1; Laryngoscopy Grade: 1; ETT Placement Verified By: Auscultation, Capnometry, Visual; Secured at Teeth: 22 cm; Removal Date: 09/15/14; Removal Time: 1038 09/15/14 0846 by Rolando Pathak CRNA 09/15/14 1038 by Rolando Pathak CRNA Ureteral Catheter 09/15/14; 0854; exit s urethra; drainage bag to dependent drainage; 16 fr; 09/15/14; 1500 09/15/14 0854 by Benita Cornejo RN 09/15/14 1500 by Pao Stinson, RN documented in this encounter Social History Tobacco [...] OR Notes * Anesthesia Postprocedure Evaluation - Abbie Kebede MD - 09/15/2014 3:27 PM EDT Patient: Monique Barahona Procedure(s) Performed: Procedure(s): RADIOFREQUENCY ABLATION-RENAL Actual Anesthetic: general Patient location: PACU Post-op pain: Adequate analgesia Post-op nausea: no nausea or vomiting Last Vitals: Filed Vitals: 09/15/14 1202 BP: 115/68 Pulse: 75 Temp: 36.5 ??C (97.7 ??F) Resp: 16 Post-op cardiovascular and respiratory status: is stable Level of consciousness: awake, alert and oriented Complications: no apparent complications and tolerated the procedure well Fluid Status: normal * Anesthesia Preprocedure Evaluation - Abbie Kebede MD - 09/14/2014 3:16 PM EDT Pre-Anesthesia Evaluation for: Monique Barahona a 54 y.o. female. Procedure(s): RADIOFREQUENCY ABLATION-RENAL Patient Active Problem List Diagnosis ??? Left renal mass No past medical history on file. No past surgical history on file. History Substance Use Topics ??? Smoking status: Current Every Day Smoker ??? Smokeless tobacco: Not on file Comment: eight cigs a day ??? Alcohol Use: Not on file History Drug Use Not on file No Known Allergies Medications: MAR and/or home medications have been reviewed. Physical Exam: There were no vitals filed for this visit. There is no weight on file to calculate BMI. Airway Assessment: Mallampati: II TM distance: <3 FB Neck ROM: full Very small mouth Cardiovascular Assessment: Pulmonary Assessment: Dental Assessment: Misc Assessment: IV access: Peripheral line Anesthesia Plan: ASA 1 general, with a(n) intravenous induction 54F with GERD well controlled, current smoker incidental renal mass for RFA. Anesthesia plan GA/ETT Appropriately NPO. No recent URI/fever. Last cigarette 2 hours ago. Per the pt she has a fractureof her T7 and T10 vertebra. I cannot find this in any of her imagining report. She has no neurological symptoms with this and has been seeing a chiropractor for back pain. Region - Other Informed Consent: Anesthetic plan and risks discussed with patient and father. Use of blood products discussed with patient and father whom. Misc. Assessment: documented in this encounter Plan of Treatment Not on file documented as of this encounter Visit Diagnoses Not on filedocumented in this encounter Administered Medications Inactive Administered Medications - up to 3 most recent administrations Medication Order MAR Action Action Date Dose Rate Site ceFAZolin (ANCEF) 1g in dextrose 5% 50mL 1,000 mg (1 g), Intravenous, ONCE, 1 dose, On Thu09/15/14 at 0745, Administer over 30 Minutes, Day of Surgery (Day of Procedure), Indication for (Active or Suspected): Prophylaxis Given 09/15/2014 8:46 AM EDT 1 g dexamethasone (DECADRON) injection PRN, Starting on Thu09/15/14 at 0916, Until Thu09/15/14 at 1054, Anesthesia Intra-op, Routine Given 09/15/2014 9:16 AM EDT 4 mg fentaNYL 50 mcg/mL multi-dose injection PRN, Starting on Thu09/15/14 at 0838, Until Thu09/15/14 at 1054, Pain, Anesthesia Intra-op, Routine Given 09/15/2014 9:42 AM EDT 50 mcg Given 09/15/2014 8:43 AM EDT 25 mcg Given 09/15/2014 8:38 AM EDT 25 mcg glycopyrrolate (ROBINUL) multi-dose injection PRN, Starting on Thu09/15/14 at 1034, Until Thu09/15/14 at 1054, Anesthesia Intra-op, Routine Given 09/15/2014 10:34 AM EDT 0.4 mg lidocaine (PF) (XYLOCAINE) 100 mg/5 mL (2 %) injection PRN, Starting on Thu09/15/14 at 0843, Until Thu09/15/14 at 1054, Anesthesia Intra-op, Routine Given 09/15/2014 9:29 AM EDT 10 mg Given 09/15/2014 8:43 AM EDT 40 mg midazolam (PF) (VERSED) 1 mg/mL multi-dose injection PRN, Starting on Thu09/15/14 at 0838, Until Thu09/15/14 at 1054, Sleep, Anesthesia Intra-op, Routine Given 09/15/2014 8:42 AM EDT 1 mg Given 09/15/2014 8:38 AM EDT 1 mg neostigmine (PROSTIGMINE) multi-dose injection PRN, Starting on Thu09/15/14 at 1034, Until Thu09/15/14 at 1054, Anesthesia Intra-op, Routine Given 09/15/2014 10:34 AM EDT 3 mg ondansetron (ZOFRAN) injection PRN, Starting on Thu09/15/14 at 1030, Until Thu09/15/14 at 1054, Nausea, Anesthesia Intra-op, Routine Given 09/15/2014 10:30 AM EDT 4 mg propofol (DIPRIVAN) 10 mg/mL bolus injection (Anesthesia) PRN, Starting on Thu09/15/14 at 0843, Until Thu09/15/14 at 1054, Anesthesia Intra-op Given 09/15/2014 8:43 AM EDT 150 mg rocuronium (ZEMURON) multi-dose injection PRN, Starting on Thu09/15/14 at 0843, Until Thu09/15/14 at 1054, Anesthesia Intra-op, Routine Given 09/15/2014 9:42 AM EDT 20 mg Given 09/15/2014 8:43 AM EDT 40 mg documented in this encounter Care Teams City Engineer Relationship Specialty Start Date End Date Nimisha Benson MD [address] [place] [address] [address] [facility] [address] [place] [address] PCP - General 06/15/14 10/27/21 documented as of this encounter
--- OUTSIDE RECORDS SUMMARY | 2023-12-14 15:46 | XMS_ITS | Encounter Summary ---
Author Organization Formerly [facility] Address [facility] [place] [address] Care Team Providers Care Bicycle Racer Name Role Phone Elmer Phillips MD, Fabrizio Primary Care Provider [phone] Encounter Details Date Type Department Care Team (Late st Contact Info) Description 04/26/2013 [place] [address] Fabrizio Crowley MD [facility] [place] [address] Social History Tobacco Use Types Packs/Day Years [...] FILM LIBRARY STORAGE ONLY ULTRASOUND STUDY Routine 04/26/2013 11:52 AM EDT documented in this encounter Results * Film Library- Storage only Ultrasound Study (04/26/2013 11:52 AM EDT) Anatomical Region Laterality Modality Other 04/26/2013 11:5 2 AM EDT Narrative 05/18/2014 11:53 AM EDT This is a Non-reportable exam Procedure Note GAMALIEL, UNSIGNED REPORT - 05/18/2014 This is a Non-reportable exam Fabrizio Crowley MD [facility] FILM LIBRARY ORD ERABLES documented in this encounter Visit Diagnoses Not on filedocumented in this encounter Care Teams Bicycle Racer Relationship Specialty Start Date End Date Fabrizio Payne MD [address] [place] [address] PCP - General 01/08/10 06/14/14 documented as of this encounter
--- OUTSIDE RECORDS SUMMARY | 2023-12-14 15:46 | XMS_ITS | Encounter Summary ---
Author Organization [facility] Address [facility] [place] [address] Care Team Providers Care Clinic Office Coordinator Name Role Phone Rodney Benson MD Primary Care Provider [phone] Encounter Details Date Type Department Care Team (Latest Contact Info) Description 07/17/2014 9:52 AM EDT - 07/17/2014 11:59 PM EDT Hospital [place] [address] CLINIC, Zhanna Quinn MD [facility] [place] [address] Left renal mass Discharge Disposition: Home Social History Tobacco Use Types Packs/Day Years Used Date Smoking Tobacco: Every Day Comments:eight cigs a day Sex and Gender Information Value Date Recorded Sex Assigned at Not on file Gender Identity Not on file Sexual Orientation Not on file documented as of this encounter Last Filed Vital Signs Vital Sign Reading Time Taken Comments Blood Pressure 138/68 07/17/2014 2:00 PM EDT after ambulation Pulse 81 07/17/2014 12:00 PM EDT Temperature 36.3 ??C (97.4 ??F) 07/17/2014 1 2:00 PM EDT Respiratory Rate 18 07/17/2014 1:30 PM EDT Oxygen Saturation 98% 07/17/2014 1:3 0 PM EDT Inhaled Oxygen Concentration - - Weight - - Height - - Body Mass Index - - documented in this encounter Discharge Instructions * Discharge Instructions* Reji Lobo RN - 07/17/2014 12:11 PM EDT [facility] Vascular and Interventional Radiology Biopsy Discharge Instructions ??? kidney biopsy: call your doctor immediately if you develop a sudden onset of weakness, increased pain or swelling at the biopsy site or heavy bleeding at the biopsy site. Activity And Diet: ??? Go home and rest quietly for the remainder of the day. You may resume your normal activities tomorrow. ??? Resume your usual diet after the procedure. ??? Do not drive, sign any important/legal documents, or make any important decisions for 24 hours following sedation medications. When to call your healthcare provider: ??? If you see any redness, swelling or drainage at the biopsy site. ??? If you develop chills. ??? If you have a fever greater than or equal to 101 degrees Fahrenheit. ??? If you develop pain around the biopsy site. Bandage: ??? Check the dressing/bandaid throughout the day for an increase in drainage. Keep the biopsy sitedry for 24 hours. Replace the bandaid as needed. You may shower 24 hours after the biopsy. Medication: ??? DO NOT take aspirin-containing products, ibuprofen, or blood-thinning medication for the next 24 hours unless your doctor says you may do so. ??? Generally you may use acetaminophen as needed for discomfort unless you have liver disease and are instructed not to take acetaminophen. Biopsy Results ??? The results of your biopsy should be available within 5 business days and will be reported to you by your primary home health caregiver or the clinician who ordered the biopsy. Please do not call us forresults as we will not have them. ??? If you have not been contacted by your clinician within 5 business days you should call that office for further information. When to call the Interventional Radiology Department: Please call with any questions or concerns. If it is during regular office hours, please call [phone]. If it is after regular office hours, or on weekends or holidays, please call [phone] and ask to speak to the Leasing Manager senior national account manager for Interventional Radiology. You have received medication during your procedure to help lesson anxiety and keep you comfortable.These medications affect judgement and reaction time. We recommend that you do not drive, operate equipment, sign any important documents, or smoke unattended for 24 hours following your procedure. Because of the sedation, be careful on stairs, as you may be unsteady on your feet. You may resume your regular diet as tolerated. IV site -- slight redness, or tenderness is normal, you can use a warm compress. If tenderness and redness increases or foul drainage occurs, please contact your M. D. Revised 02/28/11 documented in this encounter Medications at Time of Discharge Medication Sig Dispensed Refills Start Date End Date ranitidine (ZANTAC) 75 mg Tablet Take 75 mg by mouth as needed for Heartburn. 09/11/2014 documented as of this encounter Progress Notes * Omid Westfall RN - 07/18/2014 9:36 AM EDT Interventional and Vascular Radiology Post-Procedure Call Name: Monique Caballeromarcos Age: 54 y.o. Sex; Female Date of : 1960 Telephone Number: There is no home phone number on file. Telephone Information: PCP RODNEY BENSON MD [phone] Date/Time of call: July 18, 2014/9:36 AM Procedure: Ct guided left renal mass Procedural Provider:Dr Santana Contact with patient or if not, with whom? Patient Message left on answering machine? (yes/no) Provider notified via phone or email if unable to contact pt: (yes/no) Are you having pain related to your procedure now? Soreness ,but tylenol helps Are you having any swelling or bleeding from the site? no Are there any improvement in your symptoms? Are you having any other problems related to your procedure? no Comments: Did you understand the discharge instructions given and do you have any questions? Comments: instructions clear Do you have any comments about your Nurse or Provider or the care you received? Care was fine Nurse Comments: * Claire Davila RN - 07/18/2014 8:27 AM EDT Interventional and Vascular Radiology Post-Procedure Call Name: Monique Clayton Age: 54 y.o. Sex; Female Date of : 1960 Telephone Number: There is no home phone number on file. Telephone Information: PCP RODNEY BENSON MD [phone] Date/Time of call: July 18, 2014/8:27 AM Procedure: CT left renal biopsy Procedural Provider: Dr Perdomo Contact with patient or if not, with whom? Message left on answering machine? (yes/no) Provider notified via phone or email if unable to contact pt: (yes/no) Are you having pain related to your procedure now? Are you having any swelling or bleeding from the site? Are there any improvement in your symptoms? Are you having any other problems related to your procedure? Comments: Did you understand the discharge instructions given and do you have any questions? Comments: Do you have any comments about your Nurse or Provider or the care you received? Nurse Comments: * Richie Perdomo MD - 07/17/2014 1:29 PM EDT Images from the original note were not included. Interventional Radiology Clinic Visit Referring MD: Zhanna Baldwin MD ([facility]) Indication for visit: Small renal mass- discussion of image guided ablation HPI: 54 yr old F patient with an incidentally discovered left renal mass, first detected on a CT scan in April 2013 (?during evaluation of abdominal pain, later thought due to pancreatitis) She has been on active surveillance since that time. She is reported to be asymptomatic without flank salter or hematuria. Two CT scans are available in e[facility] for review, showing an approximately 15 mm enhancing lesion in the lower pole of the left kidney. Past medical/surgical history: Pancreatitis Asthma S/p cholecystostomy- 2011 S/p appendectomy- 2007 Allergies: No Known Allergies Medications: ranitidine (ZANTAC) 75 mg Tablet No current facility-administered medications for this encounter. Lab studies: Results for MONIQUE CLAYTON ( ) as of 07/17/2014 13:32 Ref. Range 07/17/2014 09:47 Platelets Latest Range: 145-370 x10(3)/mcL 219 Results for MONIQUE CLAYTON ( ) as of 07/17/2014 13:32 Ref. Range 07/17/2014 09:47 BUN Latest Range: 8-18 mg/dL 9 Creatinine Latest Range: 0.70-1.20 mg/dL 0.64 (L) Estimated GFR Latest Range: >=60 >60 Imagin12/09/2013 [facility] Nephrometry score: 1 + 2 + 1 + 1 = 5p Assessment: 54 yr old F patient with an approximately 15 mm solid left renal mass; the mass is located along the posterior aspect of the lower pole. The management of small renal masses with percutaneous ablation outlined. Thermal and cryoablation technology was reviewed. The lesion is amenable to percutaneous RF ablation and the ablation procedure was explained, including but not limited to duration of the procedure, follow-up, outcomes, and potential complications. Overnight admission following the procedure was also discussed. Plan: 1. CT guided left lower pole renal biopsy (performed today) 2. Discussion of the pathology, imaging findings at the weekly Tumor Board meeting. * Aniceto Quezada RN - 07/13/2014 6:06 PM EDT [facility] DATAB[facility] Name: MONIQUE CLAYTON Date of : 1960 AGE 54 y.o. Address: [address] [place] [phone] (work) Mobile: Telephone Information: Referring Provider: Zhanna Baldwin REASON FOR VISIT: CT guided left lower pole renal biopsy Patient Position: prone Biopsy/drain access site: Left flank Medications to discontinue (and days): [none] Labs: None new needed General anesthesia required: [no] No Known Allergies Pertinent PMH: Patient Active Problem List Diagnosis Code ??? Left renal mass 593.9 Pertinent PSH: No past surgical history on file. Date/Procedure Med's given/comments 07/17/14 CT Left renal Bx Fentanyl 100 mcg IV, Versed 2 mg IV Laboratory Results: No results found for: INR No components found for: PT/PTT No results found for: CREATININE No results found for: K No results found for: PLATELET Medications: Prior to Admission medications Medication Sig Start Date End Date Taking? Authorizing Provider ranitidine (ZANTAC) 75 mg Tablet Take 75 mg by mouth as needed for Heartburn. PROVIDER, HISTORICAL ++++ FOR OUTPATIENT SCAN'S: I have informed this patient that they require a fire truck driver to be present and in the building to drive them home after this procedure. In the absence of a fire truck driver, IR will not be able to perform this procedure and will need to reschedule. Pt verbalized understanding of these i nstructions during the pre-procedure education via phone. (initials) documented in this encounter Procedure Notes * Omid Santana MD - 07/17/2014 12:00 PM EDT VIR PROCEDURE NOTE : Procedure: CT-guided left renal mass biopsy Indication: left renal mass Technique: After discussing risks (including infection, hemorrhage,bowel perforation,) and benefits, patient consented to the procedure. Due to the painful nature of the procedure, split doses of fentanyl and versed were administered bythe IR nurse during continuous monitoring of pulse, [...] IV, 1% Lidocaine 10ml Complications: no immediate Impression: CT guided biopsy of a left renal mass. Resident: isaura I, Dr. Santana performed the procedure. * Omid Santana MD - 07/17/2014 11:13 AM EDT VIR PREPROCEDURE ADDENDUM Focused Exam: gen: aaox3, NAD, CV: reg rate, S1S2, no M ascultated lung: CTAB, no wheeze or crackles ASA Class 2 Mallimpati 2 Plan: Risks and benefits of procedure discussed w/patient and questions answered. Informed consent was obtained. Proceed w/ CT guided left renal mass biopsy under conscious sedation. documented in this encounter Plan of Treatment Not on file documented as of this encounter Procedures Procedure Name Priority Date/Time Associated Diagnosis Comments CT GUIDED RENAL BIOPSY Routine 07/17/2014 12:05 PM EDT Left renal mass SURGICAL PATHOLOGY REPORT Routine 07/17/2014 11:45 AM EDT SPECIMEN TO PATHOLOGY (NON-OR) Routine 07/17/2014 11:30 AM EDT documented in this encounter Results * CT Biopsy-Renal (07/17/2014 12:05 PM EDT) [...] none I, Dr. Santana performed the procedure. Zhanna Baldwin MD [facility] [place] ORDERABLES * Surgical Pathology Report (07/17/2014 11:45 AM EDT) Final Diagnosis ? [facility] ? Provider: ?? ZHANNA BALDWIN ?Pt. Name: ?? MONIQUE CLAYTON ? Acc #: ?[id number] ?Pt. ? Col Date: ?? 07/17/2014 ?/Sex: ?1960,(54 ? years),Female ? Rec Date: ?? 07/17/2014 ?LOC: ?3[facility] ? SURGICAL PATHOLOGY ? ---Pathologic Diagnosis--- ? A - Left renal mass, ? Minute fragment of renal cell carcinoma, clear cell type admixed with ? abundant normal renal parenchyma. ? Josué nuclear grade: 2 of 4 ? Note: The nuclear grade may vary within different areas of a renal cell ? carcinoma. The possibility that the needle aspirates/core biopsies are not ? enrollment eligibility representative of the highest nuclear grade within the tumor cannot be ? excluded. ? CR-0 ? 07/18/14 ? HORTICULTURE SUPERVISOR ? 07/18/14 Verified by: ? MATEO ANGELO, SERVANDO ? Pathologist ? (Electronic Signature) ? The attending pathologist whose signature appears on this report has ? reviewed all diagnostic slides and has edited the gross and/or ? microscopic portion of the report in rendering the final pathologic ? diagnosis. ? ---Microscopic Description--- ? Whole slide scan:[id number] A1-1 ? ---Gross Description--- ? A - Labeled/Fixative: Left renal mass-CT guided biopsy, formalin. ? Quantity/Size: Four, ranging from 0.4-1.2 cm. ? Tissue Description: Soft, pink-garcia needle core biopsies. ? Sections/Processi ng: (T1) ??ejr ? ---Clinical Information--- ? Specimen Submitted: ? A - Left renal mass ? Clinical History: ? Left renal mass ? Clinical Diagnosis: ? Question pathology 07/18/2014 3:07 PM EDT [facility] SPECIMEN FROM KIDNEY / Unknown 07/17/2014 11:45 AM EDT 07/17/2014 11:45 AM EDT Zhanna Baldwin MD PATHOLOGY/CYTOLOGY O ABHIJEET Performing Organization Address [facility] Co de Phone Number [facility] [place] [address] * Specimen to Pathology (NON-OR) (07/17/2014 11:30 AM EDT) AP Specimen 07/17/2014 11:3 0 AM EDT 07/17/2014 11:30 AM EDT Narrative [facility]FA ILIANACHERYLMILLIE - 07/17/2014 11:31 AM EDT Specimen requisition ordered. ??Separate Pathology report to follow Zhanna Baldwin MD PATHOLOGY/CYTOLOGY O ABHIJEET Performing Organization Address [facility] de Phone Number RAFA PACHECO * Platelet count (07/17/2014 9:47 AM EDT) Platelet 219 145 - 370 x10(3)/mcL [facility] Blood specimen (specimen) 07/17/2014 9:47 AM EDT 07/17/2014 9:53 AM EDT Narrative Resulting Agency Comment Spec In Lab Richie Perdomo MD HEMATOLOGY ORDERABLE S Performing Organization Address [facility] Co de Phone Number RA[facility] PACHE[facility] * BUN (07/17/2014 9:47 AM EDT) Blood Urea Nitrogen 9 8 - 18 mg/dL [facility]HE[facility] Blood specimen (specimen) 07/17/2014 9:47 AM EDT 07/17/2014 9:53 AM EDT Narrative Resulting Agency Comment Spec In Lab Richie Perdomo MD CHEMISTRY ORDERABLES Performing Organization Address [facility] de Phone Number RAFA PACHE[facility] * (ABNORMAL) Creatinine (07/17/2014 9:47 AM EDT) Creatinine 0.64(L) 0.70 - 1.20 mg/dL [facility] Comment: Please note that the pediatric reference intervals supplied above were not validated at [facility]. Results from pediatric patients should be interpreted in conjunction to the patient's age, height and muscle mass. Est Glomerular Filtration Rate >60 >=60 [facility] Comment: This estimated GFR (eGFR) value was [...] the following links into your internet browser. [email or web address] Blood specimen (specimen) 07/17/2014 9:47 AM EDT 07/17/2014 9:53 AM EDT Narrative Resulting Agency Comment Spec In Lab Richie Perdomo MD CHEMISTRY ORDERABLES Performing Organization Address [facility] de Phone Number RAFA PACHECO documented in this encounter Visit Diagnoses Diagnosis Left renal mass Unspecified disorder of kidney and ureter documented in this encounter Administered Medications Inactive Administered Medications - up to 3 most recent administrations Medication Order MAR Action Action Date Dose Rate Site fentaNYL 50mcg/mL injection 25-50 mcg, Intravenous, EVERY 5 MIN PRN, Starting on Thu07/17/14 at 1017, Until Thu07/17/14 at 1152, Pain, Angio/IR (Intra-Procedure), Routine Given 07/17/2014 11:46 AM EDT 25 mcg Given 07/17/2014 11:40 AM EDT 25 mcg Given 07/17/2014 11:35 AM EDT 25 mcg midazolam (PF) (VERSED) 1 mg/mL injection 0.5-1 mg 0.5-1 mg, Intravenous, EVERY 5 MIN PRN, Starting on Thu07/17/14 at 1017, Until Thu07/17/14 at 1152, Sleep, Angio/IR (Intra-Procedure), Routine Given 07/17/2014 11:46 AM EDT 0.5 mg Given 07/17/2014 11:40 AM EDT 0.5 mg Given 07/17/2014 11:35 AM EDT 0.5 mg midazolam (PF) (VERSED) 1 mg/mL injection 1 dose, Starting on Thu07/17/14 at 1056, Until Thu07/17/14 at 1130, ANICETO QUEZADA: cabinet override documented in this encounter Care Teams Clinic Office Coordinator Relationship Specialty Start Date End Date Rodney Benson MD [address] [place] [address] PCP - General 06/15/14 10/27/21 documented as of this encounter
--- OUTSIDE RECORDS SUMMARY | 2023-12-14 15:46 | XMS_ITS | Encounter Summary ---
Author Organization [facility] Address [address] [place] [address] Care Team Providers Care Crane Assembler Name Role Phone Cora Deluca NP Primary Care Provider [phone] Encounter Details Date Type Department Care Team (Latest Contact Info) Description 11/07/2015 16:01 EDT - 11/07/2015 23:59 EDT Hospital Encounter [address] [address] Unknown, Provider, Discharge Disposition: Home or Self Care Social History Tobacco Use Types Packs/Day Years Used Date Smoking Tobacco: Never Assessed Sex and Gender Information Value Date Recorded Sex Assigned at Not on file Gender Identity Not on file Sexual Orientation Not on file documented as of this encounter Discharge Diagnoses Diagnosis Z01.89 Encounter for other specified special examinations-Z01.89[ICD-10-CM] documented in this encounter Discharge Disposition Disposition Code Departure Means Destination Home or Self Penitentiary documented in this encounter Plan of Treatment Not on file documented as of this encounter Visit Diagnoses Not on filedocumented in this encounter Care Teams Crane Assembler Relationship Specialty Start Date End Date Cora Deluca NP [facility] [place] [address] PCP - General 09/13/10 02/15/22 documented as of this encounter
--- OUTSIDE RECORDS SUMMARY | 2023-12-14 15:46 | XMS_ITS | Encounter Summary ---
Author Organization [facility] [place] [address] Care Team Providers Care Metal Patternmaker Name Role Phone Nimisha Benson MD Primary Care Provider [phone] Encounter Details Date Type Department Care Team (Late st Contact Info) Description 06/20/2014 [place] [id number] Richie Perdomo MD [facility] [place] [address] Social History Tobacco Use Types Packs/Day Years Used Date Smoking Tobacco: Every Day Comments:eight cigs a day Sex and Gender Information Value Date Recorded Sex Assigned at Not on file Gender Identity Not on file Sexual Orientation Not on file documented as of this encounter Progress Notes * Richie Perdomo MD - 06/20/2014 11:36 AM EDT Images from the original note were not included. PRE-PROCEDURE VIR NOTE: Referring Physician: Fabrizio Crowley MD ([facility]Urology) Planned Procedure: CT guided left renal biopsy Procedure Indication: Small enhancing left renal mass Presenting Diagnosis/ Complaint: 54 yr old F [...] lower pole of the left kidney. Past Medical/Surgical History Patient Active Problem List Diagnosis Code ??? Left renal mass 593.9 Asthma S/p cholecystectomy- 2012 S/p appendectomy- 2007 Medications: Current Outpatient Prescriptions on File Prior to Visit Medication Sig Dispense Refill ??? ranitidine (ZANTAC) 75 mg Tablet Take 75 mg by mouth as needed for Heartburn. No current facility-administered medications on file prior to visit. Allergies: Review of patient's allergies indicates no [...] Not on file Social History Narrative ??? No narrative on file Significant Family History: No family history on file. Physical Exam: Pending Labs: No results found for this basename: wbc, anc, hct, PLATELET, inr, bun, creatinine, alkphos, ast, albumin, bilidir, bilitot, alt, prot Prior relevant imaging: [facility] 12/09/2013 No additional recent imaging available since that time Nephrometry score: 1 + 2 + 1 + 1 = 5p Assessment/Plan: CT guided left lower pole renal biopsy Patient Position: prone Biopsy/drain access site: Left flank Medications to discontinue (and days): [none] Labs: None new needed General anesthesia required: [no] documented in this encounter Plan of Treatment Not on file documented as of this encounter Visit Diagnoses Not on filedocumented in this encounter Care Teams Metal Patternmaker Relationship Specialty Start Date End Date Nimisha Benson MD [address] [place] [address] PCP - General 06/15/14 10/27/21 documented as of this encounter
--- OUTSIDE RECORDS SUMMARY | 2023-12-14 15:46 | XMS_ITS | Encounter Summary ---
Author Organization [facility] [place] [address] Care Team Providers Care Washer Engineer Helper Name Role Phone Nimisha Benson MD Primary Care Provider Encounter Details Date Type Department Care Team (Latest Contact Info) Description 07/25/2014 9:54 AM EDT - 07/25/2014 11:59 PM EDT Hospital Encounter XRay at [address] [place] [address] Renal cancer, left Social History Tobacco Use Types Packs/Day Years Used Date Smoking Tobacco: Every Day Comments:eight cigs a day Sex and Gender Information Value Date Recorded Sex Assigned at Not on file Gender Identity Not on file Sexual Orientation Not on file documented as of this encounter Medications at Time of Discharge Medication Sig Dispensed Refills Start Date End Date UNABLE TO FIND Med Name: Omni eight loss drops 09/11/2014 ranitidine (ZANTAC) 75 mg Tablet Take 75 mg by mouth as needed for Heartburn. 09/11/2014 documented as of this encounter Plan of Treatment Not on file documented as of this encounter Procedures Procedure Name Priority Date/Time Associated Diagnosis Comments XR CHEST PA AND LATERAL Routine 07/25/2014 10:06 AM EDT Renal cancer, left documented in this encounter Results * XR chest routine PA & lateral [...] seen. IMPRESSION IMPRESSION: No pulmonary metastases identified. Fabrizio Crowley MD IMG DX ORDERABLES documented in this encounter Visit Diagnoses Diagnosis Renal cancer, left documented in this encounter Care Teams Washer Engineer Helper Relationship Specialty Start Date End Date Nimisha Benson MD [address] [place] [address] PCP - General 06/15/14 10/27/21 documented as of this encounter
--- OUTSIDE RECORDS SUMMARY | 2023-12-14 15:46 | XMS_ITS | Encounter Summary ---
[place] [address] Care Team Providers Care Manager Park Name Role Phone Nimisha Benson MD Primary Care Provider [phone] Encounter Details Date Type Department Care Team (Latest Contact Info) Description 07/20/2014 Multidisciplinary Ca [place] [phone] Armando Sharma MD [facility] [place] [place] [address] Social History Tobacco Use Types Packs/Day Years Used Date Smoking Tobacco: Every Day Comments:eight cigs a day Sex and Gender Information Value Date Recorded Sex Assigned at Not on file Gender Identity Not on file Sexual Orientation Not on file documented as of this encounter Progress Notes * Armando Sharma - 07/20/2014 4:42 PM EDT Incomplete data available documented in this encounter Plan of Treatment Not on file documented as of this encounter Visit Diagnoses Not on filedocumented in this encounter Care Teams Manager Park Relationship Specialty Start Date End Date Nimisha Benson MD [address] [place] [id number] PCP - General 06/15/14 10/27/21 documented as of this encounter
--- OUTSIDE RECORDS SUMMARY | 2023-12-14 15:46 | XMS_ITS | Encounter Summary ---
Author Organization [facility] Address [facility] [place] [address] Care Team Providers Care Outreach Liaison Name Role Phone Nimisha Benson MD Primary Care Provider [phone] Encounter Details Date Type Department Care Team (Latest Contact Info) Description 09/15/2014 11:52 AM EDT - 09/16/2014 9:56 AM EDT Hospital Encounter [place] [address] Richie Perdomo MD [facility] [address] [place] [address] Discharge Disposition: Home Social History Tobacco Use Types Packs/Day Years Used Date Smoking Tobacco: Every Day Tobacco Cessation:Ready to Q uit: Yes Comments:eight [...] Sign Reading Time Taken Comments Blood Pressure 109/56 09/16/2014 7:29 AM EDT Pulse 73 09/16/2014 7:29 AM EDT Temperature 36.9 ??C (98.4 ??F) 09/16/2014 7:29 AM ED T Respiratory Rate 19 09/16/2014 7:29 AM EDT Oxygen Saturation 98% 09/16/2014 7:29 AM EDT Inhaled Oxygen Concentration - - Weight 66.7 kg (147 lb) 09/15/2014 7:25 AM EDT Height 162.6 cm (5' 4.02) 09/15/2014 7:25 AM ED T Body Mass Index 25.22 09/15/2014 7:25 AM EDT documented in this encounter Discharge Instructions * Discharge Instructions* Stella Iraheta PA - 09/15/2014 9:33 AM EDT 1) You develop any pain or difficulty urinating, or if you see blood in your urine 2) You develop fever or chills 3) You have any pain in your back or abdomen not relieved by your pain medicine 4) You develop nausea or vomiting 5) You develop any redness, swelling or drainage from the puncture site in your back. Activity level: As tolerated; no restrictions Diet: As before Driving: No driving if you are taking narcotic pain medication Shower/Bath: Okay to shower. No tub baths, whirlpools or swimming for one week. Wound Care: Remove bandage tomorrow If you need to speak to Dr. Perdomo and it's during regular office hours, please call [phone].If it is after regular office hours, weekends or holidays, please call [phone] and ask to speak to the Lei Maker rugby union footballer for Dr. Perdomo. documented in this encounter Medications at Time [...] as of this encounter Progress Notes * Efrain Soler MD - 09/16/2014 7:40 AM EDT [facility] VIR Daily Progress Note Admitted 09/15/2014 Procedure: Left Renal Mass RFA Post-procedure day: #1 Time of patient encounter: 729 Subjective: No complaints overnight, pain controlled, tolerating PO, no nausea Vitals BP 109/56 mmHg Pulse 73 Temp(Src) 36.9 ??C (98.4 ??F) (Oral) Resp 19 Ht 162.6 cm (5' 4.02) Wt 66.679 kg (147 lb) BMI 25.22 kg/m2 SpO2 98% Physical Exam: General:A X O x3 NAD Cardiovascular:RRR Respiratory:CTABL Medications: Scheduled Medications: ??? sodium chloride 0.9 % 5 mL Intravenous BID ??? docusate sodium 100 mg Oral BID ??? esomeprazole 40 mg Oral Daily Or ??? esomeprazole 40 mg Intravenous Daily Continuous infusions: ??? sodium chloride 0.9% 75 mL/hr (09/15/14 6715) PRN medications: sodium chloride 0.9 %, lidocaine, ondansetron OR ondansetron, oxyCODONE, oxyCODONE, morphine Drains/Tubes: Intake/Output Summary (Last 24 hours) at 09/16/14 0740 Last data filed at 09/16/14 0400 Gross per 24 hour Intake 1492 ml Output 2400 ml Net -908 ml Labs: Lab Results Component Value Date WBC 8.9 09/16/2014 HEMOGLOBIN 12.1 09/16/2014 HEMATOCRIT 35.8 09/16/2014 PLATELETS 195 09/16/2014 Assessment: 54 y.o. female day 1 s/p left renal mass RFA. Pt resting comfortably. Pain controlled, tolerating PO, no nausea. Slight drop in Hgb over night likely dilutional. Pt otherwise hemodynamically stable with no significant flank pain. Plan: 1. Will plan for DC home today. 2. Follow-up MRI 2 months and follow up with Dr. Perdomo. 3. To follow-up with Dr. Adam regarding T7 verterbral compression fracture. Efrain Soler MD IR Fellow Pager #[phone] * Jennifer Medina, RN - 09/16/2014 2:45 AM EDT Late note for 09/15 MN: pt.'s left posterior back dressing dry and intact.Area around dressing soft. * Jennifer Medina RN - 09/15/2014 8:35 PM EDT Initial assessment:pt.'s lungs clear bilat. Pt. Has her call light within reach. Pt.'s left lower posterior back/flank dressing currently dry and intact except for one pinhole sized red dot of drainage. @ the time of 2034.pt. Has no evidence of hematoma around her dressing-area soft.pt.'s IV benignto her right hand.pt. denies pain. * Pao Stinson RN - 09/15/2014 12:06 PM EDT Patient Name: Monique Barahona Patient Age: 54 y.o. Birthdate: 1960 Admit date: 09/15/2014 Attending Physician: Richie Perdomo MD Pt arrived from PACU on stretcher, alert and oriented x 4, slid over to bed independently. Pt denies pain, left flank dressing clean and intact, oriented to room and call light, bed alarm on. * Chandrika Baires RN - 09/15/2014 11:47 AM EDT Pt met phase 1 recovery at 1145. Handoff report given to IRAM Cedeno in [facility]. Pt denies pain or nauseawhile here in PACU. Pt to meet father when in room, was paged. Pt brought to unit by PACU staff. documented in this encounter Miscellaneous Notes * Plan of Care - Pao Stinson RN - 09/16/2014 10:13 AM EDT Problem: General Plan of Care Goal: Plan of Care Review Outcome: Outcome (s) achieved Date Met: 09/16/14 09/16/14 101 Coping/Psychosocial Response Interventions Plan of Care Reviewed with patient Plan of Care Review Plan of Care Outcome Status outcome achieved Progress improving OUTCOME EVALUATION NOTE: OUTCOME SUMMARY: Pt is alert and oriented x 4, ambulatory, voiding in BR, tolerates regular diet, left flank surgical site is clean and intact, AVS provided and reviewed, all questions answered. PLAN MOVING FORWARD: Discharge to home INDIVIDUALIZED FALL PREVENTION: Assistance: prn Supervision: independent Surveillance: Self monitor for signs and symptoms of infection or bleeding at the surgical site. CPG GOAL OUTCOME EVALUATION: Goal: Individualization and Mutuality Outcome: Outcome (s) achieved Date Met: 09/16/14 09/16/141011 Individualization Patient Specific Goals discharge to home Patient Specific Interventions assess surgical site, discharge teaching Goal: Fall Prevention-Safe Patient Handling Outcome: Outcome (s) achieved Date Met: 09/16/14 09/15/14 1145 09/15/14 2257 09/16/14 0729 Safety Interventions Safety Precautions/Fall Reduction -- -- fall reduction program maintained Cooper Fall Risk History of Falling -- -- 0 Secondary Diagnosis -- -- 0 Ambulatory Aids -- -- 0 Intravenous Therapy/Heparin/Saline Lock -- -- 20 Gait/Transferring -- -- 0 Mental Status -- -- 0 Score -- -- 20 OTHER Cooper Fall Risk -- -- Low Musculoskeletal Interventions Activity/Level of Assistance -- ambulated;up in bustillo -- Positioning HOB up 30 degrees -- -- Goal: Infection Control Outcome: Outcome (s) achieved Date Met: 09/16/14 09/16/1424709/16/14 0729 Safety Interventions Isolation Precautions -- standard precautions maintained Infection Prevention rest/sleep promoted;bronchial hygiene promoted;environmental surveillance;hydration promoted -- Coping/Psychosocial Response Interventions Counseling goal setting facilitated;verbalization of feelings encouraged;understanding of situationfacilitated -- Goal: Discharge Needs Assessment Outcome: Outcome (s) achieved Date Met: 09/16/14 09/16/1424709/16/14 0741 Living Environment Transportation Available family or friend will provide -- Discharge Needs Assessment Concerns to be Addressed no discharge needs identified -- Equipment Needed After Discharge none -- Discharge Planning Comments pt.'s son will pick pt. up @ 0900 from [facility] -- Self-Care Equipment Currently Used at Home -- none * Plan of Care - Jennifer Medina RN - 09/16/2014 2:50 AM EDT Problem: General Plan of Care Goal: Plan of Care Review Outcome: Ongoing (Interventions Implemented as Appropriate) 09/16/14247 Coping/Psychosocial Response Interventions Plan of Care Reviewed with patient Plan of Care Review Plan of Care Outcome Status ongoing (interventions implemented as appropriate) Progress improving Goal: Individualization and Mutuality Outcome: Ongoing (Interventions Implemented as Appropriate) Goal: Fall Prevention-Safe Patient Handling Outcome: Ongoing (Interventions Implemented as Appropriate) 09/15/14 1145 09/15/14 2100 09/15/14 2257 Safety Interventions Safety Precautions/Fall Reduction -- bed alarm;fall reduction program maintained;lighting adjusted for task/safety;low bed;nonskid shoes/slippers when out of bed (bed alrm used until pt. is first up) -- Cooper Fall Risk History of Falling -- 0 -- Secondary Diagnosis -- 0 -- Ambulatory Aids -- 0 -- Intravenous Therapy/Heparin/Saline Lock -- 20 -- Gait/Transferring -- 0 -- Mental Status -- 0 -- Score -- 20 -- OTHER Cooper Fall Risk -- High (high catagory due to being post operative ) -- Musculoskeletal Interventions Activity/Level of Assistance -- -- ambulated;up in bustillo Positioning HOB up 30 degrees -- -- Goal: Infection Control Outcome: Ongoing (Interventions Implemented as Appropriate) 09/16/14247 Safety Interventions Isolation Precautions standard precautions maintained Infection Prevention rest/sleep promoted;bronchial hygiene promoted;environmental surveillance;hydration promoted Coping/Psychosocial Response Interventions Counseling goal setting facilitated;verbalization of feelings encouraged;understanding of situationfacilitated Goal: Discharge Needs Assessment Outcome: Ongoing (Interventions Implemented as Appropriate) 09/16/14247 Living Environment Transportation Available family or friend will provide Discharge Needs Assessment Concerns to be Addressed no discharge needs identified Equipment Needed After Discharge none Discharge Planning Comments pt.'s son will pick pt. up @ 0900 from [facility] Self-Care Equipment Currently Used at Home none Comments: OUTCOME EVALUATION NOTE: OUTCOME SUMMARY: Pt. Had stable vital signs overnight the patient. Denied pain overnight.pt.'s dressing to left lower back remained dry and intact except for a small pin hd. Sized dot of red drainage. PLAN MOVING FORWARD: Monitor posterior left back dressing,obtain am labs,pain control. Son to pick pt. Up @ 10:00 am.D/cprobable INDIVIDUALIZED FALL PREVENTION: Assistance: ADL's with minimal assist Supervision: oob with minimal assist Surveillance:purposeful rounding,hipolito CPG GOAL OUTCOME EVALUATION: documented in this encounter Plan of Treatment Not on file documented as of this encounter Procedures Procedure Name Priority Date/Time Associated Diagnosis Comments ECG SCAN 09/18/2014 12:00 AM EDT HEMOGRAM Routine 09/16/2014 4:00 AM EDT DIFFERENTIAL, AUTOMATED Routine 09/17/19 15 4:00 AM EDT CBC (WITH DIFF) Routine 09/16/2014 4:00 AM EDT RADIOFREQUENCY ABLATION-RENAL 09/15/2014 4:30 PM EDT RENAL CELL CANCER HEMOGRAM Routine 09/15/2014 6:54 AM EDT DIFFERENTIAL, AUTOMATED Routine 09/16/19 15 6:54 AM EDT CREATININE Routine 09/15/2014 6:54 AM EDT PROTHROMBIN TIME Routine 09/15/2014 6:54 AM EDT CBC (WITH DIFF) Routine 09/15/2014 6:54 AM EDT BUN Routine 09/15/2014 6:54 AM EDT ELECTROLYTES PANEL Routine 09/15/2014 6: 54 AM EDT documented in this encounter Results * SCAN DOC: ECG (09/18/2014 12:00 AM EDT) Scanning Provider MEDIA MGR SCAN EXT O RDR/RSLT * Differential, Automated (09/16/2014 4:00 AM EDT) Neutrophil % 70.7 % CERNER MILLENNIUM Neutrophil Absolute 6.27 1.50 - 6.30 x10(3)/mcL CERNER MILLENNIUM Lymph % 20.7 % CERNER MILLENNIUM Lymphocytes Abs 1.8 1.0 - 3.6 x10(3)/mcL CERNER MILLENNIUM Monocyte % 7.4 % CERNER MILLENNIUM Monocyte Abs 0.7 0.2 - 1.0 x10(3)/mcL CERNER MILLENNIUM Eos % 0.8 % CERNER MILLENNIUM Eosinophils Abs 0.1 0.0 - 0.5 x10(3)/mcL CERNER MILLENNIUM Basophil % 0.2 % CERNER MILLENNIUM Baso Absolute 0.0 0.0 - 0.2 x10(3)/mcL CERNER MILLENNIUM Immature Gran % 0.20 % CERN ER MILLENNIUM Comment: Immature granulocytes(IG's)percentage and absolute count will include metamyelocytes, myelocytes, and promyelocytes. Blood smears from CBCs yielding IG's will be scanned manually for concordance. If this scan disagrees with the automated IG or if promyelocytes are noted, a manual differential will be performed. Immature Gran Absolute 0.02 0.00 - 0.05 x10(3)/mcL CERNER MILLENNIUM Blood specimen (specimen) 09/16/2014 4:00 AM EDT 09/16/2014 4:11 AM EDT Narrative Resulting Agency Comment Spec In Lab Richie Perdomo MD HEMATOLOGY ORDERABLE S CERNER MILLENNIUM * (ABNORMAL) Hemogram (09/16/2014 4:00 AM EDT) White Blood Cell 8.9 4.0 - 10.0 x10(3)/mc L CERNER MILLENNIUM Red Blood Cell 3.56(L) 3.93 - 5.22 x10(6)/mc L CERNER MILLENNIUM Hemoglobin 12.1 11.2 - 15.7 gm/dL CERNER MILLENNIUM Hematocrit 35.8 34.0 - 45.0 % CERNER MILLENNIUM Mean Cell Volume 100.6(H) 79.0 - 94.0 fL CERNER MILLENNIUM Mean Cell Hemoglobin 34.0(H) 26.6 - 32.2 pg CERNER MILLENNIUM Mean Cell Hemoglobin Concentration 33.8 32.0 - 36.5 gm/dL CERNER MILLENNIUM Platelet 195 145 - 370 x10(3)/mc L CERNER MILLENNIUM RDW Standard Deviation 47.7(H) 35.0 - 46.0 fL CERNER MILLENNIUM RDW coefficient of variation 13.0 10.9 - 14.4 % CERNER MILLENNIUM Mean Platelet Volume 9.5 9.0 - 12.0 fL CERNER MILLENNIUM Blood specimen (specimen) 09/16/2014 4:00 AM EDT 09/16/2014 4:11 AM EDT Narrative Resulting Agency Comment Spec In Lab Richie Perdomo MD HEMATOLOGY ORDERABLE S CERNER MILLENNIUM * Differential, Automated (09/15/2014 6:54 AM EDT) Neutrophil % 68.2 % CERNER MILLENNIUM Neutrophil Absolute 5.89 1.50 - 6.30 x10(3)/mcL CERNER MILLENNIUM Lymph % 20.5 % CERNER MILLENNIUM Lymphocytes Abs 1.8 1.0 - 3.6 x10(3)/mcL CERNER MILLENNIUM Monocyte % 6.1 % CERNER MILLENNIUM Monocyte Abs 0.5 0.2 - 1.0 x10(3)/mcL CERNER MILLENNIUM Eos % 4.3 % CERNER MILLENNIUM Eosinophils Abs 0.4 0.0 - 0.5 x10(3)/mcL CERNER MILLENNIUM Basophil % 0.7 % CERNER MILLENNIUM Baso Absolute 0.1 0.0 - 0.2 x10(3)/mcL CERNER MILLENNIUM Immature Gran % 0.20 % CERN ER MILLENNIUM Comment: Immature granulocytes(IG's)percentage and absolute count will include metamyelocytes, myelocytes, and promyelocytes. Blood smears from CBCs yielding IG's will be scanned manually for concordance. If this scan disagrees with the automated IG or if promyelocytes are noted, a manual differential will be performed. Immature Gran Absolute 0.02 0.00 - 0.05 x10(3)/mcL CERNER MILLENNIUM Blood specimen (specimen) 09/15/2014 6:54 AM EDT 09/15/2014 7:08 AM EDT Narrative Resulting Agency Comment Spec In Lab Richie Perdomo MD HEMATOLOGY ORDERABLE S Performing Organization Address City/[facility]/ZIP Co de Phone Number CERNER MILLENNIUM * (ABNORMAL) Hemogram (09/15/2014 6:54 AM EDT) White Blood Cell 8.6 4.0 - 10.0 x10(3)/mc L CERNER MILLENNIUM Red Blood Cell 4.23 3.93 - 5.22 x10(6)/mc L CERNER MILLENNIUM Hemoglobin 14.4 11.2 - 15.7 gm/dL CERNER MILLENNIUM Hematocrit 42.4 34.0 - 45.0 % CERNER MILLENNIUM Mean Cell Volume 100.2(H) 79.0 - 94.0 fL CERNER MILLENNIUM Mean Cell Hemoglobin 34.0(H) 26.6 - 32.2 pg CERNER MILLENNIUM Mean Cell Hemoglobin Concentration 34.0 32.0 - 36.5 gm/dL CERNER MILLENNIUM Platelet 233 145 - 370 x10(3)/mc L CERNER MILLENNIUM RDW Standard Deviation 47.7(H) 35.0 - 46.0 fL CERNER MILLENNIUM RDW coefficient of variation 13.1 10.9 - 14.4 % CERNER MILLENNIUM Mean Platelet Volume 9.9 9.0 - 12.0 fL CERNER MILLENNIUM Blood specimen (specimen) 09/15/2014 6:54 AM EDT 09/15/2014 7:08 AM EDT Narrative Resulting Agency Comment Spec In Lab Richie Perdomo MD HEMATOLOGY ORDERABLE S CERJULISA BARRIENTOSENNIUM * Prothrombin Time (09/15/2014 6:54 AM EDT) Prothrombin Time 12.0 12.0 - 15.0 sec CERNER MILLENNIUM Comment: Transfusion Committee Guidelines: INR less than 2.0, PTT less than OR equal to 43.5 seconds, or Fibrinogen greater than or equal to 100 mg/dl indicate adequate procoagulant activity for hemostasis in patients without underlying bleeding disorders. International Normalization Ratio 0.9 0.9 - 1.1 CERNER MILLENNIUM Blood specimen (specimen) 09/15/2014 6:54 AM EDT 09/15/2014 7:08 AM EDT Narrative Resulting Agency Comment Spec In Lab Richie Perdomo MD HEMATOLOGY ORDERABLE S Performing Organization Address [facility] de Phone Number RAFA BARRIENTOSAPProtect * (ABNORMAL) Creatinine (09/15/2014 6:54 AM EDT) Creatinine 0.54(L) 0.70 - 1.20 mg/dL [facility]UM Comment: Please note that the pediatric reference intervals supplied above were not validated at [facility]. Results from pediatric patients should be interpreted in conjunction to the patient's age, height and muscle mass. Est Glomerular Filtration Rate >60 >=60 CERJULISA MILLENNIUM Comment: This estimated GFR (eGFR) value [...] the following links into your internet browser. [email or web address]/DHnkdep [email or web address]/DHMCnkf Blood specimen (specimen) 09/15/2014 6:54 AM EDT 09/15/2014 7:08 AM EDT Narrative Resulting Agency Comment Spec In Lab Richie Perdomo MD CHEMISTRY ORDERABLES Performing Organization Address [facility] Co de Phone Number RAFA BARRIENTOSAPProtect * (ABNORMAL) BUN (09/15/2014 6:54 AM EDT) Blood Urea Nitrogen 7(L) 8 - 18 mg/dL CERNER MILLENNIUM Blood specimen (specimen) 09/15/2014 6:54 AM EDT 09/15/2014 7:08 AM EDT Narrative Resulting Agency Comment Spec In Lab Richie Perdomo MD CHEMISTRY ORDERABLES Performing Organization Address [facility] Co de Phone Number CERJULISA TAYLORIUM * Electrolytes panel (09/15/2014 6:54 AM EDT) Sodium 144 135 - 145 mmol/L CERNER MILLENNIUM Potassium 3.7 3.5 - 5.0 mmol/L CERNER MILLENNIUM Comment: Please note: ??Patients with WBC >100,000 may have falsely elevated Potassium levels. ??For accurate Potassium quantification in these patients send serum separator tube (gold top) for subsequent determinations. ??Contact the Clinical Chemistry Laboratory if there are any questions. Chloride 103 98 - 107 mmol/L CERNER MILLENNIUM Carbon Dioxide 29 22 - 31 mmol/L CERNER MILLENNIUM Anion Gap 12 5 - 15 mmol/L CERNER MILLENNIUM Blood specimen (specimen) 09/15/2014 6:54 AM EDT 09/15/2014 7:08 AM EDT Narrative Resulting Agency Comment Spec In Lab Richie Perdomo MD CHEMISTRY ORDERABLES Performing Organization Address [facility] Co de Phone Number RAFA PACHECO documented in this encounter Visit Diagnoses Not on filedocumented in this encounter Administered Medications Inactive Administered Medications - up to 3 most recent administrations Medication Order MAR Action Action Date Dose Rate Site lactated ringers infusion 1,000 mL 1,000 mL, at 100 mL/hr, Intravenous, CONTINUOUS, Starting on Thu09/15/14 at 0745, Until Thu09/15/14 at 1042, Day of Surgery (Day of Procedure) New Bag 09/15/2014 7:52 AM EDT 1,000 mLs 100 mL/hr sodium chloride 0.9% infusion 75 mL/hr, Intravenous, CONTINUOUS, Starting on Thu09/15/14 at 1100, Until Thu09/16/14 at 1157 New Bag 09/15/2014 10:58 PM EDT 75 mL/hr 75 mL/hr New Bag 09/15/2014 11:03 AM EDT 75 mL/hr 75 mL/hr documented in this encounter Active and Recently Administered Medications Times are shown in EDT. Scheduled Medication Order 09/14/2014 09/15/2014 09/16/2014 ceFAZolin (ANCEF) 1g in dextrose 5% 50mL (COMPLETED) 1,000 mg (1 g), Intravenous, ONCE, 1 dose, On Thu09/15/14 at 0745, Administer over 30 Minutes, Day of Surgery (Day of Procedure), Indication for (Active or Suspected): Prophylaxis 0846 (Given - Provider: Mandi Kebede MD) Continuous Medication Order 09/14/2014 09/15/2014 09/16/2014 lactated ringers infusion 1,000 mL (CANCELED) 1,000 mL, at 100 mL/hr, Intravenous, CONTINUOUS, Starting on Thu09/15/14 at 0745, Until Thu09/15/14 at 1042, Day of Surgery (Day of Procedure) 0752 (New Bag - Provider: Blu Syed RN)1040 (Anesthesia Volume Adjustment - Provider: Rolando Pathak CRNA) sodium chloride 0.9% infusion (CANCELED) 75 mL/hr, Intravenous, CONTINUOUS, Starting on Thu09/15/14 at 1100, Until 09/16/14 at 1157 1103 (New Bag - Provider: Chandrika Baires, IRAM)2258 (New Bag - Provider: Talia De La Fuente, IRAM) PRN Medication Order 09/14/2014 09/15/2014 09/16/2014 oxyCODONE (ROXICODONE) immediate release tablet 10 mg 10 mg, Oral, EVERY 4 HOURS PRN, Starting on Thu09/15/14 at 1042, Until 09/16/14 at 1157, Pain, Moderate pain (4-6), May repeat 5 mg in 60 minutes if pain not relieved., Routine documented in this encounter Care Teams Outreach Liaison Relationship Specialty Start Date End Date Nimisha Benson MD [address] [place] [address] PCP - General 06/15/14 10/27/21 documented as of this encounter
--- OUTSIDE RECORDS SUMMARY | 2023-12-14 15:46 | XMS_ITS | Encounter Summary ---
Author Organization [facility] Address [address] [place] [address] Care Team Providers Care Clothing Man Name Role Phone Unknown, Provider Primary Care Provider [phone] Encounter Details Date Type Department Care Team ([facility] st Contact Info) Description 08/01/2009 Results Only [facility] [phone] Cora Deluca, [address] [place], [place] [id number] Social History Tobacco Use Types Packs/Day Years Used Date Smoking Tobacco: Never Assessed Sex and Gender Information Value Date Recorded Sex Assigned at Not on file Gender Identity Not on file Sexual Orientation Not on file documented as of this encounter Plan of Treatment Not on file documented as of this encounter Procedures Procedure Name Priority Date/Time Associated Diagnosis Comments HPV DETECTION, HIGH RISK TYPES Routine 08/01/2009 9:45 EDT CYTOPATHOLOGY Routine 08/01/2009 0:00 EDT documented in this encounter Results * HUMAN PAPILLOMA VIRUS DNA TEST (08/01/2009 9:45 EDT) Specimen Description Cervix, ThinPrep vial [facility] Result Negative for HPV types 16, 18, 31, 33, 35, 39, 45, 51, 52, 56, 58, 59, and 68. [facility] Report Status Final 08/14/2009 [facility] 08/01/2009 9:45 EDT 08/09/2009 9:45 EDT Cora Deluca TREATER HELPER MICROBIOLOGY - GENER AL ORDERABLES B[facility] [address] [address] * CYTOPATHOLOGY (08/01/2009 0:00 EDT) Pathology Report: CYTOPATHOLOGY REPORT ? Reports generated via electronic interface contain original data; ? however they are lacking the format of the original report. ? Caution should be taken when reading/interpreti ng unformatted reports. ? Name: ? MONIQUE BREWER ? Accession #: ? [id number] ? : ? 1960 (Age: 49) ??F ?Collect Date: ? 08/01/2009 ? Location: ? [facility] ? Receive Date: ? 08/03/2009 ? Provider: ?CORA KOSHOWSKI TREATER HELPER ? Copy to: ? Specimen/Source: ?Pap Test, Cervix/Endocervix, ThinPrep Imaging System ? with manual evaluation ? Last Menstrual Period: ? Menstrual/Pregnanc y Status: ? Post Menopausal ? Other: ? HPVDX - HPV testing requested regardless of diagnosis on current ThinPrep Pap ?? test. ? SPECIMEN ADEQUACY ? Satisfactory for Evaluation ? - transformation zone component present ? - obscuring contamination, possibly lubricant ? GENERAL CATEGORIZATION ? Negative for Intraepithelial Lesion or Malignancy ? Document reviewed and electronically signed by: ? Daiana [place], [place](ASCP) ? Report Date: ??08/08/2009 13:11 ? End of Report ? [facility] 08/01/2009 08/03/2009 Cora Deluca TREATER HELPER PATHOLOGY ORDERABLES [facility] [address] [place] [address] documented in this encounter Visit Diagnoses Not on filedocumented in this encounter Care Teams Clothing Man Relationship Specialty Start Date End Date Unknown, Provider, PCP - General 08/03/09 09/12/10 documented as of this encounter
--- OUTSIDE RECORDS SUMMARY | 2023-12-14 15:46 | XMS_ITS | Encounter Summary ---
Author Organization [facility] Address [address] [place] [address] Care Team Providers Care Transportation Engineer Name Role Phone Cora Deluca NP Primary Care Provider Encounter Details Date Type Department Care Team ([facility] st Contact Info) Description 11/05/2015 Results Only [facility] [phone] Rodney Benson MD [address] [place] [phone] Social History Tobacco Use Types Packs/Day Years Used Date Smoking Tobacco: Never Assessed Sex and Gender Information Value Date Recorded Sex Assigned at Not on file Gender Identity Not on file Sexual Orientation Not on file documented as of this encounter Plan of Treatment Not on file documented as of this encounter Procedures Procedure Name Priority Date/Time Associated Diagnosis Comments SURGICAL PATHOLOGY Routine 11/05/2015 10 :19 EDT documented in this encounter Results * SURGICAL PATHOLOGY (11/05/2015 10:19 EDT) Pathology Report: SURGICAL PATHOLOGY REPORT Reports generated via electronic interface contain original data; however they are lacking the format of the original report. Caution should be taken when reading/interpret ing unformatted reports. Name: ? MONIQUE CLAYTON ? Accession #: ? [id number] ? : ? 1960 (Age: 55) ??F ? Collect Date: ? 11/05/2015 ? Location: ? [facility] ? Receive Date: ? 11/06/2015 ? Provider: RODNEY BENSON MD Copy to: ? Final Pathologic Diagnosis: SKIN OF BREAST, ABOVE LEFT, SHAVE BIOPSY: - Seborrheic keratosis. Document reviewed and electronically signed by: DEANDRA FLOREZ MD Report ??Date: 11/07/2015 14:17 By the signature above, the attending physician certifies that he/she has personally conducted a gross and/or microscopic examination of the described specimens and rendered or confirmed the above diagnosis. Specimen(s) Received: Shaving biopsy papule L breast Clinical History: Not listed Gross Description: ? Received in formalin labelled with proper patient identification (initials D, L) and bx above left breast is a shave biopsy of garcia-white skin (0.7 x 0.7 x 0.4 cm). There is an eccentric garcia-white papule that measures 0.4 x 0.3 x 0.2 cm. Also received in the same container are two portions of garcia-white skin (0.3 x 0.3 x 0.1 cm and 0.1 x 0.1 x 0.1 cm) with no grossly apparent lesions. The largest portion is trisected and submitted in 1 and the remaining portion is submitted intact in 2. Dr. Mckeon 11/06/2015 2:47 PM End of Report [facility] 11/05/2015 10:1 9 EDT 11/06/2015 10:19 EDT Rodney Benson MD PATHOLOGY ORDERABLE S [facility] [address] [place] [address] documented in this encounter Visit Diagnoses Not on filedocumented in this encounter Care Teams Transportation Engineer Relationship Specialty Start Date End Date [place] [address] PCP - General 09/13/10 02/15/22 documented as of this encounter
--- OUTSIDE RECORDS SUMMARY | 2023-12-14 15:46 | XMS_ITS | Referral Summary ---
Author Organization [facility] Address [address] [place] [address] Care Team Providers Care Receiving Associate Store Name Role Phone Modesta Cook MD Primary Care Provider [phone] Social History Tobacco Use Types Packs/Day Years Used Date Smoking Tobacco: Never Assessed Sex and Gender Information Value Date Recorded Sex Assigned at Not on file Gender Identity Not on file Sexual Orientation Not on file Plan of Treatment Not on file Care Teams Receiving Associate Store Relationship Specialty Start Date End Date Modesta Cook MD [address] [place] [address] PCP - General 02/16/22
--- OUTSIDE RECORDS SUMMARY | 2023-12-14 15:46 | XMS_ITS | Encounter Summary ---
Author Organization [facility] Address [facility] [place] [address] Care Team Providers Care Html Developer Name Role Phone Elmer Phillips MD, Fabrizio Primary Care Provider [phone] Encounter Details Date Type Department Care Team (Late st Contact Info) Description 04/27/2013 [place] [address] Fabrizio Crowley MD [facility] [address] Social History Tobacco Use Types Packs/Day Years [...] Diagnosis Comments FILM LIBRARY STORAGE ONLY CT ABDOMEN Routine 04/27/2013 11:52 AM EDT documented in this encounter Results * Film Library- Storage only CT Abdomen (04/27/2013 11:52 AM EDT) Anatomical Region Laterality Modality Abdomen Other 04/27/2013 11:5 2 AM EDT Narrative 05/18/2014 11:53 AM EDT This is a Non-reportable exam Procedure Note GAMALIEL, UNSIGNED REPORT - 05/18/2014 This is a Non-reportable exam Fabrizio Crowley MD [facility] FILM LIBRARY ORD ERABLES documented in this encounter Visit Diagnoses Not on filedocumented in this encounter Care Teams Html Developer Relationship Specialty Start Date End Date Fabrizio Payne MD [address] [place] [address] PCP - General 01/08/10 06/14/14 documented as of this encounter
--- OUTSIDE RECORDS SUMMARY | 2023-12-14 15:46 | XMS_ITS | Encounter Summary ---
Author Organization [facility] Address [facility] [address] [facility] [place] [address] Care Team Providers Care Typewriter Assembly And Parts Inspector Name Role Phone Nimisha Benson MD Primary Care Provider [phone] Encounter Details Date Type Department Care Team (Latest Contact Info) Description 09/15/2014 8:30 AM EDT - 09/15/2014 11:59 PM EDT Hospital [place] [address] CLINIC, Fabrizio Quinn MD [facility] [place] [address] Renal cancer, left Discharge Disposition: Home Social [...] file documented as of this encounter Discharge Summaries * Efrain Soler MD - 09/16/2014 3:25 PM EDT Inpatient - Discharge Summary Patient Name: Monique Barahona Patient Age: 54 Birthdate: [birth year] Admit date: 09/15/14 Discharge date and time: 09/16/14 Attending Physician: Conor Code Status: Full Code ID: Pt admitted for monitoring of hemodynamic status and blood counts post renal radiofrequency ablation Follow-up Recommendations for Providers: Pt to follow up in 2 months time for MRI and appointment with Dr. Perdomo *PENDING LABS: none Discharge Diagnoses (Hospital Problems) and Secondary Diagnoses (Chronic Problems): Renal Mass(Hospital problem) T7 vertebral compression fracture(secondary diagnosis) Procedures: RFA left renal mass History of Presentation (per @ADMITDT@ Admission H&P): 54 yr old F patient with an [...] [address] scans are available in [facility] for review, showing an approximately 12 mm enhancing lesion in the lower pole of the left kidney. She presents for image guided ablation. Hospital Course: Pt was admitted for observation to the Interventional Radiology Service on 09/15/14 in stable condition following an uneventful CT-guided radiofrequency ablation of the left renal mass under general anaesthesia. The patient had an uneventful recovery from general anesthesia in the PACU and was subsequently transferred to the Short Stay Unit for overnight observation, monitoring for postprocedural complication and pain control. The patient had an uneventful overnight course. The campos catheter was removed and a voiding trial was passed. The patient tolerating meals, ambulating and not requiring IV analgesics for pain control. Important Studies and Lab Data: Labs: Hgb on DC 12.1 Pertinent radiology/diagnostic studies: No diagnostic studies. See RFA procedure note above for details on image guided intervention. Discharge Conditions/Prognosis: Upon discharge the pt is hemodynamically stable, fully ambulatory without requiring supplemental oxygen, afebrile and pain free controlled with stable oral regimen Discharge to: home without services Instructions Given to Patient at Discharge: [facility] Vascular and Interventional Radiology Post-Radiofrequency Ablation Discharge Instructions ??? Renal RFA: Call your doctor immediately if you develop a sudden onset of weakness, increased pain or swelling at the RFA sites or heavy bleeding at the sites. Activity And Diet: ??? Go home and rest quietly for the remainder of the day. You may resume your normal activities tomorrow. ??? Resume your usual diet after the procedure. When to call your healthcare provider: ??? If you see any redness, swelling or drainage at the sites. ??? If you develop chills. ??? If you have a fever greater than or equal to 101 degrees Fahrenheit. ??? If you develop pain around the sites. Bandage: ??? Check the dressing/bandaid throughout the day for an increase in drainage. Keep the sites dry for 24 hours. You may shower 24 hours post-procedure. No soaking/tub baths for 1 week. After 24 hours, you may removed the dressings. Cleanse the sites with mild soap and water and keep covered with a band-aid until the skin heals. Medication: ??? DO NOT take aspirin-containing products, ibuprofen, or blood-thinning medication for the next 24 hours unless your doctor says you may do so. ??? Generally you may use acetaminophen as needed for discomfort unless you have liver disease and are instructed not to take acetaminophen. When to call the Interventional Radiology Department: Please call with any questions or concerns. If it is during regular office hours, please call [phone]. If it is after regular office hours, or on weekends or holidays, please call [phone] and ask to speak to the Security Installation Sales Technician construction crew member for Interventional Radiology. Efrain Soler IR Fellow Pager #[phone] documented in this encounter Medications at Time [...] 09/16/2014 12/11/2014 documented as of this encounter H&P Notes * Efrain Soler MD - 09/11/2014 1:00 PM EDT Images from the original note were not included. Interventional Radiology- Admission Note Patient Name: Monique Barahona : [id number] MR#: [id number] (Not on file) Problem List: There are no hospital problems to display for this patient. Active Non-Hospital Problems Diagnosis ??? Left renal mass Past Medical History: Asthma Past Surgical History: ~ 2011 Cholecystectomy ~ 2007 Appendectomy Allergies: No Known Allergies Family History: No family history on file. Current Outpatient Medications: Current Outpatient Prescriptions Ordered in [facility] Medication Sig Dispense Refill ??? omeprazole (PRILOSEC) 40 mg Capsule, Delayed Release(E.C.) Take 40 mg by mouth daily. Indications: Gastroesophageal Reflux No current [facility]-ordered facility-administered medications on file. Social History and Habits: Lives with elderly Father, and 2 grown sons, one of whom is mentally disabled but is independent with ADLs and household activities. History Social History ??? Marital Status: Spouse [...] ??? Not on file Social History Narrative History of Present Illness: From Dr. Perdomo's note, 54 yr old F patient with an [...] kidney. She presents for image guided ablation. HPI Review of Systems: Review of Systems MSK: Newly diagnosed compression fracture at T7 after lifting tables in late July resulting in painacross her mid-back along the bra line. Pain improves when she doesn't wear her bra. No activity limitation. No pain radiation. No paresthesias. Remainder of ROS is negative Physical Exam: pending 09/15 Last Set of Vitals and range of vitals over past 24 hours: Last value Range last 24 hrs Temperature Heart Rate Heart Rate: -- Blood Pressure BP: ()/() Respiratory Rate Resp: -- SpO2 SpO2: -- Physical Exam Laboratory (Last 24 Hours): Pending 09/15 Prior relevant imaging: Assessment/Plan: CT guided left renal radiofrequency ablation Patient Position: Prone with left side elevated approximately 60 degrees Biopsy/drain access site: LEFT flank Medications to discontinue (and days): [none] Labs: Pending General anesthesia required: Yes. ?? Admit to SSU/1W ([place]) ?? DVT Prophylaxis ?? Pain medication ?? Discussed Advanced Directives and Code Status. The patient wishes to be FULL CODE. EMELIA SALDANA APRN 09/11/2014 PRE-SEDATION ASSESSMENT / FOCUSED H&P Addendum: The patient's history and physical exam have been reviewed and completed. There has been no interval change from that of the pre-operative history and physical exam done within the last 30 days. Risks (including hemorrhage, infection, allergic reaction, occlusion, respiratory depression), and benefits discussed and patient consented to the procedure. I have reviewed with the patient, their prior experience with sedation. The patient has been NPO per protocol I have reviewed the sedation plan for this patient???s case and concur that Fentanyl and Versed areappropriate choices for sedation and will be provided per the protocoled order set for this case Physical Exam Heart: RRR Lungs: clear ASA Classification: ASA 3 - Patient with moderate systemic disease with functional limitations Mallampati Classification: II (soft palate, uvula, fauces visible) Efrain Soler MD IR Fellow Pager #[phone] documented in this encounter Procedure Notes * Richie Perdomo MD - 09/15/2014 10:35 AM EDT VIR PROCEDURE NOTE Procedure: Left Renal Mass CT guided Thermal (RFA) Ablation A [id number] Indication for Procedure: 54 yr old F [...] aspect of the lesion. A 3 cm Redknee RF probe was selected and inserted through the coaxial needle. The tines were deployed and position confirmed with further axial CT images. The lesion was then ablatedaccording to top lifter's protocol. A second, overlapping ablation was performed after slight repo sitioning of the probe. The probe was removed (low power track ablation performed). Post RFA imagesshow no significant perirenal hematoma or pneumothorax. The patient was then transferred to PACU for recovery. She will be admitted overnight for monitoring of potential bleeding/hematuria. Medications: cefazolin 1 gm; GETA by the Anesthesia Service Contrast: 110 cc. Omni 350. Est Blood Loss: <5cc. Complications: None immediate Impression: Left renal mass CT guided RF ablation. No immediate complications. Plan: The patient was transferred to PACU for recovery. She will be admitted overnight to the IR service for monitoring of potential bleeding/hematuria. Follow-up imaging and clinic visit in 2 months. Fellow: Efrain Soler MD (pager #[phone]) Attending: Juan Perdomo MD (I was present and scrubbed for the entire procedure) documented in this encounter Plan of Treatment Not on file documented as of this encounter Procedures Procedure Name Priority Date/Time Associated Diagnosis Comments CT ABLATION, ONE OR MORE RENAL TUMORS, PERC, UNILAT RADIOFREQUENCY Routine 09/15/2014 10:46 AM EDT Renal cancer, left documented in [...] 2 months. Fellow: Efrain Soler MD (pager #[phone]) Attending: Juan Perdomo MD (I was present and scrubbed for the entire procedure) Film and interpretation reviewed by the attending Narrative 09/18/2014 10:32 AM EDT VIR PROCEDURE NOTE Procedure: Left Renal Mass CT guided Thermal (RFA) Ablation A [id number] Indication for Procedure: 54 yr old F [...] aspect of the lesion. A 3 cm [employer] LaVeen RF probe was selected and inserted through the coaxial needle. The tines were deployed and position confirmed with further axial CT images. The lesion was then ablated according to top lifter's protocol. A second, overlapping ablation was performed [...] Mass CT guided Thermal (RFA) Ablation A [id number] Indication for Procedure: 54 yr old F [...] aspect of the lesion. A 3 cm [employer] LaVeen RF probe was selected and inserted throughthe coaxial needle. The tines were deployed and position confirmed withfurther axial CT images. The lesion was then ablated according to top lifter's protocol. A second, overlapping ablation was performed [...] 2 months. Fellow: Efrain Soler MD (pager #[phone]) Attending: Juan Perdomo MD (I was present and scrubbed for the entire procedure) Film and interpretation reviewed by the attending Fabrizio Crowley MD IMG CT ORDERABLES documented in this encounter Visit Diagnoses Diagnosis Renal cancer, left documented in this encounter Administered Medications Inactive Administered Medications - up to 3 most recent administrations Medication Order MAR Action Action Date Dose Rate Site iohexol (OMNIPAQUE) 350 mg/mL solution 38,500 mg 38,500 mg (110 mL), Intravenous, ONCE PRN, 1 dose, Starting on Thu09/15/14 at 0920, Until Thu09/15/14 at 1000, Per Protocol, Routine Given 09/15/2014 10:00 AM EDT 38,500 mg documented in this encounter Care Teams Typewriter Assembly And Parts Inspector Relationship Specialty Start Date End Date Nimisha Benson MD [address] [facility] [address] [place] [address] PCP - General 06/15/14 10/27/21 documented as of this encounter
--- OUTSIDE RECORDS SUMMARY | 2023-12-14 15:46 | XMS_ITS | Clinical Summary ---
Author Organization [facility] Address [address] [place] [address] Care Team Providers Care Weighbridge Operator Name Role Phone Modesta Cook MD Primary Care Provider [phone] Social History Tobacco Use Types Packs/Day Years Used Date Smoking Tobacco: Never Assessed Sex and Gender Information Value Date Recorded Sex Assigned at Not on file Gender Identity Not on file Sexual Orientation Not on file Plan of Treatment Health Maintenance Due Date Last Done Comments Hepatitis C Screen 1960 RSV Immunization ( o r 60+ Years) (1 - 1-dose 60+ series) 2018 COVID-19 Vaccine (2022-24 season) 2022 Fall Risk Screening 2023 Care Teams Weighbridge Operator Relationship Specialty Start Date End Date Modesta Cook MD [address] [place] [address] [address] [place] [id number] PCP - General 02/16/22
--- OUTSIDE RECORDS SUMMARY | 2023-12-14 15:46 | XMS_ITS | Encounter Summary ---
Author Organization [facility] Address [address] [place] [address] Care Team Providers Care Police Or Patrol Park Officer Name Role Phone Cora Deluca NP Primary Care Provider [phone] Encounter Details Date Type Department Care Team ([facility] st Contact Info) Description 12/13/2018 Results Only [facility] [phone] Rodney Benson MD [address] [place] [phone] Social History Tobacco Use Types Packs/Day Years Used Date Smoking Tobacco: Never Assessed Sex and Gender Information Value Date Recorded Sex Assigned at Not on file Gender Identity Not on file Sexual Orientation Not on file documented as of this encounter Plan of Treatment Not on file documented as of this encounter Procedures Procedure Name Priority Date/Time Associated Diagnosis Comments PAP TEST- RESULT ONLY Routine 12/13/2018 0:00 EDT documented in this encounter Results * PAP TEST- RESULT ONLY (12/13/2018 0:00 EDT) Pathology Report: CYTOPATHOLOGY REPORT Reports generated via electronic interface contain original data; however they are lacking the format of the original report. Caution should be taken when reading/interpreti ng unformatted reports. Name: ? MONIQUE CLAYTON ? Accession #: ? [id number] ? : ? 1960 (Age: 58) ??F ?Collect Date: ? 12/13/2018 ? Location: ? [facility] ? Receive Date: ? 12/14/2018 ? Provider: RODNEY BENSON MD Copy to: ? Final Report SPECIMEN ADEQUACY ? Satisfactory for Evaluation - transformation zone component present GENERAL CATEGORIZATION ? Negative for Intraepithelial Lesion or Malignancy ?? Menstrual/Pregnanc y Status: ??Post Menopausal Specimen/Source: ??Pap Test, Cervix/Endocervix, ThinPrep Imaging System with manual evaluation Document reviewed and electronically signed by: ? ALMA ROSA Bruno(ASCP) ? Report ??Date: 12/16/2018 10:25 HPV with Pap Test ? Date Ordered: ? 12/16/2018 ? Status: ?? Signed Out ?Date Complete: ? 12/17/2018 ? By: ??System Interface ? Date Reported: ? 12/17/2018 ? Interpretation RESULT: Negative for HPV. No E6 or E7 mRNA is detected from HPV types 16,18,31,33,35, 39,45,51,52,56,58, 59,66, and 68 by plaque maker mediated amplification. Comments Document reviewed and electronically signed by: ? System Interface ? Report date: 12/17/2018 By the signature above, the attending physician certifies that he/she has personally conducted a gross and/or microscopic examination of the described specimens and rendered or confirmed the above diagnosis. End of Report [facility] 12/13/2018 12/14/2018 Rodney Benson MD PATHOLOGY ORDERABLE S [facility] [address] [place] [address] documented in this encounter Visit Diagnoses Not on filedocumented in this encounter Care Teams Police Or Patrol Park Officer Relationship Specialty Start Date End Date Cora Deluca NP [address] [place] [address] PCP - General 09/13/10 02/15/22 documented as of this encounter
--- OUTSIDE RECORDS SUMMARY | 2023-12-14 15:46 | XMS_ITS | Encounter Summary ---
Author Organization [facility] Address [facility] [place] [address] Care Team Providers Care Assembler Chassis Name Role Phone Elmer Phillips MD, Fabrizio Primary Care Provider [phone] Encounter Details Date Type Department Care Team (Late st Contact Info) Description 12/09/2013 Orders [place] [address] Fabrizio Crowley MD [facility] [place] [address] Social History Tobacco Use Types Packs/Day Years [...] FILM LIBRARY STORAGE ONLY CT ABDOMEN Routine 12/09/2013 11:54 AM EDT documented in this encounter Results * Film Library- Storage only CT Abdomen (12/09/2013 11:54 AM EDT) Anatomical Region Laterality Modality Abdomen Other 12/09/2013 11:5 4 AM EDT Narrative 05/18/2014 11:55 AM EDT This is a Non-reportable exam Procedure Note GAMALIEL, UNSIGNED REPORT - 05/18/2014 This is a Non-reportable exam Fabrizio Crowley MD [facility] FILM LIBRARY ORD ERABLES documented in this encounter Visit Diagnoses Not on filedocumented in this encounter Care Teams Assembler Chassis Relationship Specialty Start Date End Date Fabrizio Payne MD [address] [place] [address] PCP - General 01/08/10 06/14/14 documented as of this encounter
--- OUTSIDE RECORDS SUMMARY | 2023-12-14 15:46 | XMS_ITS | Encounter Summary ---
Author Organization [facility] Address [address] [place] [address] Care Team Providers Care Plant Breeder Scientist Name Role Phone Unknown, Provider Primary Care Provider [phone] Encounter Details Date Type Department Care Team ([facility] st Contact Info) Description 09/11/2010 Results Only [facility] [phone] Jacoby Lau, DO [address] [place] [address] Social History Tobacco Use Types Packs/Day Years Used Date Smoking Tobacco: Never Assessed Sex and Gender Information Value Date Recorded Sex Assigned at Not on file Gender Identity Not on file Sexual Orientation Not on file documented as of this encounter Plan of Treatment Not on file documented as of this encounter Procedures Procedure Name Priority Date/Time Associated Diagnosis Comments SURGICAL PATHOLOGY Routine 09/11/2010 0:00 EDT documented in this encounter Results * SURGICAL PATHOLOGY (09/11/2010 0:00 EDT) Pathology Report: SURGICAL PATHOLOGY REPORT ? Reports generated via electronic interface contain original data; ? however they are lacking the format of the original report. ? Caution should be taken when reading/interpreti ng unformatted reports. ? Name: ? MONIQUE PARHAM ? Accession #: ? [id number] ? : ? 1960 (Age: 50) ??F ?Collect Date: ? 09/11/2010 ? Location: ? [facility] ? Receive Date: ? 09/11/2010 ? Provider: JACOBY LAU DO ? Copy to: ANNELIESE KOSHOWSKI ELECTRONICS ASSEMBLER ? Addendum ? Date Ordered: ? 09/16/2010 ? Status: Signed Out ? Date Complete: ? 09/16/2010 ? By: Diana L. Brown ? Date Reported: ? 09/17/2010 ? Addendum Diagnosis ? GALLBLADDER, CHOLECYSTECTOMY: ? 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 ? 2. ? Cholelithiasis. ? 3. ? Margins viable. ? Addendum Comment ? The original report of 7/29/11 did not list the tissue site which is ? documented in this addendum report. ? Document reviewed and electronically signed by: ? GRABIEL CIAMPA MD ? Report date: 09/17/2010 ? By the signature above, the attending physician certifies that he/she has ? personally conducted a gross and/or microscopic examination of the described ? specimens and rendered or confirmed the above diagnosis. ? Final Report ? Final Pathologic Diagnosis: ? 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 ? 2. ? Cholelithiasis. ? 3. ? Margins viable. ? Gross Description: ? Received in formalin labelled Monique Parham and gallbladder is a 10.0 cm in length by 3.0 cm in diameter gallbladder received closed which ? includes a 1.2 cm in length by 0.4 cm in diameter cystic duct (proximal cystic ?? duct margin is black-inked). ??The gallbladder contains numerous dozens of yellow multinodular pure-type choleliths which range in diameter from 0.4 cm to 0.1 cm. A few of these choleliths are present within the cystic duct. ??The gallbladder mucosa is garcia-dark green, bile stained and velvety. ??The gallbladder wall ? measures 0.1 cm in thickness while the serosa is garcia-house and smooth. ??The ? cystic duct margin (black-inked and en face) along with a section of upper ? gallbladder and a section of lower gallbladder, are submitted in one cassette. ?? (Gypsy Elmore)/mpl ? Clinical History: ? Symptomatic cholelithiasis ? Specimens Received: ? Gallbladder ? Document reviewed and electronically signed by: ? GRABIEL CIAMPA MD ? Report ??Date: 09/13/2010 15:00 ? By the signature above, the attending physician certifies that he/she has ? personally conducted a gross and/or microscopic examination of the described ? specimens and rendered or confirmed the above diagnosis. ? End of Report ? [facility] 09/11/2010 09/11/2010 15: 41 EDT Jacoby Lau DO PATHOLOGY ORDERABLES [facility] [address] [place] [address] documented in this encounter Visit Diagnoses Not on filedocumented in this encounter Care Teams Plant Breeder Scientist Relationship Specialty Start Date End Date Unknown, Provider, PCP - General 08/03/09 09/12/10 documented as of this encounter
--- OUTSIDE RECORDS SUMMARY | 2023-12-14 15:46 | XMS_ITS | Encounter Summary ---
Author Organization [facility] Address [address] [place] [address] Care Team Providers Care Aba Therapist Name Role Phone Cora Deluca NP Primary Care Provider [phone] Encounter Details Date Type Department Care Team ([facility] st Contact Info) Description 08/22/2015 Results Only [facility] [phone] Rodney Benson MD [address] [place] [id number] Social History Tobacco Use Types Packs/Day Years [...] Diagnosis Comments PAP TEST- RESULT ONLY Routine 08/22/2015 0:00 EDT documented in this encounter Results * PAP TEST- RESULT ONLY (08/22/2015 0:00 EDT) Pathology Report: CYTOPATHOLOGY REPORT Reports generated via electronic interface contain original data; however they are lacking the format of the original report. Caution should be taken when reading/interpreti ng unformatted reports. Name: ? MONIQUE CLAYTON ? Accession #: ? [id number] ? : ? 1960 (Age: 55) ??F ?Collect Date: ? 08/22/2015 ? Location: ? [facility] ? Receive Date: ? 08/23/2015 ? Provider: RODNEY BENSON MD Copy to: ? Final Report SPECIMEN ADEQUACY ? Satisfactory for Evaluation - assessment of transformation zone component not applicable ( e.g. atrophy, vaginal sample, hysterectomy) GENERAL CATEGORIZATION ? Negative for Intraepithelial Lesion or Malignancy ?? Menstrual/Pregnanc y Status: ??Menopausal Specimen/Source: ??Pap Test, Endocervix, ThinPrep Imaging System with manual evaluation Document reviewed and electronically signed by: ? Carolynn Kaur, CT(ASCP) ? Report ??Date: 09/04/2015 08:51 HPV with Pap Test ? Date Ordered: ? 09/04/2015 ? Status: ?? Signed Out ?Date Complete: ? 09/06/2015 ? By: ??System Interface ? Date Reported: ? 09/06/2015 ? Interpretation RESULT: Negative for HPV. No E6 or E7 mRNA is detected from HPV types 16,18,31,33,35, 39,45,51,52,56,58, 59,66, and 68 by naphthalene operator helper mediated amplification. Comments Document reviewed and electronically signed by: ? System Interface ? Report date: 09/06/2015 By the signature above, the attending physician certifies that he/she has personally conducted a gross and/or microscopic examination of the described specimens and rendered or confirmed the above diagnosis. End of Report [facility] 08/22/2015 08/23/2015 Rodney Benson MD PATHOLOGY ORDERABLE S [facility] [address] [place] [address] documented in this encounter Visit Diagnoses Not on filedocumented in this encounter Care Teams Aba Therapist Relationship Specialty Start Date End Date Cora Deluca NP [address] [place] [address] PCP - General 09/13/10 02/15/22 documented as of this encounter
--- OUTSIDE RECORDS SUMMARY | 2023-12-14 15:46 | XMS_ITS | Encounter Summary ---
Author Organization [facility] Address [address] [place] [address] Care Team Providers Care Manager Gas Name Role Phone Cora Deluca NP Primary Care Provider [phone] Modesta Cook MD Primary Care Provider [phone] Encounter Details Date Type Department Care Team ([facility] Contact Info) Description 02/25/2020 Lab Requisition [facility] Pathology & Laboratory Medicine - [address] [address] Outr Resulting Lab, Provider Social History Tobacco Use Types Packs/Day Years Used Date Smoking Tobacco: Never Assessed Sex and Gender Information Value Date Recorded Sex Assigned at Not on file Gender Identity Not on file Sexual Orientation Not on file documented as of this encounter Plan of Treatment Not on file documented as of this encounter Procedures Procedure Name Priority Date/Time Associated Diagnosis Comments ZZCOVID-19 TEST [facility] PCR Today 02/25/2020 12:25 EST COVID-19 TESTING Routine 02/25/2020 12:2 5 EST documented in this encounter Results * COVID-19 TEST [facility] PCR (02/25/2020 12:25 EST) Swab ENTIRE NASOPHARYNX / Unknown 02/25/2020 12:25 EST 02/25/2020 21:33 EST Provider Outr Resulting Lab MICROBIOLOGY - GENERAL ORDERABLES [facility] [address] [place] [address] * COVID-19 TESTING (02/25/2020 12:25 EST) COVID-19 rt-PCR Result Negative Negative 02/26/2020 1:44 EST [facility] Comment: This test has not been FDA cleared or approved. This test has been authorized by FDA under an EUA for use by authorized laboratories. This test has been authorized only for detection of nucleic acid from 2019-nCoV, not for any other viruses or pathogens. This test is only authorized for the duration of the declaration that circumstances exist justifying the authorization of emergency use of in vitro diagnostic tests for detection and/or diagnosis of 2019-nCoV under section 564(b)(1) of Act, 21 U.S.C ?? 360bbb-3(b) (1), unless the authorization is terminated or revoked sooner. Negative results do not preclude 2019-nCoV infection and should not be used as the sole basis for treatment or other patient management decisions. Negative results must be combined with clinical observations, patient history, and epidemiological information. Performed on the FinalCADher Fusion instrument Performing Lab [place] [facility] 02/26/2020 1:44 EST [facility] Swab 02/25/2020 12:2 5 EST 02/25/2020 21:33 EST Provider Outr Resulting Lab MICROBIOLOGY - GENERAL ORDERABLES [facility] [address] [place] [address] documented in this encounter Visit Diagnoses Not on filedocumented in this encounter Care Teams Manager Gas Relationship Specialty Start Date End Date Cora Deluca NP [address] [place] [address] PCP - General 09/13/10 02/15/22 Modesta Cook MD [address] [place] [id number] PCP - General 02/16/22 documented as of this encounter
--- OUTSIDE RECORDS SUMMARY | 2023-12-14 15:46 | XMS_ITS | Encounter Summary ---
Author Organization [facility] [place] [address] Care Team Providers Care Field Return Repairer Name Role Phone Nimisha Benson MD Primary Care Provider [phone] Encounter Details Date Type Department Care Team (Late st Contact Info) Description 07/17/2014 Orders [place] [phone] Omid Santana MD [facility] [place] [address] Social History Tobacco Use Types Packs/Day Years [...] on filedocumented in this encounter Care Teams Field Return Repairer Relationship Specialty Start Date End Date Nimisha Benson MD [address] [place], [place] [phone] PCP - General 06/15/14 10/27/21 documented as of this encounter
--- OUTSIDE RECORDS SUMMARY | 2023-12-14 15:46 | XMS_ITS | Encounter Summary ---
Author Organization [facility] Address [facility] [place] [address] Care Team Providers Care Licensed Pharmacist Name Role Phone Nimisha Benson MD Primary Care Provider Encounter Details Date Type Department Care Team (Late st Contact Info) Description 09/15/2014 8:30 AM EDT - 09/15/2014 12:50 [place] [address] Richie Perdomo MD [facility] DIAGNOSTIC [place] [address] RADIOFREQUENCY ABLATION-RENAL Social History Tobacco Use Types Packs/Day Years [...] it's during regular office hours, please call [phone].If it is after regular office hours, weekends or holidays, please call [phone] and ask to speak to the Marketing Intelligence Manager operations general agent for Dr. Perdomo. documented in this encounter [...] Soler MD - 09/16/2014 7:40 AM EDT [facility] Daily Progress Note Admitted 09/15/2014 Procedure: [...] ??? sodium chloride 0.9% 75 mL/hr (09/15/14 7878) PRN medications: sodium chloride 0.9 %, lidocaine, [...] fracture. Efrain Soler MD IR Fellow Pager #[phone] * Jennifer Medina, RN - 09/16/2014 2:45 [...] (s) achieved Date Met: 09/16/14 09/16/14 101 Individualization Patient Specific Goals discharge to home [...] will pick pt. up @ 0900 from [facility] -- Self-Care Equipment Currently Used at Home [...] as Appropriate) 09/15/14 1145 09/15/14 2100 09/15/14 1207 Safety Interventions Safety Precautions/Fall Reduction -- bed [...] will pick pt. up @ 0900 from [facility] Self-Care Equipment Currently Used at Home none [...] ORDERABLE S CERNER MILLENNIUM * (ABNORMAL) Hemogram (09/15/2014 6:54 [...] Richie Perdomo MD HEMATOLOGY ORDERABLE S CERJULISA MILLENNIUM * Prothrombin Time (09/15/2014 6:54 AM EDT) Prothrombin Time 12.0 12.0 - 15.0 sec CERNER MILLENNIUM Comment: Transfusion Committee Guidelines: INR less than 2.0, PTT less than OR equal to 43.5 seconds, or Fibrinogen greater than or equal to 100 mg/dl indicate adequate procoagulant activity for hemostasis in patients without underlying bleeding disorders. International Normalization Ratio 0.9 0.9 - 1.1 RAFA PACHECO Blood specimen (specimen) 09/15/2014 6:54 AM EDT 09/15/2014 7:08 AM EDT Narrative Resulting Agency Comment Spec In Lab Richie Perdomo MD HEMATOLOGY ORDERABLE S Performing Organization Address [facility] de Phone Number RAFA PACHECO * (ABNORMAL) Creatinine (09/15/2014 6:54 AM EDT) Creatinine 0.54(L) 0.70 - 1.20 mg/dL [facility] Comment: Please note that the pediatric reference intervals supplied above were not validated at [facility]. Results from pediatric patients should be interpreted in conjunction to the patient's age, height and muscle mass. Est Glomerular Filtration Rate >60 >=60 RAFA PACHECO Comment: This estimated GFR (eGFR) value was [...] the following links into your internet browser. [email or web address] Blood specimen (specimen) 09/15/2014 6:54 AM EDT 09/15/2014 7:08 AM EDT Narrative Resulting Agency Comment Spec In Lab Richie Perdomo MD CHEMISTRY ORDERABLES Performing Organization Address [facility] de Phone Number RAFA PACHECO * (ABNORMAL) BUN (09/15/2014 6:54 AM EDT) Blood Urea Nitrogen 7(L) 8 - 18 mg/dL CERNER MILLENNIUM Blood specimen (specimen) 09/15/2014 6:54 AM EDT 09/15/2014 7:08 AM EDT Narrative Resulting Agency Comment Spec In Lab Richie Perdomo MD CHEMISTRY ORDERABLES Performing Organization Address [facility] Co de Phone Number RAFA TAYLORIUM * Electrolytes panel (09/15/2014 6:54 AM [...] Perdomo MD CHEMISTRY ORDERABLES Performing Organization Address [facility] de Phone Number RAFA PACHECO [...] Routine documented in this encounter Care Teams Licensed Pharmacist Relationship Specialty Start Date End Date Nimisha Benson MD [address] [place] [address] PCP - General 06/15/14 10/27/21 documented as of this encounter
== END 2023-12-14 16:01 ==
LOC: DI 15:42
PROVIDERS: PCP Family Medicine; Visit Provider Nurse Practitioner Family
DX: R07.81 Pleurodynia (principal); R05.9 Cough, unspecified
CPT/HCPCS: 71046; 71100

== ENCOUNTER 2024-07-29 01:29 | Outpatient (CLI) | payer OTHER, SELFPAY ==
--- NOTE | 2024-07-29 07:45 | DI.MAMMO_ITS ---
Exam(s) MAMMO SCREENING EXAM: MAMMO SCREENING CLINICAL HISTORY: screening,z12.39. TECHNIQUE: Bilateral full field digital CC and MLO mammographic images were obtained with 3D tomosynthesis and utilizing computer aided detection (CAD). COMPARISON: Prior mammograms were reviewed. FINDINGS: There has been no significant change in the appearance and distribution of the fibroglandular tissue. No new left breast findings. Asymmetric density in the immediate retroareolar region of the right breast is unchanged from 2020. There are no new spiculated masses nor new malignant appearing microcalcification groups. There is no significant architectural distortion nor skin thickening-retraction. IMPRESSION: Stable benign-appearing findings. No radiographic evidence of malignancy. BI-RADS Category 2 - Benign Findings Breast Density - Category A - The breast are almost entirely fatty. Breast density Category C or D implies that the patient has dense breast tissue. Dense breast tissue can make it harder to find cancer on a mammogram. Dense breast tissue is also associated with an increased risk of breast cancer. This information about the result of the mammogram report was provided to the patient to raise their awareness. Use this report when you speak with the patient about their risks for breast cancer, which includes their family history. At that time, you may recommend additional screening tests (Ultrasound or MRI) as these tests may add significant information. A negative radiographic report should not delay biopsy if a dominant or clinically suspicious mass is present. Up to ten percent of cancers are not identified on mammography. A negative report may reinforce clinical impression. Adenosis and dense breasts may obscure an underlying neoplasm. False positive reports average 6 to 10%. Patient will receive a letter notifying them of these results.
== END 2024-07-29 01:49 ==
LOC: DI 01:29
PROVIDERS: PCP Family Medicine; Visit Provider Family Medicine
DX: Z12.31 Encounter for screening mammogram for malignant neoplasm of breast (principal); R92.313 Mammographic fatty tissue density, bilateral breasts; D24.1 Benign neoplasm of right breast
CPT/HCPCS: 77063; 77067

== ENCOUNTER 2024-07-29 01:44 | Outpatient (CLI) | payer OTHER, SELFPAY ==
[2024-07-29 14:35] LABS: ALT 19 U/L (14-59); AST 14 U/L (15-37); Albumin 3.3 g/dL (3.4-5.0); Alkaline Phosphatase 97 U/L (46-116); Anion Gap 4.8 mmol/L (3-11); BUN 9 mg/dL (7-18); Bilirubin, Total 0.2 mg/dL (0.2-1.0); CO2 33.2 mmol/L (21.0-32.0); CREATININE 0.8 mg/dL (0.55-1.02); Calcium 8.9 mg/dL (8.5-10.1); Calculated LDL 107 mg/dL (<100); Chloride 102 mmol/L (98-107); Cholesterol 212 mg/dL (<200); Estimated GFR 81.21 (mL/min/1.73m2); Glucose 99 mg/dL (74-106); HDL Cholesterol 70 mg/dL (>or=50); Potassium 3.6 mmol/L (3.5-5.1); Sodium 140 mmol/L (136-145); Total Protein 6.9 g/dL (6.4-8.2); Triglyceride 175 mg/dL (<150); Vitamin B12 1243 pg/mL (193-986)
== END 2024-07-29 01:45 | disposition home or self-care (01) ==
LOC: LBO 01:44
PROVIDERS: PCP Family Medicine; Visit Provider Family Medicine
DX: I10 Essential (primary) hypertension (principal); R63.4 Abnormal weight loss; K29.60 Other gastritis without bleeding; C64.9 Malignant neoplasm of unspecified kidney, except renal pelvis
CPT/HCPCS: 36415; 80053; 80061; 82607

== ENCOUNTER 2025-02-07 11:35 | Outpatient (CLI) | payer OTHER, SELFPAY ==
--- NOTE | 2025-02-07 11:30 | RT.EKG_ITS ---
APPROVED REPORT Exam: Resting ECG Reason for Exam: pre op Patient Location: O HR:76 bpm ECG Measurements Heart Rate 76 AXIS MS 137 P 71 QRSd 86 QRS 57 QT 373 T 58 QTc 420 Conclusion Sinus rhythm...normal P axis, V-rate 50- 99 Normal Electrocardiogram
== END 2025-02-07 11:36 | disposition home or self-care (01) ==
LOC: DI.CM 11:35
PROVIDERS: PCP Family Medicine; Visit Provider Family Medicine
DX: Z01.818 Encounter for other preprocedural examination (principal)
CPT/HCPCS: 93010